=== PATIENT | male | born 1945 | race Caucasian/White ===

== ENCOUNTER → 2018-01-04 07:54 | Outpatient (CLI) | payer MEDICARE, BC, SELFPAY ==
[2018-01-04 10:19] LABS: Alanine Aminotransferase 38 IU/L (21-72); Albumin Globulin Ratio 1.7 (1.0-2.8); Alkaline Phosphatase 70 U/L (38-126); Aspartate Aminotransferase 30 IU/L (17-59); BUN Creatinine Ratio 23.8 (6-22); Bilirubin Total 0.8 mg/dL (0.2-1.3); Blood Urea Nitrogen 19 mg/dL (9-20); Calcium 9.6 mg/dL (8.4-10.2); Carbon Dioxide 32 mmol/L (22-32); Chloride 101 mmol/L (98-107); Cholesterol 156 mg/dL (140-199); Estimated Glomerular Filt Rate > 60.0 mL/min (>60); Globulin 2.3 g/dL (1.7-4.1); Glucose 92 mg/dL (80-110); HDL Cholesterol 69 mg/dL (40-60); HEMOLYSIS < 15 (0-50); LDL Cholesterol Calculated 73 mg/dL (<100); Potassium 4.3 mmol/L (3.4-5.1); Sodium 140 mmol/L (137-145); Total Protein 6.3 g/dL (6.3-8.2); Triglycerides 69 mg/dL (35-150)
[2018-01-04 10:40] LABS: Prostate Specific Antigen 0.095 ng/mL (0.10-4.00)
== END ==
PROVIDERS: PCP Internal Medicine; Visit Provider Internal Medicine
DX: Z12.5 Encounter for screening for malignant neoplasm of prostate (principal); E29.1 Testicular hypofunction; E78.2 Mixed hyperlipidemia
CPT/HCPCS: 36415; 80053; 80061; 84153

== ENCOUNTER → 2019-01-22 07:46 | Outpatient (CLI) | payer MEDICARE, BC, SELFPAY ==
[2019-01-22 09:24] LABS: Alanine Aminotransferase 32 IU/L (21-72); Albumin Globulin Ratio 1.6 (1.0-2.8); Alkaline Phosphatase 66 U/L (38-126); Aspartate Aminotransferase 33 IU/L (17-59); BUN Creatinine Ratio 27.1 (6-22); Blood Urea Nitrogen 19 mg/dL (9-20); Calcium 9.8 mg/dL (8.4-10.2); Carbon Dioxide 30 mmol/L (22-32); Chloride 102 mmol/L (98-107); Cholesterol 164 mg/dL (140-199); Estimated Glomerular Filt Rate > 60.0 mL/min (>60); Globulin 2.5 g/dL (1.7-4.1); Glucose 96 mg/dL (80-110); HDL Cholesterol 72 mg/dL (40-60); HEMOLYSIS < 15 (0-50); LDL Cholesterol Calculated 80 mg/dL (<100); Potassium 4.2 mmol/L (3.4-5.1); Sodium 139 mmol/L (137-145); Total Protein 6.5 g/dL (6.3-8.2); Triglycerides 59 mg/dL (35-150)
[2019-01-22 09:52] LABS: Prostate Specific Antigen 0.139 ng/mL (0.10-4.00)
== END ==
PROVIDERS: PCP Internal Medicine; Visit Provider Internal Medicine
DX: E29.1 Testicular hypofunction (principal)
CPT/HCPCS: 36415; 80053; 80061; 84153

== ENCOUNTER → 2019-05-04 13:34 | Outpatient (CLI) | payer MEDICARE, BC, SELFPAY ==
--- NOTE | 2019-05-04 | DI.MRI.S_ITS ---
PROCEDURE: MR KNEE LT WO CON INDICATIONS: Left knee pain TECHNIQUE: Noncontrast sagittal PD fast spin echo and T2 fast spin echo with fat saturation, sagittal 3-D FLASH with fat saturation; coronal T1 spin echo and PD fast spin echo with fat saturation, and axial PD fast spin echo with fat saturation through the knee. COMPARISON: [facility], MR, KNEE WITHOUT CONTRAST, 07/01/2016, 7:33. [facility] [place], CR, XR KNEE ARTHRITIC SERIES LT, 01/08/2019, 9:23. FINDINGS: Image quality: Excellent. Menisci: There is amorphous high signal intensity within the medial meniscal body, demonstrating superior articular surface extension. Previously seen tearing of the posterior horn medial meniscus is less apparent. There is degenerative fraying of the free edge of the posterior horn medial meniscus. Lateral meniscus demonstrates intrameniscal high signal intensity within the body, without articular surface extension, compatible with myxoid degeneration. Cruciate ligaments: The anterior and posterior cruciate ligaments appear intact. Medial structures: The medial collateral ligament appears intact. Visualized portions of the pes anserinus tendons appear normal. No abnormal bursal fluid. Lateral structures: The lateral collateral ligament, long and short heads of the biceps femoris tendon appear intact. The popliteus tendon appears normal. Iliotibial band appears normal. Anterior structures: The quadriceps and patellar tendons appear intact. Patellar alignment is normal. No femoral trochlear dysplasia or ventral trochlear prominence. No edema in the infrapatellar fat pad. Bones and cartilage: No bone marrow contusions or fractures. There is mild tricompartmental periarticular osteophyte formation. Severe articular cartilage loss overlies the weightbearing aspects of the medial femoral condyle and medial tibial plateau. Mild articular cartilage loss overlies the weightbearing aspects of the lateral femoral condyle and lateral tibial plateau. Joint space: There is a small knee joint effusion. Trace Barton's cyst. Normal appearing synovial plicae are incidentally noted. IMPRESSION: 1. Medial meniscal tearing. 2. Tricompartmental osteoarthritis with associated articular cartilage loss. 3. Knee joint effusion and trace Barton's cyst. Dictated by: Ritchie Stearns M.D. on 05/04/2019 at 14:48 Approved by: Ritchie Stearns M.D. on 05/04/2019 at 14:51
== END ==
PROVIDERS: PCP Internal Medicine; Visit Provider Orthopaedic Surgery
DX: S83.242A Other tear of medial meniscus, current injury, left knee, initial encounter (principal); M17.12 Unilateral primary osteoarthritis, left knee; M25.462 Effusion, left knee
CPT/HCPCS: 73721

== ENCOUNTER → 2020-04-07 07:44 | Outpatient (CLI) | payer MEDICARE, BC, SELFPAY ==
[2020-04-07 08:56] LABS: Alanine Aminotransferase 29 IU/L (<50); Albumin 3.9 g/dL (3.5-5.0); Albumin Globulin Ratio 1.6 (1.0-2.8); Alkaline Phosphatase 72 U/L (38-126); Aspartate Aminotransferase 31 IU/L (17-59); BUN Creatinine Ratio 26.3 (6-22); Bilirubin Total 0.7 mg/dL (0.2-1.3); Blood Urea Nitrogen 20 mg/dL (9-20); Calcium 9.5 mg/dL (8.4-10.2); Carbon Dioxide 31 mmol/L (22-32); Chloride 103 mmol/L (98-107); Cholesterol 157 mg/dL (140-199); Estimated Glomerular Filt Rate > 60.0 mL/min (>60); Globulin 2.4 g/dL (1.7-4.1); Glucose 97 mg/dL (80-110); HDL Cholesterol 66 mg/dL (40-60); HEMOLYSIS < 15 (0-50); LDL Cholesterol Calculated 74 mg/dL (<100); Potassium 4.2 mmol/L (3.4-5.1); Sodium 138 mmol/L (137-145); Total Protein 6.3 g/dL (6.3-8.2); Triglycerides 83 mg/dL (35-150)
[2020-04-07 09:27] LABS: Prostate Specific Antigen Scrn 0.099 ng/mL (0.1-4.0)
== END ==
PROVIDERS: PCP Internal Medicine; Referring Provider Internal Medicine; Visit Provider Internal Medicine
DX: E29.1 Testicular hypofunction (principal); E78.2 Mixed hyperlipidemia; J45.909 Unspecified asthma, uncomplicated; N13.8 Other obstructive and reflux uropathy; N40.1 Benign prostatic hyperplasia with lower urinary tract symptoms; Z12.5 Encounter for screening for malignant neoplasm of prostate
CPT/HCPCS: 36415; 80053; 80061; G0103

== ENCOUNTER 2021-03-19 10:30 | Outpatient (RCR) | payer MEDICARE, BC, SELFPAY ==
--- NOTE | 2020-11-12 17:23 | PT.OIE ---
Current Diagnoses Bilateral primary osteoarthritis of knee (11/12/20) Difficulty in walking, not elsewhere classified (11/12/20) Other abnormalities of gait and mobility (11/12/20) Weakness (11/12/20) Past Medical History (Last Updated 01/18/20 @ 16:42 by Juan Carlos Cesar MD) BPH w urinary obs/LUTS (~2018) Diverticulosis of large intestine (09/02/11) Gynecomastia, male Hayfever Hearing loss (09/02/11) History of adenomatous polyp of colon (10/2015) Hives Hypogonadism in male Mixed hyperlipidemia (10/21/15) Osteoporosis Past Surgical History (Last Updated 01/16/18 @ 15:35 by Vandana Rubio) History of colonoscopy with polypectomy (10/2015) History of reduction mammoplasty Visit Care Team Role Provider Type Juan Carlos Cesar MD Primary Care Provider Physician Specialty: Internal Medicine Address: [address] [place] [address], [address], [address] Email: [email or web address] Anderson MD Attending Provider Physician Referring Provider Specialty: Orthopedic Surgery Address: [address] [place] [address], [id number] Email: [email or web address] Physical Therapy Initial Evaluation PT-OP-A Visit Information Start: 11/11/20 18:05 Freq: Status: Active Protocol: Document 11/12/20 15:46 [facility] (Rec: 11/12/20 17:22 [facility] [id number]) Out-Patient Physical Therapy Visit Information Visit Information Visit Type Initial Evaluation Visit Note 06/08 Visit Start Time 16:00 Visit Stop Time 16:45 Total Visit Minutes 45 Visit Number 1 Number of DEMOLITION EXPERT Visits 0 PT-OP-B Current Condition Start: 11/11/20 18:05 Freq: Status: Active Protocol: Document 11/12/20 15:46 [facility] (Rec: 11/12/20 17:22 [facility] [id number]) Current Condition History of Current Condition Current Complaints B knee pain History of Current Condition Pt reprots the biggest challenge for him is getting up from the ground. He needs something to leverage himself up off the ground whcih elinates his ability to garden . He is wants to by able to fly fish but feels unstable and requries assist getting up in the boat. Last time he went was in 2019 d/t knees stopping him. He feels like his ROM isn't that bad. Pt reprots going up/down stairs can be difficult and on a bad day has to do step to up/down. Always uses rail. Took a long time after last meniscus surgery to be able to sleep. Pt reports his walking is limited to .5 mile with dog but mostly feels tired in legs /tired overall. Pt reports having R menisectomy in jun 2016 and having 5 sessions of PT after that surgery then 4 [place] [facility] [place] had to ask for PT after surgery. He has exercises from last bout that he still does 4-5x/week (APs, heel slides, resisted heel slides, sit<>stand, SAQ). He feels like they have helped quad strength but unsure if they have helped his knee. Prior Treatments and Tests 4-5 PT sessions after menisectomies each Treatment Goals Patient/Caregiver Goals back to fly fishing, be able to weed the garden meaning get up/down from ground, easier time w/stairs Personal Factors Other Personal Factors That May Effect osteopenia, B meniscectomy Therapy/Recovery 2016 & 2019 PT-OP-C Subjective Start: 11/11/20 18:05 Freq: Status: Active Protocol: Document 11/12/20 15:46 [facility] (Rec: 11/12/20 17:22 [facility] [id number]) Patient Questionnaires Lower Extremity Functional Scale LEFS Score 40/80 OP-PT Pain Assessment Location B knees Pain Location Details med/ant knees Scale Used worst 7/10 Description Sharp Frequency Intermittent Pain Duration 1 min-2 min Radiating Location denies Variations/Patterns sometimes painful on the lat aspect Pain Aggravating Factors Walking,Stair Climbing,Bending Other Pain Aggravating Factors getting up after rest, twerk it, up/down from ground Pain Alleviating Factors Cold Other Pain Alleviating Factors stop activity that hurt it PT-OP-D Balance Start: 11/11/20 18:05 Freq: Status: Active Protocol: Document 11/12/20 15:46 [facility] (Rec: 11/12/20 17:22 [facility] [id number]) Balance Tests Single Limb Standing Single Limb- Right 12 sec w/lat shear of hip & arm movement Single Limb- Left 11 sec w/lat shear of hip & arm movement PT-OP-F Manual Assessment Start: 11/11/20 18:05 Freq: Status: Active Protocol: Document 11/12/20 15:46 [facility] (Rec: 11/12/20 17:22 [facility] [id number]) Manual Assessments Soft Tissue Assessment Soft Tissue Mobility Assessment B:med joint Line, pes anscerine, HS, ITB, calf tenderness L: quads, adductors Joint Mobility Assessment Joint Mobility Assessment dec patellar mobility B PT-OP-G Mobility & Gait Start: 11/11/20 18:05 Freq: Status: Active Protocol: Document 11/12/20 15:46 [facility] (Rec: 11/12/20 17:22 [facility] [id number]) OP Gait Assessment Comments Gait Comments lat leaning R w/WB >L, dec push off PT-OP-J Posture/Palpation/Skin Start: 11/11/20 18:05 Freq: Status: Active Protocol: Document 11/12/20 15:46 [facility] (Rec: 11/12/20 17:22 [facility] [id number]) Posture Evaluation [facility] Postural Classification System Lumbar Protective Mechanism Left AP 2 Lumbar Protective Mechanism Right AP 0 Lumbar Protective Mechanism Left PA 2 Lumbar Protective Mechanism Right PA 2 PT-OP-K Range of Motion Start: 11/11/20 18:05 Freq: Status: Active Protocol: Document 11/12/20 15:46 [facility] (Rec: 11/12/20 17:22 [facility] [id number]) Knee Goniometric Range of Motion Knee Right Flexion Active (degrees) 110 Extension Active (degrees) 2 Comments feel it behind the knee w/ ext Left Flexion Active (degrees) 118 Extension Active (degrees) 2 Comments tight behind knee w/knee ext PT-OP-L Special Tests Start: 11/11/20 18:05 Freq: Status: Active Protocol: Document 11/12/20 15:46 [facility] (Rec: 11/12/20 17:22 [facility] [id number]) Special Tests Knee Special Tests Harshad Test Results mild tightness B Straight Leg Raise Test Results 63 L, 60 R PT-OP-M Strength Start: 11/11/20 18:05 Freq: Status: Active Protocol: Document 11/12/20 15:46 [facility] (Rec: 11/12/20 17:22 [facility] [id number]) Hip Strength Hip Manual Muscle Testing Right Flexion (L2) 4- Good- Extension (S1) 3 Fair Abduction 4- Good- Adduction 3 Fair External Rotation 4- Good- Internal Rotation 3+ Fair+ Left Flexion (L2) 3+ Fair+ Extension (S1) 3 Fair Abduction 3+ Fair+ Adduction 4- Good- External Rotation 4- Good- Internal Rotation 3+ Fair+ Comments pain w/rotations B Knee Strength Knee Manual Muscle Testing Right Flexion (S2) 4+ Good+ Extension (L3) 4- Good- Left Flexion (S2) 4+ Good+ Extension (L3) 4- Good- Ankle/Foot Strength Ankle and Foot Manual Muscle Testing Right Dorsiflexion (L4) 4 Good Plantarflexion (S1) 5 Normal Left Dorsiflexion (L4) 4 Good Plantarflexion (S1) 5 Normal Comments PF tested seated B PT-OP-Q Treatments Start: 11/11/20 18:05 Freq: Status: Active Protocol: Document 11/12/20 15:46 [facility] (Rec: 11/12/20 17:22 [facility] [id number]) Therapeutic Exercises Standing Exercises hip ext Side bilateral Equipment Used L1 Reps/Minutes 2x8 Self-Care/Home Management Treatment Education Patient Education Home Exercise Program Other Education discussed importance of glute and quad strength for pt's goals, edu re: doing Sit<> stand, SLS and hip ext resisted for HEP, PT-OP-T Assessment and Plan Start: 11/11/20 18:05 Freq: Status: Active Protocol: Document 11/12/20 15:46 [facility] (Rec: 11/12/20 17:22 [facility] [id number]) Physical Therapy Assessment Rehab Potential Rehabilitation Potential Good Impairments Impairments Activity Tolerance,Balance, Functional Activities, Functional Mobility,Gait,Pain, ROM,Soft Tissue Mobility, Strength,Transfers Goals balance Public Relations Intern Goal (LTG) Pt will be able to balance 10 sec SLS w/hands at sides and no lat shear of pelvis to show improved balance and stability and imrpoved wt acceptance for gait. LTG Duration 01/12/21 gait Short Term Goal (STG) Pt will be able to increase walking distance to 1 mile without inc pain more than 2/ 10. STG Duration 12/16/20 Public Relations Intern Goal (LTG) Pt will be able to amb without lat leaning. LTG Duration 01/12/21 stairs Short Term Goal (STG) Pt will be able to consistantly ascend stairs reciprocally without rail without inc pain. STG Duration 12/12/20 Fpc Goal (LTG) Pt will be able to consistantly descend stairs reciprocally w/o rail w/o inc pain. LTG Duration 01/12/21 activities Short Term Goal (STG) Pt will be able to get up/down from gorund w/o outside suport in order to assist w/ gardening at home. STG Duration 12/26/20 Fpc Goal (LTG) Pt will be able to go fly fishing w/o knee pain and w/o concerns re: instability LTG Duration 01/12/21 LEFS Impairment 40/80 Short Term Goal (STG) Pt will improve score to at least 50/80 to show improved funcitonal ability Fpc Goal (LTG) Pt will improve score to at least 65/80 to show improved funcitonal ability LTG Duration 01/12/21 Assessment Summary Assessment Pt presents w/B knee pain w/ history of menisectomy on each side at different points along w/imaging showing arthritis. His knees have been limiting him from activities he typically would do like gardening and fly fishing. He does have some LE edema B and was instructed to inform his primary of this. He has weakness of LE mm which likely affects his dec in ability to perform as he would like. He would benefit from skilled PT to work on these deficits to return him to his typical activities. Physical Therapy Plan Frequency and Duration Frequency of Treatment 2x/Week Duration of Treatment 2 months Plan of Care Start Date 11/12/20 Plan of Care End Date 01/12/21 Therapeutic Interventions Therapeutic Interventions Aquatic Therapy,Balance Training,Gait Training,Home Exercise Program,Joint Mobilizations,Manual Therapy, Neuromuscular Re-education, Patient/Caregiver Education, Self-Care/Home Management,Soft Tissue Mobilization,Taping, Therapeutic Activities, Therapeutic Exercises Modalities Cold Pack/Ice Massage,Electric Stimulation,Hot Packs, Infrared Therapy,Ultrasound Next Visit Focus/Plan Next Note Type Treatment Note Next Visit Plan review exercises, add further exercises (standing hip abd, supine bridge), balance board, STM to quads, teach rolling out w/rolling pin
--- NOTE | 2020-11-12 17:23 | PT.OPPOC ---
Physical, Occupational & Speech Therapy At [facility] Current Diagnoses Bilateral primary osteoarthritis of knee (11/12/20) Difficulty in walking, not elsewhere classified (11/12/20) Other abnormalities of gait and mobility (11/12/20) Weakness (11/12/20) Visit Care Team Role Provider Type Juan Carlos Cesar MD Primary Care Provider Physician Specialty: Internal Medicine Address: [address] [place] [address], [address], [place], [address] Email: [email or web address] Unruly Anderson MD Attending Provider Physician Referring Provider Specialty: Orthopedic Surgery Address: [address] [place] [address], [id number] Email: [email or web address] Plan Of Care PT-OP-T Assessment and Plan Start: 11/11/20 18:05 Freq: Status: Active Protocol: Document 11/12/20 15:46 [facility] (Rec: 11/12/20 17:22 [facility] [id number]) Physical Therapy Assessment Rehab Potential Rehabilitation Potential Good Impairments Impairments Activity Tolerance,Balance, Functional Activities, Functional Mobility,Gait,Pain, ROM,Soft Tissue Mobility, Strength,Transfers Goals balance Child Support Investigator Goal (LTG) Pt will be able to balance 10 sec SLS w/hands at sides and no lat shear of pelvis to show improved balance and stability and imrpoved wt acceptance for gait. LTG Duration 01/12/21 gait Short Term Goal (STG) Pt will be able to increase walking distance to 1 mile without inc pain more than 2/ 10. STG Duration 12/16/20 Penitentiary Goal (LTG) Pt will be able to amb without lat leaning. LTG Duration 01/12/21 stairs Short Term Goal (STG) Pt will be able to consistantly ascend stairs reciprocally without rail without inc pain. STG Duration 12/12/20 Child Support Investigator Goal (LTG) Pt will be able to consistantly descend stairs reciprocally w/o rail w/o inc pain. LTG Duration 01/12/21 activities Short Term Goal (STG) Pt will be able to get up/down from gorund w/o outside suport in order to assist w/ gardening at home. STG Duration 12/26/20 Penitentiary Goal (LTG) Pt will be able to go fly fishing w/o knee pain and w/o concerns re: instability LTG Duration 01/12/21 LEFS Impairment 40/80 Short Term Goal (STG) Pt will improve score to at least 50/80 to show improved funcitonal ability Penitentiary Goal (LTG) Pt will improve score to at least 65/80 to show improved funcitonal ability LTG Duration 01/12/21 Assessment Summary Assessment Pt presents w/B knee pain w/ history of menisectomy on each side at different points along w/imaging showing arthritis. His knees have been limiting him from activities he typically would do like gardening and fly fishing. He does have some LE edema B and was instructed to inform his primary of this. He has weakness of LE mm which likely affects his dec in ability to perform as he would like. He would benefit from skilled PT to work on these deficits to return him to his typical activities. Physical Therapy Plan Frequency and Duration Frequency of Treatment 2x/Week Duration of Treatment 2 months Plan of Care Start Date 11/12/20 Plan of Care End Date 01/12/21 Therapeutic Interventions Therapeutic Interventions Aquatic Therapy,Balance Training,Gait Training,Home Exercise Program,Joint Mobilizations,Manual Therapy, Neuromuscular Re-education, Patient/Caregiver Education, Self-Care/Home Management,Soft Tissue Mobilization,Taping, Therapeutic Activities, Therapeutic Exercises Modalities Cold Pack/Ice Massage,Electric Stimulation,Hot Packs, Infrared Therapy,Ultrasound Next Visit Focus/Plan Next Note Type Treatment Note Next Visit Plan review exercises, add further exercises (standing hip abd, supine bridge), balance board, STM to quads, teach rolling out w/rolling pin Plan of Care Dates Plan of Care Start Date 11/12/20 Plan of Care End Date 01/12/21 Electronically Signed by: Nory Noble, PT 11/12/20 [id number] Please Sign and Return: I have reviewed this Plan of Care and certify that the skilled therapy services above are required to meet the patient?s needs. Physician Signature Date Printed Name and Credentials Clinical Instructor Signature Printed Name and Credentials
--- NOTE | 2020-11-13 14:34 | PT.OTN ---
Current Diagnoses Bilateral primary osteoarthritis of knee (11/13/20) Difficulty in walking, not elsewhere classified (11/13/20) Other abnormalities of gait and mobility (11/13/20) Weakness (11/13/20) Physical Therapy Treatment Note PT-OP-A Visit Information Start: 11/11/20 18:05 Freq: Status: Active Protocol: Document 11/13/20 12:57 [facility] (Rec: 11/13/20 14:34 [facility] [id number]) Out-Patient Physical Therapy Visit Information Visit Information Visit Type Treatment Note Visit Note 07/09 Visit Start Time 13:00 Visit Stop Time 13:44 Total Visit Minutes 44 Visit Number 2 Number of INSIDE SALES ASSISTANT Visits 0 PT-OP-B Current Condition Start: 11/11/20 18:05 Freq: Status: Active Protocol: Document 11/12/20 15:46 [facility] (Rec: 11/12/20 17:22 [facility] [id number]) Current Condition History of Current Condition Current Complaints B knee pain History of Current Condition Pt reprots the biggest challenge for him is getting up from the ground. He needs something to leverage himself up off the ground whcih elinates his ability to garden . He is wants to by able to fly fish but feels unstable and requries assist getting up in the boat. Last time he went was in 2019 d/t knees stopping him. He feels like his ROM isn't that bad. Pt reprots going up/down stairs can be difficult and on a bad day has to do step to up/down. Always uses rail. Took a long time after last meniscus surgery to be able to sleep. Pt reports his walking is limited to .5 mile with dog but mostly feels tired in legs /tired overall. Pt reports having R menisectomy in jun 2016 and having 5 sessions of PT after that surgery then 4 [place] [facility] [place] ask for PT after surgery. He has exercises from last bout that he still does 4-5x/week (APs, heel slides, resisted heel slides, sit<>stand, SAQ). He feels like they have helped quad strength but unsure if they have helped his knee. Prior Treatments and Tests 4-5 PT sessions after menisectomies each Treatment Goals Patient/Caregiver Goals back to fly fishing, be able to weed the garden meaning get up/down from ground, easier time w/stairs Personal Factors Other Personal Factors That May Effect osteopenia, B meniscectomy Therapy/Recovery 2016 & 2019 PT-OP-C Subjective Start: 11/11/20 18:05 Freq: Status: Active Protocol: Document 11/13/20 12:57 [facility] (Rec: 11/13/20 14:34 [facility] [id number]) OP-PT Subjective Patient Comments Patient Comments Pt reports doing the exercises at home. the one leg balance is a challenge PT-OP-D Balance Start: 11/11/20 18:05 Freq: Status: Active Protocol: Document 11/12/20 15:46 [facility] (Rec: 11/12/20 17:22 [facility] [id number]) Balance Tests Single Limb Standing Single Limb- Right 12 sec w/lat shear of hip & arm movement Single Limb- Left 11 sec w/lat shear of hip & arm movement PT-OP-E Functional Tests Start: 11/12/20 17:24 Freq: Status: Active Protocol: Document 11/12/20 15:46 [facility] (Rec: 11/12/20 17:25 [facility] [id number]) Functional Tests 30 Second Sit to Stand Test Score 9 Five Times Sit to Stand Test Score 17sec PT-OP-F Manual Assessment Start: 11/11/20 18:05 Freq: Status: Active Protocol: Document 11/12/20 15:46 [facility] (Rec: 11/12/20 17:22 [facility] [id number]) Manual Assessments Soft Tissue Assessment Soft Tissue Mobility Assessment B:med joint Line, pes anscerine, HS, ITB, calf tenderness L: quads, adductors Joint Mobility Assessment Joint Mobility Assessment dec patellar mobility B PT-OP-G Mobility & Gait Start: 11/11/20 18:05 Freq: Status: Active Protocol: Document 11/12/20 15:46 [facility] (Rec: 11/12/20 17:22 [facility] [id number]) OP Gait Assessment Comments Gait Comments lat leaning R w/WB >L, dec push off PT-OP-J Posture/Palpation/Skin Start: 11/11/20 18:05 Freq: Status: Active Protocol: Document 11/12/20 15:46 [facility] (Rec: 11/12/20 17:22 [facility] [id number]) Posture Evaluation [facility] Postural Classification System Lumbar Protective Mechanism Left AP 2 Lumbar Protective Mechanism Right AP 0 Lumbar Protective Mechanism Left PA 2 Lumbar Protective Mechanism Right PA 2 PT-OP-K Range of Motion Start: 11/11/20 18:05 Freq: Status: Active Protocol: Document 11/12/20 15:46 [facility] (Rec: 11/12/20 17:22 [facility] [id number]) Knee Goniometric Range of Motion Knee Right Flexion Active (degrees) 110 Extension Active (degrees) 2 Comments feel it behind the knee w/ ext Left Flexion Active (degrees) 118 Extension Active (degrees) 2 Comments tight behind knee w/knee ext PT-OP-L Special Tests Start: 11/11/20 18:05 Freq: Status: Active Protocol: Document 11/12/20 15:46 [facility] (Rec: 11/12/20 17:22 [facility] [id number]) Special Tests Knee Special Tests Harshad Test Results mild tightness B Straight Leg Raise Test Results 63 L, 60 R PT-OP-M Strength Start: 11/11/20 18:05 Freq: Status: Active Protocol: Document 11/12/20 15:46 [facility] (Rec: 11/12/20 17:22 [facility] [id number]) Hip Strength Hip Manual Muscle Testing Right Flexion (L2) 4- Good- Extension (S1) 3 Fair Abduction 4- Good- Adduction 3 Fair External Rotation 4- Good- Internal Rotation 3+ Fair+ Left Flexion (L2) 3+ Fair+ Extension (S1) 3 Fair Abduction 3+ Fair+ Adduction 4- Good- External Rotation 4- Good- Internal Rotation 3+ Fair+ Comments pain w/rotations B Knee Strength Knee Manual Muscle Testing Right Flexion (S2) 4+ Good+ Extension (L3) 4- Good- Left Flexion (S2) 4+ Good+ Extension (L3) 4- Good- Ankle/Foot Strength Ankle and Foot Manual Muscle Testing Right Dorsiflexion (L4) 4 Good Plantarflexion (S1) 5 Normal Left Dorsiflexion (L4) 4 Good Plantarflexion (S1) 5 Normal Comments PF tested seated B PT-OP-Q Treatments Start: 11/11/20 18:05 Freq: Status: Active Protocol: Document 11/13/20 12:57 [facility] (Rec: 11/13/20 14:34 [facility] [id number]) Cardio Equipment Bicycle (Upright) Duration (Minutes) 5 Resistance 6 Seat Position 7 Gym Equipment Shuttle Balance blue clips Comments fwd & side: WBOS fwd: NBOS,staggered stance Therapeutic Exercises Supine Exercises bridge Side bilateral Reps/Minutes 5 sec x10 Standing Exercises side step Side bilateral Equipment Used L1 Reps/Minutes 2x20ft hip abd Side bilateral Equipment Used L1 Reps/Minutes 2x10 hip ext Side bilateral Equipment Used L1 Reps/Minutes 2x10 Manual Therapy Treatment Soft Tissue Mobilization HS Body Location R Mobilization Type Rolling,Strumming Intensity/Depth Moderate adductors Body Location L Mobilization Type Rolling Intensity/Depth Moderate Body Position Supine quad Body Location med VMO border L Mobilization Type Rolling,Strumming Intensity/Depth Moderate Body Position Supine Neuro Re-Education Treatment Balance Activities tandem stance Details trials B SLS Details in mirror working on no lean or lat shear of pelvis PT-OP-T Assessment and Plan Start: 11/11/20 18:05 Freq: Status: Active Protocol: Document 11/13/20 12:57 [facility] (Rec: 11/13/20 14:34 [facility] [id number]) Physical Therapy Assessment Goals balance Airport Screener Goal (LTG) Pt will be able to balance 10 sec SLS w/hands at sides and no lat shear of pelvis to show improved balance and stability and imrpoved wt acceptance for gait. LTG Duration 01/12/21 gait Short Term Goal (STG) Pt will be able to increase walking distance to 1 mile without inc pain more than 2/ 10. STG Duration 12/16/20 Airport Screener Goal (LTG) Pt will be able to amb without lat leaning. LTG Duration 01/12/21 stairs Short Term Goal (STG) Pt will be able to consistantly ascend stairs reciprocally without rail without inc pain. STG Duration 12/12/20 Airport Screener Goal (LTG) Pt will be able to consistantly descend stairs reciprocally w/o rail w/o inc pain. LTG Duration 01/12/21 activities Short Term Goal (STG) Pt will be able to get up/down from gorund w/o outside suport in order to assist w/ gardening at home. STG Duration 12/26/20 Airport Screener Goal (LTG) Pt will be able to go fly fishing w/o knee pain and w/o concerns re: instability LTG Duration 01/12/21 LEFS Impairment 40/80 Short Term Goal (STG) Pt will improve score to at least 50/80 to show improved funcitonal ability Airport Screener Goal (LTG) Pt will improve score to at least 65/80 to show improved funcitonal ability LTG Duration 01/12/21 Assessment Summary Assessment Pt did well with exercises with less cueing needed for hip ext exercises. He had no c /o pain with exercise but was signfiicantly challenged with balance activities. Physical Therapy Plan Frequency and Duration Frequency of Treatment 2x/Week Duration of Treatment 2 months Plan of Care Start Date 11/12/20 Plan of Care End Date 01/12/21 Next Visit Focus/Plan Next Note Type Treatment Note Next Visit Plan review exercises, balance board, teach rolling pin, STM to mm, balance exercises
--- NOTE | 2020-11-19 16:48 | PT.OTN ---
Current Diagnoses Bilateral primary osteoarthritis of knee (11/19/20) Difficulty in walking, not elsewhere classified (11/19/20) Other abnormalities of gait and mobility (11/19/20) Weakness (11/19/20) Physical Therapy Treatment Note PT-OP-A Visit Information Start: 11/11/20 18:05 Freq: Status: Active Protocol: Document 11/19/20 16:04 [facility] (Rec: 11/19/20 16:48 [facility] [id number]) Out-Patient Physical Therapy Visit Information Visit Information Visit Type Treatment Note Visit Note 08/06 Visit Start Time 16:05 Visit Stop Time 16:45 Total Visit Minutes 40 Visit Number 3 Number of MANAGER CLIENT SUPPORT Visits 0 PT-OP-B Current Condition Start: 11/11/20 18:05 Freq: Status: Active Protocol: Document 11/12/20 15:46 [facility] (Rec: 11/12/20 17:22 [facility] [id number]) Current Condition History of Current Condition Current Complaints B knee pain History of Current Condition Pt reprots the biggest challenge for him is getting up from the ground. He needs something to leverage himself up off the ground whcih elinates his ability to garden . He is wants to by able to fly fish but feels unstable and requries assist getting up in the boat. Last time he went was in 2019 d/t knees stopping him. He feels like his ROM isn't that bad. Pt reprots going up/down stairs can be difficult and on a bad day has to do step to up/down. Always uses rail. Took a long time after last meniscus surgery to be able to sleep. Pt reports his walking is limited to .5 mile with dog but mostly feels tired in legs /tired overall. Pt reports having R menisectomy in jun 2016 and having 5 sessions of PT after that surgery then [place] [facility] [place]. He has exercises from last bout that he still does 4-5x/week (APs, heel slides, resisted heel slides, sit<>stand, SAQ). He feels like they have helped quad strength but unsure if they have helped his knee. Prior Treatments and Tests 4-5 PT sessions after menisectomies each Treatment Goals Patient/Caregiver Goals back to fly fishing, be able to weed the garden meaning get up/down from ground, easier time w/stairs Personal Factors Other Personal Factors That May Effect osteopenia, B meniscectomy Therapy/Recovery 2016 & 2019 PT-OP-C Subjective Start: 11/11/20 18:05 Freq: Status: Active Protocol: Document 11/19/20 16:04 [facility] (Rec: 11/19/20 16:48 [facility] [id number]) OP-PT Subjective Patient Comments Patient Comments Pt reports exercises going okay. Pt reports he has a hard time w/band d/t it rolling up and it hurts. SLS still a challenge. Notes just mm soreness after last session. PT-OP-D Balance Start: 11/11/20 18:05 Freq: Status: Active Protocol: Document 11/12/20 15:46 [facility] (Rec: 11/12/20 17:22 [facility] [id number]) Balance Tests Single Limb Standing Single Limb- Right 12 sec w/lat shear of hip & arm movement Single Limb- Left 11 sec w/lat shear of hip & arm movement PT-OP-E Functional Tests Start: 11/12/20 17:24 Freq: Status: Active Protocol: Document 11/12/20 15:46 [facility] (Rec: 11/12/20 17:25 [facility] [id number]) Functional Tests 30 Second Sit to Stand Test Score 9 Five Times Sit to Stand Test Score 17sec PT-OP-F Manual Assessment Start: 11/11/20 18:05 Freq: Status: Active Protocol: Document 11/12/20 15:46 [facility] (Rec: 11/12/20 17:22 [facility] [id number]) Manual Assessments Soft Tissue Assessment Soft Tissue Mobility Assessment B:med joint Line, pes anscerine, HS, ITB, calf tenderness L: quads, adductors Joint Mobility Assessment Joint Mobility Assessment dec patellar mobility B PT-OP-G Mobility & Gait Start: 11/11/20 18:05 Freq: Status: Active Protocol: Document 11/12/20 15:46 [facility] (Rec: 11/12/20 17:22 [facility] [id number]) OP Gait Assessment Comments Gait Comments lat leaning R w/WB >L, dec push off PT-OP-J Posture/Palpation/Skin Start: 11/11/20 18:05 Freq: Status: Active Protocol: Document 11/12/20 15:46 [facility] (Rec: 11/12/20 17:22 [facility] [id number]) Posture Evaluation [facility] Postural Classification System Lumbar Protective Mechanism Left AP 2 Lumbar Protective Mechanism Right AP 0 Lumbar Protective Mechanism Left PA 2 Lumbar Protective Mechanism Right PA 2 PT-OP-K Range of Motion Start: 11/11/20 18:05 Freq: Status: Active Protocol: Document 11/12/20 15:46 [facility] (Rec: 11/12/20 17:22 [facility] [id number]) Knee Goniometric Range of Motion Knee Right Flexion Active (degrees) 110 Extension Active (degrees) 2 Comments feel it behind the knee w/ ext Left Flexion Active (degrees) 118 Extension Active (degrees) 2 Comments tight behind knee w/knee ext PT-OP-L Special Tests Start: 11/11/20 18:05 Freq: Status: Active Protocol: Document 11/12/20 15:46 [facility] (Rec: 11/12/20 17:22 [facility] [id number]) Special Tests Knee Special Tests Harshad Test Results mild tightness B Straight Leg Raise Test Results 63 L, 60 R PT-OP-M Strength Start: 11/11/20 18:05 Freq: Status: Active Protocol: Document 11/12/20 15:46 [facility] (Rec: 11/12/20 17:22 [facility] [id number]) Hip Strength Hip Manual Muscle Testing Right Flexion (L2) 4- Good- Extension (S1) 3 Fair Abduction 4- Good- Adduction 3 Fair External Rotation 4- Good- Internal Rotation 3+ Fair+ Left Flexion (L2) 3+ Fair+ Extension (S1) 3 Fair Abduction 3+ Fair+ Adduction 4- Good- External Rotation 4- Good- Internal Rotation 3+ Fair+ Comments pain w/rotations B Knee Strength Knee Manual Muscle Testing Right Flexion (S2) 4+ Good+ Extension (L3) 4- Good- Left Flexion (S2) 4+ Good+ Extension (L3) 4- Good- Ankle/Foot Strength Ankle and Foot Manual Muscle Testing Right Dorsiflexion (L4) 4 Good Plantarflexion (S1) 5 Normal Left Dorsiflexion (L4) 4 Good Plantarflexion (S1) 5 Normal Comments PF tested seated B PT-OP-Q Treatments Start: 11/11/20 18:05 Freq: Status: Active Protocol: Document 11/19/20 16:04 [facility] (Rec: 11/19/20 16:48 [facility] [id number]) Cardio Equipment Bicycle (Upright) Duration (Minutes) 5 Resistance 7 Seat Position 7 Gym Equipment Shuttle Recovery Bilateral Squats Resistance 75#, 100# Shuttle Recovery Platform Stable Reps/Time 2x15 Shuttle Balance blue clips Comments fwd & side: WBOS fwd: NBOS,staggered stance Therapeutic Exercises Supine Exercises bridge Supine Exercise Name arms in air Side bilateral Reps/Minutes 5 sec x10 Standing Exercises stretch Standing Exercise Name 1. calf on step 2. HS on step Side bilateral Reps/Minutes 30 sec ea heel raises Side bilateral Reps/Minutes 20 side step Side bilateral Equipment Used L3 Reps/Minutes 2x20ft hip abd Side bilateral Equipment Used L3 Reps/Minutes 10 hip ext Side bilateral Equipment Used L3 Reps/Minutes x10 Manual Therapy Treatment Soft Tissue Mobilization ITB Body Location L Mobilization Type Rolling Intensity/Depth Moderate HS Body Location R Mobilization Type Rolling,Strumming Intensity/Depth Moderate PT-OP-T Assessment and Plan Start: 11/11/20 18:05 Freq: Status: Active Protocol: Document 11/19/20 16:04 [facility] (Rec: 11/19/20 16:48 [facility] [id number]) Physical Therapy Assessment Goals balance Snf Goal (LTG) Pt will be able to balance 10 sec SLS w/hands at sides and no lat shear of pelvis to show improved balance and stability and imrpoved wt acceptance for gait. LTG Duration 01/12/21 gait Short Term Goal (STG) Pt will be able to increase walking distance to 1 mile without inc pain more than 2/ 10. STG Duration 12/16/20 Snf Goal (LTG) Pt will be able to amb without lat leaning. LTG Duration 01/12/21 stairs Short Term Goal (STG) Pt will be able to consistantly ascend stairs reciprocally without rail without inc pain. STG Duration 12/12/20 Health Care Specialist Goal (LTG) Pt will be able to consistantly descend stairs reciprocally w/o rail w/o inc pain. LTG Duration 01/12/21 activities Short Term Goal (STG) Pt will be able to get up/down from gorund w/o outside suport in order to assist w/ gardening at home. STG Duration 12/26/20 Health Care Specialist Goal (LTG) Pt will be able to go fly fishing w/o knee pain and w/o concerns re: instability LTG Duration 01/12/21 LEFS Impairment 40/80 Short Term Goal (STG) Pt will improve score to at least 50/80 to show improved funcitonal ability Snf Goal (LTG) Pt will improve score to at least 65/80 to show improved funcitonal ability LTG Duration 01/12/21 Assessment Summary Assessment Pt did better with balance board today but sitll had difficulty w/side facing position. Inc in resistance went well without inc pain and less irritation of band. Physical Therapy Plan Frequency and Duration Frequency of Treatment 2x/Week Duration of Treatment 2 months Plan of Care Start Date 11/12/20 Plan of Care End Date 01/12/21 Next Visit Focus/Plan Next Note Type Treatment Note Next Visit Plan progress exercises as tolerated, add head turns w/ balance board, teach rolling pin, STM to mm
--- NOTE | 2020-11-24 12:50 | PT.OTN ---
Current Diagnoses Bilateral primary osteoarthritis of knee (11/24/20) Difficulty in walking, not elsewhere classified (11/24/20) Other abnormalities of gait and mobility (11/24/20) Weakness (11/24/20) Physical Therapy Treatment Note PT-OP-A Visit Information Start: 11/11/20 18:05 Freq: Status: Active Protocol: Document 11/24/20 11:15 OF (Rec: 11/24/20 12:50 OF [email or web address]) Out-Patient Physical Therapy Visit Information Visit Information Visit Type Treatment Note Visit Note 09/06 Visit Start Time 10:30 Visit Stop Time 11:15 Total Visit Minutes 45 Visit Number 4 PT-OP-B Current Condition Start: 11/11/20 18:05 Freq: Status: Active Protocol: Document 11/12/20 15:46 [facility] (Rec: 11/12/20 17:22 [facility] [id number]) Current Condition History of Current Condition Current Complaints B knee pain History of Current Condition Pt reprots the biggest challenge for him is getting up from the ground. He needs something to leverage himself up off the ground whcih elinates his ability to garden . He is wants to by able to fly fish but feels unstable and requries assist getting up in the boat. Last time he went was in 2019 d/t knees stopping him. He feels like his ROM isn't that bad. Pt reprots going up/down stairs can be difficult and on a bad day has to do step to up/down. Always uses rail. Took a long time after last meniscus surgery to be able to sleep. Pt reports his walking is limited to .5 mile with dog but mostly feels tired in legs /tired overall. Pt reports having R menisectomy in jun 2016 and having 5 sessions of PT after that surgery then 4 sessions after L menisectomy in 2019 at [facility] but had to ask for PT after surgery. He has exercises from last bout that he still does 4-5x/week (APs, heel slides, resisted heel slides, sit<>stand, SAQ). He feels like they have helped quad strength but unsure if they have helped his knee. Prior Treatments and Tests 4-5 PT sessions after menisectomies each Treatment Goals Patient/Caregiver Goals back to fly fishing, be able to weed the garden meaning get up/down from ground, easier time w/stairs Personal Factors Other Personal Factors That May Effect osteopenia, B meniscectomy Therapy/Recovery 2016 & 2019 PT-OP-C Subjective Start: 11/11/20 18:05 Freq: Status: Active Protocol: Document 11/24/20 11:15 OF (Rec: 11/24/20 12:50 OF [email or web address]) OP-PT Subjective Patient Comments Patient Comments Pt reports exercises going okay. Pt reports he has a hard time w/band because it rolling up and it hurting ankles. Patient Reported Progress Improving OP-PT Pain Assessment Pain Assessment Grid Paper Pain Assessment Grid Completed No Location B knees Pain Location Details med/ant knees Intensity 2 Scale Used worst 7/10 Description Aching,Sharp Frequency Intermittent Pain Duration 1 min-2 min Radiating Location denies Variations/Patterns sometimes painful on the lat aspect Pain Aggravating Factors Walking,Stair Climbing,Bending Pain Alleviating Factors Cold Other Pain Alleviating Factors stop activity that hurt it PT-OP-D Balance Start: 11/11/20 18:05 Freq: Status: Active Protocol: Document 11/12/20 15:46 [facility] (Rec: 11/12/20 17:22 [facility] [id number]) Balance Tests Single Limb Standing Single Limb- Right 12 sec w/lat shear of hip & arm movement Single Limb- Left 11 sec w/lat shear of hip & arm movement PT-OP-E Functional Tests Start: 11/12/20 17:24 Freq: Status: Active Protocol: Document 11/12/20 15:46 [facility] (Rec: 11/12/20 17:25 [facility] [id number]) Functional Tests 30 Second Sit to Stand Test Score 9 Five Times Sit to Stand Test Score 17sec PT-OP-F Manual Assessment Start: 11/11/20 18:05 Freq: Status: Active Protocol: Document 11/12/20 15:46 [facility] (Rec: 11/12/20 17:22 [facility] [id number]) Manual Assessments Soft Tissue Assessment Soft Tissue Mobility Assessment B:med joint Line, pes anscerine, HS, ITB, calf tenderness L: quads, adductors Joint Mobility Assessment Joint Mobility Assessment dec patellar mobility B PT-OP-G Mobility & Gait Start: 11/11/20 18:05 Freq: Status: Active Protocol: Document 11/12/20 15:46 [facility] (Rec: 11/12/20 17:22 [facility] [id number]) OP Gait Assessment Comments Gait Comments lat leaning R w/WB >L, dec push off PT-OP-J Posture/Palpation/Skin Start: 11/11/20 18:05 Freq: Status: Active Protocol: Document 11/12/20 15:46 [facility] (Rec: 11/12/20 17:22 [facility] [id number]) Posture Evaluation [facility] Postural Classification System Lumbar Protective Mechanism Left AP 2 Lumbar Protective Mechanism Right AP 0 Lumbar Protective Mechanism Left PA 2 Lumbar Protective Mechanism Right PA 2 PT-OP-K Range of Motion Start: 11/11/20 18:05 Freq: Status: Active Protocol: Document 11/12/20 15:46 [facility] (Rec: 11/12/20 17:22 [facility] [id number]) Knee Goniometric Range of Motion Knee Right Flexion Active (degrees) 110 Extension Active (degrees) 2 Comments feel it behind the knee w/ ext Left Flexion Active (degrees) 118 Extension Active (degrees) 2 Comments tight behind knee w/knee ext PT-OP-L Special Tests Start: 11/11/20 18:05 Freq: Status: Active Protocol: Document 11/12/20 15:46 [facility] (Rec: 11/12/20 17:22 [facility] [id number]) Special Tests Knee Special Tests Harshad Test Results mild tightness B Straight Leg Raise Test Results 63 L, 60 R PT-OP-M Strength Start: 11/11/20 18:05 Freq: Status: Active Protocol: Document 11/12/20 15:46 [facility] (Rec: 11/12/20 17:22 [facility] [id number]) Hip Strength Hip Manual Muscle Testing Right Flexion (L2) 4- Good- Extension (S1) 3 Fair Abduction 4- Good- Adduction 3 Fair External Rotation 4- Good- Internal Rotation 3+ Fair+ Left Flexion (L2) 3+ Fair+ Extension (S1) 3 Fair Abduction 3+ Fair+ Adduction 4- Good- External Rotation 4- Good- Internal Rotation 3+ Fair+ Comments pain w/rotations B Knee Strength Knee Manual Muscle Testing Right Flexion (S2) 4+ Good+ Extension (L3) 4- Good- Left Flexion (S2) 4+ Good+ Extension (L3) 4- Good- Ankle/Foot Strength Ankle and Foot Manual Muscle Testing Right Dorsiflexion (L4) 4 Good Plantarflexion (S1) 5 Normal Left Dorsiflexion (L4) 4 Good Plantarflexion (S1) 5 Normal Comments PF tested seated B PT-OP-Q Treatments Start: 11/11/20 18:05 Freq: Status: Active Protocol: Document 11/24/20 11:15 OF (Rec: 11/24/20 12:50 OF [email or web address]) Cardio Equipment Bicycle (Upright) Duration (Minutes) 10 Resistance 8 Seat Position 7 Gym Equipment Shuttle Recovery Bilateral Squats Resistance 75# Shuttle Recovery Platform Stable Reps/Time 3x15 Shuttle Balance blue clips Reps/Duration 2x1min,2x1min Comments fwd & side: WBOS fwd: NBOS,staggered stance Therapeutic Exercises Sitting Exercises LAQ Side bilateral Resistance 5# Reps/Minutes 3x10 Comments eccentric focus Standing Exercises heel raises Side bilateral Reps/Minutes 20 hip abd Side bilateral Equipment Used L3 Reps/Minutes 10 hip ext Side bilateral Equipment Used L3 Reps/Minutes x10 Self-Care/Home Management Treatment Education Patient Education Home Exercise Program,Pain Management PT-OP-T Assessment and Plan Start: 11/11/20 18:05 Freq: Status: Active Protocol: Document 11/24/20 11:15 OF (Rec: 11/24/20 12:50 OF [email or web address]) Physical Therapy Assessment Rehab Potential Rehabilitation Potential Good Evaluation Complexity Number of Personal Factors/Comorbidities 1-2 Number of Body Systems Impaired 1-2 Impairments Impairments Activity Tolerance,Gait,ROM, Strength Goals balance Senior Technical Recruiter Goal (LTG) Pt will be able to balance 10 sec SLS w/hands at sides and no lat shear of pelvis to show improved balance and stability and imrpoved wt acceptance for gait. LTG Duration 01/12/21 gait Short Term Goal (STG) Pt will be able to increase walking distance to 1 mile without inc pain more than 2/ 10. STG Duration 12/16/20 Residential Goal (LTG) Pt will be able to amb without lat leaning. LTG Duration 01/12/21 stairs Short Term Goal (STG) Pt will be able to consistantly ascend stairs reciprocally without rail without inc pain. STG Duration 12/12/20 Senior Technical Recruiter Goal (LTG) Pt will be able to consistantly descend stairs reciprocally w/o rail w/o inc pain. LTG Duration 01/12/21 activities Short Term Goal (STG) Pt will be able to get up/down from gorund w/o outside suport in order to assist w/ gardening at home. STG Duration 12/26/20 Senior Technical Recruiter Goal (LTG) Pt will be able to go fly fishing w/o knee pain and w/o concerns re: instability LTG Duration 01/12/21 LEFS Impairment 40/80 Short Term Goal (STG) Pt will improve score to at least 50/80 to show improved funcitonal ability Senior Technical Recruiter Goal (LTG) Pt will improve score to at least 65/80 to show improved funcitonal ability LTG Duration 01/12/21 Progress Towards Goals Progress Towards Goals Progressing Toward Goals Assessment Summary Assessment Pt did better with balance board today but has difficulty with lateral weightshifting. He is agreeable to weighted LAQ for improved quad recruitment. He is progressing with activity tolerance Physical Therapy Plan Frequency and Duration Frequency of Treatment 2x/Week Plan of Care Start Date 11/12/20 Plan of Care End Date 01/12/21 Next Visit Focus/Plan Next Note Type Treatment Note Next Visit Plan progress exercises as tolerated, add head turns w/ balance board, teach rolling pin, advance quad strenghtening
--- NOTE | 2020-11-26 17:47 | PT.OTN ---
Current Diagnoses Bilateral primary osteoarthritis of knee (11/26/20) Difficulty in walking, not elsewhere classified (11/26/20) Other abnormalities of gait and mobility (11/26/20) Weakness (11/26/20) Physical Therapy Treatment Note PT-OP-A Visit Information Start: 11/11/20 18:05 Freq: Status: Active Protocol: Document 11/26/20 16:53 [facility] (Rec: 11/26/20 17:47 [facility] [id number]) Out-Patient Physical Therapy Visit Information Visit Information Visit Type Treatment Note Visit Note 10/06 Visit Start Time 16:51 Visit Stop Time 17:31 Total Visit Minutes 40 Visit Number 5 Number of ACCOUNT DEVELOPMENT EXECUTIVE Visits 0 PT-OP-B Current Condition Start: 11/11/20 18:05 Freq: Status: Active Protocol: Document 11/12/20 15:46 [facility] (Rec: 11/12/20 17:22 [facility] [id number]) Current Condition History of Current Condition Current Complaints B knee pain History of Current Condition Pt reprots the biggest challenge for him is getting up from the ground. He needs something to leverage himself up off the ground whcih elinates his ability to garden . He is wants to by able to fly fish but feels unstable and requries assist getting up in the boat. Last time he went was in 2019 d/t knees stopping him. He feels like his ROM isn't that bad. Pt reprots going up/down stairs can be difficult and on a bad day has to do step to up/down. Always uses rail. Took a long time after last meniscus surgery to be able to sleep. Pt reports his walking is limited to .5 mile with dog but mostly feels tired in legs /tired overall. Pt reports having R menisectomy in jun 2016 and having 5 sessions of PT after that surgery then 4 sessions after [place] 2019 [place] [facility] [place] had to ask for PT after surgery. He has exercises from last bout that he still does 4-5x/week (APs, heel slides, resisted heel slides, sit<>stand, SAQ). He feels like they have helped quad strength but unsure if they have helped his knee. Prior Treatments and Tests 4-5 PT sessions after menisectomies each Treatment Goals Patient/Caregiver Goals back to fly fishing, be able to weed the garden meaning get up/down from ground, easier time w/stairs Personal Factors Other Personal Factors That May Effect osteopenia, B meniscectomy Therapy/Recovery 2016 & 2019 PT-OP-C Subjective Start: 11/11/20 18:05 Freq: Status: Active Protocol: Document 11/26/20 16:53 [facility] (Rec: 11/26/20 17:47 [facility] [id number]) OP-PT Subjective Patient Comments Patient Comments Pt reports he has figured out the band better. Reports like he is more limber. Patient Reported Progress Improving PT-OP-D Balance Start: 11/11/20 18:05 Freq: Status: Active Protocol: Document 11/12/20 15:46 [facility] (Rec: 11/12/20 17:22 [facility] [id number]) Balance Tests Single Limb Standing Single Limb- Right 12 sec w/lat shear of hip & arm movement Single Limb- Left 11 sec w/lat shear of hip & arm movement PT-OP-E Functional Tests Start: 11/12/20 17:24 Freq: Status: Active Protocol: Document 11/12/20 15:46 [facility] (Rec: 11/12/20 17:25 [facility] [id number]) Functional Tests 30 Second Sit to Stand Test Score 9 Five Times Sit to Stand Test Score 17sec PT-OP-F Manual Assessment Start: 11/11/20 18:05 Freq: Status: Active Protocol: Document 11/12/20 15:46 [facility] (Rec: 11/12/20 17:22 [facility] [id number]) Manual Assessments Soft Tissue Assessment Soft Tissue Mobility Assessment B:med joint Line, pes anscerine, HS, ITB, calf tenderness L: quads, adductors Joint Mobility Assessment Joint Mobility Assessment dec patellar mobility B PT-OP-G Mobility & Gait Start: 11/11/20 18:05 Freq: Status: Active Protocol: Document 11/12/20 15:46 [facility] (Rec: 11/12/20 17:22 [facility] [id number]) OP Gait Assessment Comments Gait Comments lat leaning R w/WB >L, dec push off PT-OP-J Posture/Palpation/Skin Start: 11/11/20 18:05 Freq: Status: Active Protocol: Document 11/12/20 15:46 [facility] (Rec: 11/12/20 17:22 [facility] [id number]) Posture Evaluation [facility] Postural Classification System Lumbar Protective Mechanism Left AP 2 Lumbar Protective Mechanism Right AP 0 Lumbar Protective Mechanism Left PA 2 Lumbar Protective Mechanism Right PA 2 PT-OP-K Range of Motion Start: 11/11/20 18:05 Freq: Status: Active Protocol: Document 11/12/20 15:46 [facility] (Rec: 11/12/20 17:22 [facility] [id number]) Knee Goniometric Range of Motion Knee Right Flexion Active (degrees) 110 Extension Active (degrees) 2 Comments feel it behind the knee w/ ext Left Flexion Active (degrees) 118 Extension Active (degrees) 2 Comments tight behind knee w/knee ext PT-OP-L Special Tests Start: 11/11/20 18:05 Freq: Status: Active Protocol: Document 11/12/20 15:46 [facility] (Rec: 11/12/20 17:22 [facility] [id number]) Special Tests Knee Special Tests Harshad Test Results mild tightness B Straight Leg Raise Test Results 63 L, 60 R PT-OP-M Strength Start: 11/11/20 18:05 Freq: Status: Active Protocol: Document 11/12/20 15:46 [facility] (Rec: 11/12/20 17:22 [facility] [id number]) Hip Strength Hip Manual Muscle Testing Right Flexion (L2) 4- Good- Extension (S1) 3 Fair Abduction 4- Good- Adduction 3 Fair External Rotation 4- Good- Internal Rotation 3+ Fair+ Left Flexion (L2) 3+ Fair+ Extension (S1) 3 Fair Abduction 3+ Fair+ Adduction 4- Good- External Rotation 4- Good- Internal Rotation 3+ Fair+ Comments pain w/rotations B Knee Strength Knee Manual Muscle Testing Right Flexion (S2) 4+ Good+ Extension (L3) 4- Good- Left Flexion (S2) 4+ Good+ Extension (L3) 4- Good- Ankle/Foot Strength Ankle and Foot Manual Muscle Testing Right Dorsiflexion (L4) 4 Good Plantarflexion (S1) 5 Normal Left Dorsiflexion (L4) 4 Good Plantarflexion (S1) 5 Normal Comments PF tested seated B PT-OP-Q Treatments Start: 11/11/20 18:05 Freq: Status: Active Protocol: Document 11/26/20 16:53 [facility] (Rec: 11/26/20 17:47 [facility] [id number]) Cardio Equipment Bicycle (Upright) Duration (Minutes) 5 Resistance 10 Seat Position 7 Gym Equipment Shuttle Balance blue clips Details w/head turns except side NBOS Comments fwd & side: WBOS & NBOS fwd: staggered stance Therapeutic Exercises Sitting Exercises LAQ Side bilateral Resistance 5# Reps/Minutes 2x10 Comments eccentric focus Standing Exercises step up Side bilateral Reps/Minutes 15 Comments focus on knee position and no lat trunk lean squat Standing Exercise Name rail w/chair behind Side bilateral Reps/Minutes 15 Comments mini focus on knee position heel raises Standing Exercise Name on step Side bilateral Reps/Minutes 20 Manual Therapy Treatment Soft Tissue Mobilization ITB Body Location L Mobilization Type Rolling Intensity/Depth Moderate HS Body Location b Mobilization Type Rolling,Strumming Intensity/Depth Moderate PT-OP-T Assessment and Plan Start: 11/11/20 18:05 Freq: Status: Active Protocol: Document 11/26/20 16:53 [facility] (Rec: 11/26/20 17:47 [facility] [id number]) Physical Therapy Assessment Goals balance In Store Marketing Representative Goal (LTG) Pt will be able to balance 10 sec SLS w/hands at sides and no lat shear of pelvis to show improved balance and stability and imrpoved wt acceptance for gait. LTG Duration 01/12/21 gait Short Term Goal (STG) Pt will be able to increase walking distance to 1 mile without inc pain more than 2/ 10. STG Duration 12/16/20 In Store Marketing Representative Goal (LTG) Pt will be able to amb without lat leaning. LTG Duration 01/12/21 stairs Short Term Goal (STG) Pt will be able to consistantly ascend stairs reciprocally without rail without inc pain. STG Duration 12/12/20 In Store Marketing Representative Goal (LTG) Pt will be able to consistantly descend stairs reciprocally w/o rail w/o inc pain. LTG Duration 01/12/21 activities Short Term Goal (STG) Pt will be able to get up/down from gorund w/o outside suport in order to assist w/ gardening at home. STG Duration 12/26/20 In Store Marketing Representative Goal (LTG) Pt will be able to go fly fishing w/o knee pain and w/o concerns re: instability LTG Duration 01/12/21 LEFS Impairment 40/80 Short Term Goal (STG) Pt will improve score to at least 50/80 to show improved funcitonal ability In Store Marketing Representative Goal (LTG) Pt will improve score to at least 65/80 to show improved funcitonal ability LTG Duration 01/12/21 Assessment Summary Assessment Pt cont to improve w/balance board and was able to do well even w/head turns today on blue clips. Cueing needing with squats and step ups for form. Physical Therapy Plan Frequency and Duration Frequency of Treatment 2x/Week Duration of Treatment 2 months Plan of Care Start Date 11/12/20 Plan of Care End Date 01/12/21 Next Visit Focus/Plan Next Note Type Treatment Note Next Visit Plan Red clips, cont to work on quad and glute strength
--- NOTE | 2020-12-03 14:29 | PT.OTN ---
Current Diagnoses Bilateral primary osteoarthritis of knee (12/03/20) Difficulty in walking, not elsewhere classified (12/03/20) Other abnormalities of gait and mobility (12/03/20) Weakness (12/03/20) Physical Therapy Treatment Note PT-OP-A Visit Information Start: 11/11/20 18:05 Freq: Status: Active Protocol: Document 12/03/20 14:24 OF (Rec: 12/03/20 14:29 OF [id number]) Out-Patient Physical Therapy Visit Information Visit Information Visit Type Treatment Note Visit Note 11/06 Visit Start Time 13:46 Visit Stop Time 14:24 Total Visit Minutes 38 Visit Number 6 PT-OP-B Current Condition Start: 11/11/20 18:05 Freq: Status: Active Protocol: Document 11/12/20 15:46 [facility] (Rec: 11/12/20 17:22 [facility] [id number]) Current Condition History of Current Condition Current Complaints B knee pain History of Current Condition Pt reprots the biggest challenge for him is getting up from the ground. He needs something to leverage himself up off the ground whcih elinates his ability to garden . He is wants to by able to fly fish but feels unstable and requries assist getting up in the boat. Last time he went was in 2019 d/t knees stopping him. He feels like his ROM isn't that bad. Pt reprots going up/down stairs can be difficult and on a bad day has to do step to up/down. Always uses rail. Took a long time after last meniscus surgery to be able to sleep. Pt reports his walking is limited to .5 mile with dog but mostly feels tired in legs /tired overall. Pt reports having R menisectomy in jun 2016 and having 5 sessions of PT after that surgery then 4 [place] [facility] [place] ask for PT after surgery. He has exercises from last bout that he still does 4-5x/week (APs, heel slides, resisted heel slides, sit<>stand, SAQ). He feels like they have helped quad strength but unsure if they have helped his knee. Prior Treatments and Tests 4-5 PT sessions after menisectomies each Treatment Goals Patient/Caregiver Goals back to fly fishing, be able to weed the garden meaning get up/down from ground, easier time w/stairs Personal Factors Other Personal Factors That May Effect osteopenia, B meniscectomy Therapy/Recovery 2016 & 2019 PT-OP-C Subjective Start: 11/11/20 18:05 Freq: Status: Active Protocol: Document 12/03/20 14:24 OF (Rec: 12/03/20 14:29 OF [id number]) OP-PT Subjective Patient Comments Patient Comments pt states his knee has been feeling better, no pain post tx last week Patient Reported Progress Improving OP-PT Pain Assessment Pain Assessment Grid Paper Pain Assessment Grid Completed No: pt denies pain today PT-OP-D Balance Start: 11/11/20 18:05 Freq: Status: Active Protocol: Document 11/12/20 15:46 [facility] (Rec: 11/12/20 17:22 [facility] [id number]) Balance Tests Single Limb Standing Single Limb- Right 12 sec w/lat shear of hip & arm movement Single Limb- Left 11 sec w/lat shear of hip & arm movement PT-OP-E Functional Tests Start: 11/12/20 17:24 Freq: Status: Active Protocol: Document 11/12/20 15:46 [facility] (Rec: 11/12/20 17:25 [facility] [id number]) Functional Tests 30 Second Sit to Stand Test Score 9 Five Times Sit to Stand Test Score 17sec PT-OP-F Manual Assessment Start: 11/11/20 18:05 Freq: Status: Active Protocol: Document 11/12/20 15:46 [facility] (Rec: 11/12/20 17:22 [facility] [id number]) Manual Assessments Soft Tissue Assessment Soft Tissue Mobility Assessment B:med joint Line, pes anscerine, HS, ITB, calf tenderness L: quads, adductors Joint Mobility Assessment Joint Mobility Assessment dec patellar mobility B PT-OP-G Mobility & Gait Start: 11/11/20 18:05 Freq: Status: Active Protocol: Document 11/12/20 15:46 [facility] (Rec: 11/12/20 17:22 [facility] [id number]) OP Gait Assessment Comments Gait Comments lat leaning R w/WB >L, dec push off PT-OP-J Posture/Palpation/Skin Start: 11/11/20 18:05 Freq: Status: Active Protocol: Document 11/12/20 15:46 [facility] (Rec: 11/12/20 17:22 [facility] [id number]) Posture Evaluation [facility] Postural Classification System Lumbar Protective Mechanism Left AP 2 Lumbar Protective Mechanism Right AP 0 Lumbar Protective Mechanism Left PA 2 Lumbar Protective Mechanism Right PA 2 PT-OP-K Range of Motion Start: 11/11/20 18:05 Freq: Status: Active Protocol: Document 11/12/20 15:46 [facility] (Rec: 11/12/20 17:22 [facility] [id number]) Knee Goniometric Range of Motion Knee Right Flexion Active (degrees) 110 Extension Active (degrees) 2 Comments feel it behind the knee w/ ext Left Flexion Active (degrees) 118 Extension Active (degrees) 2 Comments tight behind knee w/knee ext PT-OP-L Special Tests Start: 11/11/20 18:05 Freq: Status: Active Protocol: Document 11/12/20 15:46 [facility] (Rec: 11/12/20 17:22 [facility] [id number]) Special Tests Knee Special Tests Harshad Test Results mild tightness B Straight Leg Raise Test Results 63 L, 60 R PT-OP-M Strength Start: 11/11/20 18:05 Freq: Status: Active Protocol: Document 11/12/20 15:46 [facility] (Rec: 11/12/20 17:22 [facility] [id number]) Hip Strength Hip Manual Muscle Testing Right Flexion (L2) 4- Good- Extension (S1) 3 Fair Abduction 4- Good- Adduction 3 Fair External Rotation 4- Good- Internal Rotation 3+ Fair+ Left Flexion (L2) 3+ Fair+ Extension (S1) 3 Fair Abduction 3+ Fair+ Adduction 4- Good- External Rotation 4- Good- Internal Rotation 3+ Fair+ Comments pain w/rotations B Knee Strength Knee Manual Muscle Testing Right Flexion (S2) 4+ Good+ Extension (L3) 4- Good- Left Flexion (S2) 4+ Good+ Extension (L3) 4- Good- Ankle/Foot Strength Ankle and Foot Manual Muscle Testing Right Dorsiflexion (L4) 4 Good Plantarflexion (S1) 5 Normal Left Dorsiflexion (L4) 4 Good Plantarflexion (S1) 5 Normal Comments PF tested seated B PT-OP-Q Treatments Start: 11/11/20 18:05 Freq: Status: Active Protocol: Document 12/03/20 14:24 OF (Rec: 12/03/20 14:29 OF [id number]) Cardio Equipment Bicycle (Upright) Duration (Minutes) 10 Resistance 10 Seat Position 7 Gym Equipment Shuttle Recovery Bilateral Squats Resistance 75# Shuttle Recovery Platform Stable Reps/Time 3x15 Shuttle Balance blue clips Details w/head turns except side NBOS Comments fwd & side: WBOS & NBOS fwd: staggered stance, unable to achieve tandem, 3x1min each direction Therapeutic Exercises Sitting Exercises LAQ Side bilateral Resistance 5# Reps/Minutes 3x10 Comments eccentric focus Standing Exercises step up Side bilateral Reps/Minutes 15 Comments focus on knee position and no lateral lean stretch Standing Exercise Name 1. calf on step 2. HS on step Side bilateral Reps/Minutes 3x30 sec ea heel raises Standing Exercise Name using 75# in shuttle Side bilateral Reps/Minutes 3x10 Self-Care/Home Management Treatment Education Patient Education Home Exercise Program PT-OP-T Assessment and Plan Start: 11/11/20 18:05 Freq: Status: Active Protocol: Document 12/03/20 14:24 OF (Rec: 12/03/20 14:29 OF [id number]) Physical Therapy Assessment Rehab Potential Rehabilitation Potential Good Evaluation Complexity Number of Personal Factors/Comorbidities 1-2 Number of Body Systems Impaired 1-2 Clinical Presentation at Evaluation Stable Impairments Impairments Activity Tolerance,Strength Goals balance [employer] Project Manager Goal (LTG) Pt will be able to balance 10 sec SLS w/hands at sides and no lat shear of pelvis to show improved balance and stability and imrpoved wt acceptance for gait. LTG Duration 01/12/21 gait Short Term Goal (STG) Pt will be able to increase walking distance to 1 mile without inc pain more than 2/ 10. STG Duration 12/16/20 Fdc Goal (LTG) Pt will be able to amb without lat leaning. LTG Duration 01/12/21 stairs Short Term Goal (STG) Pt will be able to consistantly ascend stairs reciprocally without rail without inc pain. STG Duration 12/12/20 Fdc Goal (LTG) Pt will be able to consistantly descend stairs reciprocally w/o rail w/o inc pain. LTG Duration 01/12/21 activities Short Term Goal (STG) Pt will be able to get up/down from gorund w/o outside suport in order to assist w/ gardening at home. STG Duration 12/26/20 Fdc Goal (LTG) Pt will be able to go fly fishing w/o knee pain and w/o concerns re: instability LTG Duration 01/12/21 LEFS Impairment 40/80 Short Term Goal (STG) Pt will improve score to at least 50/80 to show improved funcitonal ability [employer] Project [employer] Goal (LTG) Pt will improve score to at least 65/80 to show improved funcitonal ability LTG Duration 01/12/21 Progress Towards Goals Progress Towards Goals Progressing Toward Goals Assessment Summary Assessment Pt cont to require cues for proper eccentric control with strengthening exercises, difficulty with balance training on board, limited righting reactions Physical Therapy Plan Frequency and Duration Frequency of Treatment 2x/Week Duration of Treatment 2 months Plan of Care Start Date 11/12/20 Plan of Care End Date 01/12/21 Next Visit Focus/Plan Next Note Type Treatment Note Next Visit Plan Red clips, cont to work on quad and glute strength, increase resistance if pt tolerated this tx well
--- NOTE | 2020-12-05 12:38 | PT.OTN ---
Current Diagnoses Bilateral primary osteoarthritis of knee (12/05/20) Difficulty in walking, not elsewhere classified (12/05/20) Other abnormalities of gait and mobility (12/05/20) Weakness (12/05/20) Physical Therapy Treatment Note PT-OP-A Visit Information Start: 11/11/20 18:05 Freq: Status: Active Protocol: Document 12/05/20 10:31 OF (Rec: 12/05/20 12:38 OF [id number]) Out-Patient Physical Therapy Visit Information Visit Information Visit Type Treatment Note Visit Start Time 09:48 Visit Stop Time 10:31 Total Visit Minutes 43 Visit Number 7 PT-OP-B Current Condition Start: 11/11/20 18:05 Freq: Status: Active Protocol: Document 11/12/20 15:46 [facility] (Rec: 11/12/20 17:22 [facility] [id number]) Current Condition History of Current Condition Current Complaints B knee pain History of Current Condition Pt reprots the biggest challenge for him is getting up from the ground. He needs something to leverage himself up off the ground whcih elinates his ability to garden . He is wants to by able to fly fish but feels unstable and requries assist getting up in the boat. Last time he went was in 2019 d/t knees stopping him. He feels like his ROM isn't that bad. Pt reprots going up/down stairs can be difficult and on a bad day has to do step to up/down. Always uses rail. Took a long time after last meniscus surgery to be able to sleep. Pt reports his walking is limited to .5 mile with dog but mostly feels tired in legs /tired overall. Pt reports having R menisectomy in jun 2016 and having 5 sessions of PT after that surgery then 4 sessions after L menisectomy in 2019 at [facility] but had to ask for PT after surgery. He has exercises from last bout that he still does 4-5x/week (APs, heel slides, resisted heel slides, sit<>stand, SAQ). He feels like they have helped quad strength but unsure if they have helped his knee. Prior Treatments and Tests 4-5 PT sessions after menisectomies each Treatment Goals Patient/Caregiver Goals back to fly fishing, be able to weed the garden meaning get up/down from ground, easier time w/stairs Personal Factors Other Personal Factors That May Effect osteopenia, B meniscectomy Therapy/Recovery 2016 & 2019 PT-OP-C Subjective Start: 11/11/20 18:05 Freq: Status: Active Protocol: Document 12/05/20 10:31 OF (Rec: 12/05/20 12:38 OF [id number]) OP-PT Subjective Patient Comments Patient Comments calves are sore after stretching last time Patient Reported Progress Improving OP-PT Pain Assessment Pain Assessment Grid Paper Pain Assessment Grid Completed No: pt denies pain outside of calf soreness PT-OP-D Balance Start: 11/11/20 18:05 Freq: Status: Active Protocol: Document 11/12/20 15:46 [facility] (Rec: 11/12/20 17:22 [facility] [id number]) Balance Tests Single Limb Standing Single Limb- Right 12 sec w/lat shear of hip & arm movement Single Limb- Left 11 sec w/lat shear of hip & arm movement PT-OP-E Functional Tests Start: 11/12/20 17:24 Freq: Status: Active Protocol: Document 11/12/20 15:46 [facility] (Rec: 11/12/20 17:25 [facility] [id number]) Functional Tests 30 Second Sit to Stand Test Score 9 Five Times Sit to Stand Test Score 17sec PT-OP-F Manual Assessment Start: 11/11/20 18:05 Freq: Status: Active Protocol: Document 11/12/20 15:46 [facility] (Rec: 11/12/20 17:22 [facility] [id number]) Manual Assessments Soft Tissue Assessment Soft Tissue Mobility Assessment B:med joint Line, pes anscerine, HS, ITB, calf tenderness L: quads, adductors Joint Mobility Assessment Joint Mobility Assessment dec patellar mobility B PT-OP-G Mobility & Gait Start: 11/11/20 18:05 Freq: Status: Active Protocol: Document 11/12/20 15:46 [facility] (Rec: 11/12/20 17:22 [facility] [id number]) OP Gait Assessment Comments Gait Comments lat leaning R w/WB >L, dec push off PT-OP-J Posture/Palpation/Skin Start: 11/11/20 18:05 Freq: Status: Active Protocol: Document 11/12/20 15:46 [facility] (Rec: 11/12/20 17:22 [facility] [id number]) Posture Evaluation [facility] Postural Classification System Lumbar Protective Mechanism Left AP 2 Lumbar Protective Mechanism Right AP 0 Lumbar Protective Mechanism Left PA 2 Lumbar Protective Mechanism Right PA 2 PT-OP-K Range of Motion Start: 11/11/20 18:05 Freq: Status: Active Protocol: Document 11/12/20 15:46 [facility] (Rec: 11/12/20 17:22 [facility] [id number]) Knee Goniometric Range of Motion Knee Right Flexion Active (degrees) 110 Extension Active (degrees) 2 Comments feel it behind the knee w/ ext Left Flexion Active (degrees) 118 Extension Active (degrees) 2 Comments tight behind knee w/knee ext PT-OP-L Special Tests Start: 11/11/20 18:05 Freq: Status: Active Protocol: Document 11/12/20 15:46 [facility] (Rec: 11/12/20 17:22 [facility] [id number]) Special Tests Knee Special Tests Harshad Test Results mild tightness B Straight Leg Raise Test Results 63 L, 60 R PT-OP-M Strength Start: 11/11/20 18:05 Freq: Status: Active Protocol: Document 11/12/20 15:46 [facility] (Rec: 11/12/20 17:22 [facility] [id number]) Hip Strength Hip Manual Muscle Testing Right Flexion (L2) 4- Good- Extension (S1) 3 Fair Abduction 4- Good- Adduction 3 Fair External Rotation 4- Good- Internal Rotation 3+ Fair+ Left Flexion (L2) 3+ Fair+ Extension (S1) 3 Fair Abduction 3+ Fair+ Adduction 4- Good- External Rotation 4- Good- Internal Rotation 3+ Fair+ Comments pain w/rotations B Knee Strength Knee Manual Muscle Testing Right Flexion (S2) 4+ Good+ Extension (L3) 4- Good- Left Flexion (S2) 4+ Good+ Extension (L3) 4- Good- Ankle/Foot Strength Ankle and Foot Manual Muscle Testing Right Dorsiflexion (L4) 4 Good Plantarflexion (S1) 5 Normal Left Dorsiflexion (L4) 4 Good Plantarflexion (S1) 5 Normal Comments PF tested seated B PT-OP-Q Treatments Start: 11/11/20 18:05 Freq: Status: Active Protocol: Document 12/05/20 10:31 OF (Rec: 12/05/20 12:38 OF [id number]) Cardio Equipment Bicycle (Upright) Duration (Minutes) 10 Resistance 10 Seat Position 7 Gym Equipment Shuttle Balance blue clips Details w/head turns except side NBOS Comments fwd & side: WBOS & NBOS fwd: staggered stance, unable to achieve tandem, 2x1min each direction Therapeutic Exercises Sitting Exercises LAQ Side bilateral Resistance 5# Reps/Minutes 3x10 Comments eccentric focus Standing Exercises step up Side bilateral Reps/Minutes 15 Comments focus on knee position and no lateral lean squat Standing Exercise Name rail w/chair behind Side bilateral Reps/Minutes 15 Comments minisquat, focus on knee position stretch Standing Exercise Name 1. calf on step 2. HS on step Side bilateral Reps/Minutes 3x30 sec ea heel raises Standing Exercise Name using 75# in shuttle Side bilateral Reps/Minutes 3x10 hip abd Side bilateral Equipment Used L3 Reps/Minutes 2x10 hip ext Side bilateral Equipment Used L3 Reps/Minutes 2x10 Self-Care/Home Management Treatment Education Patient Education Home Exercise Program PT-OP-T Assessment and Plan Start: 11/11/20 18:05 Freq: Status: Active Protocol: Document 12/05/20 10:31 OF (Rec: 12/05/20 12:38 OF [id number]) Physical Therapy Assessment Rehab Potential Rehabilitation Potential Good Evaluation Complexity Number of Personal Factors/Comorbidities 1-2 Number of Body Systems Impaired 1-2 Clinical Presentation at Evaluation Stable Impairments Impairments Gait,Strength Goals balance [employer] Goal (LTG) Pt will be able to balance 10 sec SLS w/hands at sides and no lat shear of pelvis to show improved balance and stability and imrpoved wt acceptance for gait. LTG Duration 01/12/21 gait Short Term Goal (STG) Pt will be able to increase walking distance to 1 mile without inc pain more than 2/ 10. STG Duration 12/16/20 [employer] Goal (LTG) Pt will be able to amb without lat leaning. LTG Duration 01/12/21 stairs Short Term Goal (STG) Pt will be able to consistantly ascend stairs reciprocally without rail without inc pain. STG Duration 12/12/20 [employer] Developer Goal (LTG) Pt will be able to consistantly descend stairs reciprocally w/o rail w/o inc pain. LTG Duration 01/12/21 activities Short Term Goal (STG) Pt will be able to get up/down from gorund w/o outside suport in order to assist w/ gardening at home. STG Duration 12/26/20 [employer] Developer Goal (LTG) Pt will be able to go fly fishing w/o knee pain and w/o concerns re: instability LTG Duration 01/12/21 LEFS Impairment 40/80 Short Term Goal (STG) Pt will improve score to at least 50/80 to show improved funcitonal ability [employer] Developer Goal (LTG) Pt will improve score to at least 65/80 to show improved funcitonal ability LTG Duration 01/12/21 Progress Towards Goals Progress Towards Goals Progressing Toward Goals Assessment Summary Assessment pt has improved LE strength with hip abd/ext. He is agreeable to purchasing ankle weights for quad and hip strengthening, increasing volume to 15reps. Physical Therapy Plan Frequency and Duration Frequency of Treatment 2x/Week Duration of Treatment 2 months Plan of Care Start Date 11/12/20 Plan of Care End Date 01/12/21 Next Visit Focus/Plan Next Note Type Treatment Note Next Visit Plan Red clips, cont to work on quad and glute strength, assess increased volume and resistance for HEP
--- NOTE | 2020-12-22 17:56 | PT.OTN ---
Current Diagnoses Bilateral primary osteoarthritis of knee (12/22/20) Difficulty in walking, not elsewhere classified (12/22/20) Other abnormalities of gait and mobility (12/22/20) Weakness (12/22/20) Physical Therapy Treatment Note PT-OP-A Visit Information Start: 11/11/20 18:05 Freq: Status: Active Protocol: Document 12/22/20 15:21 MA (Rec: 12/22/20 16:00 MA [id number]) Out-Patient Physical Therapy Visit Information Visit Information Visit Type Treatment Note Visit Start Time 15:20 Visit Stop Time 16:00 Total Visit Minutes 40 Visit Number 8 Number of PENSION FUND MANAGER Visits 1 PT-OP-B Current Condition Start: 11/11/20 18:05 Freq: Status: Active Protocol: Document 11/12/20 15:46 [facility] (Rec: 11/12/20 17:22 [facility] [id number]) Current Condition History of Current Condition Current Complaints B knee pain History of Current Condition Pt reprots the biggest challenge for him is getting up from the ground. He needs something to leverage himself up off the ground whcih elinates his ability to garden . He is wants to by able to fly fish but feels unstable and requries assist getting up in the boat. Last time he went was in 2019 d/t knees stopping him. He feels like his ROM isn't that bad. Pt reprots going up/down stairs can be difficult and on a bad day has to do step to up/down. Always uses rail. Took a long time after last meniscus surgery to be able to sleep. Pt reports his walking is limited to .5 mile with dog but mostly feels tired in legs /tired overall. Pt reports having R menisectomy in jun 2016 and having 5 sessions of PT after that surgery then 4 sessions after L menisectomy in 2019 at [facility] [place] but had to ask for PT after surgery. He has exercises from last bout that he still does 4-5x/week (APs, heel slides, resisted heel slides, sit<>stand, SAQ). He feels like they have helped quad strength but unsure if they have helped his knee. Prior Treatments and Tests 4-5 PT sessions after menisectomies each Treatment Goals Patient/Caregiver Goals back to fly fishing, be able to weed the garden meaning get up/down from ground, easier time w/stairs Personal Factors Other Personal Factors That May Effect osteopenia, B meniscectomy Therapy/Recovery 2016 & 2019 PT-OP-C Subjective Start: 11/11/20 18:05 Freq: Status: Active Protocol: Document 12/22/20 15:21 MA (Rec: 12/22/20 16:00 MA [id number]) OP-PT Subjective Patient Comments Patient Comments Pt got 5# ankle weights to use at home and feels they are not too heavy but he could not do more than thaT PT-OP-D Balance Start: 11/11/20 18:05 Freq: Status: Active Protocol: Document 11/12/20 15:46 [facility] (Rec: 11/12/20 17:22 [facility] [id number]) Balance Tests Single Limb Standing Single Limb- Right 12 sec w/lat shear of hip & arm movement Single Limb- Left 11 sec w/lat shear of hip & arm movement PT-OP-E Functional Tests Start: 11/12/20 17:24 Freq: Status: Active Protocol: Document 11/12/20 15:46 [facility] (Rec: 11/12/20 17:25 [facility] [id number]) Functional Tests 30 Second Sit to Stand Test Score 9 Five Times Sit to Stand Test Score 17sec PT-OP-F Manual Assessment Start: 11/11/20 18:05 Freq: Status: Active Protocol: Document 11/12/20 15:46 [facility] (Rec: 11/12/20 17:22 [facility] [id number]) Manual Assessments Soft Tissue Assessment Soft Tissue Mobility Assessment B:med joint Line, pes anscerine, HS, ITB, calf tenderness L: quads, adductors Joint Mobility Assessment Joint Mobility Assessment dec patellar mobility B PT-OP-G Mobility & Gait Start: 11/11/20 18:05 Freq: Status: Active Protocol: Document 11/12/20 15:46 [facility] (Rec: 11/12/20 17:22 [facility] [id number]) OP Gait Assessment Comments Gait Comments lat leaning R w/WB >L, dec push off PT-OP-J Posture/Palpation/Skin Start: 11/11/20 18:05 Freq: Status: Active Protocol: Document 11/12/20 15:46 [facility] (Rec: 11/12/20 17:22 [facility] [id number]) Posture Evaluation [facility] Postural Classification System Lumbar Protective Mechanism Left AP 2 Lumbar Protective Mechanism Right AP 0 Lumbar Protective Mechanism Left PA 2 Lumbar Protective Mechanism Right PA 2 PT-OP-K Range of Motion Start: 11/11/20 18:05 Freq: Status: Active Protocol: Document 11/12/20 15:46 [facility] (Rec: 11/12/20 17:22 [facility] [id number]) Knee Goniometric Range of Motion Knee Right Flexion Active (degrees) 110 Extension Active (degrees) 2 Comments feel it behind the knee w/ ext Left Flexion Active (degrees) 118 Extension Active (degrees) 2 Comments tight behind knee w/knee ext PT-OP-L Special Tests Start: 11/11/20 18:05 Freq: Status: Active Protocol: Document 11/12/20 15:46 [facility] (Rec: 11/12/20 17:22 [facility] [id number]) Special Tests Knee Special Tests Harshad Test Results mild tightness B Straight Leg Raise Test Results 63 L, 60 R PT-OP-M Strength Start: 11/11/20 18:05 Freq: Status: Active Protocol: Document 11/12/20 15:46 [facility] (Rec: 11/12/20 17:22 [facility] [id number]) Hip Strength Hip Manual Muscle Testing Right Flexion (L2) 4- Good- Extension (S1) 3 Fair Abduction 4- Good- Adduction 3 Fair External Rotation 4- Good- Internal Rotation 3+ Fair+ Left Flexion (L2) 3+ Fair+ Extension (S1) 3 Fair Abduction 3+ Fair+ Adduction 4- Good- External Rotation 4- Good- Internal Rotation 3+ Fair+ Comments pain w/rotations B Knee Strength Knee Manual Muscle Testing Right Flexion (S2) 4+ Good+ Extension (L3) 4- Good- Left Flexion (S2) 4+ Good+ Extension (L3) 4- Good- Ankle/Foot Strength Ankle and Foot Manual Muscle Testing Right Dorsiflexion (L4) 4 Good Plantarflexion (S1) 5 Normal Left Dorsiflexion (L4) 4 Good Plantarflexion (S1) 5 Normal Comments PF tested seated B PT-OP-Q Treatments Start: 11/11/20 18:05 Freq: Status: Active Protocol: Document 12/22/20 15:21 MA (Rec: 12/22/20 16:00 MA [id number]) Cardio Equipment Bicycle (Upright) Duration (Minutes) 10 Resistance 10 Seat Position 7 Gym Equipment Shuttle Balance red clips Reps/Duration 5' Comments fwd: WBOS, NBOS with lateral head turns Lateral: WBOS, NBOS (unable to lift hands from rail) Therapeutic Exercises Sitting Exercises LAQ Side bilateral Resistance 5# Reps/Minutes 3x10 Comments eccentric focus Standing Exercises hip abd Side bilateral Equipment Used 5# ankle weight today Reps/Minutes 2x10 hip ext Side bilateral Equipment Used 5# ankle weight today Reps/Minutes 2x10 Gait Training Gait Activity Stairs Description therapy stairs 4 steps then 6 steps Level of Assistance Left rail ascending Treatment Focus Descending stairs Comments working on controlling descent stepping reciprocally with single rail Self-Care/Home Management Treatment Education Patient Education Home Exercise Program Other Education Encouraged pt to buy mm roller for home use on lavon LEs- quads, ITB, ADD, & HS PT-OP-T Assessment and Plan Start: 11/11/20 18:05 Freq: Status: Active Protocol: Document 12/22/20 15:21 MA (Rec: 12/22/20 16:00 MA [id number]) Physical Therapy Assessment Goals balance Wire Wheeler Goal (LTG) Pt will be able to balance 10 sec SLS w/hands at sides and no lat shear of pelvis to show improved balance and stability and imrpoved wt acceptance for gait. LTG Duration 01/12/21 gait Short Term Goal (STG) Pt will be able to increase walking distance to 1 mile without inc pain more than 2/ 10. STG Duration 12/16/20 Wire Wheeler Goal (LTG) Pt will be able to amb without lat leaning. LTG Duration 01/12/21 stairs Short Term Goal (STG) Pt will be able to consistantly ascend stairs reciprocally without rail without inc pain. STG Duration 12/12/20 Usp Goal (LTG) Pt will be able to consistantly descend stairs reciprocally w/o rail w/o inc pain. LTG Duration 01/12/21 activities Short Term Goal (STG) Pt will be able to get up/down from gorund w/o outside suport in order to assist w/ gardening at home. STG Duration 12/26/20 Wire Wheeler Goal (LTG) Pt will be able to go fly fishing w/o knee pain and w/o concerns re: instability LTG Duration 01/12/21 LEFS Impairment 40/80 Short Term Goal (STG) Pt will improve score to at least 50/80 to show improved funcitonal ability Wire Wheeler Goal (LTG) Pt will improve score to at least 65/80 to show improved funcitonal ability LTG Duration 01/12/21 Assessment Summary Assessment Lucian stated he has difficulty descending stairs most days. Worked on stair training cueing pt to control descent or he tends to stomp down on next stair showing poor quad control. Pt's LLE gave out during standing hip ext work today but he was able to catch himself on chair back before falling. Pt states his legs give out often especially when he is tired. Had pt practice self-STM with roller at end of session and encouraged pt to buy one for home use to roll quads, HS, ADD, ITB bilaterally. Physical Therapy Plan Frequency and Duration Frequency of Treatment 2x/Week Duration of Treatment 2 months Plan of Care Start Date 11/12/20 Plan of Care End Date 01/12/21 Therapeutic Interventions Therapeutic Interventions Aquatic Therapy,Balance Training,Gait Training,Home Exercise Program,Joint Mobilizations,Manual Therapy, Neuromuscular Re-education, Patient/Caregiver Education, Self-Care/Home Management,Soft Tissue Mobilization,Taping, Therapeutic Activities, Therapeutic Exercises Modalities Cold Pack/Ice Massage,Electric Stimulation,Hot Packs, Infrared Therapy,Ultrasound Next Visit Focus/Plan Next Note Type Treatment Note Next Visit Plan Return to blue clips, cont to work on quad and glute strength, STM to lavon LEs- see if pt was able to obtain mm roller for self-STM
--- NOTE | 2020-12-26 17:19 | PT.OTN ---
Current Diagnoses Bilateral primary osteoarthritis of knee (12/26/20) Difficulty in walking, not elsewhere classified (12/26/20) Other abnormalities of gait and mobility (12/26/20) Weakness (12/26/20) Physical Therapy Treatment Note PT-OP-A Visit Information Start: 11/11/20 18:05 Freq: Status: Active Protocol: Document 12/26/20 14:38 MA (Rec: 12/26/20 15:15 MA [id number]) Out-Patient Physical Therapy Visit Information Visit Information Visit Type Treatment Note Visit Start Time 14:35 Visit Stop Time 15:15 Total Visit Minutes 40 Visit Number 9 Number of DRY CELL AND BATTERY ASSEMBLER Visits 2 PT-OP-B Current Condition Start: 11/11/20 18:05 Freq: Status: Active Protocol: Document 11/12/20 15:46 [facility] (Rec: 11/12/20 17:22 [facility] [id number]) Current Condition History of Current Condition Current Complaints B knee pain History of Current Condition Pt reprots the biggest challenge for him is getting up from the ground. He needs something to leverage himself up off the ground whcih elinates his ability to garden . He is wants to by able to fly fish but feels unstable and requries assist getting up in the boat. Last time he went was in 2019 d/t knees stopping him. He feels like his ROM isn't that bad. Pt reprots going up/down stairs can be difficult and on a bad day has to do step to up/down. Always uses rail. Took a long time after last meniscus surgery to be able to sleep. Pt reports his walking is limited to .5 mile with dog but mostly feels tired in legs /tired overall. Pt reports having R menisectomy in jun 2016 and having 5 sessions of PT after that surgery then 4 sessions [place] [facility] [place] had to ask for PT after surgery. He has exercises from last bout that he still does 4-5x/week (APs, heel slides, resisted heel slides, sit<>stand, SAQ). He feels like they have helped quad strength but unsure if they have helped his knee. Prior Treatments and Tests 4-5 PT sessions after menisectomies each Treatment Goals Patient/Caregiver Goals back to fly fishing, be able to weed the garden meaning get up/down from ground, easier time w/stairs Personal Factors Other Personal Factors That May Effect osteopenia, B meniscectomy Therapy/Recovery 2016 & 2019 PT-OP-C Subjective Start: 11/11/20 18:05 Freq: Status: Active Protocol: Document 12/26/20 14:38 MA (Rec: 12/26/20 15:15 MA [id number]) OP-PT Subjective Patient Comments Patient Comments pt got mm roller for home use but wants to review how to roll his legs today. PT-OP-D Balance Start: 11/11/20 18:05 Freq: Status: Active Protocol: Document 11/12/20 15:46 [facility] (Rec: 11/12/20 17:22 [facility] [id number]) Balance Tests Single Limb Standing Single Limb- Right 12 sec w/lat shear of hip & arm movement Single Limb- Left 11 sec w/lat shear of hip & arm movement PT-OP-E Functional Tests Start: 11/12/20 17:24 Freq: Status: Active Protocol: Document 11/12/20 15:46 [facility] (Rec: 11/12/20 17:25 [facility] [id number]) Functional Tests 30 Second Sit to Stand Test Score 9 Five Times Sit to Stand Test Score 17sec PT-OP-F Manual Assessment Start: 11/11/20 18:05 Freq: Status: Active Protocol: Document 11/12/20 15:46 [facility] (Rec: 11/12/20 17:22 [facility] [id number]) Manual Assessments Soft Tissue Assessment Soft Tissue Mobility Assessment B:med joint Line, pes anscerine, HS, ITB, calf tenderness L: quads, adductors Joint Mobility Assessment Joint Mobility Assessment dec patellar mobility B PT-OP-G Mobility & Gait Start: 11/11/20 18:05 Freq: Status: Active Protocol: Document 11/12/20 15:46 [facility] (Rec: 11/12/20 17:22 [facility] [id number]) OP Gait Assessment Comments Gait Comments lat leaning R w/WB >L, dec push off PT-OP-J Posture/Palpation/Skin Start: 11/11/20 18:05 Freq: Status: Active Protocol: Document 11/12/20 15:46 [facility] (Rec: 11/12/20 17:22 [facility] [id number]) Posture Evaluation [facility] Postural Classification System Lumbar Protective Mechanism Left AP 2 Lumbar Protective Mechanism Right AP 0 Lumbar Protective Mechanism Left PA 2 Lumbar Protective Mechanism Right PA 2 PT-OP-K Range of Motion Start: 11/11/20 18:05 Freq: Status: Active Protocol: Document 11/12/20 15:46 [facility] (Rec: 11/12/20 17:22 [facility] [id number]) Knee Goniometric Range of Motion Knee Right Flexion Active (degrees) 110 Extension Active (degrees) 2 Comments feel it behind the knee w/ ext Left Flexion Active (degrees) 118 Extension Active (degrees) 2 Comments tight behind knee w/knee ext PT-OP-L Special Tests Start: 11/11/20 18:05 Freq: Status: Active Protocol: Document 11/12/20 15:46 [facility] (Rec: 11/12/20 17:22 [facility] [id number]) Special Tests Knee Special Tests Harshad Test Results mild tightness B Straight Leg Raise Test Results 63 L, 60 R PT-OP-M Strength Start: 11/11/20 18:05 Freq: Status: Active Protocol: Document 11/12/20 15:46 [facility] (Rec: 11/12/20 17:22 [facility] [id number]) Hip Strength Hip Manual Muscle Testing Right Flexion (L2) 4- Good- Extension (S1) 3 Fair Abduction 4- Good- Adduction 3 Fair External Rotation 4- Good- Internal Rotation 3+ Fair+ Left Flexion (L2) 3+ Fair+ Extension (S1) 3 Fair Abduction 3+ Fair+ Adduction 4- Good- External Rotation 4- Good- Internal Rotation 3+ Fair+ Comments pain w/rotations B Knee Strength Knee Manual Muscle Testing Right Flexion (S2) 4+ Good+ Extension (L3) 4- Good- Left Flexion (S2) 4+ Good+ Extension (L3) 4- Good- Ankle/Foot Strength Ankle and Foot Manual Muscle Testing Right Dorsiflexion (L4) 4 Good Plantarflexion (S1) 5 Normal Left Dorsiflexion (L4) 4 Good Plantarflexion (S1) 5 Normal Comments PF tested seated B PT-OP-Q Treatments Start: 11/11/20 18:05 Freq: Status: Active Protocol: Document 12/26/20 14:38 MA (Rec: 12/26/20 15:15 MA [id number]) Cardio Equipment Bicycle (Upright) Duration (Minutes) 10 Resistance 10 Seat Position 7 Therapeutic Exercises Sitting Exercises Arch Lifts Sitting Exercise Name Towel Scrunch seated, Arch lifts standing Side left Equipment Used towel Reps/Minutes 4' Standing Exercises hip abd Side bilateral Equipment Used L3 Reps/Minutes 2x10 hip ext Side bilateral Equipment Used L3 Reps/Minutes 2x10 Gait Training Gait Activity Stairs Description therapy stairs 6 steps Level of Assistance Left rail ascending Treatment Focus Descending stairs Comments working on controlling descent stepping reciprocally with single rail Self-Care/Home Management Treatment Education Patient Education Home Exercise Program Other Education Reviewed where to roll with mm roller- quads, ITB, Adductors , HS, Calves PT-OP-T Assessment and Plan Start: 11/11/20 18:05 Freq: Status: Active Protocol: Document 12/26/20 14:38 MA (Rec: 12/26/20 15:15 MA [id number]) Physical Therapy Assessment Goals balance Assisted Goal (LTG) Pt will be able to balance 10 sec SLS w/hands at sides and no lat shear of pelvis to show improved balance and stability and imrpoved wt acceptance for gait. LTG Duration 01/12/21 gait Short Term Goal (STG) Pt will be able to increase walking distance to 1 mile without inc pain more than 2/ 10. STG Duration 12/16/20 Assisted Goal (LTG) Pt will be able to amb without lat leaning. LTG Duration 01/12/21 stairs Short Term Goal (STG) Pt will be able to consistantly ascend stairs reciprocally without rail without inc pain. STG Duration 12/12/20 Medical Assisting Program Director Goal (LTG) Pt will be able to consistantly descend stairs reciprocally w/o rail w/o inc pain. LTG Duration 01/12/21 activities Short Term Goal (STG) Pt will be able to get up/down from gorund w/o outside suport in order to assist w/ gardening at home. STG Duration 12/26/20 Assisted Goal (LTG) Pt will be able to go fly fishing w/o knee pain and w/o concerns re: instability LTG Duration 01/12/21 LEFS Impairment 40/80 Short Term Goal (STG) Pt will improve score to at least 50/80 to show improved funcitonal ability Medical Assisting Program Director Goal (LTG) Pt will improve score to at least 65/80 to show improved funcitonal ability LTG Duration 01/12/21 Assessment Summary Assessment Lucian melendezamalia mm roller for home; reviewed rolling techniques with pt for HEP. Pt c/o L medial knee pain when standing SL during exercises and while descending stairs. When in SLS, pt everts LLE. Worked on arch lifts on L to improve alignment with pt having less knee pain during extension exercise when cued for lifting arch. Will continue to work on foot positioning to reduce L knee pain next session as well as begin floor transfers. Physical Therapy Plan Frequency and Duration Frequency of Treatment 2x/Week Duration of Treatment 2 months Plan of Care Start Date 11/12/20 Plan of Care End Date 01/12/21 Therapeutic Interventions Therapeutic Interventions Aquatic Therapy,Balance Training,Gait Training,Home Exercise Program,Joint Mobilizations,Manual Therapy, Neuromuscular Re-education, Patient/Caregiver Education, Self-Care/Home Management,Soft Tissue Mobilization,Taping, Therapeutic Activities, Therapeutic Exercises Modalities Cold Pack/Ice Massage,Electric Stimulation,Hot Packs, Infrared Therapy,Ultrasound Next Visit Focus/Plan Next Note Type Treatment Note Next Visit Plan Watch for L ankle eversion when pt in SLS. Continue working on arch lifts L and begin floor transfer training Return to edin rojas, cont to work on quad and glute strength, STM as needed for knee pain
--- NOTE | 2020-12-31 18:47 | PT.OTN ---
Current Diagnoses Bilateral primary osteoarthritis of knee (12/31/20) Difficulty in walking, not elsewhere classified (12/31/20) Other abnormalities of gait and mobility (12/31/20) Weakness (12/31/20) Physical Therapy Treatment Note PT-OP-A Visit Information Start: 11/11/20 18:05 Freq: Status: Active Protocol: Document 12/31/20 15:29 [facility] (Rec: 12/31/20 18:47 [facility] [id number]) Out-Patient Physical Therapy Visit Information Visit Information Visit Type Progress Note Visit Note 06/08 Visit Start Time 15:23 Visit Stop Time 16:03 Total Visit Minutes 40 Visit Number 10 Number of CLAIM ADMINISTRATOR Visits 0 PT-OP-B Current Condition Start: 11/11/20 18:05 Freq: Status: Active Protocol: Document 11/12/20 15:46 [facility] (Rec: 11/12/20 17:22 [facility] [id number]) Current Condition History of Current Condition Current Complaints B knee pain History of Current Condition Pt reprots the biggest challenge for him is getting up from the ground. He needs something to leverage himself up off the ground whcih elinates his ability to garden . He is wants to by able to fly fish but feels unstable and requries assist getting up in the boat. Last time he went was in 2019 d/t knees stopping him. He feels like his ROM isn't that bad. Pt reprots going up/down stairs can be difficult and on a bad day has to do step to up/down. Always uses rail. Took a long time after last meniscus surgery to be able to sleep. Pt reports his walking is limited to .5 mile with dog but mostly feels tired in legs /tired overall. Pt reports having R menisectomy in jun 2016 and having 5 sessions of PT after that surgery then 4 sessions after L menisectomy in 2019 at [facility] [place] but had to ask for PT after surgery. He has exercises from last bout that he still does 4-5x/week (APs, heel slides, resisted heel slides, sit<>stand, SAQ). He feels like they have helped quad strength but unsure if they have helped his knee. Prior Treatments and Tests 4-5 PT sessions after menisectomies each Treatment Goals Patient/Caregiver Goals back to fly fishing, be able to weed the garden meaning get up/down from ground, easier time w/stairs Personal Factors Other Personal Factors That May Effect osteopenia, B meniscectomy Therapy/Recovery 2016 & 2019 PT-OP-C Subjective Start: 11/11/20 18:05 Freq: Status: Active Protocol: Document 12/31/20 15:29 [facility] (Rec: 12/31/20 18:47 [facility] [id number]) OP-PT Subjective Patient Comments Patient Comments Pt reports he feels like he has made functional improvements w/PT but knee pain has not changed. Patient Questionnaires Lower Extremity Functional Scale LEFS Score 47/80 PT-OP-D Balance Start: 11/11/20 18:05 Freq: Status: Active Protocol: Document 12/31/20 15:29 [facility] (Rec: 12/31/20 18:47 [facility] [id number]) Balance Tests Single Limb Standing Single Limb- Right 10 sec w/lat shear of hip Single Limb- Left 25 sec w/lat shear of hip PT-OP-E Functional Tests Start: 11/12/20 17:24 Freq: Status: Active Protocol: Document 11/12/20 15:46 [facility] (Rec: 11/12/20 17:25 [facility] [id number]) Functional Tests 30 Second Sit to Stand Test Score 9 Five Times Sit to Stand Test Score 17sec PT-OP-F Manual Assessment Start: 11/11/20 18:05 Freq: Status: Active Protocol: Document 11/12/20 15:46 [facility] (Rec: 11/12/20 17:22 [facility] [id number]) Manual Assessments Soft Tissue Assessment Soft Tissue Mobility Assessment B:med joint Line, pes anscerine, HS, ITB, calf tenderness L: quads, adductors Joint Mobility Assessment Joint Mobility Assessment dec patellar mobility B PT-OP-G Mobility & Gait Start: 11/11/20 18:05 Freq: Status: Active Protocol: Document 11/12/20 15:46 [facility] (Rec: 11/12/20 17:22 [facility] [id number]) OP Gait Assessment Comments Gait Comments lat leaning R w/WB >L, dec push off PT-OP-J Posture/Palpation/Skin Start: 11/11/20 18:05 Freq: Status: Active Protocol: Document 11/12/20 15:46 [facility] (Rec: 11/12/20 17:22 [facility] [id number]) Posture Evaluation [facility] Postural Classification System Lumbar Protective Mechanism Left AP 2 Lumbar Protective Mechanism Right AP 0 Lumbar Protective Mechanism Left PA 2 Lumbar Protective Mechanism Right PA 2 PT-OP-K Range of Motion Start: 11/11/20 18:05 Freq: Status: Active Protocol: Document 11/12/20 15:46 [facility] (Rec: 11/12/20 17:22 [facility] [id number]) Knee Goniometric Range of Motion Knee Right Flexion Active (degrees) 110 Extension Active (degrees) 2 Comments feel it behind the knee w/ ext Left Flexion Active (degrees) 118 Extension Active (degrees) 2 Comments tight behind knee w/knee ext PT-OP-L Special Tests Start: 11/11/20 18:05 Freq: Status: Active Protocol: Document 11/12/20 15:46 [facility] (Rec: 11/12/20 17:22 [facility] [id number]) Special Tests Knee Special Tests Harshad Test Results mild tightness B Straight Leg Raise Test Results 63 L, 60 R PT-OP-M Strength Start: 11/11/20 18:05 Freq: Status: Active Protocol: Document 12/31/20 15:29 [facility] (Rec: 12/31/20 18:47 [facility] [id number]) Hip Strength Hip Manual Muscle Testing Right Flexion (L2) 5 Normal Extension (S1) 3+ Fair+ Abduction 4 Good Adduction 5 Normal External Rotation 4 Good Internal Rotation 5 Normal Left Flexion (L2) 4+ Good+ Extension (S1) 3+ Fair+ Abduction 4 Good Adduction 5 Normal External Rotation 4 Good Internal Rotation 4+ Good+ Knee Strength Knee Manual Muscle Testing Right Flexion (S2) 5 Normal Extension (L3) 4+ Good+ Left Flexion (S2) 5 Normal Extension (L3) 4+ Good+ Ankle/Foot Strength Ankle and Foot Manual Muscle Testing Right Dorsiflexion (L4) 5 Normal Plantarflexion (S1) 5 Normal Left Dorsiflexion (L4) 5 Normal Plantarflexion (S1) 5 Normal Comments PF tested seated B PT-OP-Q Treatments Start: 11/11/20 18:05 Freq: Status: Active Protocol: Document 12/31/20 15:29 [facility] (Rec: 12/31/20 18:47 [facility] [id number]) Cardio Equipment Bicycle (Upright) Duration (Minutes) 5 Resistance 10 Seat Position 7 Therapeutic Exercises Standing Exercises hip hike Standing Exercise Name 4 in step w/rail Side bilateral Reps/Minutes 10 Gait Training Gait Activity gait Description resisted gait w/dowel 25 ft x2 wt shifts Description in mirror Comments 1. fwd to front leg B x20 2. fwd w/step through x15 B Stairs Comments step ups in mirror focus on wt shift into LE x15 4 in step then x15 5 in step, up/down 13 steps reciprocally w/o rail ( 6in) PT-OP-T Assessment and Plan Start: 11/11/20 18:05 Freq: Status: Active Protocol: Document 12/31/20 15:29 [facility] (Rec: 12/31/20 18:47 [facility] [id number]) Physical Therapy Assessment Goals balance Cd Technician Goal (LTG) Pt will be able to balance 10 sec SLS w/hands at sides and no lat shear of pelvis to show improved balance and stability and imrpoved wt acceptance for gait. 12/31 -dec arm use but still lat shear LTG Duration 03/02/21 gait Short Term Goal (STG) Pt will be able to increase walking distance to 1 mile without inc pain more than 2/ 10. STG Duration achieved Assisted Goal (LTG) Pt will be able to amb without lat leaning. LTG Duration 03/02/21 stairs Short Term Goal (STG) Pt will be able to consistantly ascend stairs reciprocally without rail without inc pain. 12/31 can do but casues pain STG Duration 01/31/21 Cd Technician Goal (LTG) Pt will be able to consistantly descend stairs reciprocally w/o rail w/o inc pain. 12/31 can do but casues pain LTG Duration 03/02/21 activities Short Term Goal (STG) Pt will be able to get up/down from gorund w/o outside suport in order to assist w/ gardening at home. STG Duration achieved bbut pain noted Assisted Goal (LTG) Pt will be able to go fly fishing w/o knee pain and w/o concerns re: instability 12/31-has not tried LTG Duration 03/02/21 LEFS Impairment 40/80 Short Term Goal (STG) Pt will improve score to at least 50/80 to show improved funcitonal ability 12/31-47/80 improved STG Duration 01/31/21 Cd Technician Goal (LTG) Pt will improve score to at least 65/80 to show improved funcitonal ability LTG Duration 03/02/21 Assessment Summary Assessment Pt is making improvements in strength and functional ability w/therapy but does still demonstrate signifcant glute (abd & ext) weakness which likely affects his ability to do activities like stairs, up/down from ground, and gait w/o inc knee pain. He has dec glute activationa nd dec wt acceptance especially on RLE and would benefit from cont PT to work on these deficits to dec pain and cont to improve functional ability. Physical Therapy Plan Frequency and Duration Frequency of Treatment 1-2x/week Duration of Treatment 2 months Plan of Care Start Date 12/31/20 Plan of Care End Date 03/02/21 Therapeutic Interventions Therapeutic Interventions Aquatic Therapy,Balance Training,Gait Training,Home Exercise Program,Joint Mobilizations,Manual Therapy, Neuromuscular Re-education, Patient/Caregiver Education, Self-Care/Home Management,Soft Tissue Mobilization,Taping, Therapeutic Activities, Therapeutic Exercises Modalities Cold Pack/Ice Massage,Electric Stimulation,Hot Packs, Infrared Therapy,Ultrasound Next Visit Focus/Plan Next Note Type Treatment Note Next Visit Plan work on wt shift for gait, resisted gait w/dowel, resisted gait w/sport cord, work on wt shift into step, seated faciliation of glute for sit to stand w/PNF principles, post dep PNF
--- NOTE | 2020-12-31 18:48 | PT.OPPOC ---
Physical, Occupational & Speech Therapy At [facility] Current Diagnoses Bilateral primary osteoarthritis of knee (12/31/20) Difficulty in walking, not elsewhere classified (12/31/20) Other abnormalities of gait and mobility (12/31/20) Weakness (12/31/20) Visit Care Team Role Provider Type Juan Carlos Cesar MD Primary Care Provider Physician Specialty: Internal Medicine Address: [address] [place] [address], [address], [place], [address] Email: [email or web address] Unruly Anderson MD Attending Provider Physician Referring Provider Specialty: Orthopedic Surgery Address: [address] [place] [address], [place], [address] Email: [email or web address] Plan Of Care PT-OP-T Assessment and Plan Start: 11/11/20 18:05 Freq: Status: Active Protocol: Document 12/31/20 15:29 [facility] (Rec: 12/31/20 18:47 [facility] [id number]) Physical Therapy Assessment Goals balance [facility] Goal (LTG) Pt will be able to balance 10 sec SLS w/hands at sides and no lat shear of pelvis to show improved balance and stability and imrpoved wt acceptance for gait. 8 -apr arm use but still lat shear LTG Duration 03/02/21 gait Short Term Goal (STG) Pt will be able to increase walking distance to 1 mile without inc pain more than 2/ 10. STG Duration achieved [facility] Goal (LTG) Pt will be able to amb without lat leaning. LTG Duration 03/02/21 stairs Short Term Goal (STG) Pt will be able to consistantly ascend stairs reciprocally without rail without inc pain. 8/ can do but casues pain STG Duration 01/31/21 [facility] Goal (LTG) Pt will be able to consistantly descend stairs reciprocally w/o rail w/o inc pain. 8/4 can do but casues pain LTG Duration 03/02/21 activities Short Term Goal (STG) Pt will be able to get up/down from gorund w/o outside suport in order to assist w/ gardening at home. STG Duration achieved bbut pain noted [facility] Goal (LTG) Pt will be able to go fly fishing w/o knee pain and w/o concerns re: instability 12/31-has not tried LTG Duration 03/02/21 LEFS Impairment 40/80 Short Term Goal (STG) Pt will improve score to at least 50/80 to show improved funcitonal ability 12/31-47/80 improved STG Duration 01/31/21 [facility] Goal (LTG) Pt will improve score to at least 65/80 to show improved funcitonal ability LTG Duration 03/02/21 Assessment Summary Assessment Pt is making improvements in strength and functional ability w/therapy but does still demonstrate signifcant glute (abd & ext) weakness which likely affects his ability to do activities like stairs, up/down from ground, and gait w/o inc knee pain. He has dec glute activationa nd dec wt acceptance especially on RLE and would benefit from cont PT to work on these deficits to dec pain and cont to improve functional ability. Physical Therapy Plan Frequency and Duration Frequency of Treatment 1-2x/week Duration of Treatment 2 months Plan of Care Start Date 12/31/20 Plan of Care End Date 03/02/21 Therapeutic Interventions Therapeutic Interventions Aquatic Therapy,Balance Training,Gait Training,Home Exercise Program,Joint Mobilizations,Manual Therapy, Neuromuscular Re-education, Patient/Caregiver Education, Self-Care/Home Management,Soft Tissue Mobilization,Taping, Therapeutic Activities, Therapeutic Exercises Modalities Cold Pack/Ice Massage,Electric Stimulation,Hot Packs, Infrared Therapy,Ultrasound Next Visit Focus/Plan Next Note Type Treatment Note Next Visit Plan work on wt shift for gait, resisted gait w/dowel, resisted gait w/sport cord, work on wt shift into step, seated faciliation of glute for sit to stand w/PNF principles, post dep PNF Plan of Care Dates Plan of Care Start Date 12/31/20 Plan of Care End Date 03/02/21 Electronically Signed by: Nory Noble, PT 12/31/20 2732 Please Sign and Return: I have reviewed this Plan of Care and certify that the skilled therapy services above are required to meet the patient?s needs. Physician Signature Date Printed Name and Credentials Clinical Instructor Signature Printed Name and Credentials
--- NOTE | 2021-01-02 15:13 | PT.OTN ---
Current Diagnoses Bilateral primary osteoarthritis of knee (01/02/21) Difficulty in walking, not elsewhere classified (01/02/21) Other abnormalities of gait and mobility (01/02/21) Weakness (01/02/21) Physical Therapy Treatment Note PT-OP-A Visit Information Start: 11/11/20 18:05 Freq: Status: Active Protocol: Document 01/02/21 14:38 [facility] (Rec: 01/02/21 15:12 [facility] [id number]) Out-Patient Physical Therapy Visit Information Visit Information Visit Type Treatment Note Visit Note 07/09 Visit Start Time 14:30 Visit Stop Time 15:10 Total Visit Minutes 40 Visit Number 11 Number of ARMY RANGER Visits 1 PT-OP-B Current Condition Start: 11/11/20 18:05 Freq: Status: Active Protocol: Document 11/12/20 15:46 [facility] (Rec: 11/12/20 17:22 [facility] [id number]) Current Condition History of Current Condition Current Complaints B knee pain History of Current Condition Pt reprots the biggest challenge for him is getting up from the ground. He needs something to leverage himself up off the ground whcih elinates his ability to garden . He is wants to by able to fly fish but feels unstable and requries assist getting up in the boat. Last time he went was in 2019 d/t knees stopping him. He feels like his ROM isn't that bad. Pt reprots going up/down stairs can be difficult and on a bad day has to do step to up/down. Always uses rail. Took a long time after last meniscus surgery to be able to sleep. Pt reports his walking is limited to .5 mile with dog but mostly feels tired in legs /tired overall. Pt reports having R menisectomy in jun 2016 and having 5 sessions of PT after that surgery then 4 [place] [facility] [place] had to ask for PT after surgery. He has exercises from last bout that he still does 4-5x/week (APs, heel slides, resisted heel slides, sit<>stand, SAQ). He feels like they have helped quad strength but unsure if they have helped his knee. Prior Treatments and Tests 4-5 PT sessions after menisectomies each Treatment Goals Patient/Caregiver Goals back to fly fishing, be able to weed the garden meaning get up/down from ground, easier time w/stairs Personal Factors Other Personal Factors That May Effect osteopenia, B meniscectomy Therapy/Recovery 2016 & 2019 PT-OP-C Subjective Start: 11/11/20 18:05 Freq: Status: Active Protocol: Document 01/02/21 14:38 [facility] (Rec: 01/02/21 15:12 [facility] [id number]) OP-PT Subjective Patient Comments Patient Comments Pt feels about the same as usual with knee pain PT-OP-D Balance Start: 11/11/20 18:05 Freq: Status: Active Protocol: Document 12/31/20 15:29 [facility] (Rec: 12/31/20 18:47 [facility] [id number]) Balance Tests Single Limb Standing Single Limb- Right 10 sec w/lat shear of hip Single Limb- Left 25 sec w/lat shear of hip PT-OP-E Functional Tests Start: 11/12/20 17:24 Freq: Status: Active Protocol: Document 11/12/20 15:46 [facility] (Rec: 11/12/20 17:25 [facility] [id number]) Functional Tests 30 Second Sit to Stand Test Score 9 Five Times Sit to Stand Test Score 17sec PT-OP-F Manual Assessment Start: 11/11/20 18:05 Freq: Status: Active Protocol: Document 11/12/20 15:46 [facility] (Rec: 11/12/20 17:22 [facility] [id number]) Manual Assessments Soft Tissue Assessment Soft Tissue Mobility Assessment B:med joint Line, pes anscerine, HS, ITB, calf tenderness L: quads, adductors Joint Mobility Assessment Joint Mobility Assessment dec patellar mobility B PT-OP-G Mobility & Gait Start: 11/11/20 18:05 Freq: Status: Active Protocol: Document 11/12/20 15:46 [facility] (Rec: 11/12/20 17:22 [facility] [id number]) OP Gait Assessment Comments Gait Comments lat leaning R w/WB >L, dec push off PT-OP-J Posture/Palpation/Skin Start: 11/11/20 18:05 Freq: Status: Active Protocol: Document 11/12/20 15:46 [facility] (Rec: 11/12/20 17:22 [facility] [id number]) Posture Evaluation [facility] Postural Classification System Lumbar Protective Mechanism Left AP 2 Lumbar Protective Mechanism Right AP 0 Lumbar Protective Mechanism Left PA 2 Lumbar Protective Mechanism Right PA 2 PT-OP-K Range of Motion Start: 11/11/20 18:05 Freq: Status: Active Protocol: Document 11/12/20 15:46 [facility] (Rec: 11/12/20 17:22 [facility] [id number]) Knee Goniometric Range of Motion Knee Right Flexion Active (degrees) 110 Extension Active (degrees) 2 Comments feel it behind the knee w/ ext Left Flexion Active (degrees) 118 Extension Active (degrees) 2 Comments tight behind knee w/knee ext PT-OP-L Special Tests Start: 11/11/20 18:05 Freq: Status: Active Protocol: Document 11/12/20 15:46 [facility] (Rec: 11/12/20 17:22 [facility] [id number]) Special Tests Knee Special Tests Harshad Test Results mild tightness B Straight Leg Raise Test Results 63 L, 60 R PT-OP-M Strength Start: 11/11/20 18:05 Freq: Status: Active Protocol: Document 12/31/20 15:29 [facility] (Rec: 12/31/20 18:47 [facility] [id number]) Hip Strength Hip Manual Muscle Testing Right Flexion (L2) 5 Normal Extension (S1) 3+ Fair+ Abduction 4 Good Adduction 5 Normal External Rotation 4 Good Internal Rotation 5 Normal Left Flexion (L2) 4+ Good+ Extension (S1) 3+ Fair+ Abduction 4 Good Adduction 5 Normal External Rotation 4 Good Internal Rotation 4+ Good+ Knee Strength Knee Manual Muscle Testing Right Flexion (S2) 5 Normal Extension (L3) 4+ Good+ Left Flexion (S2) 5 Normal Extension (L3) 4+ Good+ Ankle/Foot Strength Ankle and Foot Manual Muscle Testing Right Dorsiflexion (L4) 5 Normal Plantarflexion (S1) 5 Normal Left Dorsiflexion (L4) 5 Normal Plantarflexion (S1) 5 Normal Comments PF tested seated B PT-OP-Q Treatments Start: 11/11/20 18:05 Freq: Status: Active Protocol: Document 01/02/21 14:38 [facility] (Rec: 01/02/21 15:12 [facility] [id number]) Cardio Equipment Bicycle (Upright) Duration (Minutes) 10 Resistance 10 Seat Position 7 Gym Equipment Sport Cord blue Cord/Resistance blue Reps/Duration 3x ea Comments 1. fwd stepping focusing on push off & weight 2. acceptance in mirror 2. lateral steps Therapeutic Exercises Sitting Exercises Glute squeezes Reps/Minutes 10x 5 SH Standing Exercises step up Standing Exercise Name reciprocal leg march Side bilateral Equipment Used 4 step Reps/Minutes 15 Comments focus on knee position and no lateral lean squat Standing Exercise Name sit<>stands std height chair Side bilateral Reps/Minutes 10x Comments focusing on glute activation when standing hip ext Standing Exercise Name pausing on the extension for better glute activation Side bilateral Equipment Used L1 Reps/Minutes 2x10 Gait Training Gait Activity wt shifts Description in mirror Comments 1. fwd to front leg B x20 2. fwd w/step through x15 B PT-OP-T Assessment and Plan Start: 11/11/20 18:05 Freq: Status: Active Protocol: Document 01/02/21 14:38 [facility] (Rec: 01/02/21 15:12 [facility] [id number]) Physical Therapy Assessment Goals balance Halfway Goal (LTG) Pt will be able to balance 10 sec SLS w/hands at sides and no lat shear of pelvis to show improved balance and stability and imrpoved wt acceptance for gait. 12/31 -dec arm use but still lat shear LTG Duration 03/02/21 gait Short Term Goal (STG) Pt will be able to increase walking distance to 1 mile without inc pain more than 2/ 10. STG Duration achieved Horse Rancher Goal (LTG) Pt will be able to amb without lat leaning. LTG Duration 03/02/21 stairs Short Term Goal (STG) Pt will be able to consistantly ascend stairs reciprocally without rail without inc pain. 12/31 can do but casues pain STG Duration 01/31/21 Horse Rancher Goal (LTG) Pt will be able to consistantly descend stairs reciprocally w/o rail w/o inc pain. 12/31 can do but casues pain LTG Duration 03/02/21 activities Short Term Goal (STG) Pt will be able to get up/down from gorund w/o outside suport in order to assist w/ gardening at home. STG Duration achieved bbut pain noted Halfway Goal (LTG) Pt will be able to go fly fishing w/o knee pain and w/o concerns re: instability 12/31-has not tried LTG Duration 03/02/21 LEFS Impairment 40/80 Short Term Goal (STG) Pt will improve score to at least 50/80 to show improved funcitonal ability 8-47/80 improved STG Duration 01/31/21 Halfway Goal (LTG) Pt will improve score to at least 65/80 to show improved funcitonal ability LTG Duration 03/02/21 Assessment Summary Assessment Pt has some difficulty balancing on RLE today during step ups. He tends to lean laterally to the R during gait exercises and needs moderate cues for glute activation throughout exercises. Physical Therapy Plan Frequency and Duration Frequency of Treatment 1-2x/week Duration of Treatment 2 months Plan of Care Start Date 12/31/20 Plan of Care End Date 03/02/21 Therapeutic Interventions Therapeutic Interventions Aquatic Therapy,Balance Training,Gait Training,Home Exercise Program,Joint Mobilizations,Manual Therapy, Neuromuscular Re-education, Patient/Caregiver Education, Self-Care/Home Management,Soft Tissue Mobilization,Taping, Therapeutic Activities, Therapeutic Exercises Modalities Cold Pack/Ice Massage,Electric Stimulation,Hot Packs, Infrared Therapy,Ultrasound Next Visit Focus/Plan Next Note Type Treatment Note Next Visit Plan work on wt shift for gait, resisted gait w/dowel, resisted gait w/sport cord, work on wt shift into step, seated faciliation of glute for sit to stand w/PNF principles, post dep PNF
--- NOTE | 2021-01-07 12:11 | PT.OTN ---
Current Diagnoses Bilateral primary osteoarthritis of knee (01/07/21) Difficulty in walking, not elsewhere classified (01/07/21) Other abnormalities of gait and mobility (01/07/21) Weakness (01/07/21) Physical Therapy Treatment Note PT-OP-A Visit Information Start: 11/11/20 18:05 Freq: Status: Active Protocol: Document 01/07/21 11:21 [facility] (Rec: 01/07/21 12:11 [facility] [id number]) Out-Patient Physical Therapy Visit Information Visit Information Visit Type Treatment Note Visit Note 08/06 Visit Start Time 11:18 Visit Stop Time 12:01 Total Visit Minutes 43 Visit Number 12 Number of BRICK CARRIER Visits 0 PT-OP-B Current Condition Start: 11/11/20 18:05 Freq: Status: Active Protocol: Document 11/12/20 15:46 [facility] (Rec: 11/12/20 17:22 [facility] [id number]) Current Condition History of Current Condition Current Complaints B knee pain History of Current Condition Pt reprots the biggest challenge for him is getting up from the ground. He needs something to leverage himself up off the ground whcih elinates his ability to garden . He is wants to by able to fly fish but feels unstable and requries assist getting up in the boat. Last time he went was in 2019 d/t knees stopping him. He feels like his ROM isn't that bad. Pt reprots going up/down stairs can be difficult and on a bad day has to do step to up/down. Always uses rail. Took a long time after last meniscus surgery to be able to sleep. Pt reports his walking is limited to .5 mile with dog but mostly feels tired in legs /tired overall. Pt reports having R menisectomy in jun 2016 and having 5 sessions of PT after that surgery then 4 sessions after L menisectomy in 2019 at [facility] [place] but had to ask for PT after surgery. He has exercises from last bout that he still does 4-5x/week (APs, heel slides, resisted heel slides, sit<>stand, SAQ). He feels like they have helped quad strength but unsure if they have helped his knee. Prior Treatments and Tests 4-5 PT sessions after menisectomies each Treatment Goals Patient/Caregiver Goals back to fly fishing, be able to weed the garden meaning get up/down from ground, easier time w/stairs Personal Factors Other Personal Factors That May Effect osteopenia, B meniscectomy Therapy/Recovery 2016 & 2019 PT-OP-C Subjective Start: 11/11/20 18:05 Freq: Status: Active Protocol: Document 01/07/21 11:21 [facility] (Rec: 01/07/21 12:11 [facility] [id number]) OP-PT Subjective Patient Comments Patient Comments Pt reprots he feels like he is doing a little better w/ stairs Patient Reported Progress Same PT-OP-D Balance Start: 11/11/20 18:05 Freq: Status: Active Protocol: Document 12/31/20 15:29 [facility] (Rec: 12/31/20 18:47 [facility] [id number]) Balance Tests Single Limb Standing Single Limb- Right 10 sec w/lat shear of hip Single Limb- Left 25 sec w/lat shear of hip PT-OP-E Functional Tests Start: 11/12/20 17:24 Freq: Status: Active Protocol: Document 11/12/20 15:46 [facility] (Rec: 11/12/20 17:25 [facility] [id number]) Functional Tests 30 Second Sit to Stand Test Score 9 Five Times Sit to Stand Test Score 17sec PT-OP-F Manual Assessment Start: 11/11/20 18:05 Freq: Status: Active Protocol: Document 11/12/20 15:46 [facility] (Rec: 11/12/20 17:22 [facility] [id number]) Manual Assessments Soft Tissue Assessment Soft Tissue Mobility Assessment B:med joint Line, pes anscerine, HS, ITB, calf tenderness L: quads, adductors Joint Mobility Assessment Joint Mobility Assessment dec patellar mobility B PT-OP-G Mobility & Gait Start: 11/11/20 18:05 Freq: Status: Active Protocol: Document 11/12/20 15:46 [facility] (Rec: 11/12/20 17:22 [facility] [id number]) OP Gait Assessment Comments Gait Comments lat leaning R w/WB >L, dec push off PT-OP-J Posture/Palpation/Skin Start: 11/11/20 18:05 Freq: Status: Active Protocol: Document 11/12/20 15:46 [facility] (Rec: 11/12/20 17:22 [facility] [id number]) Posture Evaluation [facility] Postural Classification System Lumbar Protective Mechanism Left AP 2 Lumbar Protective Mechanism Right AP 0 Lumbar Protective Mechanism Left PA 2 Lumbar Protective Mechanism Right PA 2 PT-OP-K Range of Motion Start: 11/11/20 18:05 Freq: Status: Active Protocol: Document 11/12/20 15:46 [facility] (Rec: 11/12/20 17:22 [facility] [id number]) Knee Goniometric Range of Motion Knee Right Flexion Active (degrees) 110 Extension Active (degrees) 2 Comments feel it behind the knee w/ ext Left Flexion Active (degrees) 118 Extension Active (degrees) 2 Comments tight behind knee w/knee ext PT-OP-L Special Tests Start: 11/11/20 18:05 Freq: Status: Active Protocol: Document 11/12/20 15:46 [facility] (Rec: 11/12/20 17:22 [facility] [id number]) Special Tests Knee Special Tests Harshad Test Results mild tightness B Straight Leg Raise Test Results 63 L, 60 R PT-OP-M Strength Start: 11/11/20 18:05 Freq: Status: Active Protocol: Document 12/31/20 15:29 [facility] (Rec: 12/31/20 18:47 [facility] [id number]) Hip Strength Hip Manual Muscle Testing Right Flexion (L2) 5 Normal Extension (S1) 3+ Fair+ Abduction 4 Good Adduction 5 Normal External Rotation 4 Good Internal Rotation 5 Normal Left Flexion (L2) 4+ Good+ Extension (S1) 3+ Fair+ Abduction 4 Good Adduction 5 Normal External Rotation 4 Good Internal Rotation 4+ Good+ Knee Strength Knee Manual Muscle Testing Right Flexion (S2) 5 Normal Extension (L3) 4+ Good+ Left Flexion (S2) 5 Normal Extension (L3) 4+ Good+ Ankle/Foot Strength Ankle and Foot Manual Muscle Testing Right Dorsiflexion (L4) 5 Normal Plantarflexion (S1) 5 Normal Left Dorsiflexion (L4) 5 Normal Plantarflexion (S1) 5 Normal Comments PF tested seated B PT-OP-Q Treatments Start: 11/11/20 18:05 Freq: Status: Active Protocol: Document 01/07/21 11:21 [facility] (Rec: 01/07/21 12:11 [facility] [id number]) Cardio Equipment Bicycle (Upright) Duration (Minutes) 6 Resistance 10 Seat Position 7 Gym Equipment Sport Cord green Exercise Details fwd walk Reps/Duration 12 Comments focus on push off Therapeutic Exercises Standing Exercises gait at wall Side bilateral Reps/Minutes 10 sec x5 SLS Standing Exercise Name cone taps Side bilateral Comments 3 in front of him Gait Training Gait Activity gait Description resisted gait w/dowel 50ftx2 wt shifts Description in mirror Comments 1. fwd to front leg B x15 2. fwd w/step through x15 B Manual Therapy Treatment Joint Mobilizations tibfem Joint R Direction PA on tibia patellofemoral Joint R Direction sup, med, inf PT-OP-T Assessment and Plan Start: 11/11/20 18:05 Freq: Status: Active Protocol: Document 01/07/21 11:21 [facility] (Rec: 01/07/21 12:11 [facility] [id number]) Physical Therapy Assessment Goals balance Electric Shovel Operator Goal (LTG) Pt will be able to balance 10 sec SLS w/hands at sides and no lat shear of pelvis to show improved balance and stability and imrpoved wt acceptance for gait. 12/31 -dec arm use but still lat shear LTG Duration 03/02/21 gait Short Term Goal (STG) Pt will be able to increase walking distance to 1 mile without inc pain more than 2/ 10. STG Duration achieved Electric Shovel Operator Goal (LTG) Pt will be able to amb without lat leaning. LTG Duration 03/02/21 stairs Short Term Goal (STG) Pt will be able to consistantly ascend stairs reciprocally without rail without inc pain. 12/31 can do but casues pain STG Duration 01/31/21 Electric Shovel Operator Goal (LTG) Pt will be able to consistantly descend stairs reciprocally w/o rail w/o inc pain. 12/31 can do but casues pain LTG Duration 03/02/21 activities Short Term Goal (STG) Pt will be able to get up/down from gorund w/o outside suport in order to assist w/ gardening at home. STG Duration achieved bbut pain noted Electric Shovel Operator Goal (LTG) Pt will be able to go fly fishing w/o knee pain and w/o concerns re: instability 12/31-has not tried LTG Duration 03/02/21 LEFS Impairment 40/80 Short Term Goal (STG) Pt will improve score to at least 50/80 to show improved funcitonal ability 12/31-47/80 improved STG Duration 01/31/21 Group Home Goal (LTG) Pt will improve score to at least 65/80 to show improved funcitonal ability LTG Duration 03/02/21 Assessment Summary Assessment Pt did well with gait today w/ imrpoved wt shift and wt acceptance. He did better with push off when cued but still does R lat lean in R WB when amb w/o thinking. Improved knee ext after manual treatment of R knee. Physical Therapy Plan Frequency and Duration Frequency of Treatment 1-2x/week Duration of Treatment 2 months Plan of Care Start Date 12/31/20 Plan of Care End Date 03/02/21 Next Visit Focus/Plan Next Note Type Treatment Note Next Visit Plan work on wt shift for gait, resisted gait w/dowel, resisted gait w/sport cord, work on wt shift into step, seated faciliation of glute for sit to stand w/PNF principles, post dep PNF
--- NOTE | 2021-01-09 14:30 | PT.OTN ---
Current Diagnoses Bilateral primary osteoarthritis of knee (01/09/21) Difficulty in walking, not elsewhere classified (01/09/21) Other abnormalities of gait and mobility (01/09/21) Weakness (01/09/21) Physical Therapy Treatment Note PT-OP-A Visit Information Start: 11/11/20 18:05 Freq: Status: Active Protocol: Document 01/09/21 13:49 [facility] (Rec: 01/09/21 14:30 [facility] [id number]) Out-Patient Physical Therapy Visit Information Visit Information Visit Type Treatment Note Visit Note 09/06 Visit Start Time 13:45 Visit Stop Time 14:25 Total Visit Minutes 40 Visit Number 13 Number of INSPECTOR ELEVATORS Visits 1 PT-OP-B Current Condition Start: 11/11/20 18:05 Freq: Status: Active Protocol: Document 11/12/20 15:46 [facility] (Rec: 11/12/20 17:22 [facility] [id number]) Current Condition History of Current Condition Current Complaints B knee pain History of Current Condition Pt reprots the biggest challenge for him is getting up from the ground. He needs something to leverage himself up off the ground whcih elinates his ability to garden . He is wants to by able to fly fish but feels unstable and requries assist getting up in the boat. Last time he went was in 2019 d/t knees stopping him. He feels like his ROM isn't that bad. Pt reprots going up/down stairs can be difficult and on a bad day has to do step to up/down. Always uses rail. Took a long time after last meniscus surgery to be able to sleep. Pt reports his walking is limited to .5 mile with dog but mostly feels tired in legs /tired overall. Pt reports having R menisectomy in jun 2016 and having 5 sessions of PT after that surgery then 4 sessions after L menisectomy in 2019 at [facility] [place] but had to ask for PT after surgery. He has exercises from last bout that he still does 4-5x/week (APs, heel slides, resisted heel slides, sit<>stand, SAQ). He feels like they have helped quad strength but unsure if they have helped his knee. Prior Treatments and Tests 4-5 PT sessions after menisectomies each Treatment Goals Patient/Caregiver Goals back to fly fishing, be able to weed the garden meaning get up/down from ground, easier time w/stairs Personal Factors Other Personal Factors That May Effect osteopenia, B meniscectomy Therapy/Recovery 2016 & 2019 PT-OP-C Subjective Start: 11/11/20 18:05 Freq: Status: Active Protocol: Document 01/09/21 13:49 [facility] (Rec: 01/09/21 14:30 [facility] [id number]) OP-PT Subjective Patient Comments Patient Comments Pt reports his knees are doing a little better but his new exercise with his hands against the wall is hurting his R knee. PT-OP-D Balance Start: 11/11/20 18:05 Freq: Status: Active Protocol: Document 12/31/20 15:29 [facility] (Rec: 12/31/20 18:47 [facility] [id number]) Balance Tests Single Limb Standing Single Limb- Right 10 sec w/lat shear of hip Single Limb- Left 25 sec w/lat shear of hip PT-OP-E Functional Tests Start: 11/12/20 17:24 Freq: Status: Active Protocol: Document 11/12/20 15:46 [facility] (Rec: 11/12/20 17:25 [facility] [id number]) Functional Tests 30 Second Sit to Stand Test Score 9 Five Times Sit to Stand Test Score 17sec PT-OP-F Manual Assessment Start: 11/11/20 18:05 Freq: Status: Active Protocol: Document 11/12/20 15:46 [facility] (Rec: 11/12/20 17:22 [facility] [id number]) Manual Assessments Soft Tissue Assessment Soft Tissue Mobility Assessment B:med joint Line, pes anscerine, HS, ITB, calf tenderness L: quads, adductors Joint Mobility Assessment Joint Mobility Assessment dec patellar mobility B PT-OP-G Mobility & Gait Start: 11/11/20 18:05 Freq: Status: Active Protocol: Document 11/12/20 15:46 [facility] (Rec: 11/12/20 17:22 [facility] [id number]) OP Gait Assessment Comments Gait Comments lat leaning R w/WB >L, dec push off PT-OP-J Posture/Palpation/Skin Start: 11/11/20 18:05 Freq: Status: Active Protocol: Document 11/12/20 15:46 [facility] (Rec: 11/12/20 17:22 [facility] [id number]) Posture Evaluation [facility] Postural Classification System Lumbar Protective Mechanism Left AP 2 Lumbar Protective Mechanism Right AP 0 Lumbar Protective Mechanism Left PA 2 Lumbar Protective Mechanism Right PA 2 PT-OP-K Range of Motion Start: 11/11/20 18:05 Freq: Status: Active Protocol: Document 11/12/20 15:46 [facility] (Rec: 11/12/20 17:22 [facility] [id number]) Knee Goniometric Range of Motion Knee Right Flexion Active (degrees) 110 Extension Active (degrees) 2 Comments feel it behind the knee w/ ext Left Flexion Active (degrees) 118 Extension Active (degrees) 2 Comments tight behind knee w/knee ext PT-OP-L Special Tests Start: 11/11/20 18:05 Freq: Status: Active Protocol: Document 11/12/20 15:46 [facility] (Rec: 11/12/20 17:22 [facility] [id number]) Special Tests Knee Special Tests Harshad Test Results mild tightness B Straight Leg Raise Test Results 63 L, 60 R PT-OP-M Strength Start: 11/11/20 18:05 Freq: Status: Active Protocol: Document 12/31/20 15:29 [facility] (Rec: 12/31/20 18:47 [facility] [id number]) Hip Strength Hip Manual Muscle Testing Right Flexion (L2) 5 Normal Extension (S1) 3+ Fair+ Abduction 4 Good Adduction 5 Normal External Rotation 4 Good Internal Rotation 5 Normal Left Flexion (L2) 4+ Good+ Extension (S1) 3+ Fair+ Abduction 4 Good Adduction 5 Normal External Rotation 4 Good Internal Rotation 4+ Good+ Knee Strength Knee Manual Muscle Testing Right Flexion (S2) 5 Normal Extension (L3) 4+ Good+ Left Flexion (S2) 5 Normal Extension (L3) 4+ Good+ Ankle/Foot Strength Ankle and Foot Manual Muscle Testing Right Dorsiflexion (L4) 5 Normal Plantarflexion (S1) 5 Normal Left Dorsiflexion (L4) 5 Normal Plantarflexion (S1) 5 Normal Comments PF tested seated B PT-OP-Q Treatments Start: 11/11/20 18:05 Freq: Status: Active Protocol: Document 01/09/21 13:49 [facility] (Rec: 01/09/21 14:30 [facility] [id number]) Cardio Equipment Bicycle (Upright) Duration (Minutes) 8 Resistance 10 Seat Position 7 Gym Equipment Sport Cord green Exercise Details fwd walk Reps/Duration 12 Comments focus on push off Therapeutic Exercises Standing Exercises gait at wall Side bilateral Reps/Minutes 10 sec x5 step up Standing Exercise Name reciprocal leg march Side bilateral Equipment Used 4 step & 6 steps Reps/Minutes 10x ea Comments focus on knee position and no lateral lean, controlling descent Gait Training Gait Activity wt shifts Description in mirror Comments 1. fwd to front leg B x15 2. fwd w/step through x15 B Neuro Re-Education Treatment Balance Activities tandem stance Comments working on balance- pt unable to do SLS on R due to pain worked on tandem instead focusing on not leaning R PT-OP-T Assessment and Plan Start: 11/11/20 18:05 Freq: Status: Active Protocol: Document 01/09/21 13:49 [facility] (Rec: 01/09/21 14:30 [facility] [id number]) Physical Therapy Assessment Goals balance Residential Goal (LTG) Pt will be able to balance 10 sec SLS w/hands at sides and no lat shear of pelvis to show improved balance and stability and imrpoved wt acceptance for gait. 12/31 -dec arm use but still lat shear LTG Duration 03/02/21 gait Short Term Goal (STG) Pt will be able to increase walking distance to 1 mile without inc pain more than 2/ 10. STG Duration achieved Spa Director/Finance Goal (LTG) Pt will be able to amb without lat leaning. LTG Duration 03/02/21 stairs Short Term Goal (STG) Pt will be able to consistantly ascend stairs reciprocally without rail without inc pain. 8 can do but casues pain STG Duration 01/31/21 Residential Goal (LTG) Pt will be able to consistantly descend stairs reciprocally w/o rail w/o inc pain. 8 can do but casues pain LTG Duration 03/02/21 activities Short Term Goal (STG) Pt will be able to get up/down from gorund w/o outside suport in order to assist w/ gardening at home. STG Duration achieved bbut pain noted Residential Goal (LTG) Pt will be able to go fly fishing w/o knee pain and w/o concerns re: instability 12/31-has not tried LTG Duration 03/02/21 LEFS Impairment 40/80 Short Term Goal (STG) Pt will improve score to at least 50/80 to show improved funcitonal ability 12/31-47/80 improved STG Duration 01/31/21 Spa Director/Finance Goal (LTG) Pt will improve score to at least 65/80 to show improved funcitonal ability LTG Duration 03/02/21 Assessment Summary Assessment Pt had R knee pain at home with gait exercise when hands are on wall. Adjusted distance from wall with pt having decreased pain. Pt was also IR LLE when flexing hip/knee adding to pt's R knee pain. Pt has almost no pain when he corrects IR and increases distance from wall. Lucian is doing well self-correcting R lateral lean when watching form in mirror but ocassionally goes back to old habbits when not positioned in front of mirror. Encouraged pt to try icing as needed for pain at home. Physical Therapy Plan Frequency and Duration Frequency of Treatment 1-2x/week Duration of Treatment 2 months Plan of Care Start Date 12/31/20 Plan of Care End Date 03/02/21 Therapeutic Interventions Therapeutic Interventions Aquatic Therapy,Balance Training,Gait Training,Home Exercise Program,Joint Mobilizations,Manual Therapy, Neuromuscular Re-education, Patient/Caregiver Education, Self-Care/Home Management,Soft Tissue Mobilization,Taping, Therapeutic Activities, Therapeutic Exercises Modalities Cold Pack/Ice Massage,Electric Stimulation,Hot Packs, Infrared Therapy,Ultrasound Next Visit Focus/Plan Next Note Type Treatment Note Next Visit Plan work on wt shift for gait, resisted gait w/dowel, resisted gait w/sport cord, work on wt shift into step, seated faciliation of glute for sit to stand w/PNF principles, post dep PNF
--- NOTE | 2021-01-12 11:22 | PT.OTN ---
Current Diagnoses Bilateral primary osteoarthritis of knee (01/12/21) Difficulty in walking, not elsewhere classified (01/12/21) Other abnormalities of gait and mobility (01/12/21) Weakness (01/12/21) Physical Therapy Treatment Note PT-OP-A Visit Information Start: 11/11/20 18:05 Freq: Status: Active Protocol: Document 01/12/21 10:40 [facility] (Rec: 01/12/21 11:22 [facility] [id number]) Out-Patient Physical Therapy Visit Information Visit Information Visit Type Treatment Note Visit Note 10/06 Visit Start Time 10:35 Visit Stop Time 11:15 Total Visit Minutes 40 Visit Number 14 Number of SERVICES ACCOUNT MANAGER Visits 0 PT-OP-B Current Condition Start: 11/11/20 18:05 Freq: Status: Active Protocol: Document 11/12/20 15:46 [facility] (Rec: 11/12/20 17:22 [facility] [id number]) Current Condition History of Current Condition Current Complaints B knee pain History of Current Condition Pt reprots the biggest challenge for him is getting up from the ground. He needs something to leverage himself up off the ground whcih elinates his ability to garden . He is wants to by able to fly fish but feels unstable and requries assist getting up in the boat. Last time he went was in 2019 d/t knees stopping him. He feels like his ROM isn't that bad. Pt reprots going up/down stairs can be difficult and on a bad day has to do step to up/down. Always uses rail. Took a long time after last meniscus surgery to be able to sleep. Pt reports his walking is limited to .5 mile with dog but mostly feels tired in legs /tired overall. Pt reports having R menisectomy in jun 2016 and having 5 sessions of PT after that surgery then 4 sessions after L menisectomy in 2019 at [facility] but had to ask for PT after surgery. He has exercises from last bout that he still does 4-5x/week (APs, heel slides, resisted heel slides, sit<>stand, SAQ). He feels like they have helped quad strength but unsure if they have helped his knee. Prior Treatments and Tests 4-5 PT sessions after menisectomies each Treatment Goals Patient/Caregiver Goals back to fly fishing, be able to weed the garden meaning get up/down from ground, easier time w/stairs Personal Factors Other Personal Factors That May Effect osteopenia, B meniscectomy Therapy/Recovery 2016 & 2019 PT-OP-C Subjective Start: 11/11/20 18:05 Freq: Status: Active Protocol: Document 01/12/21 10:40 [facility] (Rec: 01/12/21 11:22 [facility] [id number]) OP-PT Subjective Patient Comments Patient Comments wants to wokr on balance and up/down from ground ground PT-OP-D Balance Start: 11/11/20 18:05 Freq: Status: Active Protocol: Document 12/31/20 15:29 [facility] (Rec: 12/31/20 18:47 [facility] [id number]) Balance Tests Single Limb Standing Single Limb- Right 10 sec w/lat shear of hip Single Limb- Left 25 sec w/lat shear of hip PT-OP-E Functional Tests Start: 11/12/20 17:24 Freq: Status: Active Protocol: Document 11/12/20 15:46 [facility] (Rec: 11/12/20 17:25 [facility] [id number]) Functional Tests 30 Second Sit to Stand Test Score 9 Five Times Sit to Stand Test Score 17sec PT-OP-F Manual Assessment Start: 11/11/20 18:05 Freq: Status: Active Protocol: Document 11/12/20 15:46 [facility] (Rec: 11/12/20 17:22 [facility] [id number]) Manual Assessments Soft Tissue Assessment Soft Tissue Mobility Assessment B:med joint Line, pes anscerine, HS, ITB, calf tenderness L: quads, adductors Joint Mobility Assessment Joint Mobility Assessment dec patellar mobility B PT-OP-G Mobility & Gait Start: 11/11/20 18:05 Freq: Status: Active Protocol: Document 11/12/20 15:46 [facility] (Rec: 11/12/20 17:22 [facility] [id number]) OP Gait Assessment Comments Gait Comments lat leaning R w/WB >L, dec push off PT-OP-J Posture/Palpation/Skin Start: 11/11/20 18:05 Freq: Status: Active Protocol: Document 11/12/20 15:46 [facility] (Rec: 11/12/20 17:22 [facility] [id number]) Posture Evaluation [facility] Postural Classification System Lumbar Protective Mechanism Left AP 2 Lumbar Protective Mechanism Right AP 0 Lumbar Protective Mechanism Left PA 2 Lumbar Protective Mechanism Right PA 2 PT-OP-K Range of Motion Start: 11/11/20 18:05 Freq: Status: Active Protocol: Document 11/12/20 15:46 [facility] (Rec: 11/12/20 17:22 [facility] [id number]) Knee Goniometric Range of Motion Knee Right Flexion Active (degrees) 110 Extension Active (degrees) 2 Comments feel it behind the knee w/ ext Left Flexion Active (degrees) 118 Extension Active (degrees) 2 Comments tight behind knee w/knee ext PT-OP-L Special Tests Start: 11/11/20 18:05 Freq: Status: Active Protocol: Document 11/12/20 15:46 [facility] (Rec: 11/12/20 17:22 [facility] [id number]) Special Tests Knee Special Tests Harshad Test Results mild tightness B Straight Leg Raise Test Results 63 L, 60 R PT-OP-M Strength Start: 11/11/20 18:05 Freq: Status: Active Protocol: Document 12/31/20 15:29 [facility] (Rec: 12/31/20 18:47 [facility] [id number]) Hip Strength Hip Manual Muscle Testing Right Flexion (L2) 5 Normal Extension (S1) 3+ Fair+ Abduction 4 Good Adduction 5 Normal External Rotation 4 Good Internal Rotation 5 Normal Left Flexion (L2) 4+ Good+ Extension (S1) 3+ Fair+ Abduction 4 Good Adduction 5 Normal External Rotation 4 Good Internal Rotation 4+ Good+ Knee Strength Knee Manual Muscle Testing Right Flexion (S2) 5 Normal Extension (L3) 4+ Good+ Left Flexion (S2) 5 Normal Extension (L3) 4+ Good+ Ankle/Foot Strength Ankle and Foot Manual Muscle Testing Right Dorsiflexion (L4) 5 Normal Plantarflexion (S1) 5 Normal Left Dorsiflexion (L4) 5 Normal Plantarflexion (S1) 5 Normal Comments PF tested seated B PT-OP-Q Treatments Start: 11/11/20 18:05 Freq: Status: Active Protocol: Document 01/12/21 10:40 [facility] (Rec: 01/12/21 11:22 [facility] [id number]) Cardio Equipment Bicycle (Upright) Duration (Minutes) 6 Resistance 10 Seat Position 7 Gym Equipment Shuttle Balance red clips Comments fwd: WBOS, NBOS , staggered stance Lateral: WBOS Therapeutic Exercises Standing Exercises gait at wall Side bilateral Reps/Minutes 10 sec x3 squat Standing Exercise Name over chair Side bilateral Reps/Minutes 15x Comments focusing on glute activation when standing & knee position side step Standing Exercise Name in mini squat w/rail Side bilateral Equipment Used L2 around knees Reps/Minutes 20ft Manual Therapy Treatment Soft Tissue Mobilization adductors Body Location R Mobilization Type Rolling Intensity/Depth Moderate Body Position Supine Joint Mobilizations patellofemoral Joint R Direction sup, med, inf Taping KT Body Location joint space correction R Type of Tape Kinesio Tape Comments I strip Neuro Re-Education Treatment Balance Activities bosu Comments 1. step up x10 B 2. lunge onto bosu mini x10 PT-OP-T Assessment and Plan Start: 11/11/20 18:05 Freq: Status: Active Protocol: Document 01/12/21 10:40 [facility] (Rec: 01/12/21 11:22 [facility] [id number]) Physical Therapy Assessment Goals balance Long-Term Goal (LTG) Pt will be able to balance 10 sec SLS w/hands at sides and no lat shear of pelvis to show improved balance and stability and imrpoved wt acceptance for gait. 8 -dec arm use but still lat shear LTG Duration 03/02/21 gait Short Term Goal (STG) Pt will be able to increase walking distance to 1 mile without inc pain more than 2/ 10. STG Duration achieved Long-Term Goal (LTG) Pt will be able to amb without lat leaning. LTG Duration 03/02/21 stairs Short Term Goal (STG) Pt will be able to consistantly ascend stairs reciprocally without rail without inc pain. 12/31 can do but casues pain STG Duration 01/31/21 Long-Term Goal (LTG) Pt will be able to consistantly descend stairs reciprocally w/o rail w/o inc pain. 8 can do but casues pain LTG Duration 03/02/21 activities Short Term Goal (STG) Pt will be able to get up/down from gorund w/o outside suport in order to assist w/ gardening at home. STG Duration achieved bbut pain noted Long-Term Goal (LTG) Pt will be able to go fly fishing w/o knee pain and w/o concerns re: instability 12/31-has not tried LTG Duration 03/02/21 LEFS Impairment 40/80 Short Term Goal (STG) Pt will improve score to at least 50/80 to show improved funcitonal ability 12/31-47/80 improved STG Duration 01/31/21 Greeting Card Editor Goal (LTG) Pt will improve score to at least 65/80 to show improved funcitonal ability LTG Duration 03/02/21 Assessment Summary Assessment Pt required ceus for knee position during squatting and side step squat. Good performance w/gait at wall. Pt was challenged by all balance tasks today. he definitelys hows instability over uneven surfaces. Physical Therapy Plan Frequency and Duration Frequency of Treatment 1-2x/week Duration of Treatment 2 months Plan of Care Start Date 12/31/20 Plan of Care End Date 03/02/21 Next Visit Focus/Plan Next Note Type Treatment Note Next Visit Plan work on balance and inc ease for up/down from ground & push off for gait.
--- NOTE | 2021-01-15 11:16 | PT.OTN ---
Current Diagnoses Bilateral primary osteoarthritis of knee (01/15/21) Difficulty in walking, not elsewhere classified (01/15/21) Other abnormalities of gait and mobility (01/15/21) Weakness (01/15/21) Physical Therapy Treatment Note PT-OP-A Visit Information Start: 11/11/20 18:05 Freq: Status: Active Protocol: Document 01/15/21 10:31 [facility] (Rec: 01/15/21 11:16 [facility] [id number]) Out-Patient Physical Therapy Visit Information Visit Information Visit Type Treatment Note Visit Note 11/06 Visit Start Time 10:30 Visit Stop Time 11:11 Total Visit Minutes 41 Visit Number 15 Number of NEUROLOGY EPILEPSY PHYSICIAN Visits 0 PT-OP-B Current Condition Start: 11/11/20 18:05 Freq: Status: Active Protocol: Document 11/12/20 15:46 [facility] (Rec: 11/12/20 17:22 [facility] [id number]) Current Condition History of Current Condition Current Complaints B knee pain History of Current Condition Pt reprots the biggest challenge for him is getting up from the ground. He needs something to leverage himself up off the ground whcih elinates his ability to garden . He is wants to by able to fly fish but feels unstable and requries assist getting up in the boat. Last time he went was in 2019 d/t knees stopping him. He feels like his ROM isn't that bad. Pt reprots going up/down stairs can be difficult and on a bad day has to do step to up/down. Always uses rail. Took a long time after last meniscus surgery to be able to sleep. Pt reports his walking is limited to .5 mile with dog but mostly feels tired in legs /tired overall. Pt reports having R menisectomy in jun 2016 and having 5 sessions of PT after that surgery then 4 sessions after L menisectomy in 2019 at [facility] but had to ask for PT after surgery. He has exercises from last bout that he still does 4-5x/week (APs, heel slides, resisted heel slides, sit<>stand, SAQ). He feels like they have helped quad strength but unsure if they have helped his knee. Prior Treatments and Tests 4-5 PT sessions after menisectomies each Treatment Goals Patient/Caregiver Goals back to fly fishing, be able to weed the garden meaning get up/down from ground, easier time w/stairs Personal Factors Other Personal Factors That May Effect osteopenia, B meniscectomy Therapy/Recovery 2016 & 2019 PT-OP-C Subjective Start: 11/11/20 18:05 Freq: Status: Active Protocol: Document 01/15/21 10:31 [facility] (Rec: 01/15/21 11:16 [facility] [id number]) OP-PT Subjective Patient Comments Patient Comments Pt reports knees feeling okay after all balance tasks last session. Pt reports having some good days w/taping, unsure if its due to the tape or not PT-OP-D Balance Start: 11/11/20 18:05 Freq: Status: Active Protocol: Document 12/31/20 15:29 [facility] (Rec: 12/31/20 18:47 [facility] [id number]) Balance Tests Single Limb Standing Single Limb- Right 10 sec w/lat shear of hip Single Limb- Left 25 sec w/lat shear of hip PT-OP-E Functional Tests Start: 11/12/20 17:24 Freq: Status: Active Protocol: Document 11/12/20 15:46 [facility] (Rec: 11/12/20 17:25 [facility] [id number]) Functional Tests 30 Second Sit to Stand Test Score 9 Five Times Sit to Stand Test Score 17sec PT-OP-F Manual Assessment Start: 11/11/20 18:05 Freq: Status: Active Protocol: Document 11/12/20 15:46 [facility] (Rec: 11/12/20 17:22 [facility] [id number]) Manual Assessments Soft Tissue Assessment Soft Tissue Mobility Assessment B:med joint Line, pes anscerine, HS, ITB, calf tenderness L: quads, adductors Joint Mobility Assessment Joint Mobility Assessment dec patellar mobility B PT-OP-G Mobility & Gait Start: 11/11/20 18:05 Freq: Status: Active Protocol: Document 11/12/20 15:46 [facility] (Rec: 11/12/20 17:22 [facility] [id number]) OP Gait Assessment Comments Gait Comments lat leaning R w/WB >L, dec push off PT-OP-J Posture/Palpation/Skin Start: 11/11/20 18:05 Freq: Status: Active Protocol: Document 11/12/20 15:46 [facility] (Rec: 11/12/20 17:22 [facility] [id number]) Posture Evaluation [facility] Postural Classification System Lumbar Protective Mechanism Left AP 2 Lumbar Protective Mechanism Right AP 0 Lumbar Protective Mechanism Left PA 2 Lumbar Protective Mechanism Right PA 2 PT-OP-K Range of Motion Start: 11/11/20 18:05 Freq: Status: Active Protocol: Document 11/12/20 15:46 [facility] (Rec: 11/12/20 17:22 [facility] [id number]) Knee Goniometric Range of Motion Knee Right Flexion Active (degrees) 110 Extension Active (degrees) 2 Comments feel it behind the knee w/ ext Left Flexion Active (degrees) 118 Extension Active (degrees) 2 Comments tight behind knee w/knee ext PT-OP-L Special Tests Start: 11/11/20 18:05 Freq: Status: Active Protocol: Document 11/12/20 15:46 [facility] (Rec: 11/12/20 17:22 [facility] [id number]) Special Tests Knee Special Tests Harshad Test Results mild tightness B Straight Leg Raise Test Results 63 L, 60 R PT-OP-M Strength Start: 11/11/20 18:05 Freq: Status: Active Protocol: Document 12/31/20 15:29 [facility] (Rec: 12/31/20 18:47 [facility] [id number]) Hip Strength Hip Manual Muscle Testing Right Flexion (L2) 5 Normal Extension (S1) 3+ Fair+ Abduction 4 Good Adduction 5 Normal External Rotation 4 Good Internal Rotation 5 Normal Left Flexion (L2) 4+ Good+ Extension (S1) 3+ Fair+ Abduction 4 Good Adduction 5 Normal External Rotation 4 Good Internal Rotation 4+ Good+ Knee Strength Knee Manual Muscle Testing Right Flexion (S2) 5 Normal Extension (L3) 4+ Good+ Left Flexion (S2) 5 Normal Extension (L3) 4+ Good+ Ankle/Foot Strength Ankle and Foot Manual Muscle Testing Right Dorsiflexion (L4) 5 Normal Plantarflexion (S1) 5 Normal Left Dorsiflexion (L4) 5 Normal Plantarflexion (S1) 5 Normal Comments PF tested seated B PT-OP-Q Treatments Start: 11/11/20 18:05 Freq: Status: Active Protocol: Document 01/15/21 10:31 [facility] (Rec: 01/15/21 11:16 [facility] [id number]) Cardio Equipment Bicycle (Upright) Duration (Minutes) 6 Resistance 10 Seat Position 7 Gym Equipment Shuttle Balance red clips Comments fwd: WBOS, NBOS , staggered stance Lateral: WBOS, NBOS Therapeutic Exercises Standing Exercises lunge Standing Exercise Name mini at rail Side bilateral Reps/Minutes 10 squat Standing Exercise Name over chair Side bilateral Reps/Minutes 15x Comments focusing on glute activation when standing & knee position Manual Therapy Treatment Soft Tissue Mobilization adductors Body Location R Mobilization Type Rolling Intensity/Depth Moderate Body Position Supine Joint Mobilizations tibfem Joint R Direction PA on tibia patellofemoral Joint R Direction sup, med, inf Neuro Re-Education Treatment Balance Activities hurdles Details 6 hurdles fwd Reps/Duration 8x bosu Comments 1. step up x10 B 2. mini squat on blue side rails prn x10 PT-OP-T Assessment and Plan Start: 11/11/20 18:05 Freq: Status: Active Protocol: Document 01/15/21 10:31 [facility] (Rec: 01/15/21 11:16 [facility] [id number]) Physical Therapy Assessment Goals balance Retirement Goal (LTG) Pt will be able to balance 10 sec SLS w/hands at sides and no lat shear of pelvis to show improved balance and stability and imrpoved wt acceptance for gait. 8 -dec arm use but still lat shear LTG Duration 03/02/21 gait Short Term Goal (STG) Pt will be able to increase walking distance to 1 mile without inc pain more than 2/ 10. STG Duration achieved Retirement Goal (LTG) Pt will be able to amb without lat leaning. LTG Duration 03/02/21 stairs Short Term Goal (STG) Pt will be able to consistantly ascend stairs reciprocally without rail without inc pain. 8/4 can do but casues pain STG Duration 01/31/21 Retirement Goal (LTG) Pt will be able to consistantly descend stairs reciprocally w/o rail w/o inc pain. 8/4 can do but casues pain LTG Duration 03/02/21 activities Short Term Goal (STG) Pt will be able to get up/down from gorund w/o outside suport in order to assist w/ gardening at home. STG Duration achieved bbut pain noted Retirement Goal (LTG) Pt will be able to go fly fishing w/o knee pain and w/o concerns re: instability 12/31-has not tried LTG Duration 03/02/21 LEFS Impairment 40/80 Short Term Goal (STG) Pt will improve score to at least 50/80 to show improved funcitonal ability 12/31-47/80 improved STG Duration 01/31/21 Retirement Goal (LTG) Pt will improve score to at least 65/80 to show improved funcitonal ability LTG Duration 03/02/21 Assessment Summary Assessment Pt did better w/balance board today. noted some knee pain w/ jannette squats on bosu so stopped after 10. He was challenged by appropriate stepping positiong w/hurdles. Physical Therapy Plan Frequency and Duration Frequency of Treatment 1-2x/week Duration of Treatment 2 months Plan of Care Start Date 12/31/20 Plan of Care End Date 03/02/21 Next Visit Focus/Plan Next Note Type Treatment Note Next Visit Plan work on balance and inc ease for up/down from ground & push off for gait.
--- NOTE | 2021-01-19 11:17 | PT.OTN ---
Current Diagnoses Bilateral primary osteoarthritis of knee (01/19/21) Difficulty in walking, not elsewhere classified (01/19/21) Other abnormalities of gait and mobility (01/19/21) Weakness (01/19/21) Physical Therapy Treatment Note PT-OP-A Visit Information Start: 11/11/20 18:05 Freq: Status: Active Protocol: Document 01/19/21 10:41 [facility] (Rec: 01/19/21 11:17 [facility] [id number]) Out-Patient Physical Therapy Visit Information Visit Information Visit Type Treatment Note Visit Note 12/06 Visit Start Time 10:36 Visit Stop Time 11:15 Total Visit Minutes 39 Visit Number 16 Number of BOWL TOPPER Visits 0 PT-OP-B Current Condition Start: 11/11/20 18:05 Freq: Status: Active Protocol: Document 11/12/20 15:46 [facility] (Rec: 11/12/20 17:22 [facility] [id number]) Current Condition History of Current Condition Current Complaints B knee pain History of Current Condition Pt reprots the biggest challenge for him is getting up from the ground. He needs something to leverage himself up off the ground whcih elinates his ability to garden . He is wants to by able to fly fish but feels unstable and requries assist getting up in the boat. Last time he went was in 2019 d/t knees stopping him. He feels like his ROM isn't that bad. Pt reprots going up/down stairs can be difficult and on a bad day has to do step to up/down. Always uses rail. Took a long time after last meniscus surgery to be able to sleep. Pt reports his walking is limited to .5 mile with dog but mostly feels tired in legs /tired overall. Pt reports having R menisectomy in jun 2016 and having 5 sessions of PT after that surgery then 4 sessions after L menisectomy in 2019 at [facility] but had to ask for PT after surgery. He has exercises from last bout that he still does 4-5x/week (APs, heel slides, resisted heel slides, sit<>stand, SAQ). He feels like they have helped quad strength but unsure if they have helped his knee. Prior Treatments and Tests 4-5 PT sessions after menisectomies each Treatment Goals Patient/Caregiver Goals back to fly fishing, be able to weed the garden meaning get up/down from ground, easier time w/stairs Personal Factors Other Personal Factors That May Effect osteopenia, B meniscectomy Therapy/Recovery 2016 & 2019 PT-OP-C Subjective Start: 11/11/20 18:05 Freq: Status: Active Protocol: Document 01/19/21 10:41 [facility] (Rec: 01/19/21 11:17 [facility] [id number]) OP-PT Subjective Patient Comments Patient Comments Pt reports he is starting to feel more positive. Notes the last few days have been good days. Thinks the tape may help PT-OP-D Balance Start: 11/11/20 18:05 Freq: Status: Active Protocol: Document 12/31/20 15:29 [facility] (Rec: 12/31/20 18:47 [facility] [id number]) Balance Tests Single Limb Standing Single Limb- Right 10 sec w/lat shear of hip Single Limb- Left 25 sec w/lat shear of hip PT-OP-E Functional Tests Start: 11/12/20 17:24 Freq: Status: Active Protocol: Document 11/12/20 15:46 [facility] (Rec: 11/12/20 17:25 [facility] [id number]) Functional Tests 30 Second Sit to Stand Test Score 9 Five Times Sit to Stand Test Score 17sec PT-OP-F Manual Assessment Start: 11/11/20 18:05 Freq: Status: Active Protocol: Document 11/12/20 15:46 [facility] (Rec: 11/12/20 17:22 [facility] [id number]) Manual Assessments Soft Tissue Assessment Soft Tissue Mobility Assessment B:med joint Line, pes anscerine, HS, ITB, calf tenderness L: quads, adductors Joint Mobility Assessment Joint Mobility Assessment dec patellar mobility B PT-OP-G Mobility & Gait Start: 11/11/20 18:05 Freq: Status: Active Protocol: Document 11/12/20 15:46 [facility] (Rec: 11/12/20 17:22 [facility] [id number]) OP Gait Assessment Comments Gait Comments lat leaning R w/WB >L, dec push off PT-OP-J Posture/Palpation/Skin Start: 11/11/20 18:05 Freq: Status: Active Protocol: Document 11/12/20 15:46 [facility] (Rec: 11/12/20 17:22 [facility] [id number]) Posture Evaluation [facility] Postural Classification System Lumbar Protective Mechanism Left AP 2 Lumbar Protective Mechanism Right AP 0 Lumbar Protective Mechanism Left PA 2 Lumbar Protective Mechanism Right PA 2 PT-OP-K Range of Motion Start: 11/11/20 18:05 Freq: Status: Active Protocol: Document 11/12/20 15:46 [facility] (Rec: 11/12/20 17:22 [facility] [id number]) Knee Goniometric Range of Motion Knee Right Flexion Active (degrees) 110 Extension Active (degrees) 2 Comments feel it behind the knee w/ ext Left Flexion Active (degrees) 118 Extension Active (degrees) 2 Comments tight behind knee w/knee ext PT-OP-L Special Tests Start: 11/11/20 18:05 Freq: Status: Active Protocol: Document 11/12/20 15:46 [facility] (Rec: 11/12/20 17:22 [facility] [id number]) Special Tests Knee Special Tests Harshad Test Results mild tightness B Straight Leg Raise Test Results 63 L, 60 R PT-OP-M Strength Start: 11/11/20 18:05 Freq: Status: Active Protocol: Document 12/31/20 15:29 [facility] (Rec: 12/31/20 18:47 [facility] [id number]) Hip Strength Hip Manual Muscle Testing Right Flexion (L2) 5 Normal Extension (S1) 3+ Fair+ Abduction 4 Good Adduction 5 Normal External Rotation 4 Good Internal Rotation 5 Normal Left Flexion (L2) 4+ Good+ Extension (S1) 3+ Fair+ Abduction 4 Good Adduction 5 Normal External Rotation 4 Good Internal Rotation 4+ Good+ Knee Strength Knee Manual Muscle Testing Right Flexion (S2) 5 Normal Extension (L3) 4+ Good+ Left Flexion (S2) 5 Normal Extension (L3) 4+ Good+ Ankle/Foot Strength Ankle and Foot Manual Muscle Testing Right Dorsiflexion (L4) 5 Normal Plantarflexion (S1) 5 Normal Left Dorsiflexion (L4) 5 Normal Plantarflexion (S1) 5 Normal Comments PF tested seated B PT-OP-Q Treatments Start: 11/11/20 18:05 Freq: Status: Active Protocol: Document 01/19/21 10:41 [facility] (Rec: 01/19/21 11:17 [facility] [id number]) Cardio Equipment Bicycle (Upright) Duration (Minutes) 6 Resistance 10 Seat Position 7 Gym Equipment Shuttle Balance red clips Comments fwd: WBOS, NBOS , staggered stance Lateral: WBOS, NBOS Therapeutic Exercises Standing Exercises stretch Standing Exercise Name clay calf stretch Side bilateral Reps/Minutes 1 min x2 Neuro Re-Education Treatment Balance Activities hurdles Details 6 hurdles fwd Reps/Duration 6x bosu Comments 1. step up x10 B 2. mini squat on blue side rails prn x12 3. mini lunge onto bosus x10 B SLS Details alt july on blue foam PT-OP-T Assessment and Plan Start: 11/11/20 18:05 Freq: Status: Active Protocol: Document 01/19/21 10:41 [facility] (Rec: 01/19/21 11:17 [facility] [id number]) Physical Therapy Assessment Goals balance Tip Mender Goal (LTG) Pt will be able to balance 10 sec SLS w/hands at sides and no lat shear of pelvis to show improved balance and stability and imrpoved wt acceptance for gait. 12/31 -dec arm use but still lat shear LTG Duration 03/02/21 gait Short Term Goal (STG) Pt will be able to increase walking distance to 1 mile without inc pain more than 2/ 10. STG Duration achieved Detention Goal (LTG) Pt will be able to amb without lat leaning. LTG Duration 03/02/21 stairs Short Term Goal (STG) Pt will be able to consistantly ascend stairs reciprocally without rail without inc pain. 12/31 can do but casues pain STG Duration 01/31/21 Detention Goal (LTG) Pt will be able to consistantly descend stairs reciprocally w/o rail w/o inc pain. 12/31 can do but casues pain LTG Duration 03/02/21 activities Short Term Goal (STG) Pt will be able to get up/down from gorund w/o outside suport in order to assist w/ gardening at home. STG Duration achieved bbut pain noted Detention Goal (LTG) Pt will be able to go fly fishing w/o knee pain and w/o concerns re: instability 12/31-has not tried LTG Duration 03/02/21 LEFS Impairment 40/80 Short Term Goal (STG) Pt will improve score to at least 50/80 to show improved funcitonal ability 12/31-47/80 improved STG Duration 01/31/21 Detention Goal (LTG) Pt will improve score to at least 65/80 to show improved funcitonal ability LTG Duration 03/02/21 Assessment Summary Assessment Pt did well with balance exercises toeday with improved overall performance but still challenged by these activities. Physical Therapy Plan Frequency and Duration Frequency of Treatment 1-2x/week Duration of Treatment 2 months Plan of Care Start Date 12/31/20 Plan of Care End Date 03/02/21 Next Visit Focus/Plan Next Note Type Treatment Note Next Visit Plan work on balance and inc ease for up/down from ground & push off for gait.
--- NOTE | 2021-01-22 11:16 | PT.OTN ---
Current Diagnoses Bilateral primary osteoarthritis of knee (01/22/21) Difficulty in walking, not elsewhere classified (01/22/21) Other abnormalities of gait and mobility (01/22/21) Weakness (01/22/21) Physical Therapy Treatment Note PT-OP-A Visit Information Start: 11/11/20 18:05 Freq: Status: Active Protocol: Document 01/22/21 10:35 [facility] (Rec: 01/22/21 11:16 [facility] [id number]) Out-Patient Physical Therapy Visit Information Visit Information Visit Type Progress Note Visit Note 06/08 Visit Start Time 10:33 Visit Stop Time 11:13 Total Visit Minutes 40 Visit Number 17 Number of PAPERBOARD MACHINE OPERATOR Visits 0 PT-OP-B Current Condition Start: 11/11/20 18:05 Freq: Status: Active Protocol: Document 11/12/20 15:46 [facility] (Rec: 11/12/20 17:22 [facility] [id number]) Current Condition History of Current Condition Current Complaints B knee pain History of Current Condition Pt reprots the biggest challenge for him is getting up from the ground. He needs something to leverage himself up off the ground whcih elinates his ability to garden . He is wants to by able to fly fish but feels unstable and requries assist getting up in the boat. Last time he went was in 2019 d/t knees stopping him. He feels like his ROM isn't that bad. Pt reprots going up/down stairs can be difficult and on a bad day has to do step to up/down. Always uses rail. Took a long time after last meniscus surgery to be able to sleep. Pt reports his walking is limited to .5 mile with dog but mostly feels tired in legs /tired overall. Pt reports having R menisectomy in jun 2016 and having 5 sessions of PT after that surgery then 4 sessions after L menisectomy in 2019 at [facility] but had to ask for PT after surgery. He has exercises from last bout that he still does 4-5x/week (APs, heel slides, resisted heel slides, sit<>stand, SAQ). He feels like they have helped quad strength but unsure if they have helped his knee. Prior Treatments and Tests 4-5 PT sessions after menisectomies each Treatment Goals Patient/Caregiver Goals back to fly fishing, be able to weed the garden meaning get up/down from ground, easier time w/stairs Personal Factors Other Personal Factors That May Effect osteopenia, B meniscectomy Therapy/Recovery 2016 & 2019 PT-OP-C Subjective Start: 11/11/20 18:05 Freq: Status: Active Protocol: Document 01/22/21 10:35 [facility] (Rec: 01/22/21 11:16 [facility] [id number]) OP-PT Subjective Patient Comments Patient Comments Pt reports a couple days ago, he was taking the recyle out and missed the first step and stumbled but caught himself on fence PT-OP-D Balance Start: 11/11/20 18:05 Freq: Status: Active Protocol: Document 12/31/20 15:29 [facility] (Rec: 12/31/20 18:47 [facility] [id number]) Balance Tests Single Limb Standing Single Limb- Right 10 sec w/lat shear of hip Single Limb- Left 25 sec w/lat shear of hip PT-OP-E Functional Tests Start: 11/12/20 17:24 Freq: Status: Active Protocol: Document 11/12/20 15:46 [facility] (Rec: 11/12/20 17:25 [facility] [id number]) Functional Tests 30 Second Sit to Stand Test Score 9 Five Times Sit to Stand Test Score 17sec PT-OP-F Manual Assessment Start: 11/11/20 18:05 Freq: Status: Active Protocol: Document 11/12/20 15:46 [facility] (Rec: 11/12/20 17:22 [facility] [id number]) Manual Assessments Soft Tissue Assessment Soft Tissue Mobility Assessment B:med joint Line, pes anscerine, HS, ITB, calf tenderness L: quads, adductors Joint Mobility Assessment Joint Mobility Assessment dec patellar mobility B PT-OP-G Mobility & Gait Start: 11/11/20 18:05 Freq: Status: Active Protocol: Document 11/12/20 15:46 [facility] (Rec: 11/12/20 17:22 [facility] [id number]) OP Gait Assessment Comments Gait Comments lat leaning R w/WB >L, dec push off PT-OP-J Posture/Palpation/Skin Start: 11/11/20 18:05 Freq: Status: Active Protocol: Document 11/12/20 15:46 [facility] (Rec: 11/12/20 17:22 [facility] [id number]) Posture Evaluation [facility] Postural Classification System Lumbar Protective Mechanism Left AP 2 Lumbar Protective Mechanism Right AP 0 Lumbar Protective Mechanism Left PA 2 Lumbar Protective Mechanism Right PA 2 PT-OP-K Range of Motion Start: 11/11/20 18:05 Freq: Status: Active Protocol: Document 11/12/20 15:46 [facility] (Rec: 11/12/20 17:22 [facility] [id number]) Knee Goniometric Range of Motion Knee Right Flexion Active (degrees) 110 Extension Active (degrees) 2 Comments feel it behind the knee w/ ext Left Flexion Active (degrees) 118 Extension Active (degrees) 2 Comments tight behind knee w/knee ext PT-OP-L Special Tests Start: 11/11/20 18:05 Freq: Status: Active Protocol: Document 11/12/20 15:46 [facility] (Rec: 11/12/20 17:22 [facility] [id number]) Special Tests Knee Special Tests Harshad Test Results mild tightness B Straight Leg Raise Test Results 63 L, 60 R PT-OP-M Strength Start: 11/11/20 18:05 Freq: Status: Active Protocol: Document 12/31/20 15:29 [facility] (Rec: 12/31/20 18:47 [facility] [id number]) Hip Strength Hip Manual Muscle Testing Right Flexion (L2) 5 Normal Extension (S1) 3+ Fair+ Abduction 4 Good Adduction 5 Normal External Rotation 4 Good Internal Rotation 5 Normal Left Flexion (L2) 4+ Good+ Extension (S1) 3+ Fair+ Abduction 4 Good Adduction 5 Normal External Rotation 4 Good Internal Rotation 4+ Good+ Knee Strength Knee Manual Muscle Testing Right Flexion (S2) 5 Normal Extension (L3) 4+ Good+ Left Flexion (S2) 5 Normal Extension (L3) 4+ Good+ Ankle/Foot Strength Ankle and Foot Manual Muscle Testing Right Dorsiflexion (L4) 5 Normal Plantarflexion (S1) 5 Normal Left Dorsiflexion (L4) 5 Normal Plantarflexion (S1) 5 Normal Comments PF tested seated B PT-OP-Q Treatments Start: 11/11/20 18:05 Freq: Status: Active Protocol: Document 01/22/21 10:35 [facility] (Rec: 01/22/21 11:16 [facility] [id number]) Cardio Equipment Bicycle (Upright) Duration (Minutes) 6 Resistance 10 Seat Position 7 Therapeutic Exercises Standing Exercises lunge Standing Exercise Name mini at rail Side bilateral Reps/Minutes 10 gait at wall Side bilateral Reps/Minutes 10 sec x2 Manual Therapy Treatment Soft Tissue Mobilization calf' Body Location R Mobilization Type Rolling Intensity/Depth Moderate Joint Mobilizations patellofemoral Joint R Direction sup, med, inf Taping KT Body Location joint space correction R Type of Tape Kinesio Tape Comments I strip Neuro Re-Education Treatment Balance Activities bosu Comments 1. step up x10 B 2. mini squat on blue side rails prn x12 3. mini lunge onto bosus x10 B 4. DL balance 5. july B x10 PT-OP-T Assessment and Plan Start: 11/11/20 18:05 Freq: Status: Active Protocol: Document 01/22/21 10:35 [facility] (Rec: 01/22/21 11:16 [facility] [id number]) Physical Therapy Assessment Goals balance Frame Operator Goal (LTG) Pt will be able to balance 10 sec SLS w/hands at sides and no lat shear of pelvis to show improved balance and stability and imrpoved wt acceptance for gait. 12/31 -dec arm use but still lat shear LTG Duration 03/02/21 gait Short Term Goal (STG) Pt will be able to increase walking distance to 1 mile without inc pain more than 2/ 10. STG Duration achieved Frame Operator Goal (LTG) Pt will be able to amb without lat leaning. 01/22-able to when focusing LTG Duration 03/02/21 stairs Short Term Goal (STG) Pt will be able to consistantly ascend stairs reciprocally without rail without inc pain. 12/31 can do but casues pain STG Duration achieved Snf Goal (LTG) Pt will be able to consistantly descend stairs reciprocally w/o rail w/o inc pain. 12/31 can do but casues pain 01/22/21-can do but slower LTG Duration 03/02/21 activities Short Term Goal (STG) Pt will be able to get up/down from gorund w/o outside suport in order to assist w/ gardening at home. STG Duration achieved bbut pain noted Frame Operator Goal (LTG) Pt will be able to go fly fishing w/o knee pain and w/o concerns re: instability 12/31-has not tried LTG Duration 03/02/21 LEFS Impairment 40/80 Short Term Goal (STG) Pt will improve score to at least 50/80 to show improved funcitonal ability 12/31-47/80 improved STG Duration 01/31/21 Snf Goal (LTG) Pt will improve score to at least 65/80 to show improved funcitonal ability LTG Duration 03/02/21 Assessment Summary Assessment Pt is doing better with stairs w/less reported issues. He still has some dec balance and discomfort w/daily life, but is improving functionally. He cont to improve w/balance activities. Physical Therapy Plan Frequency and Duration Frequency of Treatment 1-2x/week Duration of Treatment 2 months Plan of Care Start Date 12/31/20 Plan of Care End Date 03/02/21 Therapeutic Interventions Therapeutic Interventions Aquatic Therapy,Balance Training,Gait Training,Home Exercise Program,Joint Mobilizations,Manual Therapy, Neuromuscular Re-education, Patient/Caregiver Education, Self-Care/Home Management,Soft Tissue Mobilization,Taping, Therapeutic Activities, Therapeutic Exercises Modalities Cold Pack/Ice Massage,Electric Stimulation,Hot Packs, Infrared Therapy,Ultrasound Next Visit Focus/Plan Next Note Type Treatment Note Next Visit Plan work on balance and inc ease for up/down from ground & push off for gait.
--- NOTE | 2021-01-29 11:15 | PT.OTN ---
Current Diagnoses Bilateral primary osteoarthritis of knee (01/29/21) Difficulty in walking, not elsewhere classified (01/29/21) Other abnormalities of gait and mobility (01/29/21) Weakness (01/29/21) Physical Therapy Treatment Note PT-OP-A Visit Information Start: 11/11/20 18:05 Freq: Status: Active Protocol: Document 01/29/21 11:08 OF (Rec: 01/29/21 11:15 OF [email or web address]) Out-Patient Physical Therapy Visit Information Visit Information Visit Type Treatment Note Visit Start Time 10:30 Visit Stop Time 11:08 Total Visit Minutes 38 Visit Number 18 PT-OP-B Current Condition Start: 11/11/20 18:05 Freq: Status: Active Protocol: Document 11/12/20 15:46 [facility] (Rec: 11/12/20 17:22 [facility] [id number]) Current Condition History of Current Condition Current Complaints B knee pain History of Current Condition Pt reprots the biggest challenge for him is getting up from the ground. He needs something to leverage himself up off the ground whcih elinates his ability to garden . He is wants to by able to fly fish but feels unstable and requries assist getting up in the boat. Last time he went was in 2019 d/t knees stopping him. He feels like his ROM isn't that bad. Pt reprots going up/down stairs can be difficult and on a bad day has to do step to up/down. Always uses rail. Took a long time after last meniscus surgery to be able to sleep. Pt reports his walking is limited to .5 mile with dog but mostly feels tired in legs /tired overall. Pt reports having R menisectomy in jun 2016 and having 5 sessions of PT after that surgery then 4 sessions after L menisectomy in 2019 at [facility] but had to ask for PT after surgery. He has exercises from last bout that he still does 4-5x/week (APs, heel slides, resisted heel slides, sit<>stand, SAQ). He feels like they have helped quad strength but unsure if they have helped his knee. Prior Treatments and Tests 4-5 PT sessions after menisectomies each Treatment Goals Patient/Caregiver Goals back to fly fishing, be able to weed the garden meaning get up/down from ground, easier time w/stairs Personal Factors Other Personal Factors That May Effect osteopenia, B meniscectomy Therapy/Recovery 2016 & 2019 PT-OP-C Subjective Start: 11/11/20 18:05 Freq: Status: Active Protocol: Document 01/29/21 11:08 OF (Rec: 01/29/21 11:15 OF [email or web address]) OP-PT Subjective Patient Comments Patient Comments pt reports HEP as instructed, continued difficulty with floor transfers Patient Reported Progress Improving OP-PT Pain Assessment Location B knees Pain Location Details Medial R Intensity 2 Scale Used Numeric (0 - 10) Description Aching,Sharp Frequency Intermittent Pain Duration 1 min-2 min Radiating Location denies Variations/Patterns sometimes painful on the lat aspect Pain Aggravating Factors Walking,Stair Climbing,Bending Pain Alleviating Factors Cold Other Pain Alleviating Factors rest PT-OP-D Balance Start: 11/11/20 18:05 Freq: Status: Active Protocol: Document 12/31/20 15:29 [facility] (Rec: 12/31/20 18:47 [facility] [id number]) Balance Tests Single Limb Standing Single Limb- Right 10 sec w/lat shear of hip Single Limb- Left 25 sec w/lat shear of hip PT-OP-E Functional Tests Start: 11/12/20 17:24 Freq: Status: Active Protocol: Document 11/12/20 15:46 [facility] (Rec: 11/12/20 17:25 [facility] [id number]) Functional Tests 30 Second Sit to Stand Test Score 9 Five Times Sit to Stand Test Score 17sec PT-OP-F Manual Assessment Start: 11/11/20 18:05 Freq: Status: Active Protocol: Document 11/12/20 15:46 [facility] (Rec: 11/12/20 17:22 [facility] [id number]) Manual Assessments Soft Tissue Assessment Soft Tissue Mobility Assessment B:med joint Line, pes anscerine, HS, ITB, calf tenderness L: quads, adductors Joint Mobility Assessment Joint Mobility Assessment dec patellar mobility B PT-OP-G Mobility & Gait Start: 11/11/20 18:05 Freq: Status: Active Protocol: Document 11/12/20 15:46 [facility] (Rec: 11/12/20 17:22 [facility] [id number]) OP Gait Assessment Comments Gait Comments lat leaning R w/WB >L, dec push off PT-OP-J Posture/Palpation/Skin Start: 11/11/20 18:05 Freq: Status: Active Protocol: Document 11/12/20 15:46 [facility] (Rec: 11/12/20 17:22 [facility] [id number]) Posture Evaluation [facility] Postural Classification System Lumbar Protective Mechanism Left AP 2 Lumbar Protective Mechanism Right AP 0 Lumbar Protective Mechanism Left PA 2 Lumbar Protective Mechanism Right PA 2 PT-OP-K Range of Motion Start: 11/11/20 18:05 Freq: Status: Active Protocol: Document 11/12/20 15:46 [facility] (Rec: 11/12/20 17:22 [facility] [id number]) Knee Goniometric Range of Motion Knee Right Flexion Active (degrees) 110 Extension Active (degrees) 2 Comments feel it behind the knee w/ ext Left Flexion Active (degrees) 118 Extension Active (degrees) 2 Comments tight behind knee w/knee ext PT-OP-L Special Tests Start: 11/11/20 18:05 Freq: Status: Active Protocol: Document 11/12/20 15:46 [facility] (Rec: 11/12/20 17:22 [facility] [id number]) Special Tests Knee Special Tests Harshad Test Results mild tightness B Straight Leg Raise Test Results 63 L, 60 R PT-OP-M Strength Start: 11/11/20 18:05 Freq: Status: Active Protocol: Document 12/31/20 15:29 [facility] (Rec: 12/31/20 18:47 [facility] [id number]) Hip Strength Hip Manual Muscle Testing Right Flexion (L2) 5 Normal Extension (S1) 3+ Fair+ Abduction 4 Good Adduction 5 Normal External Rotation 4 Good Internal Rotation 5 Normal Left Flexion (L2) 4+ Good+ Extension (S1) 3+ Fair+ Abduction 4 Good Adduction 5 Normal External Rotation 4 Good Internal Rotation 4+ Good+ Knee Strength Knee Manual Muscle Testing Right Flexion (S2) 5 Normal Extension (L3) 4+ Good+ Left Flexion (S2) 5 Normal Extension (L3) 4+ Good+ Ankle/Foot Strength Ankle and Foot Manual Muscle Testing Right Dorsiflexion (L4) 5 Normal Plantarflexion (S1) 5 Normal Left Dorsiflexion (L4) 5 Normal Plantarflexion (S1) 5 Normal Comments PF tested seated B PT-OP-Q Treatments Start: 11/11/20 18:05 Freq: Status: Active Protocol: Document 01/29/21 11:08 OF (Rec: 01/29/21 11:15 OF [email or web address]) Cardio Equipment Recumbent Bicycle Duration (Minutes) 10 Resistance 8 Gym Equipment Shuttle Balance red clips Comments fwd: WBOS, NBOS , staggered stance Lateral: WBOS, NBOS, difficulty with smooth pursuit R/L Therapeutic Exercises Standing Exercises lunge Standing Exercise Name mini at rail onto bosu ball Side bilateral Reps/Minutes 2x10 step up Standing Exercise Name reciprocal leg march Side bilateral Equipment Used 4 step & 6 steps Reps/Minutes 10x ea Comments focus on knee position and no lateral lean, eccentric lowering squat Standing Exercise Name over chair Side bilateral Reps/Minutes 2x10 Comments focusing on glute activation when standing hip extension heel raises Standing Exercise Name level surface, 3 sec eccentric Side bilateral Reps/Minutes 3x10 hip abd Side bilateral Equipment Used L3 Reps/Minutes 2x10 Therapeutic Activity Therapeutic Activity floor transfers Reps/Minutes 10x Comments demo for using mat for LE position, without UE assist requires increased TOMER demo for positioning LE. Pt improves performance with proper weightshift and TOMER width Neuro Re-Education Treatment Balance Activities tandem stance Comments working on balance using bosu for single foot stepping strategies Self-Care/Home Management Treatment Education Patient Education Home Exercise Program PT-OP-T Assessment and Plan Start: 11/11/20 18:05 Freq: Status: Active Protocol: Document 01/29/21 11:08 OF (Rec: 01/29/21 11:15 OF [email or web address]) Physical Therapy Assessment Goals balance Mcfp Goal (LTG) Pt will be able to balance 10 sec SLS w/hands at sides and no lat shear of pelvis to show improved balance and stability and imrpoved wt acceptance for gait. 12/31 -dec arm use but still lat shear LTG Duration 03/02/21 gait Short Term Goal (STG) Pt will be able to increase walking distance to 1 mile without inc pain more than 2/ 10. STG Duration achieved Gas Regulator Repairer Helper Goal (LTG) Pt will be able to amb without lat leaning. 01/22-able to when focusing LTG Duration 03/02/21 stairs Short Term Goal (STG) Pt will be able to consistantly ascend stairs reciprocally without rail without inc pain. 12/31 can do but casues pain STG Duration achieved Mcfp Goal (LTG) Pt will be able to consistantly descend stairs reciprocally w/o rail w/o inc pain. 12/31 can do but casues pain 01/22/21-can do but slower LTG Duration 03/02/21 activities Short Term Goal (STG) Pt will be able to get up/down from gorund w/o outside suport in order to assist w/ gardening at home. STG Duration achieved bbut pain noted Mcfp Goal (LTG) Pt will be able to go fly fishing w/o knee pain and w/o concerns re: instability 12/31-has not tried LTG Duration 03/02/21 LEFS Impairment 40/80 Short Term Goal (STG) Pt will improve score to at least 50/80 to show improved funcitonal ability 12/31-47/80 improved STG Duration 01/31/21 Gas Regulator Repairer Helper Goal (LTG) Pt will improve score to at least 65/80 to show improved funcitonal ability LTG Duration 03/02/21 Progress Towards Goals Progress Towards Goals Progressing Toward Goals Assessment Summary Assessment Lucian is progressing well with quad strengthening, limited by dynamic balance, knee pain. He has good HEP awareness and improved I with floor transfers, which he performs while doing yard work Physical Therapy Plan Frequency and Duration Frequency of Treatment 1-2x/week Duration of Treatment 2 months Plan of Care Start Date 12/31/20 Plan of Care End Date 03/02/21 Next Visit Focus/Plan Next Note Type Treatment Note Next Visit Plan re assess floor transfers, progress plantarflexor, quad, glute strengthening
--- NOTE | 2021-02-05 11:14 | PT.OTN ---
Current Diagnoses Bilateral primary osteoarthritis of knee (02/05/21) Difficulty in walking, not elsewhere classified (02/05/21) Other abnormalities of gait and mobility (02/05/21) Weakness (02/05/21) Physical Therapy Treatment Note PT-OP-A Visit Information Start: 11/11/20 18:05 Freq: Status: Active Protocol: Document 02/05/21 11:09 OF (Rec: 02/05/21 11:14 OF [id number]) Out-Patient Physical Therapy Visit Information Visit Information Visit Type Treatment Note Visit Start Time 10:30 Visit Stop Time 11:10 Total Visit Minutes 40 Visit Number 19 PT-OP-B Current Condition Start: 11/11/20 18:05 Freq: Status: Active Protocol: Document 11/12/20 15:46 [facility] (Rec: 11/12/20 17:22 [facility] [id number]) Current Condition History of Current Condition Current Complaints B knee pain History of Current Condition Pt reprots the biggest challenge for him is getting up from the ground. He needs something to leverage himself up off the ground whcih elinates his ability to garden . He is wants to by able to fly fish but feels unstable and requries assist getting up in the boat. Last time he went was in 2019 d/t knees stopping him. He feels like his ROM isn't that bad. Pt reprots going up/down stairs can be difficult and on a bad day has to do step to up/down. Always uses rail. Took a long time after last meniscus surgery to be able to sleep. Pt reports his walking is limited to .5 mile with dog but mostly feels tired in legs /tired overall. Pt reports having R menisectomy in jun 2016 and having 5 sessions of PT after that surgery then 4 sessions after L menisectomy in 2019 at [facility] but had to ask for PT after surgery. He has exercises from last bout that he still does 4-5x/week (APs, heel slides, resisted heel slides, sit<>stand, SAQ). He feels like they have helped quad strength but unsure if they have helped his knee. Prior Treatments and Tests 4-5 PT sessions after menisectomies each Treatment Goals Patient/Caregiver Goals back to fly fishing, be able to weed the garden meaning get up/down from ground, easier time w/stairs Personal Factors Other Personal Factors That May Effect osteopenia, B meniscectomy Therapy/Recovery 2016 & 2019 PT-OP-C Subjective Start: 11/11/20 18:05 Freq: Status: Active Protocol: Document 02/05/21 11:09 OF (Rec: 02/05/21 11:14 OF [id number]) OP-PT Subjective Patient Comments Patient Comments pt reports calf tightness post tx alst week Patient Reported Progress Improving OP-PT Pain Assessment Pain Assessment Grid Paper Pain Assessment Grid Completed No: pt denies knee or calf pain today Home Pain Medication Use Pain Medications Used No PT-OP-D Balance Start: 11/11/20 18:05 Freq: Status: Active Protocol: Document 12/31/20 15:29 [facility] (Rec: 12/31/20 18:47 [facility] [id number]) Balance Tests Single Limb Standing Single Limb- Right 10 sec w/lat shear of hip Single Limb- Left 25 sec w/lat shear of hip PT-OP-E Functional Tests Start: 11/12/20 17:24 Freq: Status: Active Protocol: Document 11/12/20 15:46 [facility] (Rec: 11/12/20 17:25 [facility] [id number]) Functional Tests 30 Second Sit to Stand Test Score 9 Five Times Sit to Stand Test Score 17sec PT-OP-F Manual Assessment Start: 11/11/20 18:05 Freq: Status: Active Protocol: Document 11/12/20 15:46 [facility] (Rec: 11/12/20 17:22 [facility] [id number]) Manual Assessments Soft Tissue Assessment Soft Tissue Mobility Assessment B:med joint Line, pes anscerine, HS, ITB, calf tenderness L: quads, adductors Joint Mobility Assessment Joint Mobility Assessment dec patellar mobility B PT-OP-G Mobility & Gait Start: 11/11/20 18:05 Freq: Status: Active Protocol: Document 11/12/20 15:46 [facility] (Rec: 11/12/20 17:22 [facility] [id number]) OP Gait Assessment Comments Gait Comments lat leaning R w/WB >L, dec push off PT-OP-J Posture/Palpation/Skin Start: 11/11/20 18:05 Freq: Status: Active Protocol: Document 11/12/20 15:46 [facility] (Rec: 11/12/20 17:22 [facility] [id number]) Posture Evaluation [facility] Postural Classification System Lumbar Protective Mechanism Left AP 2 Lumbar Protective Mechanism Right AP 0 Lumbar Protective Mechanism Left PA 2 Lumbar Protective Mechanism Right PA 2 PT-OP-K Range of Motion Start: 11/11/20 18:05 Freq: Status: Active Protocol: Document 11/12/20 15:46 [facility] (Rec: 11/12/20 17:22 [facility] [id number]) Knee Goniometric Range of Motion Knee Right Flexion Active (degrees) 110 Extension Active (degrees) 2 Comments feel it behind the knee w/ ext Left Flexion Active (degrees) 118 Extension Active (degrees) 2 Comments tight behind knee w/knee ext PT-OP-L Special Tests Start: 11/11/20 18:05 Freq: Status: Active Protocol: Document 11/12/20 15:46 [facility] (Rec: 11/12/20 17:22 [facility] [id number]) Special Tests Knee Special Tests Harshad Test Results mild tightness B Straight Leg Raise Test Results 63 L, 60 R PT-OP-M Strength Start: 11/11/20 18:05 Freq: Status: Active Protocol: Document 12/31/20 15:29 [facility] (Rec: 12/31/20 18:47 [facility] [id number]) Hip Strength Hip Manual Muscle Testing Right Flexion (L2) 5 Normal Extension (S1) 3+ Fair+ Abduction 4 Good Adduction 5 Normal External Rotation 4 Good Internal Rotation 5 Normal Left Flexion (L2) 4+ Good+ Extension (S1) 3+ Fair+ Abduction 4 Good Adduction 5 Normal External Rotation 4 Good Internal Rotation 4+ Good+ Knee Strength Knee Manual Muscle Testing Right Flexion (S2) 5 Normal Extension (L3) 4+ Good+ Left Flexion (S2) 5 Normal Extension (L3) 4+ Good+ Ankle/Foot Strength Ankle and Foot Manual Muscle Testing Right Dorsiflexion (L4) 5 Normal Plantarflexion (S1) 5 Normal Left Dorsiflexion (L4) 5 Normal Plantarflexion (S1) 5 Normal Comments PF tested seated B PT-OP-Q Treatments Start: 11/11/20 18:05 Freq: Status: Active Protocol: Document 02/05/21 11:09 OF (Rec: 02/05/21 11:14 OF [id number]) Cardio Equipment Recumbent Bicycle Duration (Minutes) 10 Resistance 8 Gym Equipment Shuttle Recovery Bilateral Squats Resistance 100# Shuttle Recovery Platform Stable Reps/Time 3x10 Therapeutic Exercises Standing Exercises lunge Standing Exercise Name mini at rail onto bosu ball Side bilateral Reps/Minutes 2x10 bilat gait at wall Side bilateral Reps/Minutes 10 sec x2 SLS Standing Exercise Name cone taps Side bilateral Comments stationary, 10sec holds x5 hip hike Standing Exercise Name 4 in step w/rail Side bilateral Reps/Minutes 10 step up Standing Exercise Name onto bosu ball Side bilateral Equipment Used 4 step & 6 steps Reps/Minutes 10x ea Comments focus on knee position and no lateral lean, eccentric lowering squat Standing Exercise Name over chair Side bilateral Reps/Minutes 2x10 Comments focusing on glute activation when standing hip extension heel raises Standing Exercise Name level surface, 3 sec eccentric Side bilateral Reps/Minutes 3x10 hip abd Side bilateral Equipment Used L3 Reps/Minutes 2x10 Therapeutic Activity Therapeutic Activity floor transfers Reps/Minutes 5x Comments demo for using mat for LE position, Improved hip clearance with proper UE position. Pt improves performance with proper weightshift and TOMER width Self-Care/Home Management Treatment Education Patient Education Home Exercise Program PT-OP-T Assessment and Plan Start: 11/11/20 18:05 Freq: Status: Active Protocol: Document 02/05/21 11:09 OF (Rec: 02/05/21 11:14 OF [id number]) Physical Therapy Assessment Rehab Potential Rehabilitation Potential Good Evaluation Complexity Number of Personal Factors/Comorbidities 1-2 Number of Body Systems Impaired 1-2 Clinical Presentation at Evaluation Stable Impairments Impairments Gait,Strength Goals balance Route Rider Supervisor Goal (LTG) Pt will be able to balance 10 sec SLS w/hands at sides and no lat shear of pelvis to show improved balance and stability and imrpoved wt acceptance for gait. 12/31 -dec arm use but still lat shear LTG Duration 03/02/21 gait Short Term Goal (STG) Pt will be able to increase walking distance to 1 mile without inc pain more than 2/ 10. STG Duration achieved Custodial Goal (LTG) Pt will be able to amb without lat leaning. 01/22-able to when focusing LTG Duration 03/02/21 stairs Short Term Goal (STG) Pt will be able to consistantly ascend stairs reciprocally without rail without inc pain. 12/31 can do but casues pain STG Duration achieved Route Rider Supervisor Goal (LTG) Pt will be able to consistantly descend stairs reciprocally w/o rail w/o inc pain. 12/31 can do but casues pain 01/22/21-can do but slower LTG Duration 03/02/21 activities Short Term Goal (STG) Pt will be able to get up/down from gorund w/o outside suport in order to assist w/ gardening at home. STG Duration achieved bbut pain noted Route Rider Supervisor Goal (LTG) Pt will be able to go fly fishing w/o knee pain and w/o concerns re: instability 12/31-has not tried LTG Duration 03/02/21 LEFS Impairment 40/80 Short Term Goal (STG) Pt will improve score to at least 50/80 to show improved funcitonal ability 12/31-47/80 improved STG Duration 01/31/21 Route Rider Supervisor Goal (LTG) Pt will improve score to at least 65/80 to show improved funcitonal ability LTG Duration 03/02/21 Progress Towards Goals Progress Towards Goals Progressing Toward Goals Assessment Summary Assessment Lucian is improving his balance, quad control and glute strength. He appreciates attempting floor transfers with guidance Physical Therapy Plan Frequency and Duration Frequency of Treatment 1-2x/week Duration of Treatment 2 months Plan of Care Start Date 12/31/20 Plan of Care End Date 03/02/21 Therapeutic Interventions Therapeutic Interventions Aquatic Therapy,Balance Training,Gait Training,Home Exercise Program,Joint Mobilizations,Manual Therapy, Neuromuscular Re-education, Patient/Caregiver Education, Self-Care/Home Management,Soft Tissue Mobilization,Taping, Therapeutic Activities, Therapeutic Exercises Modalities Cold Pack/Ice Massage,Electric Stimulation,Hot Packs, Infrared Therapy,Ultrasound Next Visit Focus/Plan Next Note Type Treatment Note Next Visit Plan re attempt floor transfers, progress plantarflexor, quad, glute strengthening
--- NOTE | 2021-02-11 10:59 | PT.OTN ---
Current Diagnoses Bilateral primary osteoarthritis of knee (02/11/21) Difficulty in walking, not elsewhere classified (02/11/21) Other abnormalities of gait and mobility (02/11/21) Weakness (02/11/21) Physical Therapy Treatment Note PT-OP-A Visit Information Start: 11/11/20 18:05 Freq: Status: Active Protocol: Document 02/11/21 10:21 MA (Rec: 02/11/21 10:59 MA [id number]) Out-Patient Physical Therapy Visit Information Visit Information Visit Type Treatment Note Visit Start Time 10:15 Visit Stop Time 10:55 Total Visit Minutes 40 Visit Number 20 Number of EXPLOSIVE ORDNANCE HANDLER Visits 1 PT-OP-B Current Condition Start: 11/11/20 18:05 Freq: Status: Active Protocol: Document 11/12/20 15:46 LR (Rec: 11/12/20 17:22 [facility] [id number]) Current Condition History of Current Condition Current Complaints B knee pain History of Current Condition Pt reprots the biggest challenge for him is getting up from the ground. He needs something to leverage himself up off the ground whcih elinates his ability to garden . He is wants to by able to fly fish but feels unstable and requries assist getting up in the boat. Last time he went was in 2019 d/t knees stopping him. He feels like his ROM isn't that bad. Pt reprots going up/down stairs can be difficult and on a bad day has to do step to up/down. Always uses rail. Took a long time after last meniscus surgery to be able to sleep. Pt reports his walking is limited to .5 mile with dog but mostly feels tired in legs /tired overall. Pt reports having R menisectomy in jun 2016 and having 5 sessions of PT after that surgery then 4 sessions after L menisectomy in [address] [facility] but had to ask for PT after surgery. He has exercises from last bout that he still does 4-5x/week (APs, heel slides, resisted heel slides, sit<>stand, SAQ). He feels like they have helped quad strength but unsure if they have helped his knee. Prior Treatments and Tests 4-5 PT sessions after menisectomies each Treatment Goals Patient/Caregiver Goals back to fly fishing, be able to weed the garden meaning get up/down from ground, easier time w/stairs Personal Factors Other Personal Factors That May Effect osteopenia, B meniscectomy Therapy/Recovery 2016 & 2019 PT-OP-C Subjective Start: 11/11/20 18:05 Freq: Status: Active Protocol: Document 02/11/21 10:21 MA (Rec: 02/11/21 10:59 MA [id number]) OP-PT Subjective Patient Comments Patient Comments Pt reports pain still persists ocassionally in the R knee more than L. PT-OP-D Balance Start: 11/11/20 18:05 Freq: Status: Active Protocol: Document 12/31/20 15:29 LR (Rec: 12/31/20 18:47 [facility] [id number]) Balance Tests Single Limb Standing Single Limb- Right 10 sec w/lat shear of hip Single Limb- Left 25 sec w/lat shear of hip PT-OP-E Functional Tests Start: 11/12/20 17:24 Freq: Status: Active Protocol: Document 11/12/20 15:46 [facility] (Rec: 11/12/20 17:25 [facility] [id number]) Functional Tests 30 Second Sit to Stand Test Score 9 Five Times Sit to Stand Test Score 17sec PT-OP-F Manual Assessment Start: 11/11/20 18:05 Freq: Status: Active Protocol: Document 11/12/20 15:46 [facility] (Rec: 11/12/20 17:22 [facility] [id number]) Manual Assessments Soft Tissue Assessment Soft Tissue Mobility Assessment B:med joint Line, pes anscerine, HS, ITB, calf tenderness L: quads, adductors Joint Mobility Assessment Joint Mobility Assessment dec patellar mobility B PT-OP-G Mobility & Gait Start: 11/11/20 18:05 Freq: Status: Active Protocol: Document 11/12/20 15:46 LR (Rec: 11/12/20 17:22 [facility] [id number]) OP Gait Assessment Comments Gait Comments lat leaning R w/WB >L, dec push off PT-OP-J Posture/Palpation/Skin Start: 11/11/20 18:05 Freq: Status: Active Protocol: Document 11/12/20 15:46 LR (Rec: 11/12/20 17:22 [facility] [id number]) Posture Evaluation [facility] Postural Classification System Lumbar Protective Mechanism Left AP 2 Lumbar Protective Mechanism Right AP 0 Lumbar Protective Mechanism Left PA 2 Lumbar Protective Mechanism Right PA 2 PT-OP-K Range of Motion Start: 11/11/20 18:05 Freq: Status: Active Protocol: Document 11/12/20 15:46 [facility] (Rec: 11/12/20 17:22 [facility] [id number]) Knee Goniometric Range of Motion Knee Right Flexion Active (degrees) 110 Extension Active (degrees) 2 Comments feel it behind the knee w/ ext Left Flexion Active (degrees) 118 Extension Active (degrees) 2 Comments tight behind knee w/knee ext PT-OP-L Special Tests Start: 11/11/20 18:05 Freq: Status: Active Protocol: Document 11/12/20 15:46 [facility] (Rec: 11/12/20 17:22 [facility] [id number]) Special Tests Knee Special Tests Harshad Test Results mild tightness B Straight Leg Raise Test Results 63 L, 60 R PT-OP-M Strength Start: 11/11/20 18:05 Freq: Status: Active Protocol: Document 12/31/20 15:29 [facility] (Rec: 12/31/20 18:47 [facility] [id number]) Hip Strength Hip Manual Muscle Testing Right Flexion (L2) 5 Normal Extension (S1) 3+ Fair+ Abduction 4 Good Adduction 5 Normal External Rotation 4 Good Internal Rotation 5 Normal Left Flexion (L2) 4+ Good+ Extension (S1) 3+ Fair+ Abduction 4 Good Adduction 5 Normal External Rotation 4 Good Internal Rotation 4+ Good+ Knee Strength Knee Manual Muscle Testing Right Flexion (S2) 5 Normal Extension (L3) 4+ Good+ Left Flexion (S2) 5 Normal Extension (L3) 4+ Good+ Ankle/Foot Strength Ankle and Foot Manual Muscle Testing Right Dorsiflexion (L4) 5 Normal Plantarflexion (S1) 5 Normal Left Dorsiflexion (L4) 5 Normal Plantarflexion (S1) 5 Normal Comments PF tested seated B PT-OP-Q Treatments Start: 11/11/20 18:05 Freq: Status: Active Protocol: Document 02/11/21 10:21 MA (Rec: 02/11/21 10:59 MA [id number]) Cardio Equipment Bicycle (Upright) Duration (Minutes) 8 Resistance 10 Seat Position 7 Therapeutic Exercises Standing Exercises lunge Standing Exercise Name mini at rail onto bosu ball Side bilateral Reps/Minutes 2x10 bilat gait at wall Side bilateral Reps/Minutes 10 sec x2 SLS Standing Exercise Name cone taps- star pattern Side bilateral Comments stationary, 10sec holds x5 step up Standing Exercise Name onto bosu ball Side bilateral Reps/Minutes 10x ea Comments focus on knee position and no lateral lean, eccentric lowering stretch Standing Exercise Name calf stretch on stairs Side bilateral Reps/Minutes 1 min x2 Therapeutic Activity Therapeutic Activity floor transfers Reps/Minutes 5x Comments demo for using mat for LE position, Improved hip clearance with proper UE position. Pt improves performance with proper weightshift and TOMER width Gait Training Gait Activity Stairs Device Used 4 & 6 therapy stairs Distance/Duration 3x ea Neuro Re-Education Treatment Balance Activities SLS Comments 1. while tossing balloon PT-OP-T Assessment and Plan Start: 11/11/20 18:05 Freq: Status: Active Protocol: Document 02/11/21 10:21 MA (Rec: 02/11/21 10:59 MA [id number]) Physical Therapy Assessment Goals balance Assisted Goal (LTG) Pt will be able to balance 10 sec SLS w/hands at sides and no lat shear of pelvis to show improved balance and stability and imrpoved wt acceptance for gait. 12/31 -dec arm use but still lat shear LTG Duration 03/02/21 gait Short Term Goal (STG) Pt will be able to increase walking distance to 1 mile without inc pain more than 2/ 10. STG Duration achieved Assisted Goal (LTG) Pt will be able to amb without lat leaning. 01/22-able to when focusing LTG Duration 03/02/21 stairs Short Term Goal (STG) Pt will be able to consistantly ascend stairs reciprocally without rail without inc pain. 12/31 can do but casues pain STG Duration achieved Assisted Goal (LTG) Pt will be able to consistantly descend stairs reciprocally w/o rail w/o inc pain. 12/31 can do but casues pain 01/22/21-can do but slower LTG Duration 03/02/21 activities Short Term Goal (STG) Pt will be able to get up/down from gorund w/o outside suport in order to assist w/ gardening at home. STG Duration achieved bbut pain noted Assisted Goal (LTG) Pt will be able to go fly fishing w/o knee pain and w/o concerns re: instability 12/31-has not tried LTG Duration 03/02/21 LEFS Impairment 40/80 Short Term Goal (STG) Pt will improve score to at least 50/80 to show improved funcitonal ability 12/31-47/80 improved STG Duration 01/31/21 Developer Relations Manager Goal (LTG) Pt will improve score to at least 65/80 to show improved funcitonal ability LTG Duration 03/02/21 Assessment Summary Assessment Lucian is doing well with floor transfers but has more difficulty when using his RLE to step fwd and stand vs his left. This is consistent throughtout all exercises as demonstrated by pt having increased difficulty with SLS on R and losing balance latearlly multiple times during R step ups onto bosu. Pt is able to perform exercises safely on LLE and balances for up to 10 seconds on LLE vs 3 seconds on RLE today while throwing ball with PT. Physical Therapy Plan Frequency and Duration Frequency of Treatment 1-2x/week Duration of Treatment 2 months Plan of Care Start Date 12/31/20 Plan of Care End Date 03/02/21 Therapeutic Interventions Therapeutic Interventions Aquatic Therapy,Balance Training,Gait Training,Home Exercise Program,Joint Mobilizations,Manual Therapy, Neuromuscular Re-education, Patient/Caregiver Education, Self-Care/Home Management,Soft Tissue Mobilization,Taping, Therapeutic Activities, Therapeutic Exercises Modalities Cold Pack/Ice Massage,Electric Stimulation,Hot Packs, Infrared Therapy,Ultrasound Next Visit Focus/Plan Next Note Type Treatment Note Next Visit Plan re attempt floor transfers, progress plantarflexor, quad, glute strengthening, balance R >L
--- NOTE | 2021-02-19 12:05 | PT.OTN ---
Current Diagnoses Bilateral primary osteoarthritis of knee (02/19/21) Difficulty in walking, not elsewhere classified (02/19/21) Other abnormalities of gait and mobility (02/19/21) Weakness (02/19/21) Physical Therapy Treatment Note PT-OP-A Visit Information Start: 11/11/20 18:05 Freq: Status: Active Protocol: Document 02/19/21 11:22 [facility] (Rec: 02/19/21 12:04 [facility] [id number]) Out-Patient Physical Therapy Visit Information Visit Information Visit Type Progress Note Visit Note 06/08 Visit Start Time 11:18 Visit Stop Time 11:57 Total Visit Minutes 39 Visit Number 21 Number of PATIENT CARE TECHNICIAN INSTRUCTOR Visits 0 PT-OP-B Current Condition Start: 11/11/20 18:05 Freq: Status: Active Protocol: Document 11/12/20 15:46 [facility] (Rec: 11/12/20 17:22 [facility] [id number]) Current Condition History of Current Condition Current Complaints B knee pain History of Current Condition Pt reprots the biggest challenge for him is getting up from the ground. He needs something to leverage himself up off the ground whcih elinates his ability to garden . He is wants to by able to fly fish but feels unstable and requries assist getting up in the boat. Last time he went was in 2019 d/t knees stopping him. He feels like his ROM isn't that bad. Pt reprots going up/down stairs can be difficult and on a bad day has to do step to up/down. Always uses rail. Took a long time after last meniscus surgery to be able to sleep. Pt reports his walking is limited to .5 mile with dog but mostly feels tired in legs /tired overall. Pt reports having R menisectomy in jun 2016 and having 5 sessions of PT after that surgery then 4 [place] [facility] [place] had to ask for PT after surgery. He has exercises from last bout that he still does 4-5x/week (APs, heel slides, resisted heel slides, sit<>stand, SAQ). He feels like they have helped quad strength but unsure if they have helped his knee. Prior Treatments and Tests 4-5 PT sessions after menisectomies each Treatment Goals Patient/Caregiver Goals back to fly fishing, be able to weed the garden meaning get up/down from ground, easier time w/stairs Personal Factors Other Personal Factors That May Effect osteopenia, B meniscectomy Therapy/Recovery 2016 & 2019 PT-OP-C Subjective Start: 11/11/20 18:05 Freq: Status: Active Protocol: Document 02/19/21 11:22 [facility] (Rec: 02/19/21 12:04 [facility] [id number]) OP-PT Subjective Patient Comments Patient Comments balance is progressing but still has knee pain. Pt reports his ablity to work around knee pain is better. Pt reports worst pain is when he gets up in the middle of the night Patient Reported Progress Improving PT-OP-D Balance Start: 11/11/20 18:05 Freq: Status: Active Protocol: Document 02/19/21 11:22 [facility] (Rec: 02/19/21 12:04 [facility] [id number]) Balance Tests Single Limb Standing Single Limb- Right 10 sec w/lat shear of hip after 2 sec Single Limb- Left >30 sec w/lat shear of hip after 4 sec PT-OP-E Functional Tests Start: 11/12/20 17:24 Freq: Status: Active Protocol: Document 11/12/20 15:46 [facility] (Rec: 11/12/20 17:25 [facility] [id number]) Functional Tests 30 Second Sit to Stand Test Score 9 Five Times Sit to Stand Test Score 17sec PT-OP-F Manual Assessment Start: 11/11/20 18:05 Freq: Status: Active Protocol: Document 11/12/20 15:46 [facility] (Rec: 11/12/20 17:22 [facility] [id number]) Manual Assessments Soft Tissue Assessment Soft Tissue Mobility Assessment B:med joint Line, pes anscerine, HS, ITB, calf tenderness L: quads, adductors Joint Mobility Assessment Joint Mobility Assessment dec patellar mobility B PT-OP-G Mobility & Gait Start: 11/11/20 18:05 Freq: Status: Active Protocol: Document 11/12/20 15:46 [facility] (Rec: 11/12/20 17:22 [facility] [id number]) OP Gait Assessment Comments Gait Comments lat leaning R w/WB >L, dec push off PT-OP-J Posture/Palpation/Skin Start: 11/11/20 18:05 Freq: Status: Active Protocol: Document 11/12/20 15:46 [facility] (Rec: 11/12/20 17:22 [facility] [id number]) Posture Evaluation [facility] Postural Classification System Lumbar Protective Mechanism Left AP 2 Lumbar Protective Mechanism Right AP 0 Lumbar Protective Mechanism Left PA 2 Lumbar Protective Mechanism Right PA 2 PT-OP-K Range of Motion Start: 11/11/20 18:05 Freq: Status: Active Protocol: Document 11/12/20 15:46 [facility] (Rec: 11/12/20 17:22 [facility] [id number]) Knee Goniometric Range of Motion Knee Right Flexion Active (degrees) 110 Extension Active (degrees) 2 Comments feel it behind the knee w/ ext Left Flexion Active (degrees) 118 Extension Active (degrees) 2 Comments tight behind knee w/knee ext PT-OP-L Special Tests Start: 11/11/20 18:05 Freq: Status: Active Protocol: Document 11/12/20 15:46 [facility] (Rec: 11/12/20 17:22 [facility] [id number]) Special Tests Knee Special Tests Harshad Test Results mild tightness B Straight Leg Raise Test Results 63 L, 60 R PT-OP-M Strength Start: 11/11/20 18:05 Freq: Status: Active Protocol: Document 02/19/21 11:22 [facility] (Rec: 02/19/21 12:04 [facility] [id number]) Hip Strength Hip Manual Muscle Testing Right Flexion (L2) 5 Normal Extension (S1) 4- Good- Abduction 4 Good Adduction 5 Normal External Rotation 4+ Good+ Internal Rotation 5 Normal Left Flexion (L2) 5 Normal Extension (S1) 4- Good- Abduction 4+ Good+ Adduction 5 Normal External Rotation 4+ Good+ Internal Rotation 5 Normal Knee Strength Knee Manual Muscle Testing Right Flexion (S2) 4+ Good+ Extension (L3) 5 Normal Left Flexion (S2) 5 Normal Extension (L3) 5 Normal Ankle/Foot Strength Ankle and Foot Manual Muscle Testing Right Dorsiflexion (L4) 5 Normal Plantarflexion (S1) 5 Normal Left Dorsiflexion (L4) 5 Normal Plantarflexion (S1) 5 Normal Comments 20 heel raises B PT-OP-Q Treatments Start: 11/11/20 18:05 Freq: Status: Active Protocol: Document 02/19/21 11:22 [facility] (Rec: 02/19/21 12:04 [facility] [id number]) Cardio Equipment Bicycle (Upright) Duration (Minutes) 6 Resistance 10 Seat Position 7 Gym Equipment Shuttle Balance red clips Comments fwd: WBOS, NBOS w/head turns then staggered stance Lateral: WBOS, NBOS, Therapeutic Exercises Prone Exercises hip ext Side bilateral Reps/Minutes 2x3 Standing Exercises squat Standing Exercise Name 1. sit to stand slow x5 2. squat over chair 10x stretch Standing Exercise Name 1.calf/hip flexor 2. HS Side bilateral Reps/Minutes 30 sec ea hip abd Standing Exercise Name cues for no lat lean Side bilateral Equipment Used L3 Reps/Minutes 2x10 hip ext Standing Exercise Name cues to slow down Side bilateral Equipment Used L3 Reps/Minutes 2x10 Neuro Re-Education Treatment Balance Activities SLS Details trials B PT-OP-T Assessment and Plan Start: 11/11/20 18:05 Freq: Status: Active Protocol: Document 02/19/21 11:22 [facility] (Rec: 02/19/21 12:04 [facility] [id number]) Physical Therapy Assessment Goals balance Kiln Drawer Goal (LTG) Pt will be able to balance 10 sec SLS w/hands at sides and no lat shear of pelvis to show improved balance and stability and imrpoved wt acceptance for gait. 12/31 -dec arm use but still lat shear 02/19-improved no arm use needed LTG Duration 03/21 gait Short Term Goal (STG) Pt will be able to increase walking distance to 1 mile without inc pain more than 2/ 10. STG Duration achieved Mcfp Goal (LTG) Pt will be able to amb without lat leaning. 01/22-able to when focusing 02/19 no change LTG Duration 03/21 stairs Short Term Goal (STG) Pt will be able to consistantly ascend stairs reciprocally without rail without inc pain. 8 can do but casues pain STG Duration achieved Mcfp Goal (LTG) Pt will be able to consistantly descend stairs reciprocally w/o rail w/o inc pain. 12/31 can do but casues pain 01/22/21-can do but slower 02/19-slight pain LTG Duration 03/21 activities Short Term Goal (STG) Pt will be able to get up/down from gorund w/o outside suport in order to assist w/ gardening at home. STG Duration achieved bbut pain noted Mcfp Goal (LTG) Pt will be able to go fly fishing w/o knee pain and w/o concerns re: instability 12/31-has not tried 02/19-feels like he can try fly fishing but too early yet for fishing LTG Duration 03/21 LEFS Impairment 40/80 Short Term Goal (STG) Pt will improve score to at least 50/80 to show improved funcitonal ability 12/31-47/80 improved 02/19-n/t STG Duration 03/02 Mcfp Goal (LTG) Pt will improve score to at least 65/80 to show improved funcitonal ability LTG Duration 03/21 Assessment Summary Assessment Pt cont to imrpove with mobility. He feels greater ease with activity at this time and shows improved strength w/R hip abd and ext B strength being biggest deficits. This shows with his gait still and he was very challenged by prone hip ext. Pt will be on vacation until 03/10 and will plan to follow up when pt returns for check w /HEP and progress as needed then DC Physical Therapy Plan Frequency and Duration Frequency of Treatment 1-2x/week Duration of Treatment 1 month Plan of Care Start Date 02/19/21 Plan of Care End Date 03/21/21 Therapeutic Interventions Therapeutic Interventions Aquatic Therapy,Balance Training,Gait Training,Home Exercise Program,Joint Mobilizations,Manual Therapy, Neuromuscular Re-education, Patient/Caregiver Education, Self-Care/Home Management,Soft Tissue Mobilization,Taping, Therapeutic Activities, Therapeutic Exercises Modalities Cold Pack/Ice Massage,Electric Stimulation,Hot Packs, Infrared Therapy,Ultrasound Next Visit Focus/Plan Next Note Type Treatment Note Next Visit Plan cont to work on focused glute strength & balance
--- NOTE | 2021-02-19 12:05 | PT.OPPOC ---
Physical, Occupational & Speech Therapy At [facility] Current Diagnoses Bilateral primary osteoarthritis of knee (02/19/21) Difficulty in walking, not elsewhere classified (02/19/21) Other abnormalities of gait and mobility (02/19/21) Weakness (02/19/21) Visit Care Team Role Provider Type Juan Carlos Cesar MD Primary Care Provider Physician Specialty: Internal Medicine Address: [address] [place] [address], [address], [address] Email: [email or web address] Unruly Anderson MD Attending Provider Physician Referring Provider Specialty: Orthopedic Surgery Address: [address] [place] [address], [place], [address] Email: [email or web address] Plan Of Care PT-OP-T Assessment and Plan Start: 11/11/20 18:05 Freq: Status: Active Protocol: Document 02/19/21 11:22 [facility] (Rec: 02/19/21 12:04 [facility] [id number]) Physical Therapy Assessment Goals balance Retirement Goal (LTG) Pt will be able to balance 10 sec SLS w/hands at sides and no lat shear of pelvis to show improved balance and stability and imrpoved wt acceptance for gait. 12/31 -dec arm use but still lat shear 02/19-improved no arm use needed LTG Duration 03/21 gait Short Term Goal (STG) Pt will be able to increase walking distance to 1 mile without inc pain more than 2/ 10. STG Duration achieved Dish Room Worker Goal (LTG) Pt will be able to amb without lat leaning. 01/22-able to when focusing 02/19 no change LTG Duration 03/21 stairs Short Term Goal (STG) Pt will be able to consistantly ascend stairs reciprocally without rail without inc pain. 8 can do but casues pain STG Duration achieved Dish Room Worker Goal (LTG) Pt will be able to consistantly descend stairs reciprocally w/o rail w/o inc pain. 12/31 can do but casues pain 01/22/21-can do but slower 02/19-slight pain LTG Duration 03/21 activities Short Term Goal (STG) Pt will be able to get up/down from gorund w/o outside suport in order to assist w/ gardening at home. STG Duration achieved bbut pain noted Retirement Goal (LTG) Pt will be able to go fly fishing w/o knee pain and w/o concerns re: instability 12/31-has not tried 02/19-feels like he can try fly fishing but too early yet for fishing LTG Duration 03/21 LEFS Impairment 40/80 Short Term Goal (STG) Pt will improve score to at least 50/80 to show improved funcitonal ability 12/31-47/80 improved 02/19-n/t STG Duration 03/02 Retirement Goal (LTG) Pt will improve score to at least 65/80 to show improved funcitonal ability LTG Duration 03/21 Assessment Summary Assessment Pt cont to imrpove with mobility. He feels greater ease with activity at this time and shows improved strength w/R hip abd and ext B strength being biggest deficits. This shows with his gait still and he was very challenged by prone hip ext. Pt will be on vacation until 03/10 and will plan to follow up when pt returns for check w /HEP and progress as needed then DC Physical Therapy Plan Frequency and Duration Frequency of Treatment 1-2x/week Duration of Treatment 1 month Plan of Care Start Date 02/19/21 Plan of Care End Date 03/21/21 Therapeutic Interventions Therapeutic Interventions Aquatic Therapy,Balance Training,Gait Training,Home Exercise Program,Joint Mobilizations,Manual Therapy, Neuromuscular Re-education, Patient/Caregiver Education, Self-Care/Home Management,Soft Tissue Mobilization,Taping, Therapeutic Activities, Therapeutic Exercises Modalities Cold Pack/Ice Massage,Electric Stimulation,Hot Packs, Infrared Therapy,Ultrasound Next Visit Focus/Plan Next Note Type Treatment Note Next Visit Plan cont to work on focused glute strength & balance Plan of Care Dates Plan of Care Start Date 02/19/21 Plan of Care End Date 03/21/21 Electronically Signed by: Nory Noble, PT 02/19/21 [id number] Please Sign and Return: I have reviewed this Plan of Care and certify that the skilled therapy services above are required to meet the patient?s needs. Physician Signature Date Printed Name and Credentials Clinical Instructor Signature Printed Name and Credentials
--- NOTE | 2021-03-12 11:18 | PT.OTN ---
Current Diagnoses Bilateral primary osteoarthritis of knee (03/12/21) Difficulty in walking, not elsewhere classified (03/12/21) Other abnormalities of gait and mobility (03/12/21) Weakness (03/12/21) Physical Therapy Treatment Note PT-OP-A Visit Information Start: 11/11/20 18:05 Freq: Status: Active Protocol: Document 03/12/21 10:38 [facility] (Rec: 03/12/21 11:18 [facility] [id number]) Out-Patient Physical Therapy Visit Information Visit Information Visit Type Treatment Note Visit Note 07/09 Visit Start Time 10:34 Visit Stop Time 11:14 Total Visit Minutes 40 Visit Number 22 Number of PUBLIC MESSAGE SERVICE SUPERVISOR Visits 0 PT-OP-B Current Condition Start: 11/11/20 18:05 Freq: Status: Active Protocol: Document 11/12/20 15:46 [facility] (Rec: 11/12/20 17:22 [facility] [id number]) Current Condition History of Current Condition Current Complaints B knee pain History of Current Condition Pt reprots the biggest challenge for him is getting up from the ground. He needs something to leverage himself up off the ground whcih elinates his ability to garden . He is wants to by able to fly fish but feels unstable and requries assist getting up in the boat. Last time he went was in 2019 d/t knees stopping him. He feels like his ROM isn't that bad. Pt reprots going up/down stairs can be difficult and on a bad day has to do step to up/down. Always uses rail. Took a long time after last meniscus surgery to be able to sleep. Pt reports his walking is limited to .5 mile with dog but mostly feels tired in legs /tired overall. Pt reports having R menisectomy in jun 2016 and having 5 sessions of PT after that surgery then 4 sessions after L menisectomy in 2019 at [facility] but had to ask for PT after surgery. He has exercises from last bout that he still does 4-5x/week (APs, heel slides, resisted heel slides, sit<>stand, SAQ). He feels like they have helped quad strength but unsure if they have helped his knee. Prior Treatments and Tests 4-5 PT sessions after menisectomies each Treatment Goals Patient/Caregiver Goals back to fly fishing, be able to weed the garden meaning get up/down from ground, easier time w/stairs Personal Factors Other Personal Factors That May Effect osteopenia, B meniscectomy Therapy/Recovery 2016 & 2019 PT-OP-C Subjective Start: 11/11/20 18:05 Freq: Status: Active Protocol: Document 03/12/21 10:38 [facility] (Rec: 03/12/21 11:18 [facility] [id number]) OP-PT Subjective Patient Comments Patient Comments Pt reports he did a lot of walking on his trip (3-4 miles a day) and up/down hills. His knees were sore after. PT-OP-D Balance Start: 11/11/20 18:05 Freq: Status: Active Protocol: Document 02/19/21 11:22 [facility] (Rec: 02/19/21 12:04 [facility] [id number]) Balance Tests Single Limb Standing Single Limb- Right 10 sec w/lat shear of hip after 2 sec Single Limb- Left >30 sec w/lat shear of hip after 4 sec PT-OP-E Functional Tests Start: 11/12/20 17:24 Freq: Status: Active Protocol: Document 11/12/20 15:46 [facility] (Rec: 11/12/20 17:25 [facility] [id number]) Functional Tests 30 Second Sit to Stand Test Score 9 Five Times Sit to Stand Test Score 17sec PT-OP-F Manual Assessment Start: 11/11/20 18:05 Freq: Status: Active Protocol: Document 11/12/20 15:46 [facility] (Rec: 11/12/20 17:22 [facility] [id number]) Manual Assessments Soft Tissue Assessment Soft Tissue Mobility Assessment B:med joint Line, pes anscerine, HS, ITB, calf tenderness L: quads, adductors Joint Mobility Assessment Joint Mobility Assessment dec patellar mobility B PT-OP-G Mobility & Gait Start: 11/11/20 18:05 Freq: Status: Active Protocol: Document 11/12/20 15:46 [facility] (Rec: 11/12/20 17:22 [facility] [id number]) OP Gait Assessment Comments Gait Comments lat leaning R w/WB >L, dec push off PT-OP-J Posture/Palpation/Skin Start: 11/11/20 18:05 Freq: Status: Active Protocol: Document 11/12/20 15:46 [facility] (Rec: 11/12/20 17:22 [facility] [id number]) Posture Evaluation [facility] Postural Classification System Lumbar Protective Mechanism Left AP 2 Lumbar Protective Mechanism Right AP 0 Lumbar Protective Mechanism Left PA 2 Lumbar Protective Mechanism Right PA 2 PT-OP-K Range of Motion Start: 11/11/20 18:05 Freq: Status: Active Protocol: Document 11/12/20 15:46 [facility] (Rec: 11/12/20 17:22 [facility] [id number]) Knee Goniometric Range of Motion Knee Right Flexion Active (degrees) 110 Extension Active (degrees) 2 Comments feel it behind the knee w/ ext Left Flexion Active (degrees) 118 Extension Active (degrees) 2 Comments tight behind knee w/knee ext PT-OP-L Special Tests Start: 11/11/20 18:05 Freq: Status: Active Protocol: Document 11/12/20 15:46 [facility] (Rec: 11/12/20 17:22 [facility] [id number]) Special Tests Knee Special Tests Harshad Test Results mild tightness B Straight Leg Raise Test Results 63 L, 60 R PT-OP-M Strength Start: 11/11/20 18:05 Freq: Status: Active Protocol: Document 02/19/21 11:22 [facility] (Rec: 02/19/21 12:04 [facility] [id number]) Hip Strength Hip Manual Muscle Testing Right Flexion (L2) 5 Normal Extension (S1) 4- Good- Abduction 4 Good Adduction 5 Normal External Rotation 4+ Good+ Internal Rotation 5 Normal Left Flexion (L2) 5 Normal Extension (S1) 4- Good- Abduction 4+ Good+ Adduction 5 Normal External Rotation 4+ Good+ Internal Rotation 5 Normal Knee Strength Knee Manual Muscle Testing Right Flexion (S2) 4+ Good+ Extension (L3) 5 Normal Left Flexion (S2) 5 Normal Extension (L3) 5 Normal Ankle/Foot Strength Ankle and Foot Manual Muscle Testing Right Dorsiflexion (L4) 5 Normal Plantarflexion (S1) 5 Normal Left Dorsiflexion (L4) 5 Normal Plantarflexion (S1) 5 Normal Comments 20 heel raises B PT-OP-Q Treatments Start: 11/11/20 18:05 Freq: Status: Active Protocol: Document 03/12/21 10:38 [facility] (Rec: 03/12/21 11:18 [facility] [id number]) Cardio Equipment Bicycle (Upright) Duration (Minutes) 6 Resistance 10 Seat Position 7 Therapeutic Exercises Standing Exercises lunge Standing Exercise Name mini at rail Side bilateral Reps/Minutes 2x10 bilat squat Standing Exercise Name over chair w/tap Side bilateral Reps/Minutes 2x10 stretch Standing Exercise Name 1.calf/hip flexor 2. HS Side bilateral Reps/Minutes 30 sec ea x2 side step Standing Exercise Name focus on toe point fwd Side bilateral Equipment Used L3 Reps/Minutes 15ft x2 Neuro Re-Education Treatment Balance Activities tandem stance Comments B trials SLS Details trials B Comments use of mirror Self-Care/Home Management Treatment Education Patient Education Home Exercise Program PT-OP-T Assessment and Plan Start: 11/11/20 18:05 Freq: Status: Active Protocol: Document 03/12/21 10:38 [facility] (Rec: 03/12/21 11:18 [facility] [id number]) Physical Therapy Assessment Goals balance Cardiopulmonary Technologist Goal (LTG) Pt will be able to balance 10 sec SLS w/hands at sides and no lat shear of pelvis to show improved balance and stability and imrpoved wt acceptance for gait. 12/31 -dec arm use but still lat shear 02/19-improved no arm use needed LTG Duration 03/21 gait Short Term Goal (STG) Pt will be able to increase walking distance to 1 mile without inc pain more than 2/ 10. STG Duration achieved Group Home Goal (LTG) Pt will be able to amb without lat leaning. 01/22-able to when focusing 02/19 no change LTG Duration 03/21 stairs Short Term Goal (STG) Pt will be able to consistantly ascend stairs reciprocally without rail without inc pain. 12/31 can do but casues pain STG Duration achieved Cardiopulmonary Technologist Goal (LTG) Pt will be able to consistantly descend stairs reciprocally w/o rail w/o inc pain. 12/31 can do but casues pain 01/22/21-can do but slower 02/19-slight pain LTG Duration 03/21 activities Short Term Goal (STG) Pt will be able to get up/down from gorund w/o outside suport in order to assist w/ gardening at home. STG Duration achieved bbut pain noted Group Home Goal (LTG) Pt will be able to go fly fishing w/o knee pain and w/o concerns re: instability 12/31-has not tried 02/19-feels like he can try fly fishing but too early yet for fishing LTG Duration 03/21 LEFS Impairment 40/80 Short Term Goal (STG) Pt will improve score to at least 50/80 to show improved funcitonal ability 12/31-47/80 improved 02/19-n/t STG Duration 03/02 Group Home Goal (LTG) Pt will improve score to at least 65/80 to show improved funcitonal ability LTG Duration 03/21 Assessment Summary Assessment Pt did require some cueing w/ exercises for form and for managing body position throughout. He did much better w/SLS balance activites and w /tandem today Physical Therapy Plan Frequency and Duration Frequency of Treatment 1-2x/week Duration of Treatment 1 month Plan of Care Start Date 02/19/21 Plan of Care End Date 03/21/21 Next Visit Focus/Plan Next Note Type Discharge Summary Next Visit Plan review exercises to prep pt for DC
--- NOTE | 2021-03-19 12:45 | PT.OTN ---
Current Diagnoses Bilateral primary osteoarthritis of knee (03/19/21) Difficulty in walking, not elsewhere classified (03/19/21) Other abnormalities of gait and mobility (03/19/21) Weakness (03/19/21) Physical Therapy Treatment Note PT-OP-A Visit Information Start: 11/11/20 18:05 Freq: Status: Active Protocol: Document 03/19/21 10:38 [facility] (Rec: 03/19/21 11:20 [facility] [id number]) Out-Patient Physical Therapy Visit Information Visit Information Visit Type Discharge Summary Visit Start Time 10:35 Visit Stop Time 11:15 Total Visit Minutes 40 Visit Number 23 Number of LEAD ELECTRICIAN Visits 0 PT-OP-B Current Condition Start: 11/11/20 18:05 Freq: Status: Active Protocol: Document 11/12/20 15:46 [facility] (Rec: 11/12/20 17:22 [facility] [id number]) Current Condition History of Current Condition Current Complaints B knee pain History of Current Condition Pt reprots the biggest challenge for him is getting up from the ground. He needs something to leverage himself up off the ground whcih elinates his ability to garden . He is wants to by able to fly fish but feels unstable and requries assist getting up in the boat. Last time he went was in 2019 d/t knees stopping him. He feels like his ROM isn't that bad. Pt reprots going up/down stairs can be difficult and on a bad day has to do step to up/down. Always uses rail. Took a long time after last meniscus surgery to be able to sleep. Pt reports his walking is limited to .5 mile with dog but mostly feels tired in legs /tired overall. Pt reports having R menisectomy in jun 2016 and having 5 sessions of PT after that surgery then 4 sessions after L menisectomy in 2019 at [facility] but had to ask for PT after surgery. He has exercises from last bout that he still does 4-5x/week (APs, heel slides, resisted heel slides, sit<>stand, SAQ). He feels like they have helped quad strength but unsure if they have helped his knee. Prior Treatments and Tests 4-5 PT sessions after menisectomies each Treatment Goals Patient/Caregiver Goals back to fly fishing, be able to weed the garden meaning get up/down from ground, easier time w/stairs Personal Factors Other Personal Factors That May Effect osteopenia, B meniscectomy Therapy/Recovery 2016 & 2019 PT-OP-C Subjective Start: 11/11/20 18:05 Freq: Status: Active Protocol: Document 03/12/21 10:38 [facility] (Rec: 03/12/21 11:18 [facility] [id number]) OP-PT Subjective Patient Comments Patient Comments Pt reports he did a lot of walking on his trip (3-4 miles a day) and up/down hills. His knees were sore after. PT-OP-D Balance Start: 11/11/20 18:05 Freq: Status: Active Protocol: Document 02/19/21 11:22 [facility] (Rec: 02/19/21 12:04 [facility] [id number]) Balance Tests Single Limb Standing Single Limb- Right 10 sec w/lat shear of hip after 2 sec Single Limb- Left >30 sec w/lat shear of hip after 4 sec PT-OP-E Functional Tests Start: 11/12/20 17:24 Freq: Status: Active Protocol: Document 11/12/20 15:46 [facility] (Rec: 11/12/20 17:25 [facility] [id number]) Functional Tests 30 Second Sit to Stand Test Score 9 Five Times Sit to Stand Test Score 17sec PT-OP-F Manual Assessment Start: 11/11/20 18:05 Freq: Status: Active Protocol: Document 11/12/20 15:46 [facility] (Rec: 11/12/20 17:22 [facility] [id number]) Manual Assessments Soft Tissue Assessment Soft Tissue Mobility Assessment B:med joint Line, pes anscerine, HS, ITB, calf tenderness L: quads, adductors Joint Mobility Assessment Joint Mobility Assessment dec patellar mobility B PT-OP-G Mobility & Gait Start: 11/11/20 18:05 Freq: Status: Active Protocol: Document 11/12/20 15:46 [facility] (Rec: 11/12/20 17:22 [facility] [id number]) OP Gait Assessment Comments Gait Comments lat leaning R w/WB >L, dec push off PT-OP-J Posture/Palpation/Skin Start: 11/11/20 18:05 Freq: Status: Active Protocol: Document 11/12/20 15:46 [facility] (Rec: 11/12/20 17:22 [facility] [id number]) Posture Evaluation [facility] Postural Classification System Lumbar Protective Mechanism Left AP 2 Lumbar Protective Mechanism Right AP 0 Lumbar Protective Mechanism Left PA 2 Lumbar Protective Mechanism Right PA 2 PT-OP-K Range of Motion Start: 11/11/20 18:05 Freq: Status: Active Protocol: Document 11/12/20 15:46 [facility] (Rec: 11/12/20 17:22 [facility] [id number]) Knee Goniometric Range of Motion Knee Right Flexion Active (degrees) 110 Extension Active (degrees) 2 Comments feel it behind the knee w/ ext Left Flexion Active (degrees) 118 Extension Active (degrees) 2 Comments tight behind knee w/knee ext PT-OP-L Special Tests Start: 11/11/20 18:05 Freq: Status: Active Protocol: Document 11/12/20 15:46 [facility] (Rec: 11/12/20 17:22 [facility] [id number]) Special Tests Knee Special Tests Harshad Test Results mild tightness B Straight Leg Raise Test Results 63 L, 60 R PT-OP-M Strength Start: 11/11/20 18:05 Freq: Status: Active Protocol: Document 03/19/21 10:38 [facility] (Rec: 03/19/21 11:20 [facility] [id number]) Hip Strength Hip Manual Muscle Testing Right Flexion (L2) 5 Normal Extension (S1) 4+ Good+ Abduction 4+ Good+ Adduction 5 Normal External Rotation 5 Normal Internal Rotation 5 Normal Left Flexion (L2) 5 Normal Extension (S1) 4+ Good+ Abduction 4+ Good+ Adduction 5 Normal External Rotation 5 Normal Internal Rotation 5 Normal PT-OP-Q Treatments Start: 11/11/20 18:05 Freq: Status: Active Protocol: Document 03/19/21 10:38 [facility] (Rec: 03/19/21 11:20 [facility] [id number]) Therapeutic Exercises Prone Exercises hip ext Side bilateral Reps/Minutes 10 Standing Exercises lunge Standing Exercise Name mini at rail Side bilateral Reps/Minutes 10 bilat squat Standing Exercise Name over chair w/tap Side bilateral Reps/Minutes 15 stretch Standing Exercise Name 1.calf/hip flexor 2. HS 3. quad w/chair Side bilateral Reps/Minutes 30 sec ea side step Standing Exercise Name focus on toe point fwd Side bilateral Equipment Used L3 Reps/Minutes 20ft x2 Manual Therapy Treatment Soft Tissue Mobilization quad Body Location lat border along ITB L Mobilization Type Rolling,Strumming Intensity/Depth Moderate Neuro Re-Education Treatment Balance Activities tandem stance Comments B trials SLS Details trials B Comments use of mirror PT-OP-T Assessment and Plan Start: 11/11/20 18:05 Freq: Status: Active Protocol: Document 03/19/21 10:38 [facility] (Rec: 03/19/21 11:20 [facility] [id number]) Physical Therapy Assessment Goals balance Glove Factory Sewer Goal (LTG) Pt will be able to balance 10 sec SLS w/hands at sides and no lat shear of pelvis to show improved balance and stability and imrpoved wt acceptance for gait. 12/31 -dec arm use but still lat shear 02/19-improved no arm use needed LTG Duration acheived L, can do about 6 sec before lean but can do 15 sec R gait Short Term Goal (STG) Pt will be able to increase walking distance to 1 mile without inc pain more than 2/ 10. STG Duration achieved Group Home Goal (LTG) Pt will be able to amb without lat leaning. 01/22-able to when focusing 02/19 no change LTG Duration can do when focus on gait stairs Short Term Goal (STG) Pt will be able to consistantly ascend stairs reciprocally without rail without inc pain. 12/31 can do but casues pain STG Duration achieved Glove Factory Sewer Goal (LTG) Pt will be able to consistantly descend stairs reciprocally w/o rail w/o inc pain. 12/31 can do but casues pain 01/22/21-can do but slower 02/19-slight pain LTG Duration achieved activities Short Term Goal (STG) Pt will be able to get up/down from gorund w/o outside suport in order to assist w/ gardening at home. STG Duration achieved bbut pain noted Glove Factory Sewer Goal (LTG) Pt will be able to go fly fishing w/o knee pain and w/o concerns re: instability 12/31-has not tried 02/19-feels like he can try fly fishing but too early yet for fishing LTG Duration feels like he could but has not tried d/t seaon LEFS Impairment 40/80 Short Term Goal (STG) Pt will improve score to at least 50/80 to show improved funcitonal ability 12/31-47/80 improved 02/19-n/t STG Duration 03/02 Glove Factory Sewer Goal (LTG) Pt will improve score to at least 65/80 to show improved funcitonal ability LTG Duration 59/ Assessment Summary Assessment Pt has made excellent progrss w/his strength and balance with improvement in functional ability. At this time DC pt to home program d/t goals met and elaine. Physical Therapy Plan Discharge Physical Therapy Discharge Reasons Goals Met
== END 2021-04-09 14:22 ==
LOC: PHYS 10:30
PROVIDERS: PCP Internal Medicine; Referring Provider Orthopaedic Surgery Adult Reconstructive Orthopaedic Surgery; Visit Provider Orthopaedic Surgery Adult Reconstructive Orthopaedic Surgery
DX: M17.0 Bilateral primary osteoarthritis of knee (principal); R53.1 Weakness; R26.89 Other abnormalities of gait and mobility; R26.2 Difficulty in walking, not elsewhere classified
CPT/HCPCS: 97110; 97112; 97116; 97140; 97161; 97530; 97535

== ENCOUNTER → 2021-03-27 09:20 | Outpatient (CLI) | payer MEDICARE, BC, SELFPAY ==
[2021-03-27 11:15] LABS: COVID19 -Nasal RAPID Negative (Negative)
== END ==
PROVIDERS: PCP Internal Medicine; Visit Provider Surgery
DX: Z01.812 Encounter for preprocedural laboratory examination (principal); Z20.822 Contact with and (suspected) exposure to COVID-19
CPT/HCPCS: 87635; C9803

== ENCOUNTER 2021-03-30 08:10 | Day surgery (SDC) | payer MEDICARE, BC, SELFPAY ==
[2021-03-30 08:28] VITALS: BP 141/84; PULSE 70; RESP 16; TEMP 36.4; O2SAT 97; BMI 31.6
[2021-03-30] MEDS: LACTATED RINGERS 1,000 ML 200 ML IV (08:40)
--- NOTE | 2021-03-30 09:16 | PM.HP.1 ---
History of Present Illness History of Present Illness Date Patient Seen: 03/30/21 Time Patient Seen: 09:16 Chief complaint: DX COLONOSCOPY Narrative: The patient presents for colorectal sreening. Most recent colonoscopy 2015 demonstrated benign polyps. No personal or family history of colon cancer. On further history denies any recent gastrointestinal symptoms. No nausea, vomiting, abdominal pain, loss of appetite, unexplained weight loss, change in bowel habits, diarrhea, constipation, melena, hematochezia, or bright red blood per rectum. Patient History Medical History BPH w urinary obs/LUTS (~2018) Diverticulosis of large intestine (09/02/11) Gynecomastia, male Hayfever Hearing loss (09/02/11) History of adenomatous polyp of colon (10/2015) Hives Hypogonadism in male Mixed hyperlipidemia (10/21/15) Osteoporosis Surgical History H/O lateral meniscus repair of left knee History of colonoscopy with polypectomy (10/2015) History of lateral meniscus repair of right knee History of reduction mammoplasty Family & Social History Family History Father Family history of suicide Mother Family hx of lung cancer Social History: household members spouse lives independently Yes caregiver/support person No Tobacco & Substance use: Smoking Status Never smoker alcohol intake current alcohol intake frequency holiday/special occasion Substance Use Type does not use Meds Home Medications and Allergies Home Medications Medication Instructions Recorded Confirmed Type [ALLERCLEAR] 10 mg PO PRN #0 09/29/11 03/30/21 History triamcinolone acetonide 0.1 % 1 applictn TOP TID #80 gram 01/26/19 03/30/21 Rx topical cream CHOLECALCIFEROL (VITAMIN D3) 5,000 unit PO QDAY #0 04/17/20 03/30/21 History (Vitamin D3) Calcium (#Bravo CALCIUM 600) 600 mg PO DAILY #0 04/17/20 03/30/21 History atorvastatin 20 mg tablet 20 mg PO DAILY #90 tab 04/17/20 03/12/21 Rx multivitamin 1 tab PO DAILY 04/17/20 03/30/21 History tamsulosin 0.4 mg capsule 0.4 mg PO DAILY #90 cap 04/17/20 03/30/21 Rx Allergies Allergy/AdvReac Type Severity Reaction Status Date / Time No Known Drug Allergies Allergy Verified 03/30/21 08:28 Exam Vital Signs (past 8 hours): - 03/30/21 08:28 Temperature 97.5 F L Pulse Rate 70 Respiratory Rate 16 Blood Pressure 141/84 H Pulse Oximetry 97 Oxygen Delivery Method Room Air Narrative Exam Narrative: Constitutional-he is oriented to person, place and time. No apparent distress Cardiovascular- regular rate, no peripheral edema Pulmonary-unlabored respiratory effort, no audible wheezing Abdominal-soft, non-tender, non-distended Musculoskeletal-no cyanosis or clubbing Neurological-nonfocal, normal strength throughout Skin-warm and dry Assessment & Plan Assessment and plan (1) History of adenomatous polyp of colon: Problem details: Adenoma 10/2015 Status: Resolved Assessment & Plan narrative: The patient requires colorectal screening and colonoscopy is recommended. Technical details were discussed. Risks, benefits, alternatives explained. Risks including but not limited to myocardial infarction, aspiration, bleeding, pain, missed lesion, incomplete examination, need for further radiographic studies, colonic perforation, and need for major abdominal surgery were discussed. All questions were answered to their satisfaction, and they are in agreement with this plan. Time Spent With Patient Critical Care time: I spent a total of [] minutes of critical care time on this patient's care today; this time is exclusive of procedural time.
[2021-03-30] MEDS: fentaNYL 250 MCG/5 ML INJ IV (09:27)
[2021-03-30] MEDS: MIDAZOLAM 5 MG/5 ML VIAL IV (09:29)
--- NOTE | 2021-03-30 09:43 | P.OP.COLON_ITS ---
Operative Date/Time/Diagnoses Date of procedure: 03/30/21 Time of procedure: 09:43 Pre-op diagnosis: Personal history of colonic polyps Post-op diagnosis: same Procedure & Clinicians Study performed: Colonoscopy Same procedure as scheduled: Yes Indications: Personal history of polyps Surgeon: Héctor Adair Procedure Notes Procedure in detail: Medications: Conscious sedation using 5mg IV midazolam and 150 mcg IV of fentanyl The history and physical was performed/updated and the patient is ASA class is 2. The procedure was discussed in detail with the patient. Potential risks complications including infection, bleeding, missed diagnosis, perforation, need for surgery, and were explained. Their questions were answered and informed consent was obtained. Patient was brought to the procedure room and placed standard monitoring e quipment. The patient's vital signs were monitored continuously throughout the entire procedure. Prior to starting time-out was performed. The patient was placed in the left lateral recumbent position. Procedural sedation was administered. Examination began with a thorough inspection of the perianal area there was no evidence of fissures, fistulae, external hemorrhoids or cutaneous malignancy. The colonoscopy scope was then placed into the anal canal and was advanced to the cecum, which was identified by the ileocecal valve, the appendiceal orifice and the confluence of the taenia. The scope was then slowly withdrawn examining colon thoroughly in all directions, irrigating it of any residual stool. FINDINGS 1. Extensive verdin diverticulosis 2. No masses or polyps The patient tolerated the procedure well. They will be discharged once criteria are met. The prep was o fair quality. The withdrawl time was 7 minutes. The sedation time was 20 minutes. Specimen(s): none sent Complications: none Impression: Diverticulosis Post-procedure Recommendations: Colonoscopy in 10 years Disposition: same day surgery
[2021-03-30 09:45] VITALS: BP 120/73; PULSE 65; RESP 12; TEMP 36.1; O2SAT 96
[2021-03-30 09:50] VITALS: BP 136/83; PULSE 68; RESP 12; O2SAT 97
[2021-03-30 09:55] VITALS: BP 138/87; PULSE 65; RESP 12; O2SAT 98
[2021-03-30 09:56] VITALS: BP 129/84; PULSE 60; RESP 12; TEMP 36.1; O2SAT 97
== END 2021-03-30 10:14 | disposition home or self-care (01) ==
PROVIDERS: PCP Internal Medicine; Referring Provider Surgery; Visit Provider Surgery
PROC: 0DJD8ZZ Inspection of Lower Intestinal Tract, Via Natural or Artificial Opening Endoscopic (ICD-10-PCS; CPT 45378; principal; 2021-03-30 09:15)
DX: Z12.11 Encounter for screening for malignant neoplasm of colon (principal); Z86.010 Personal history of colon polyps; N40.1 Benign prostatic hyperplasia with lower urinary tract symptoms; N13.8 Other obstructive and reflux uropathy; K57.30 Diverticulosis of large intestine without perforation or abscess without bleeding
CPT/HCPCS: G0105; 99152; J2250; J3010

== ENCOUNTER → 2021-04-08 07:33 | Outpatient (CLI) | payer MEDICARE, BC, SELFPAY ==
[2021-04-08 08:25] LABS: Alanine Aminotransferase 24 IU/L (<50); Albumin 4.2 g/dL (3.5-5.0); Alkaline Phosphatase 70 U/L (38-126); Aspartate Aminotransferase 29 IU/L (17-59); BUN Creatinine Ratio 23.8 (6-22); Bilirubin Total 0.8 mg/dL (0.2-1.3); Blood Urea Nitrogen 19 mg/dL (9-20); Calcium 9.8 mg/dL (8.4-10.2); Carbon Dioxide 31 mmol/L (22-32); Chloride 102 mmol/L (98-107); Cholesterol 156 mg/dL (140-199); Estimated Glomerular Filt Rate > 60.0 mL/min (>60); Globulin 2.1 g/dL (1.7-4.1); Glucose 99 mg/dL (80-110); HDL Cholesterol 65 mg/dL (40-60); HEMOLYSIS < 15 (0-50); LDL Cholesterol Calculated 72 mg/dL (<100); Potassium 4.3 mmol/L (3.4-5.1); Sodium 138 mmol/L (137-145); Total Protein 6.3 g/dL (6.3-8.2); Triglycerides 94 mg/dL (35-150)
[2021-04-08 08:58] LABS: Prostate Specific Antigen Scrn 0.162 ng/mL (0.1-4.0)
== END ==
PROVIDERS: PCP Internal Medicine; Referring Provider Internal Medicine; Visit Provider Internal Medicine
DX: E29.1 Testicular hypofunction (principal); E78.2 Mixed hyperlipidemia; Z12.5 Encounter for screening for malignant neoplasm of prostate
CPT/HCPCS: 36415; 80053; 80061; G0103

== ENCOUNTER → 2022-07-15 07:52 | Outpatient (CLI) | payer MEDICARE, BC, SELFPAY ==
[2022-07-15 09:19] LABS: Add Manual Diff / Slide Review NO; Basophils Absolute Auto 0 /uL (0-100); Basophils Percent Auto 0.8 % (0-2); Eosinophils Absolute Auto 100 /uL (0-450); Eosinophils Percent Auto 2.1 % (2-4); Hematocrit 38.8 % (41-53); Hemoglobin 12.8 g/dL (13.5-17.5); Lymphocytes Absolute Auto 1000 /uL (1100-4500); Lymphocytes Percent Auto 24.1 % (25-40); Mean Corpuscular HGB Conc 32.9 % (30-36); Mean Corpuscular Hemoglobin 28.4 PG (26-34); Mean Corpuscular Volume 86.4 fL (80-100); Monocytes Absolute Auto 700 /uL (0-900); Monocytes Percent Auto 15.9 % (3-14); Neutrophils Absolute Auto 2400 /uL (1500-7000); Neutrophils Percent Auto 57.1 % (50-75); Platelet Count 163 X10^3/uL (150-400); Red Blood Cell Count 4.49 X10^6/uL (4.5-5.9); Red Cell Distribution Width 17.3 % (11.6-14.8); White Blood Cell Count 4.1 X10^3/uL (4.5-11.0)
[2022-07-15 09:30] LABS: Hemoglobin A1C% w Est Avg Glu 5.8 % (4.0-6.0)
[2022-07-15 09:49] LABS: Blood Urea Nitrogen 17 mg/dL (9-20); Calcium 9.1 mg/dL (8.4-10.2); Carbon Dioxide 30 mmol/L (22-32); Chloride 100 mmol/L (98-107); Estimated Glomerular Filt Rate > 60 mL/min (>60); Glucose 84 mg/dL (80-110); HEMOLYSIS < 15 (0-50); Potassium 4.1 mmol/L (3.4-5.1); Sodium 137 mmol/L (137-145)
== END ==
PROVIDERS: Family Provider Internal Medicine; PCP Internal Medicine; Referring Provider Orthopaedic Surgery Foot and Ankle Surgery; Visit Provider Orthopaedic Surgery Foot and Ankle Surgery
DX: Z01.818 Encounter for other preprocedural examination (principal); R73.9 Hyperglycemia, unspecified; Z01.812 Encounter for preprocedural laboratory examination
CPT/HCPCS: 36415; 80048; 83036; 85025; 93005; 93010

== ENCOUNTER 2022-07-30 06:26 | Day surgery (SDC) | payer MEDICARE, BC, SELFPAY ==
[2022-07-19 08:05] VITALS: BMI 30.7
[2022-07-30] VITALS (11 sets, daily range): BP systolic 116–164; BP diastolic 67–96; PULSE 78–95; RESP 12–28; TEMP 35.9–36.7; O2SAT 94–98; BMI 30.5
--- NOTE | 2022-07-30 06:00 | DI.RAD.S_ITS ---
PROCEDURE: XR KNEE RT 1TO2V INDICATIONS: TA TECHNIQUE: 2 view(s) of the knee acquired. COMPARISON: [facility], , KNEE 3V RIGHT, 02/09/2016, 11:54. FINDINGS: Bones: Patient is status post knee joint arthroplasty. Hardware components are in expected positions. Visualized bony structures are intact. Soft tissues: Overlying postoperative changes are noted. IMPRESSION: Expected appearance of knee arthroplasty. Dictated by: Ritchie Stearns M.D. on 07/30/2022 at 13:35 Transcribed by: KIRSTY on 07/30/2022 at 13:35 Approved by: Ritchie Stearns M.D. on 07/30/2022 at 16:29
[2022-07-30] MEDS: ACETAMINOPHEN 325 MG TABLET 975 MG PO (07:00)
[2022-07-30] MEDS: CELECOXIB 200 MG CAPSULE PO (07:00)
[2022-07-30] MEDS: LACTATED RINGERS 1,000 ML 42 ML IV ×2 (07:04→11:01)
[2022-07-30 07:14] LABS: COVID19 -Nasal RAPID Negative (Negative)
--- NOTE | 2022-07-30 07:45 | PM.PREOP ---
Pre-operative Note Interval Note History & Physical reviewed/Exam performed by Physician: Yes Changes to H&P: No
[2022-07-30] MEDS: CEFAZOLIN 2 GM/100 ML PREMIX 100 ML IV (07:55)
[2022-07-30] MEDS: TRANEXAMIC ACID 1,000 MG VIAL 2000 MG INJ ×2 (08:20→10:40)
--- NOTE | 2022-07-30 08:33 | SUR.OPER ---
Supine on padded OR bed, head on pillow, arms secured on padded arm boards at <90 degrees abduction, legs uncrossed, safety belt at thigh, tape over blanket over lower left leg. Demayo positioner used to secure operative right leg, padded with foam and secured with coban. lateral leg positioner used on right side.
[2022-07-30] MEDS: BUPIVACAINE LIPOSOME 266 MG/20 ML VIAL INJ (08:50)
[2022-07-30] MEDS: BUPIVACAINE 0.25% (PF) VIAL 60 ML INJ (09:00)
[2022-07-30] MEDS: BUPIVACAINE 0.25% (PF) 60 ML, EPINEPHrine 0.3 MG INJ (09:00)
--- NOTE | 2022-07-30 12:03 | PM.OP.1 ---
Operative Date/Time/Diagnoses Date of procedure: 07/30/22 Time of procedure: 08:30 Pre-op diagnosis: Knee arthritis, right M17.11 Post-op diagnosis: same Procedure & Clinicians Procedure: Total knee arthroplasty right [id number] Same procedure as scheduled: Yes Indications: Patient is a 76-year-old male with end-stage, [id number] knee arthritis he is failed conservative treatments with braces anti-inflammatories injections physical therapy. He is failed anti-inflammatories. He is indicated for right knee replacement surgery. The risks and benefits of the procedure have been discussed with the patient and given the opportunity to ask questions. The risks of surgery include but are not limited to infection, malunion, nonunion, persistence of pain, damage to nerves and blood vessels, posttraumatic arthritis, DVT, PE, cardiopulmonary complications and . The patient expressed a thorough understanding of the risks and benefits of surgery and has elected to proceed. Consent was signed in the office. During the operation, the services of a physician surgical services manager were medically indicated and necessary to provide the exposure of the operative site for the surgical procedure and to maintain the limb in a proper position to carry out the operation safely and efficiently. Without a qualified refinery operator assistant being present this would extended the operative procedure and made the procedure technically more difficult to perform. Surgeon: Cielo Meadows Window Shade Cloth Sewer: Sapna Johnson Anesthesia Type: General, Spinal and Local Operative Notes Findings: Full-thickness cartilage loss medial and lateral tibiofemoral compartments and patellofemoral compartment. Large osteophytes. Closure Type: primary Specimen(s): none sent Prosthetic devices, grafts, tissues, transplants, or devices: Michelle and nephew [id number] Femur cobalt chromium size 6 right Tibia size 6 right Poly 10 mm Patella 32mm oval Estimated Blood Loss (mL): 50 Blood products transfused: none Tourniquet time (min): 125 Procedure in detail: Patient was seen in the preoperative area where the patient and site of surgery were identified in the operative knee was marked informed consent confirmed. This was the right knee. Patient received the appropriate preoperative antibiotics this was 2 g of Ancef. And other preoperative medications and was taken to the operating room placed on operating table in the supine position. Spinal anesthetic were administered. The operative extremity was then prepped and draped in the standard sterile fashion with a nonsterile tourniquet high on the thigh. Patient was placed on the green foam bolsters. A lateral post was placed at the level of the proximal thigh /trochanter area as a lateral post. Formal time-out procedure was performed confirming the patient's side and site of surgery and administration of appropriate preoperative antibiotics and implants were in the room accounted for. All were in agreement. Patient received a preoperative dose of tranexamic acid and then a 2nd dose at tourniquet release Patient was prepped and draped in the standard sterile fashion and the foot was placed into the [facility] leg babb. This was taken into high flexion and the incision was marked out over the anterior knee to the level of the medial tubercle tubercle. The Esmarch was then used for exsanguination and the tourniquet was inflated to 250 mmHg. Was made through the skin and subcutaneous tissue in high flexion this was then brought down into 30? of flexion for the medial parapatellar arthrotomy. A marker pen was used to sarah the arthrotomy site for later repair. Joint fluid was evacuated. The anterior osteophytes and soft tissues were removed. Routine medial release was initially made along the medial proximal tibia with Bovie. The patella was on quite a bit of tension on attempted eversion so the quad incision was lengthened to relax it and then the patella was 1st cut using the saw sized and prepped and then subluxed throughout the case and protected. The leg was then taken into extension and the patella was everted and the patella was cut to accommodate the patellar button. This was sized to a 32 mm button for a 9 mm thickness to recreate the original dimensions of the patella. Poly was removed and the protector replaced and the patella was subluxed and the knee was taken back up into flexion and attention was returned to the femur. Then the rotational landmarks of Whitesides line and the trans epicondylar axis were marked on the femur with electrocautery. Then the intramedullary guide for the femur was created. The distal femoral cut was made in 6? of valgus using the intramedullary guide with the cut setting on 0+ as the patient did not have a preoperative flexion contracture. The ACL and PCL released. The proximal tibia was then cut using the intramedullary guide, taking 9 mm off the less involved side this was the lateral plateau. The José Miguel wing was used to check the slope through the guide. Second pass was made through the tibial cut guide with the saw after the cut tibia was removed plane down about 1 more mm and further smooth then the resection surface. In extension remainders of the medial and lateral menisci were removed. The extension flexion gaps were then checked using both the flexion extension blocks. And was selected for a 10mm poly femur was then sized and the rotation set using the posterior condyle referencing 3? of external rotation. This measured a size 6. Cut block was then placed and the anterior, posterior and chamfer cuts were then made. The posterior osteophytes and soft tissues were then removed. Then in extension the posterior capsule was injected with a mixture of 40 mL of 0.25% Marcaine and 20 mL of Exparel care to avoid excessive injection posterior laterally. The remainder of this was saved for the capsule and subcutaneous tissue and placed during cement curing. Attention was then returned to the tibia and this was prepared with the rotation set by the extramedullary guide. Lined up with the tibial crest and the 2nd toe. The tibial trial was sized to a size 6. This Was then pinned in place and the trial femoral components were placed. Then the intercondylar notch was cut through the femoral trial to create the box this was done with the distal than the proximal drill and then the box cut distally and then proximally. Next the insert was placed and the trial poly placed. This was stable in flexion and extension and there was a 0-135 degree range of motion. The tibia was then finished with the drill and flange cuts and then this was removed. All trials were removed. The wound and bone was irrigated with pulsatile lavage. This was then dried with a sponge. The components were verified and opened and the cement was mixed. Cement was applied to the components and then to the bone then the tibia was cemented in place 1st followed by the femur then the patella. Excess cement was removed. With care looking around the back of the knee. Remainder of the injection was injected around the capsule. trial poly was placed back in the leg was placed into extension for the patellar cementing. After this was cured approximately 15 minutes later and the dilute Betadine solution was placed for at least 3 minutes in the wound this was then irrigated out and the final poly was placed. This was a 10 mm poly. The tourniquet was released hemostasis was achieved. Final 1g of tranexamic acid was given IV at the time of tourniquet release. The capsule was closed with 1. Ethibond suture. Subcutaneous layer was closed with 3-0 Vicryl suture. Skin was closed with a running V lock suture Stratafix Monocryl type suture and Dermabond. An elizabeth dressing was placed given this patient's thin soft tissues. An Gregorio wrap was applied. Anesthetic was terminated the patient was woken from anesthesia and taken to recovery room in good condition. There no immediate complications from this procedure. The patient will be maintained on a standard total knee replacement protocol with weight-bearing as tolerated. Complications: none Post-operative Condition: stable Disposition: PACU Plan for aftercare: Weightbear as tolerated. Begin immediate knee range of motion. We will work with outpatient physical therapy once released. As prescription medications for oxycodone, Zofran and Colace for stool softener. He was prescribed a 5 day course of ketorolac. He will take aspirin 81 mg b.i.d. as a venous thromboembolism prevention measure
[2022-07-30] MEDS: OXYCODONE/ACETAMINOPHEN 5/325 TABLET 1 TAB PO ×2 (12:27→16:49)
--- NOTE | 2022-07-30 12:44 | SUR.PHASEII ---
pt transfered to phase II. SBAR report to Fidel Godinez RN
--- NOTE | 2022-07-30 14:41 | SUR.PHASEII ---
Patient up to bathroom with walker, minimal assist. He stated he voided a few drops. Bladder scan showed 713mls. Dr. Maedows notified. VTO to give 0.4mg po Flomax and straight cath. Patient was catheterized with a sterile catheter. Regular straight cath was met with resistance and was unable to be passed to the bladder. The catheter was changed to a coude and was passed into the bladder with minimal resistance. A small amount of blood was noted on the end of the catheter. Patient denied pain and tolerated the procedure very well.
[2022-07-30] MEDS: TAMSULOSIN 0.4 MG CAPSULE PO (15:12)
--- NOTE | 2022-07-30 16:54 | SUR.PHASEII ---
Patient up to the bathroom and voided less than 10mls of yellow urine. Bladder scan showed 247mls. Dr. Meadows notified and spoke to patient. Per MD patient may discharge, needs to take regular dose of pedro-max and return to ER if unable to void in 8 hours. Patient and spouse agreed.
== END 2022-07-30 17:10 | disposition home or self-care (01) ==
LOC: OR 06:28 → AC 06:29
PROVIDERS: Family Provider Internal Medicine; PCP Internal Medicine; Referring Provider Orthopaedic Surgery Foot and Ankle Surgery; Visit Provider Orthopaedic Surgery Foot and Ankle Surgery
PROC: 0SRC0JZ Replacement of Right Knee Joint with Synthetic Substitute, Open Approach (ICD-10-PCS; CPT 27447; principal; 2022-07-30 07:45)
DX: M17.11 Unilateral primary osteoarthritis, right knee (principal); Z20.822 Contact with and (suspected) exposure to COVID-19; R39.198 Other difficulties with micturition
CPT/HCPCS: 27447; 73560; 87635; C1776; C9803; C9290; J0171; J0690; J1100; J1885; J2250; J2405; J2704; J3010; J3490

== ENCOUNTER 2022-10-21 12:00 | Outpatient (RCR) | payer MEDICARE, BC, SELFPAY ==
--- NOTE | 2022-07-28 17:08 | PT.OIE ---
Current Diagnoses Unilateral primary osteoarthritis, unspecified knee (07/28/22) Past Medical History (Last Updated 07/19/22 @ 09:15 by Celeste Payton, RN) BPH w urinary obs/LUTS (~2018) Diverticulosis of large intestine (09/02/11) CRANE (dyspnea on exertion) Gynecomastia, male Hayfever Hearing loss (09/02/11) History of adenomatous polyp of colon (10/2015) Hives HLD (hyperlipidemia) Hypogonadism in male Mixed hyperlipidemia (10/21/15) Osteopenia Osteoporosis Past Surgical History (Last Updated 07/19/22 @ 09:13 by Celeste Payton RN) H/O lateral meniscus repair of left knee History of colonoscopy with polypectomy (10/2015) History of lateral meniscus repair of right knee History of reduction mammoplasty History of stapedectomy Hx of bilateral cataract extraction Hx of colonoscopy Hx of tonsillectomy Visit Care Team Role Provider Type Juan Carlos Cesar MD Family Provider Physician Primary Care Provider Specialty: Internal Medicine Address: [address] [place] [address], [address], [address] Email: [email or web address] Cielo Meadows MD Attending Provider Physician Referring Provider Specialty: Orthopedics Orthopedic Surgery Address: [address] [place] [address], [id number] Email: [email or web address] Physical Therapy Initial Evaluation PT-OP-A Visit Information Start: 07/27/22 14:40 Freq: Status: Active Protocol: Document 07/28/22 08:06 [facility] (Rec: 07/28/22 09:01 [facility] [id number]) Out-Patient Physical Therapy Visit Information Visit Information Visit Type Initial Evaluation Visit Start Time 08:15 Visit Stop Time 08:44 Total Visit Minutes 40 Visit Number 1 Evaluation Information Evaluation Date 07/28/22 PT-OP-B Current Condition Start: 07/27/22 14:40 Freq: Status: Active Protocol: Document 07/28/22 08:06 [facility] (Rec: 07/28/22 09:01 [facility] [id number]) Current Condition History of Current Condition Onset Date 10+ years Current Complaints right knee pain, scheduled for right TKA 07/30/22 History of Current Condition Chronic worsening bilateral knee pain right greater than left. Has had PT; has been doing ankle pumps, clamshells, LAQ, heelslide. Previously did PT with Nory Noble DPT. C/o unable to do walk without pain, fly fishing, gardening. Has grab bar in shower, none by toilet but has counter to help. Brings FWW and SPC to PT today. Preference is to be discharged home after his surgery Scheduled to start OP PT . Surgery with Dr. Ramos. No stairs outside, 9 and 16 stairs at home; doesn' t have to go upstairs, bedroom on main floor. Prior Treatments and Tests Anticipates left TKA as well after recovery from right. Treatment Goals Patient/Caregiver Goals Improve right knee function to allow him to return to prior activities such as gardening and fly fishing. Prior Functional Status Baseline Function- ADL's Modified Independent Baseline Function- Mobility Modified Independent Baseline Function- Gait independent, no device Baseline Function- Work/School retired Baseline Function- Recreation/Hobbies gardening, fly-fishing Current Functional Impairments (Reported) Functional Limitations- ADL's painful Functional Limitations- Mobility/Gait painful, short distance Functional Limitations- Work/School retired Functional Limitations- Recreation/ unable to take walks, garden, Hobbies fly fish PT-OP-C Subjective Start: 07/27/22 14:40 Freq: Status: Active Protocol: Document 07/28/22 08:06 [facility] (Rec: 07/28/22 09:01 [facility] [id number]) Patient Questionnaires Lower Extremity Functional Scale LEFS Score 51 PT-OP-D Balance Start: 07/27/22 14:40 Freq: Status: Active Protocol: Document 07/28/22 08:06 [facility] (Rec: 07/28/22 09:01 [facility] [id number]) OP-PT Balance Assessment Sitting Balance Static Sitting Balance Ability Normal Dynamic Sitting Balance Ability Normal Standing Balance Static Standing Balance Ability Good Dynamic Standing Balance Ability Fair Justice Fall Scale Copyright Permission PT-OP-G Mobility & Gait Start: 07/27/22 14:40 Freq: Status: Active Protocol: Document 07/28/22 08:06 [facility] (Rec: 07/28/22 09:01 [facility] [id number]) OP Mobility Evaluation Bed Mobility Supine to and from Sit indep Transfers Sit to Stand indep OP Gait Assessment Gait Gait Assistance Required: Independent Distance (Feet) 75 Assistive Devices Assistive Device None Orthotic/Prosthetic Devices or Brace: No Gait Deviations General Gait Pattern Antalgic,Decreased Stride Length,Decreased Feet Clearance Stair Climbing Evaluation Evaluation Level of Assist On Stairs Standby Assistance Devices Stair Climbing Assistive Devices Straight Cane,Four Wheel Walker Technique/Endurance Stair Climbing Direction Ascend and Descend Stair Climbing Technique Step to Step Number of Steps Climbed 4 Comments Stair Climbing Comments cues for sequencingusing cane PT-OP-H Neuro Start: 07/27/22 14:40 Freq: Status: Active Protocol: Document 07/28/22 08:06 [facility] (Rec: 07/28/22 09:01 [facility] [id number]) Sensation Evaluation Gross Sensation Gross Sensation WNL PT-OP-K Range of Motion Start: 07/27/22 14:40 Freq: Status: Active Protocol: Document 07/28/22 08:06 [facility] (Rec: 07/28/22 09:01 [facility] [id number]) Knee Goniometric Range of Motion Knee Right Flexion Active (degrees) 100 Flexion Passive (degrees) 110 Extension Active (degrees) 0 Left Flexion Active (degrees) 112 Flexion Passive (degrees) 115 Extension Active (degrees) 0 Knee ROM Limitations Knee ROM Limitations Bony Restriction,Pain Ankle and Foot Goniometric Range of Motion Ankle and Foot lavon Ankle/Foot ROM WFL Yes PT-OP-M Strength Start: 07/27/22 14:40 Freq: Status: Active Protocol: Document 07/28/22 08:06 [facility] (Rec: 07/28/22 09:01 [facility] [id number]) Knee Strength Knee Manual Muscle Testing Right Flexion (S2) 4 Good Extension (L3) 4 Good Left Flexion (S2) 5 Normal Extension (L3) 5 Normal PT-OP-Q Treatments Start: 07/27/22 14:40 Freq: Status: Active Protocol: Document 07/28/22 08:06 [facility] (Rec: 07/29/22 17:07 [facility] [id number]) Self-Care/Home Management Treatment Education Patient Education Home Exercise Program Other Education TKA; issued handout gait training with FWW, cane for post-surgical use. Instruction in stair ambulation. FWW too short so instructed in correct fit and to get new one. post-op importance of HEP, icing, staying on top of pain, consider thigh-high compression stockings PT-OP-T Assessment and Plan Start: 07/27/22 14:40 Freq: Status: Active Protocol: Document 07/28/22 08:06 [facility] (Rec: 07/29/22 17:07 [facility] [id number]) Physical Therapy Assessment Rehab Potential Rehabilitation Potential Good Evaluation Complexity Number of Personal Factors/Comorbidities 1-2 Number of Body Systems Impaired 3 Clinical Presentation at Evaluation Evolving Goals Four Impairment activity intolerance Nursing Home Goal (LTG) Patient will improve right knee function sufficient to return to his usual hobbies and recreational activities LTG Duration 10/28/22 Three Impairment lack of knowledge of post-op rehab Short Term Goal (STG) Patient to complete pre-op appointment for training in HEP, use of assistive devices, education regarding post-op rehab including icing, elevating, compression stocking use STG Duration goal met today Biblical Languages Professor Goal (LTG) Patient to be independent and compliant with HEP and all aspects of self-care for continued knee strengthening in the home and/or community fitness program LTG Duration 10/28/22 Two Impairment gait dysfunction Biblical Languages Professor Goal (LTG) Patient will be able to ambulate on level surfaces without assitive device with no limp, and ascend/descend flight of standard height stairs with alternating step pattern LTG Duration 10/28/22 One Impairment ROM and strength impairment right knee Nursing Home Goal (LTG) Improve right knee ROM to 0- 120 and strength to at least 4 +/5 LTG Duration 10/28/22 Assessment Summary Assessment Patient presents to PT for pre -op appointment, scheduled for R TKA 07/30/22. His attends the appointment with him. Knee ROM and strength were tested, patient was instructed in HEP he will be performing post-op and issued written handout. He was instructed in correct fit and safe use of FWW and SPC for gait. He was instructed in importance of icing, elevation , and to consider use of thigh -high compression stockings after surgery for edema management. Patient and his demonstrated good understanding of all. He is scheduled to start post-op rehab 08/02/22. Physical Therapy Plan Frequency and Duration Frequency of Treatment 2x/Week Duration of treatment (weeks) 12 Plan of Care Start Date 07/28/22 Plan of Care End Date 10/28/22 Therapeutic Interventions Therapeutic Interventions Gait Training,Home Exercise Program,Joint Mobilizations, Manual Therapy,Neuromuscular Re-education,Patient/Caregiver Education,Self-Care/Home Management,Soft Tissue Mobilization,Taping, Therapeutic Activities, Therapeutic Exercises Modalities Cold Pack/Ice Massage,Electric Stimulation Next Visit Focus/Plan Next Note Type Re-Evaluation Next Visit Plan post-op re-evaluation, initiate TKA rehab.
--- NOTE | 2022-07-28 17:08 | PT.OPPOC ---
Physical, Occupational & Speech Therapy At [facility] Current Diagnoses Unilateral primary osteoarthritis, unspecified knee (07/28/22) Visit Care Team Role Provider Type Juan Carlos Cesar MD Family Provider Physician Primary Care Provider Specialty: Internal Medicine Address: [address] [place] [address], [facility] [address], [place], [address] Email: [email or web address] Cielo Meadows MD Attending Provider Physician Referring Provider Specialty: Orthopedics Orthopedic Surgery Address: [address] [place] [address], [address] Email: [email or web address] Plan Of Care PT-OP-T Assessment and Plan Start: 07/27/22 14:40 Freq: Status: Active Protocol: Document 07/28/22 08:06 [facility] (Rec: 07/29/22 17:07 [facility] [id number]) Physical Therapy Assessment Rehab Potential Rehabilitation Potential Good Evaluation Complexity Number of Personal Factors/Comorbidities 1-2 Number of Body Systems Impaired 3 Clinical Presentation at Evaluation Evolving Goals Four Impairment activity intolerance Senior Living Goal (LTG) Patient will improve right knee function sufficient to return to his usual hobbies and recreational activities LTG Duration 10/28/22 Three Impairment lack of knowledge of post-op rehab Short Term Goal (STG) Patient to complete pre-op appointment for training in HEP, use of assistive devices, education regarding post-op rehab including icing, elevating, compression stocking use STG Duration goal met today Senior Living Goal (LTG) Patient to be independent and compliant with HEP and all aspects of self-care for continued knee strengthening in the home and/or community fitness program LTG Duration 10/28/22 Two Impairment gait dysfunction Manager Development Goal (LTG) Patient will be able to ambulate on level surfaces without assitive device with no limp, and ascend/descend flight of standard height stairs with alternating step pattern LTG Duration 10/28/22 One Impairment ROM and strength impairment right knee Manager Development Goal (LTG) Improve right knee ROM to 0- 120 and strength to at least 4 +/5 LTG Duration 10/28/22 Assessment Summary Assessment Patient presents to PT for pre -op appointment, scheduled for R TKA 07/30/22. His attends the appointment with him. Knee ROM and strength were tested, patient was instructed in HEP he will be performing post-op and issued written handout. He was instructed in correct fit and safe use of FWW and SPC for gait. He was instructed in importance of icing, elevation , and to consider use of thigh -high compression stockings after surgery for edema management. Patient and his demonstrated good understanding of all. He is scheduled to start post-op rehab 08/02/22. Physical Therapy Plan Frequency and Duration Frequency of Treatment 2x/Week Duration of treatment (weeks) 12 Plan of Care Start Date 07/28/22 Plan of Care End Date 10/28/22 Therapeutic Interventions Therapeutic Interventions Gait Training,Home Exercise Program,Joint Mobilizations, Manual Therapy,Neuromuscular Re-education,Patient/Caregiver Education,Self-Care/Home Management,Soft Tissue Mobilization,Taping, Therapeutic Activities, Therapeutic Exercises Modalities Cold Pack/Ice Massage,Electric Stimulation Next Visit Focus/Plan Next Note Type Re-Evaluation Next Visit Plan post-op re-evaluation, initiate TKA rehab. Plan of Care Dates Plan of Care Start Date 07/28/22 Plan of Care End Date 10/28/22 Electronically Signed by: Miranda Draper, PT 07/29/22 4315 If you are in agreement with this Plan of Care, please return a signed and dated copy. I have reviewed this Plan of Care and certify that the skilled therapy services above are required to meet the patient?s needs. Physician Signature Date Printed Name and Credentials Clinical Instructor Signature Printed Name and Credentials
--- NOTE | 2022-08-02 16:02 | PT.OTRE ---
Current Diagnoses Unilateral primary osteoarthritis, unspecified knee (08/02/22) Past Medical History (Last Updated 07/19/22 @ 09:15 by Celeste Payton, RN) BPH w urinary obs/LUTS (~2018) Diverticulosis of large intestine (09/02/11) CRANE (dyspnea on exertion) Gynecomastia, male Hayfever Hearing loss (09/02/11) History of adenomatous polyp of colon (10/2015) Hives HLD (hyperlipidemia) Hypogonadism in male Mixed hyperlipidemia (10/21/15) Osteopenia Osteoporosis Surgical History (Last Updated 07/19/22 @ 09:13 by Celeste Payton RN) H/O lateral meniscus repair of left knee History of colonoscopy with polypectomy (10/2015) History of lateral meniscus repair of right knee History of reduction mammoplasty History of stapedectomy Hx of bilateral cataract extraction Hx of colonoscopy Hx of tonsillectomy Visit Care Team Role Provider Type Juan Carlos Cesar MD Family Provider Physician Primary Care Provider Specialty: Internal Medicine Address: [address] [place] [address], [address], [address] Email: [email or web address] Cielo Meadows MD Attending Provider Physician Referring Provider Specialty: Orthopedics Orthopedic Surgery Address: [address] [place] [address], [id number] Email: [email or web address] Physical Therapy Re-Evaluation PT-OP-A Visit Information Start: 07/27/22 14:40 Freq: Status: Active Protocol: Document 08/02/22 15:19 DCW (Rec: 08/02/22 16:01 [facility] [id number]) Out-Patient Physical Therapy Visit Information Visit Information Visit Type Re-Evaluation Visit Start Time 15:19 Visit Stop Time 16:00 Total Visit Minutes 41 Visit Number 2 Number of OFFICE DIRECTOR Visits 0 Evaluation Information Evaluation Date 07/28/22 PT-OP-B Current Condition Start: 07/27/22 14:40 Freq: Status: Active Protocol: Document 08/02/22 15:19 DCW (Rec: 08/02/22 16:01 DC [id number]) Current Condition History of Current Condition Onset Date 10+ years Current Complaints right TKA 07/30/22 History of Current Condition Pt underwent R TKA on 07/30/22, returns today following pre-op PT appointment. Pt reports pain and walking have both been improving, has been trying to do his HEP, unable to perform SLR or SAQ, unable to lift leg against gravity yet. Prior Treatments and Tests Anticipates left TKA as well after recovery from right. Treatment Goals Patient/Caregiver Goals Improve right knee function to allow him to return to prior activities such as gardening and fly fishing. PT-OP-C Subjective Start: 07/27/22 14:40 Freq: Status: Active Protocol: Document 08/02/22 15:19 DCW (Rec: 08/02/22 16:01 DCW [id number]) OP-PT Subjective Patient Comments Patient Comments Pt reports he is not able to lift his leg independently yet . PT-OP-D Balance Start: 07/27/22 14:40 Freq: Status: Active Protocol: Document 07/28/22 08:06 SAK (Rec: 07/28/22 09:01 SAK [id number]) OP-PT Balance Assessment Sitting Balance Static Sitting Balance Ability Normal Dynamic Sitting Balance Ability Normal Standing Balance Static Standing Balance Ability Good Dynamic Standing Balance Ability Fair Justice Fall Scale Copyright Permission Reshma GARVEY, Reshma RM, Corey SJ. Development of a scale to identify the fall- prone patient. Can J Aging 1989;8;366-7. Castro Justice (2009). Preventing patient falls. (2nd ed). [place]: Paul. PT-OP-E Functional Tests Start: 07/27/22 14:40 Freq: Status: Active Protocol: Document 08/02/22 15:19 DCW (Rec: 08/02/22 16:01 DCW [id number]) Functional Tests 2 Minute Walk Test Distance 179' Device Used FWW Comments 1.49 ft/sec Timed Up and Go (TUG) Score 27.49 Comments /c FWW TUG Impairment Rating 100% Impaired (Score 20) PT-OP-G Mobility & Gait Start: 07/27/22 14:40 Freq: Status: Active Protocol: Document 08/02/22 15:19 DCW (Rec: 08/02/22 16:01 DCW [id number]) OP Gait Assessment Gait Gait Assistance Required: Standby Assistance Assistive Devices Assistive Device Front Wheeled Walker Gait Deviations General Gait Pattern Antalgic,Decreased Stride Length,Decreased Feet Clearance,Wide Based Gait PT-OP-H Neuro Start: 07/27/22 14:40 Freq: Status: Active Protocol: Document 07/28/22 08:06 SAK (Rec: 07/28/22 09:01 SAK [id number]) Sensation Evaluation Gross Sensation Gross Sensation WNL PT-OP-K Range of Motion Start: 07/27/22 14:40 Freq: Status: Active Protocol: Document 08/02/22 15:19 DCW (Rec: 08/02/22 16:01 DCW [id number]) Knee Goniometric Range of Motion Knee Measured in Degrees Right Flexion Active (degrees) 84 Flexion Passive (degrees) 78 Extension Active (degrees) 27 Extension Passive (degrees) 4 Knee ROM Limitations Knee ROM Limitations Soft Tissue Tightness,Muscle Weakness,Muscle Tone,Pain, Swelling PT-OP-M Strength Start: 07/27/22 14:40 Freq: Status: Active Protocol: Document 08/02/22 15:19 DCW (Rec: 08/02/22 16:01 DCW [id number]) Knee Strength Knee Manual Muscle Testing Right Flexion (S2) 2- Poor- Extension (L3) 2- Poor- Left Flexion (S2) 5 Normal Extension (L3) 5 Normal PT-OP-Q Treatments Start: 07/27/22 14:40 Freq: Status: Active Protocol: Document 08/02/22 15:19 DCW (Rec: 08/02/22 16:01 DCW [id number]) Cardio Equipment Recumbent Bicycle Duration (Minutes) 5 Resistance 0 Other no full rotations PT-OP-T Assessment and Plan Start: 07/27/22 14:40 Freq: Status: Active Protocol: Document 08/02/22 15:19 DCW (Rec: 08/02/22 16:01 DCW [id number]) Physical Therapy Assessment Rehab Potential Rehabilitation Potential Good Impairments Impairments Activity Tolerance,Balance, Functional Activities, Functional Mobility,Gait,Pain, ROM,Strength,Tone Goals Four Impairment activity intolerance Jail Goal (LTG) Patient will improve right knee function sufficient to return to his usual hobbies and recreational activities LTG Duration 10/28/22 Three Impairment lack of knowledge of post-op rehab Short Term Goal (STG) Patient to complete pre-op appointment for training in HEP, use of assistive devices, education regarding post-op rehab including icing, elevating, compression stocking use STG Duration goal met today Electric Blanket Packer Goal (LTG) Patient to be independent and compliant with HEP and all aspects of self-care for continued knee strengthening in the home and/or community fitness program LTG Duration 10/28/22 Two Impairment gait dysfunction Jail Goal (LTG) Patient will be able to ambulate on level surfaces without assitive device with no limp, and ascend/descend flight of standard height stairs with alternating step pattern LTG Duration 10/28/22 One Impairment ROM and strength impairment right knee Electric Blanket Packer Goal (LTG) Improve right knee ROM to 0- 120 and strength to at least 4 +/5 LTG Duration 10/28/22 Assessment Summary Assessment Patient returns to skilled therapy POD #3 following R TKA . Pt showing good mobility already, doing very well ambulating with his FWW, good sabra and step-length with a step-through gait pattern. ROM also doing well, PROM knee extension already to lacking 4 degrees from neutral, although significant extension lag, indicating significant quad weakness. Pt should benefit from skilled therapeutic intervention involving LE strengthening, ROM/flexibility, joint mobs, gait and balance training, and transfers. Physical Therapy Plan Frequency and Duration Frequency of Treatment 2x/Week Duration of treatment (weeks) 12 Plan of Care Start Date 08/02/22 Plan of Care End Date 10/25/22 Therapeutic Interventions Therapeutic Interventions Balance Training,Gait Training ,Home Exercise Program,Joint Mobilizations,Manual Therapy, Neuromuscular Re-education, Patient/Caregiver Education, Self-Care/Home Management,Soft Tissue Mobilization,Taping, Therapeutic Activities, Therapeutic Exercises Modalities Cold Pack/Ice Massage,Electric Stimulation Next Visit Focus/Plan Next Note Type Treatment Note Next Visit Plan ROM/Strengthening
--- NOTE | 2022-08-02 16:02 | PT.OPPOC ---
Physical, Occupational & Speech Therapy At [facility] Current Diagnoses Unilateral primary osteoarthritis, unspecified knee (08/02/22) Visit Care Team Role Provider Type Juan Carlos Cesar MD Family Provider Physician Primary Care Provider Specialty: Internal Medicine Address: [address] [place] [address], [facility] [address], [place], [address] Email: [email or web address] Cielo Meadows MD Attending Provider Physician Referring Provider Specialty: Orthopedics Orthopedic Surgery Address: [address] [place] [address], [address] Email: [email or web address] Plan Of Care PT-OP-T Assessment and Plan Start: 07/27/22 14:40 Freq: Status: Active Protocol: Document 08/02/22 15:19 DCW (Rec: 08/02/22 16:01 DCW [id number]) Physical Therapy Assessment Rehab Potential Rehabilitation Potential Good Impairments Impairments Activity Tolerance,Balance, Functional Activities, Functional Mobility,Gait,Pain, ROM,Strength,Tone Goals Four Impairment activity intolerance Shelter Goal (LTG) Patient will improve right knee function sufficient to return to his usual hobbies and recreational activities LTG Duration 10/28/22 Three Impairment lack of knowledge of post-op rehab Short Term Goal (STG) Patient to complete pre-op appointment for training in HEP, use of assistive devices, education regarding post-op rehab including icing, elevating, compression stocking use STG Duration goal met today Shelter Goal (LTG) Patient to be independent and compliant with HEP and all aspects of self-care for continued knee strengthening in the home and/or community fitness program LTG Duration 10/28/22 Two Impairment gait dysfunction Shelter Goal (LTG) Patient will be able to ambulate on level surfaces without assitive device with no limp, and ascend/descend flight of standard height stairs with alternating step pattern LTG Duration 10/28/22 One Impairment ROM and strength impairment right knee [employer] Shothole Driller Goal (LTG) Improve right knee ROM to 0- 120 and strength to at least 4 +/5 LTG Duration 10/28/22 Assessment Summary Assessment Patient returns to skilled therapy POD #3 following R TKA . Pt showing good mobility already, doing very well ambulating with his FWW, good sabra and step-length with a step-through gait pattern. ROM also doing well, PROM knee extension already to lacking 4 degrees from neutral, although significant extension lag, indicating significant quad weakness. Pt should benefit from skilled therapeutic intervention involving LE strengthening, ROM/flexibility, joint mobs, gait and balance training, and transfers. Physical Therapy Plan Frequency and Duration Frequency of Treatment 2x/Week Duration of treatment (weeks) 12 Plan of Care Start Date 08/02/22 Plan of Care End Date 10/25/22 Therapeutic Interventions Therapeutic Interventions Balance Training,Gait Training ,Home Exercise Program,Joint Mobilizations,Manual Therapy, Neuromuscular Re-education, Patient/Caregiver Education, Self-Care/Home Management,Soft Tissue Mobilization,Taping, Therapeutic Activities, Therapeutic Exercises Modalities Cold Pack/Ice Massage,Electric Stimulation Next Visit Focus/Plan Next Note Type Treatment Note Next Visit Plan ROM/Strengthening Plan of Care Dates Plan of Care Start Date 08/02/22 Plan of Care End Date 10/25/22 Electronically Signed by: Vince Carter, PT 08/02/22 5510 If you are in agreement with this Plan of Care, please return a signed and dated copy. I have reviewed this Plan of Care and certify that the skilled therapy services above are required to meet the patient?s needs. Physician Signature Date Printed Name and Credentials Clinical Instructor Signature Printed Name and Credentials
--- NOTE | 2022-08-04 10:30 | PT.OTN ---
Current Diagnoses Unilateral primary osteoarthritis, unspecified knee (08/04/22) Physical Therapy Treatment Note PT-OP-A Visit Information Start: 07/27/22 14:40 Freq: Status: Active Protocol: Document 08/04/22 09:45 DCW (Rec: 08/04/22 10:30 DCW [id number]) Out-Patient Physical Therapy Visit Information Visit Information Visit Type Treatment Note Visit Start Time 09:45 Visit Stop Time 10:35 Total Visit Minutes 50 Visit Number 3 Number of ESL INSTRUCTOR Visits 0 Evaluation Information Evaluation Date 07/28/22 PT-OP-B Current Condition Start: 07/27/22 14:40 Freq: Status: Active Protocol: Document 08/02/22 15:19 DCW (Rec: 08/02/22 16:01 DCW [id number]) Current Condition History of Current Condition Onset Date 10+ years Current Complaints right TKA 07/30/22 History of Current Condition Pt underwent R TKA on 07/30/22, returns today following pre-op PT appointment. Pt reports pain and walking have both been improving, has been trying to do his HEP, unable to perform SLR or SAQ, unable to lift leg against gravity yet. Prior Treatments and Tests Anticipates left TKA as well after recovery from right. Treatment Goals Patient/Caregiver Goals Improve right knee function to allow him to return to prior activities such as gardening and fly fishing. PT-OP-C Subjective Start: 07/27/22 14:40 Freq: Status: Active Protocol: Document 08/04/22 09:45 DCW (Rec: 08/04/22 10:30 DCW [id number]) OP-PT Subjective Patient Comments Patient Comments Pt reports her has stopped all his perscription pain meds, currently just using OTC. PT-OP-D Balance Start: 07/27/22 14:40 Freq: Status: Active Protocol: Document 07/28/22 08:06 SAK (Rec: 07/28/22 09:01 SAK [id number]) OP-PT Balance Assessment Sitting Balance Static Sitting Balance Ability Normal Dynamic Sitting Balance Ability Normal Standing Balance Static Standing Balance Ability Good Dynamic Standing Balance Ability Fair Justice Fall Scale Copyright Permission PT-OP-E Functional Tests Start: 07/27/22 14:40 Freq: Status: Active Protocol: Document 08/02/22 15:19 DCW (Rec: 08/02/22 16:01 DCW [id number]) Functional Tests 2 Minute Walk Test Distance 179' Device Used FWW Comments 1.49 ft/sec Timed Up and Go (TUG) Score 27.49 Comments /c FWW TUG Impairment Rating 100% Impaired (Score 20) PT-OP-G Mobility & Gait Start: 07/27/22 14:40 Freq: Status: Active Protocol: Document 08/02/22 15:19 DCW (Rec: 08/02/22 16:01 DCW [id number]) OP Gait Assessment Gait Gait Assistance Required: Standby Assistance Assistive Devices Assistive Device Front Wheeled Walker Gait Deviations General Gait Pattern Antalgic,Decreased Stride Length,Decreased Feet Clearance,Wide Based Gait PT-OP-H Neuro Start: 07/27/22 14:40 Freq: Status: Active Protocol: Document 07/28/22 08:06 SAK (Rec: 07/28/22 09:01 SAK [id number]) Sensation Evaluation Gross Sensation Gross Sensation WNL PT-OP-K Range of Motion Start: 07/27/22 14:40 Freq: Status: Active Protocol: Document 08/02/22 15:19 DCW (Rec: 08/02/22 16:01 DCW [id number]) Knee Goniometric Range of Motion Knee Right Flexion Active (degrees) 84 Flexion Passive (degrees) 78 Extension Active (degrees) 27 Extension Passive (degrees) 4 Knee ROM Limitations Knee ROM Limitations Soft Tissue Tightness,Muscle Weakness,Muscle Tone,Pain, Swelling PT-OP-M Strength Start: 07/27/22 14:40 Freq: Status: Active Protocol: Document 08/02/22 15:19 DCW (Rec: 08/02/22 16:01 DCW [id number]) Knee Strength Knee Manual Muscle Testing Right Flexion (S2) 2- Poor- Extension (L3) 2- Poor- Left Flexion (S2) 5 Normal Extension (L3) 5 Normal PT-OP-Q Treatments Start: 07/27/22 14:40 Freq: Status: Active Protocol: Document 08/04/22 09:45 DCW (Rec: 08/04/22 10:30 DCW [id number]) Cardio Equipment Recumbent Bicycle Duration (Minutes) 6 Resistance 0 Seat Position 5 Other no full rotations Therapeutic Exercises Supine Exercises SAQ Supine Exercise Name SAQ Side right Reps/Minutes X8 SLR Supine Exercise Name SLR Side right Reps/Minutes x5 Standing Exercises Abduction Standing Exercise Name Hip Abduction Side bilateral Resistance Yellow Extension Standing Exercise Name Hip Extension Side bilateral Resistance Lv 2 TKE Standing Exercise Name TKE Side right Resistance Lv 2 Step-ups Standing Exercise Name Step-ups Side right Equipment Used 4 step Flexion stretch Standing Exercise Name Step flexion stretch Side right Equipment Used second 6 step Manual Therapy Treatment Joint Mobilizations Knee Joint R knee Direction P->A Grade II Body Position Hooklying PT-OP-R Modalities Start: 07/27/22 14:40 Freq: Status: Active Protocol: Document 08/04/22 09:45 DCW (Rec: 08/04/22 10:30 DCW [id number]) Hot Pack/Cold Pack Treatment Cold Pack Location R Knee Patient Position Hooklying Treatment Duration (minutes) 10 PT-OP-T Assessment and Plan Start: 07/27/22 14:40 Freq: Status: Active Protocol: Document 08/04/22 09:45 DCW (Rec: 08/04/22 10:30 DCW [id number]) Physical Therapy Assessment Impairments Impairments Activity Tolerance,Balance, Functional Activities, Functional Mobility,Gait,Pain, ROM,Strength,Tone Goals Four Impairment activity intolerance Engineer Automated Equipment Goal (LTG) Patient will improve right knee function sufficient to return to his usual hobbies and recreational activities LTG Duration 10/28/22 Three Impairment lack of knowledge of post-op rehab Short Term Goal (STG) Patient to complete pre-op appointment for training in HEP, use of assistive devices, education regarding post-op rehab including icing, elevating, compression stocking use STG Duration goal met today [facility] Goal (LTG) Patient to be independent and compliant with HEP and all aspects of self-care for continued knee strengthening in the home and/or community fitness program LTG Duration 10/28/22 Two Impairment gait dysfunction Engineer Automated Equipment Goal (LTG) Patient will be able to ambulate on level surfaces without assitive device with no limp, and ascend/descend flight of standard height stairs with alternating step pattern LTG Duration 10/28/22 One Impairment ROM and strength impairment right knee [facility] Goal (LTG) Improve right knee ROM to 0- 120 and strength to at least 4 +/5 LTG Duration 10/28/22 Assessment Summary Assessment Pt tolerated treatment well today, not yet able to perform full rotation on recumbent bicycle, however showing fairly good extension, currently passively lacking 4? from full extension. Pt noted some difficulty with standing exercises, especially when performing hip extension and abduction with left leg, requiring him to support and stabilize on right leg. Physical Therapy Plan Frequency and Duration Frequency of Treatment 2x/Week Duration of treatment (weeks) 12 Plan of Care Start Date 08/02/22 Plan of Care End Date 10/25/22 Therapeutic Interventions Therapeutic Interventions Balance Training,Gait Training ,Home Exercise Program,Joint Mobilizations,Manual Therapy, Neuromuscular Re-education, Patient/Caregiver Education, Self-Care/Home Management,Soft Tissue Mobilization,Taping, Therapeutic Activities, Therapeutic Exercises Modalities Cold Pack/Ice Massage,Electric Stimulation Next Visit Focus/Plan Next Note Type Treatment Note Next Visit Plan ROM/Strengthening
--- NOTE | 2022-08-10 11:27 | PT.OTN ---
Current Diagnoses Unilateral primary osteoarthritis, unspecified knee (08/10/22) Physical Therapy Treatment Note PT-OP-A Visit Information Start: 07/27/22 14:40 Freq: Status: Active Protocol: Document 08/10/22 10:36 SP (Rec: 08/10/22 12:05 SP [id number]) Out-Patient Physical Therapy Visit Information Visit Information Visit Type Treatment Note Visit Start Time 10:36 Visit Stop Time 11:27 Total Visit Minutes 51 Visit Number 4 Number of MANUFACTURING PLANT TECHNICIAN Visits 1 Evaluation Information Evaluation Date 07/28/22 PT-OP-B Current Condition Start: 07/27/22 14:40 Freq: Status: Active Protocol: Document 08/02/22 15:19 DCW (Rec: 08/02/22 16:01 DCW [id number]) Current Condition History of Current Condition Onset Date 10+ years Current Complaints right TKA 07/30/22 History of Current Condition Pt underwent R TKA on 07/30/22, returns today following pre-op PT appointment. Pt reports pain and walking have both been improving, has been trying to do his HEP, unable to perform SLR or SAQ, unable to lift leg against gravity yet. Prior Treatments and Tests Anticipates left TKA as well after recovery from right. Treatment Goals Patient/Caregiver Goals Improve right knee function to allow him to return to prior activities such as gardening and fly fishing. PT-OP-C Subjective Start: 07/27/22 14:40 Freq: Status: Active Protocol: Document 08/10/22 10:36 SP (Rec: 08/10/22 12:05 SP [id number]) OP-PT Subjective Patient Comments Patient Comments Pt reports SAQ and SLR hard and still see R knee bend. Pt has follow up appt with ortho tomorrow, expecting to get waterproof bandaging off. Pt stated that a challenging/ effort getting off toilet, heavy BUE support. PT-OP-D Balance Start: 07/27/22 14:40 Freq: Status: Active Protocol: Document 07/28/22 08:06 SAK (Rec: 07/28/22 09:01 SAK [id number]) OP-PT Balance Assessment Sitting Balance Static Sitting Balance Ability Normal Dynamic Sitting Balance Ability Normal Standing Balance Static Standing Balance Ability Good Dynamic Standing Balance Ability Fair Justice Fall Scale Copyright Permission PT-OP-E Functional Tests Start: 07/27/22 14:40 Freq: Status: Active Protocol: Document 08/02/22 15:19 DCW (Rec: 08/02/22 16:01 DCW [id number]) Functional Tests 2 Minute Walk Test Distance 179' Device Used FWW Comments 1.49 ft/sec Timed Up and Go (TUG) Score 27.49 Comments /c FWW TUG Impairment Rating 100% Impaired (Score 20) PT-OP-G Mobility & Gait Start: 07/27/22 14:40 Freq: Status: Active Protocol: Document 08/02/22 15:19 DCW (Rec: 08/02/22 16:01 DCW [id number]) OP Gait Assessment Gait Gait Assistance Required: Standby Assistance Assistive Devices Assistive Device Front Wheeled Walker Gait Deviations General Gait Pattern Antalgic,Decreased Stride Length,Decreased Feet Clearance,Wide Based Gait PT-OP-H Neuro Start: 07/27/22 14:40 Freq: Status: Active Protocol: Document 07/28/22 08:06 SAK (Rec: 07/28/22 09:01 SAK [id number]) Sensation Evaluation Gross Sensation Gross Sensation WNL PT-OP-K Range of Motion Start: 07/27/22 14:40 Freq: Status: Active Protocol: Document 08/10/22 10:36 SP (Rec: 08/10/22 12:05 SP [id number]) Knee Goniometric Range of Motion Knee Right Knee ROM WFL No Patient Position Supine Flexion Active (degrees) 87 Flexion Passive (degrees) 92 Extension Active (degrees) 5 Extension Passive (degrees) 3 Comments 08/10/22 R knee: flexion AAROM (w/strap): gained 3 deg (87deg) Flexion PROM: gained 14 deg ( 92) Extension (AROM): gained 22 deg (5 deg)/gained 27 deg (3 deg), post manual (HS, calf, quad) and ed/performance quick quad contractions superior patellar glide able to inhibit HS/calf and good quality quad set and full ext (0 deg). PT-OP-M Strength Start: 07/27/22 14:40 Freq: Status: Active Protocol: Document 08/02/22 15:19 DCW (Rec: 08/02/22 16:01 DCW [id number]) Knee Strength Knee Manual Muscle Testing Right Flexion (S2) 2- Poor- Extension (L3) 2- Poor- Left Flexion (S2) 5 Normal Extension (L3) 5 Normal PT-OP-Q Treatments Start: 07/27/22 14:40 Freq: Status: Active Protocol: Document 08/10/22 10:36 SP (Rec: 08/10/22 12:05 SP [id number]) Therapeutic Exercises Supine Exercises quad set Supine Exercise Name 1. quick contraction 2. quad set hold Reps/Minutes 5 reps quick, 10SH x10 Comments improved inhibit HS/calf recruitment heel slide w/ strap Supine Exercise Name HEP review Side right Equipment Used strap on foot over 55cm tball, table Reps/Minutes 2x5 reps Comments improver ROM 87-90 deg tolerated SAQ Supine Exercise Name SAQ Side right Equipment Used foam roll under thigh Reps/Minutes X8 Comments cued thigh stay on roller, only lift lower leg can good quality SLR Supine Exercise Name SLR Side right Reps/Minutes x1 reps Comments approx 10 deg +lag- instructed hold for now until quad stronger Gait Training Gait Activity SPC Description patterning w/RLE Device Used SPC LUE Level of Assistance CG- Min A Distance/Duration 20 ft x3 laps Treatment Focus patterning w/ RLE, R knee flexion, foot clearance, stability Comments Cued posturing, patterning SPC w/RLE, R knee flexion swing through, heel toe, no lateral SB- note retro lean into heel, demonstrated HT and LLE accidently kicked SPC in LUE LOB MIn A. Education not ready for SPC at this time in agreement. Manual Therapy Treatment Soft Tissue Mobilization retrograde Body Location R knee/calf Mobilization Type Manual Lymphatic Drainage, Other Intensity/Depth Superficial Body Position Supine Comments manual and ed to assist thigh then lateral knee, calf then calf to knee. Joint Mobilizations patella mob Joint R Direction med/lat/ sup/inferior Grade II Body Position Supine Reps/Duration 2 min Comments manual and ed assist, pt gave good feedback- gentle pressure. Knee Joint R knee Direction P->A Grade II Body Position Hooklying PT-OP-R Modalities Start: 07/27/22 14:40 Freq: Status: Active Protocol: Document 08/10/22 10:36 SP (Rec: 08/10/22 12:05 SP [id number]) Hot Pack/Cold Pack Treatment Cold Pack Location R Knee Patient Position Hooklying Treatment Duration (minutes) 10 Comments anterior/posterior R knee, calf PT-OP-T Assessment and Plan Start: 07/27/22 14:40 Freq: Status: Active Protocol: Document 08/10/22 10:36 SP (Rec: 08/10/22 12:05 SP [id number]) Physical Therapy Assessment Goals Four Impairment activity intolerance Professor Of Forest Planning Goal (LTG) Patient will improve right knee function sufficient to return to his usual hobbies and recreational activities LTG Duration 10/28/22 Three Impairment lack of knowledge of post-op rehab Short Term Goal (STG) Patient to complete pre-op appointment for training in HEP, use of assistive devices, education regarding post-op rehab including icing, elevating, compression stocking use STG Duration goal met today Retirement Goal (LTG) Patient to be independent and compliant with HEP and all aspects of self-care for continued knee strengthening in the home and/or community fitness program LTG Duration 10/28/22 Two Impairment gait dysfunction Retirement Goal (LTG) Patient will be able to ambulate on level surfaces without assitive device with no limp, and ascend/descend flight of standard height stairs with alternating step pattern LTG Duration 10/28/22 One Impairment ROM and strength impairment right knee Retirement Goal (LTG) Improve right knee ROM to 0- 120 and strength to at least 4 +/5 08/10/22: progressing: AROM 5-8 , post manual and quad fac/ superior patellar glides 0 ( active)- 92 AAROM R knee flexion. LTG Duration 10/28/22 progressing 08/10/22 Progress Towards Goals Progress Comments 08/10/22 R knee: flexion AAROM (w/strap): gained 3 deg (87deg) Flexion PROM: gained 14 deg ( 92) Extension (AROM): gained 22 deg (5 deg)/gained 27 deg (3 deg), post manual (HS, calf, quad) and ed/performance quick quad contractions superior patellar glide able to inhibit HS/calf and good quality quad set and full ext (0 deg). Assessment Summary Assessment Pt made great gains in R knee AROM/ PROM. CUed quality quad quick quad superior patellar glide demonstrated inhibition of HS/calf and good form quad set to 0 deg extension. lag SLR so instructed to hold for now. Cue no lift thigh off roller during SAQ, improved quad fac. Able to get approx 90 deg seated AROM R knee flexion. Initiated gait w/ SPC this tx. Noted retro into heels, improved cuing use full foot wt shift into advance LE , R knee flexion during swing through, no SB and proper patterning SPC with RLE. Pt turned head to look at little kid in clinic and accidently kicked SPC with LLE. Instructed not ready for use of SPC due to unsteadiness pt in agreement, will revisit next tx. Physical Therapy Plan Frequency and Duration Frequency of Treatment 2x/Week Duration of treatment (weeks) 12 Plan of Care Start Date 08/02/22 Plan of Care End Date 10/25/22 Therapeutic Interventions Therapeutic Interventions Balance Training,Gait Training ,Home Exercise Program,Joint Mobilizations,Manual Therapy, Neuromuscular Re-education, Patient/Caregiver Education, Self-Care/Home Management,Soft Tissue Mobilization,Taping, Therapeutic Activities, Therapeutic Exercises Modalities Cold Pack/Ice Massage,Electric Stimulation Next Visit Focus/Plan Next Note Type Treatment Note Next Visit Plan Check post op HEP: use strap, QS, gait w/ SPC, check ROM POC: ROM/Strengthening
--- NOTE | 2022-08-12 10:41 | PT.OTN ---
Current Diagnoses Unilateral primary osteoarthritis, unspecified knee (08/12/22) Physical Therapy Treatment Note PT-OP-A Visit Information Start: 07/27/22 14:40 Freq: Status: Active Protocol: Document 08/12/22 09:51 SP (Rec: 08/12/22 10:35 SP [id number]) Out-Patient Physical Therapy Visit Information Visit Information Visit Type Treatment Note Visit Start Time 09:51 Visit Stop Time 10:41 Total Visit Minutes 50 Visit Number 5 Number of LIFE EDUCATOR Visits 2 Evaluation Information Evaluation Date 07/28/22 PT-OP-B Current Condition Start: 07/27/22 14:40 Freq: Status: Active Protocol: Document 08/02/22 15:19 DCW (Rec: 08/02/22 16:01 DCW [id number]) Current Condition History of Current Condition Onset Date 10+ years Current Complaints right TKA 07/30/22 History of Current Condition Pt underwent R TKA on 07/30/22, returns today following pre-op PT appointment. Pt reports pain and walking have both been improving, has been trying to do his HEP, unable to perform SLR or SAQ, unable to lift leg against gravity yet. Prior Treatments and Tests Anticipates left TKA as well after recovery from right. Treatment Goals Patient/Caregiver Goals Improve right knee function to allow him to return to prior activities such as gardening and fly fishing. PT-OP-C Subjective Start: 07/27/22 14:40 Freq: Status: Active Protocol: Document 08/12/22 09:51 SP (Rec: 08/12/22 10:35 SP [id number]) OP-PT Subjective Patient Comments Patient Comments Pt reports saw ortho and pleased with ROM, scar healing , removed bandaging but open spot top scar and noted little oozing clear liquid. PT-OP-D Balance Start: 07/27/22 14:40 Freq: Status: Active Protocol: Document 07/28/22 08:06 SAK (Rec: 07/28/22 09:01 SAK [id number]) OP-PT Balance Assessment Sitting Balance Static Sitting Balance Ability Normal Dynamic Sitting Balance Ability Normal Standing Balance Static Standing Balance Ability Good Dynamic Standing Balance Ability Fair Justice Fall Scale Copyright Permission PT-OP-E Functional Tests Start: 07/27/22 14:40 Freq: Status: Active Protocol: Document 08/02/22 15:19 DCW (Rec: 08/02/22 16:01 DCW [id number]) Functional Tests 2 Minute Walk Test Distance 179' Device Used FWW Comments 1.49 ft/sec Timed Up and Go (TUG) Score 27.49 Comments /c FWW TUG Impairment Rating 100% Impaired (Score 20) PT-OP-G Mobility & Gait Start: 07/27/22 14:40 Freq: Status: Active Protocol: Document 08/02/22 15:19 DCW (Rec: 08/02/22 16:01 DCW [id number]) OP Gait Assessment Gait Gait Assistance Required: Standby Assistance Assistive Devices Assistive Device Front Wheeled Walker Gait Deviations General Gait Pattern Antalgic,Decreased Stride Length,Decreased Feet Clearance,Wide Based Gait PT-OP-H Neuro Start: 07/27/22 14:40 Freq: Status: Active Protocol: Document 07/28/22 08:06 SAK (Rec: 07/28/22 09:01 SAK [id number]) Sensation Evaluation Gross Sensation Gross Sensation WNL PT-OP-K Range of Motion Start: 07/27/22 14:40 Freq: Status: Active Protocol: Document 08/12/22 09:51 SP (Rec: 08/12/22 10:35 SP [id number]) Knee Goniometric Range of Motion Knee Right Knee ROM WFL No Patient Position Supine Flexion Active (degrees) 82 Flexion Passive (degrees) 92 Extension Active (degrees) 3 Extension Passive (degrees) 1 Comments 08/12/22 R knee: flexion AROM 82 deg; AAROM (w/ strap): 87deg Flexion PROM: same (92deg) Extension (AROM): gained 2 deg (1 deg) post suspended quad sets. PT-OP-M Strength Start: 07/27/22 14:40 Freq: Status: Active Protocol: Document 08/02/22 15:19 DCW (Rec: 08/02/22 16:01 DCW [id number]) Knee Strength Knee Manual Muscle Testing Right Flexion (S2) 2- Poor- Extension (L3) 2- Poor- Left Flexion (S2) 5 Normal Extension (L3) 5 Normal PT-OP-Q Treatments Start: 07/27/22 14:40 Freq: Status: Active Protocol: Document 08/12/22 09:51 SP (Rec: 08/12/22 10:35 SP [id number]) Therapeutic Exercises Supine Exercises quad set Supine Exercise Name 1. quick contraction 2. quad set hold Reps/Minutes 10SH x10 Comments improved inhibit HS/calf recruitment 0-1 deg ext heel slide w/ strap Supine Exercise Name HEP review Side right Equipment Used strap on foot over 45cm tball, table Reps/Minutes x10 reps Comments improver ROM 87-90 deg tolerated SAQ Supine Exercise Name SAQ Side right Resistance AAROM today Equipment Used foam roll under thigh Reps/Minutes x10 Comments cued thigh stay on roller, only lift lower leg can good quality Sitting Exercises STS Equipment Used 21 table Reps/Minutes x6 reps Comments BUE support Gait Training Gait Activity stairs Description step to LLE asc/ RLE desc- safety assess functional patterning 08/12/22 Device Used BHR> L HR Level of Assistance SBA Distance/Duration 4 stairs x4 laps Treatment Focus step to patterning Comments decreased strength RLE asc/LLE descend without heavy BUE WB on B HR and painful on RLE during trial 1 step. * Able ascend/desend step to LHR, step to leading LLE up/ RLE down, stable SPC Description patterning w/RLE Device Used SPC LUE Level of Assistance CGA Distance/Duration 20 ft x4 laps Treatment Focus patterning w/ RLE, R knee flexion, foot clearance, stability Comments Cued posturing, good patterning SPC w/RLE, R knee/ hip flexion swing through, heel toe, decreased lateral SB , slows pacing little trunk sway but no LOB during HTs safety assessment ready use SPC. Discussed continue use of FWW. Manual Therapy Treatment Soft Tissue Mobilization scar Body Location R Comments med/lat, gentle ed for self application retrograde Body Location R knee/calf Mobilization Type Manual Lymphatic Drainage, Other Intensity/Depth Superficial Body Position Supine Comments manual and ed to assist thigh then lateral knee, calf then calf to knee. PT-OP-R Modalities Start: 07/27/22 14:40 Freq: Status: Active Protocol: Document 08/12/22 09:51 SP (Rec: 08/12/22 10:35 SP [id number]) Hot Pack/Cold Pack Treatment Cold Pack Location R Knee Patient Position Hooklying Treatment Duration (minutes) 10 Patient Tolerance Good Comments anterior/posterior R knee, calf PT-OP-T Assessment and Plan Start: 07/27/22 14:40 Freq: Status: Active Protocol: Document 08/12/22 09:51 SP (Rec: 08/12/22 10:35 SP [id number]) Physical Therapy Assessment Goals Four Impairment activity intolerance Senior Care Goal (LTG) Patient will improve right knee function sufficient to return to his usual hobbies and recreational activities LTG Duration 10/28/22 Three Impairment lack of knowledge of post-op rehab Short Term Goal (STG) Patient to complete pre-op appointment for training in HEP, use of assistive devices, education regarding post-op rehab including icing, elevating, compression stocking use STG Duration goal met today Senior Care Goal (LTG) Patient to be independent and compliant with HEP and all aspects of self-care for continued knee strengthening in the home and/or community fitness program LTG Duration 10/28/22 Two Impairment gait dysfunction Tanker Driver Goal (LTG) Patient will be able to ambulate on level surfaces without assitive device with no limp, and ascend/descend flight of standard height stairs with alternating step pattern LTG Duration 10/28/22 One Impairment ROM and strength impairment right knee Tanker Driver Goal (LTG) Improve right knee ROM to 0- 120 and strength to at least 4 +/5 08/10/22: progressing: AROM 5-8 , post manual and quad fac/ superior patellar glides 0 ( active)- 92 AAROM R knee flexion. 08/12/22: LTG Duration 10/28/22 progressing 08/12/22 Assessment Summary Assessment Pt making small gains in ROM. Quad weakness during SAQ today requiring support to complete range but better quad sets patellar superior glide. Less lateral R knee shift instability during midstance but still demonstrates little trunk sways especially initial steps post coming to standing with SPC gait. Suggested continue use FWW at this time, will work on Physical Therapy Plan Frequency and Duration Frequency of Treatment 2x/Week Duration of treatment (weeks) 12 Plan of Care Start Date 08/02/22 Plan of Care End Date 10/25/22 Therapeutic Interventions Therapeutic Interventions Balance Training,Gait Training ,Home Exercise Program,Joint Mobilizations,Manual Therapy, Neuromuscular Re-education, Patient/Caregiver Education, Self-Care/Home Management,Soft Tissue Mobilization,Taping, Therapeutic Activities, Therapeutic Exercises Modalities Cold Pack/Ice Massage,Electric Stimulation Next Visit Focus/Plan Next Note Type Treatment Note Next Visit Plan Assess QS, SAQ strength, NMES quad, Check AROM, progress HEP , gait w/ SPC. Add biodex, shuttle recovery. POC: ROM/Strengthening
--- NOTE | 2022-08-17 13:12 | PT.OTN ---
Current Diagnoses Unilateral primary osteoarthritis, unspecified knee (08/17/22) Physical Therapy Treatment Note PT-OP-A Visit Information Start: 07/27/22 14:40 Freq: Status: Active Protocol: Document 08/17/22 12:19 SP (Rec: 08/17/22 13:08 SP [id number]) Out-Patient Physical Therapy Visit Information Visit Information Visit Type Treatment Note Visit Start Time 12:19 Visit Stop Time 13:12 Total Visit Minutes 53 Visit Number 6 Number of JOURNEYMAN WIREMAN Visits 3 Evaluation Information Evaluation Date 07/28/22 PT-OP-B Current Condition Start: 07/27/22 14:40 Freq: Status: Active Protocol: Document 08/02/22 15:19 DCW (Rec: 08/02/22 16:01 DCW [id number]) Current Condition History of Current Condition Onset Date 10+ years Current Complaints right TKA 07/30/22 History of Current Condition Pt underwent R TKA on 07/30/22, returns today following pre-op PT appointment. Pt reports pain and walking have both been improving, has been trying to do his HEP, unable to perform SLR or SAQ, unable to lift leg against gravity yet. Prior Treatments and Tests Anticipates left TKA as well after recovery from right. Treatment Goals Patient/Caregiver Goals Improve right knee function to allow him to return to prior activities such as gardening and fly fishing. PT-OP-C Subjective Start: 07/27/22 14:40 Freq: Status: Active Protocol: Document 08/17/22 12:19 SP (Rec: 08/17/22 13:08 SP [id number]) OP-PT Subjective Patient Comments Patient Comments Pt reports walking more around house. FOllows back up with ortho in approx 3 weeks. PT-OP-D Balance Start: 07/27/22 14:40 Freq: Status: Active Protocol: Document 07/28/22 08:06 SAK (Rec: 07/28/22 09:01 SAK [id number]) OP-PT Balance Assessment Sitting Balance Static Sitting Balance Ability Normal Dynamic Sitting Balance Ability Normal Standing Balance Static Standing Balance Ability Good Dynamic Standing Balance Ability Fair Justice Fall Scale Copyright Permission PT-OP-E Functional Tests Start: 07/27/22 14:40 Freq: Status: Active Protocol: Document 08/02/22 15:19 DCW (Rec: 08/02/22 16:01 DCW [id number]) Functional Tests 2 Minute Walk Test Distance 179' Device Used FWW Comments 1.49 ft/sec Timed Up and Go (TUG) Score 27.49 Comments /c FWW TUG Impairment Rating 100% Impaired (Score 20) PT-OP-G Mobility & Gait Start: 07/27/22 14:40 Freq: Status: Active Protocol: Document 08/02/22 15:19 DCW (Rec: 08/02/22 16:01 DCW [id number]) OP Gait Assessment Gait Gait Assistance Required: Standby Assistance Assistive Devices Assistive Device Front Wheeled Walker Gait Deviations General Gait Pattern Antalgic,Decreased Stride Length,Decreased Feet Clearance,Wide Based Gait PT-OP-H Neuro Start: 07/27/22 14:40 Freq: Status: Active Protocol: Document 07/28/22 08:06 SAK (Rec: 07/28/22 09:01 SAK [id number]) Sensation Evaluation Gross Sensation Gross Sensation WNL PT-OP-K Range of Motion Start: 07/27/22 14:40 Freq: Status: Active Protocol: Document 08/12/22 09:51 SP (Rec: 08/12/22 10:35 SP [id number]) Knee Goniometric Range of Motion Knee Right Knee ROM WFL No Patient Position Supine Flexion Active (degrees) 82 Flexion Passive (degrees) 92 Extension Active (degrees) 3 Extension Passive (degrees) 1 Comments 08/12/22 R knee: flexion AROM 82 deg; AAROM (w/ strap): 87deg Flexion PROM: same (92deg) Extension (AROM): gained 2 deg (1 deg) post suspended quad sets. PT-OP-M Strength Start: 07/27/22 14:40 Freq: Status: Active Protocol: Document 08/02/22 15:19 DCW (Rec: 08/02/22 16:01 DCW [id number]) Knee Strength Knee Manual Muscle Testing Right Flexion (S2) 2- Poor- Extension (L3) 2- Poor- Left Flexion (S2) 5 Normal Extension (L3) 5 Normal PT-OP-Q Treatments Start: 07/27/22 14:40 Freq: Status: Active Protocol: Document 08/17/22 12:19 SP (Rec: 08/17/22 13:08 SP [id number]) Cardio Equipment Recumbent Elliptical (Calsys) Duration (Minutes) 6 Resistance 0 Seat Position 11 Other UEs/LEs Gym Equipment Shuttle Recovery Bilateral Squats Details cued knee alignment- 101 deg R knee flexion Resistance 50# Shuttle Recovery Platform Stable Reps/Time x12 Therapeutic Exercises Sitting Exercises R knee flexion Sitting Exercise Name 95deg (scooting forward) Side right Equipment Used 19.5 black table height Reps/Minutes 5 reps Comments cued keep foot still scoot forward HS curl Sitting Exercise Name added to HEP Side right Resistance TB #2 Equipment Used white chair 17> black table 19.5 Reps/Minutes 2x10 Comments good Standing Exercises TKE Standing Exercise Name TKE Side right Resistance Lv 2 Gait Training Gait Activity SPC Description patterning w/RLE Device Used SPC LUE Level of Assistance CGA Distance/Duration 20 ft x4 laps Treatment Focus patterning w/ RLE, R knee flexion, foot clearance, stability Comments Cued posturing, good patterning SPC w/RLE, R knee/ hip flexion swing through, heel toe, decreased lateral SB , slows pacing little trunk sway but no LOB during HTs safety assessment ready use SPC. Discussed continue use of FWW. Neuro Re-Education Treatment Balance Activities hurdles Details next PT-OP-R Modalities Start: 07/27/22 14:40 Freq: Status: Active Protocol: Document 08/17/22 12:19 SP (Rec: 08/17/22 13:08 SP [id number]) Electric Stimulation Electric Stimulation R quad Body Location R quad Duration (Minutes) 6 Intensity 33 Patient Position Supine Comments kuwaiti stim AAROM 1010 during SAQ- next time 510 on/off Hot Pack/Cold Pack Treatment Cold Pack Location R Knee Patient Position Hooklying Treatment Duration (minutes) 10 Patient Tolerance Good Comments anterior/posterior R knee, calf PT-OP-T Assessment and Plan Start: 07/27/22 14:40 Freq: Status: Active Protocol: Document 08/17/22 12:19 SP (Rec: 08/17/22 13:08 SP [id number]) Physical Therapy Assessment Goals Four Impairment activity intolerance Intermediate Goal (LTG) Patient will improve right knee function sufficient to return to his usual hobbies and recreational activities LTG Duration 10/28/22 Three Impairment lack of knowledge of post-op rehab Short Term Goal (STG) Patient to complete pre-op appointment for training in HEP, use of assistive devices, education regarding post-op rehab including icing, elevating, compression stocking use STG Duration goal met today Brake Engineer Goal (LTG) Patient to be independent and compliant with HEP and all aspects of self-care for continued knee strengthening in the home and/or community fitness program LTG Duration 10/28/22 Two Impairment gait dysfunction Brake Engineer Goal (LTG) Patient will be able to ambulate on level surfaces without assitive device with no limp, and ascend/descend flight of standard height stairs with alternating step pattern LTG Duration 10/28/22 One Impairment ROM and strength impairment right knee Brake Engineer Goal (LTG) Improve right knee ROM to 0- 120 and strength to at least 4 +/5 08/10/22: progressing: AROM 5-8 , post manual and quad fac/ superior patellar glides 0 ( active)- 92 AAROM R knee flexion. 08/12/22: LTG Duration 10/28/22 progressing 08/12/22 Assessment Summary Assessment Tx focused on funcitonal mobility ther ex, initiated Mexican stim quad facilitated support with manual assist to complete full range during SAQ today. Pt improved quad stability during gait use SPC today. REcommended continue use FWW longer distances. Next tx spend more time on gait w/ SPC. Physical Therapy Plan Frequency and Duration Frequency of Treatment 2x/Week Duration of treatment (weeks) 12 Plan of Care Start Date 08/02/22 Plan of Care End Date 10/25/22 Therapeutic Interventions Therapeutic Interventions Balance Training,Gait Training ,Home Exercise Program,Joint Mobilizations,Manual Therapy, Neuromuscular Re-education, Patient/Caregiver Education, Self-Care/Home Management,Soft Tissue Mobilization,Taping, Therapeutic Activities, Therapeutic Exercises Modalities Cold Pack/Ice Massage,Electric Stimulation Next Visit Focus/Plan Next Note Type Treatment Note Next Visit Plan NMES SAQ (therapist assist needed?), Check AROM, progress HEP, gait w/ SPC further distance. Add biodex vs recumbent bike, assess response to shuttle recovery. POC: ROM/Strengthening
--- NOTE | 2022-08-19 16:20 | PT.OTN ---
Current Diagnoses Unilateral primary osteoarthritis, unspecified knee (08/19/22) Physical Therapy Treatment Note PT-OP-A Visit Information Start: 07/27/22 14:40 Freq: Status: Active Protocol: Document 08/19/22 12:58 SAK (Rec: 08/19/22 13:50 [email or web address] [id number]) Out-Patient Physical Therapy Visit Information Visit Information Visit Type Treatment Note Visit Start Time 13:00 Visit Stop Time 13:55 Total Visit Minutes 55 Visit Number 7 Number of BUSINESS ASSISTANT Visits 0 Evaluation Information Evaluation Date 07/28/22 PT-OP-B Current Condition Start: 07/27/22 14:40 Freq: Status: Active Protocol: Document 08/02/22 15:19 DCW (Rec: 08/02/22 16:01 DCW [id number]) Current Condition History of Current Condition Onset Date 10+ years Current Complaints right TKA 07/30/22 History of Current Condition Pt underwent R TKA on 07/30/22, returns today following pre-op PT appointment. Pt reports pain and walking have both been improving, has been trying to do his HEP, unable to perform SLR or SAQ, unable to lift leg against gravity yet. Prior Treatments and Tests Anticipates left TKA as well after recovery from right. Treatment Goals Patient/Caregiver Goals Improve right knee function to allow him to return to prior activities such as gardening and fly fishing. PT-OP-C Subjective Start: 07/27/22 14:40 Freq: Status: Active Protocol: Document 08/19/22 12:58 SAK (Rec: 08/19/22 13:50 [email or web address] [id number]) OP-PT Subjective Patient Comments Patient Comments 3 weeks post-op right TKA. Rehab difficulty. Liked the kinesiotape. Doing HEP though not SAQ or SLR PT-OP-D Balance Start: 07/27/22 14:40 Freq: Status: Active Protocol: Document 07/28/22 08:06 SAK (Rec: 07/28/22 09:01 SAK [id number]) OP-PT Balance Assessment Sitting Balance Static Sitting Balance Ability Normal Dynamic Sitting Balance Ability Normal Standing Balance Static Standing Balance Ability Good Dynamic Standing Balance Ability Fair Justice Fall Scale Copyright Permission PT-OP-E Functional Tests Start: 07/27/22 14:40 Freq: Status: Active Protocol: Document 08/02/22 15:19 DCW (Rec: 08/02/22 16:01 DCW [id number]) Functional Tests 2 Minute Walk Test Distance 179' Device Used FWW Comments 1.49 ft/sec Timed Up and Go (TUG) Score 27.49 Comments /c FWW TUG Impairment Rating 100% Impaired (Score 20) PT-OP-G Mobility & Gait Start: 07/27/22 14:40 Freq: Status: Active Protocol: Document 08/02/22 15:19 DCW (Rec: 08/02/22 16:01 DCW [id number]) OP Gait Assessment Gait Gait Assistance Required: Standby Assistance Assistive Devices Assistive Device Front Wheeled Walker Gait Deviations General Gait Pattern Antalgic,Decreased Stride Length,Decreased Feet Clearance,Wide Based Gait PT-OP-H Neuro Start: 07/27/22 14:40 Freq: Status: Active Protocol: Document 07/28/22 08:06 SAK (Rec: 07/28/22 09:01 SAK [id number]) Sensation Evaluation Gross Sensation Gross Sensation WNL PT-OP-K Range of Motion Start: 07/27/22 14:40 Freq: Status: Active Protocol: Document 08/12/22 09:51 SP (Rec: 08/12/22 10:35 SP [id number]) Knee Goniometric Range of Motion Knee Right Knee ROM WFL No Patient Position Supine Flexion Active (degrees) 82 Flexion Passive (degrees) 92 Extension Active (degrees) 3 Extension Passive (degrees) 1 Comments 08/12/22 R knee: flexion AROM 82 deg; AAROM (w/ strap): 87deg Flexion PROM: same (92deg) Extension (AROM): gained 2 deg (1 deg) post suspended quad sets. PT-OP-M Strength Start: 07/27/22 14:40 Freq: Status: Active Protocol: Document 08/02/22 15:19 DCW (Rec: 08/02/22 16:01 DCW [id number]) Knee Strength Knee Manual Muscle Testing Right Flexion (S2) 2- Poor- Extension (L3) 2- Poor- Left Flexion (S2) 5 Normal Extension (L3) 5 Normal PT-OP-Q Treatments Start: 07/27/22 14:40 Freq: Status: Active Protocol: Document 08/19/22 12:58 SAK (Rec: 08/19/22 13:50 SAK [id number]) Cardio Equipment Recumbent Elliptical (Biodex) Duration (Minutes) 8 Resistance 1 Seat Position 9 Other UEs/LEs Gym Equipment Shuttle Recovery Unilateral Squats Resistance 25 Shuttle Recovery Platform Stable Reps/Time 10X2 Bilateral Squats Details cued knee alignment- 101 deg R knee flexion Resistance 50# Shuttle Recovery Platform Stable Reps/Time 10X2 Therapeutic Exercises Supine Exercises gravity assisted knee flexion Reps/Minutes 3x 10 Comments with slider sheet on shuttle leg press quad set Supine Exercise Name prior to SLR SAQ Supine Exercise Name SAQ Side right Resistance AAROM today Equipment Used foam roll under thigh Reps/Minutes x10 Comments PT assist for full ROM SLR Supine Exercise Name SLR Side right Reps/Minutes 10x Comments min PT assist, instructed to assist at home Sitting Exercises LAQ Reps/Minutes 10x Comments PT assist for end-range, cues for slow, eccentric lowering HS curl Side right Resistance TB #2 Equipment Used black table Reps/Minutes 2x10 Comments good Standing Exercises Flexion stretch Standing Exercise Name Step flexion stretch Side right Equipment Used second 6 step Gait Training Gait Activity SPC Description patterning w/RLE Device Used SPC LUE Level of Assistance CGA Surface firm, parallel bars Distance/Duration 10ft x 8 Treatment Focus patterning w/ RLE, R knee flexion, foot clearance, stability Comments parallel bars lavon UE support, cane left, walker; mirror for visual feedback. Manual Therapy Treatment Taping right knee Treatment Focus edema reduction Type of Tape kinesiotape Skin Inspection intact Comments 2 fan strips PT-OP-R Modalities Start: 07/27/22 14:40 Freq: Status: Active Protocol: Document 08/17/22 12:19 SP (Rec: 08/17/22 13:08 SP [id number]) Electric Stimulation Electric Stimulation R quad Body Location R quad Duration (Minutes) 6 Intensity 33 Patient Position Supine Comments uruguayan stim AAROM 10/10 during SAQ- next time 5/10 on/off Hot Pack/Cold Pack Treatment Cold Pack Location R Knee Patient Position Hooklying Treatment Duration (minutes) 10 Patient Tolerance Good Comments anterior/posterior R knee, calf PT-OP-T Assessment and Plan Start: 07/27/22 14:40 Freq: Status: Active Protocol: Document 08/19/22 12:58 SAK (Rec: 08/19/22 13:50 SAK [id number]) Physical Therapy Assessment Goals Four Impairment activity intolerance Insurance Agency Sales Manager Goal (LTG) Patient will improve right knee function sufficient to return to his usual hobbies and recreational activities LTG Duration 10/28/22 Three Impairment lack of knowledge of post-op rehab Short Term Goal (STG) Patient to complete pre-op appointment for training in HEP, use of assistive devices, education regarding post-op rehab including icing, elevating, compression stocking use STG Duration goal met today Insurance Agency Sales Manager Goal (LTG) Patient to be independent and compliant with HEP and all aspects of self-care for continued knee strengthening in the home and/or community fitness program LTG Duration 10/28/22 Two Impairment gait dysfunction Insurance Agency Sales Manager Goal (LTG) Patient will be able to ambulate on level surfaces without assitive device with no limp, and ascend/descend flight of standard height stairs with alternating step pattern LTG Duration 10/28/22 One Impairment ROM and strength impairment right knee Insurance Agency Sales Manager Goal (LTG) Improve right knee ROM to 0- 120 and strength to at least 4 +/5 08/10/22: progressing: AROM 5-8 , post manual and quad fac/ superior patellar glides 0 ( active)- 92 AAROM R knee flexion. 08/12/22: LTG Duration 10/28/22 progressing 08/12/22 Assessment Summary Assessment Improved quad activation today . instructed in assistiing pt with SAQ and SLR as needed. Continue HEP with addition of stair lunge to HEP . GAit with SPC in parallel bars with use of mirror for visual feedback improved gait. Max knee flex to 110 today. Physical Therapy Plan Frequency and Duration Frequency of Treatment 2x/Week Duration of treatment (weeks) 12 Plan of Care Start Date 08/02/22 Plan of Care End Date 10/25/22 Therapeutic Interventions Therapeutic Interventions Balance Training,Gait Training ,Home Exercise Program,Joint Mobilizations,Manual Therapy, Neuromuscular Re-education, Patient/Caregiver Education, Self-Care/Home Management,Soft Tissue Mobilization,Taping, Therapeutic Activities, Therapeutic Exercises Modalities Cold Pack/Ice Massage,Electric Stimulation Next Visit Focus/Plan Next Note Type Treatment Note Next Visit Plan Continue TKA rehab with NMES SAQ as indicated, continue progression of ROM and strengthening, gait training.
--- NOTE | 2022-08-23 10:40 | PT.OTN ---
Current Diagnoses Unilateral primary osteoarthritis, unspecified knee (08/23/22) Physical Therapy Treatment Note PT-OP-A Visit Information Start: 07/27/22 14:40 Freq: Status: Active Protocol: Document 08/23/22 09:53 SP (Rec: 08/23/22 10:38 SP [id number]) Out-Patient Physical Therapy Visit Information Visit Information Visit Type Treatment Note Visit Start Time 09:50 Visit Stop Time 10:40 Total Visit Minutes 50 Visit Number 8 Number of SOCIAL SERVICE LIAISON Visits 1 Evaluation Information Evaluation Date 07/28/22 PT-OP-B Current Condition Start: 07/27/22 14:40 Freq: Status: Active Protocol: Document 08/02/22 15:19 DCW (Rec: 08/02/22 16:01 DCW [id number]) Current Condition History of Current Condition Onset Date 10+ years Current Complaints right TKA 07/30/22 History of Current Condition Pt underwent R TKA on 07/30/22, returns today following pre-op PT appointment. Pt reports pain and walking have both been improving, has been trying to do his HEP, unable to perform SLR or SAQ, unable to lift leg against gravity yet. Prior Treatments and Tests Anticipates left TKA as well after recovery from right. Treatment Goals Patient/Caregiver Goals Improve right knee function to allow him to return to prior activities such as gardening and fly fishing. PT-OP-C Subjective Start: 07/27/22 14:40 Freq: Status: Active Protocol: Document 08/23/22 09:53 SP (Rec: 08/23/22 10:38 SP [id number]) OP-PT Subjective Patient Comments Patient Comments 3.5 weeks s/p post-op right TKA. Pt states has continues to have lateral R knee pain and if wasn't for that would be good. Concerned quad is still so weak. Has ortho follow up soon. PT-OP-D Balance Start: 07/27/22 14:40 Freq: Status: Active Protocol: Document 07/28/22 08:06 SAK (Rec: 07/28/22 09:01 SAK [id number]) OP-PT Balance Assessment Sitting Balance Static Sitting Balance Ability Normal Dynamic Sitting Balance Ability Normal Standing Balance Static Standing Balance Ability Good Dynamic Standing Balance Ability Fair [place] Fall Scale Copyright Permission PT-OP-E Functional Tests Start: 07/27/22 14:40 Freq: Status: Active Protocol: Document 08/02/22 15:19 DCW (Rec: 08/02/22 16:01 DCW [id number]) Functional Tests 2 Minute Walk Test Distance 179' Device Used FWW Comments 1.49 ft/sec Timed Up and Go (TUG) Score 27.49 Comments /c FWW TUG Impairment Rating 100% Impaired (Score 20) PT-OP-G Mobility & Gait Start: 07/27/22 14:40 Freq: Status: Active Protocol: Document 08/02/22 15:19 DCW (Rec: 08/02/22 16:01 DCW [id number]) OP Gait Assessment Gait Gait Assistance Required: Standby Assistance Assistive Devices Assistive Device Front Wheeled Walker Gait Deviations General Gait Pattern Antalgic,Decreased Stride Length,Decreased Feet Clearance,Wide Based Gait PT-OP-H Neuro Start: 07/27/22 14:40 Freq: Status: Active Protocol: Document 07/28/22 08:06 SAK (Rec: 07/28/22 09:01 SAK [id number]) Sensation Evaluation Gross Sensation Gross Sensation WNL PT-OP-K Range of Motion Start: 07/27/22 14:40 Freq: Status: Active Protocol: Document 08/12/22 09:51 SP (Rec: 08/12/22 10:35 SP [id number]) Knee Goniometric Range of Motion Knee Right Knee ROM WFL No Patient Position Supine Flexion Active (degrees) 82 Flexion Passive (degrees) 92 Extension Active (degrees) 3 Extension Passive (degrees) 1 Comments 08/12/22 R knee: flexion AROM 82 deg; AAROM (w/ strap): 87deg Flexion PROM: same (92deg) Extension (AROM): gained 2 deg (1 deg) post suspended quad sets. PT-OP-M Strength Start: 07/27/22 14:40 Freq: Status: Active Protocol: Document 08/02/22 15:19 DCW (Rec: 08/02/22 16:01 DCW [id number]) Knee Strength Knee Manual Muscle Testing Right Flexion (S2) 2- Poor- Extension (L3) 2- Poor- Left Flexion (S2) 5 Normal Extension (L3) 5 Normal PT-OP-Q Treatments Start: 07/27/22 14:40 Freq: Status: Active Protocol: Document 08/23/22 09:53 SP (Rec: 08/23/22 10:38 SP [id number]) Cardio Equipment Recumbent Elliptical (Biodex) Duration (Minutes) 7 Resistance 1 Seat Position 11>10>9 Other UEs/LEs, reports R lateral knee pain Gym Equipment Shuttle Recovery Unilateral Squats Details verbal/tactile cue for knee alignment B (102 deg flexion R ) Resistance 25 L, 37 R Shuttle Recovery Platform Stable Reps/Time 10X2 Bilateral Squats Details cued knee alignment- 101 deg R knee flexion Resistance 50# (YTB around thighs w/ B washcloth) Shuttle Recovery Platform Stable Reps/Time 10X2 Therapeutic Exercises Supine Exercises quad set Supine Exercise Name w/ CP and NMES Georgian stim Side right Reps/Minutes 8 min Comments reported quad was pretty tired . Sitting Exercises LAQ Equipment Used seated on shuttle recovery Reps/Minutes 10x Comments PT assist for end-range, cues for slow, eccentric lowering Standing Exercises iglesia stepping Standing Exercise Name single over back x3 reps then step to patterning Equipment Used R HR and SPC in LUE> just SPC, 4 (low then upright) hurdles Reps/Minutes 10 ft x2 laps Comments improved RLE knee flexion, slight circumduction calf raises Standing Exercise Name a Gait Training Gait Activity SPC Description patterning w/RLE Device Used SPC LUE Level of Assistance CGA Surface firm Distance/Duration 80 ft, 20 ft, 20 ft , 30 ft Treatment Focus R knee flexion, R foot clearance, R knee stability Comments use mirror w/ Cues taller posturing wt shift into RLE with quad and glut facilitation Manual Therapy Treatment Soft Tissue Mobilization R leg Body Location calf, popliteus Mobilization Type Myofascial Release,Strumming Joint Mobilizations patella mob Joint R Direction med/lat/ sup/inferior Grade II Body Position Supine Reps/Duration 2 min Comments manual pt gave good feedback- gentle pressure. Knee Joint R knee Direction femur P->A Grade II Body Position Sitting Reps/Duration 1 Comments on biodex R lower legs supported on therapist, gentle PA- painfree PT-OP-R Modalities Start: 07/27/22 14:40 Freq: Status: Active Protocol: Document 08/23/22 09:53 SP (Rec: 08/23/22 10:38 SP [id number]) Electric Stimulation Electric Stimulation R quad Body Location R quad Duration (Minutes) 8 Intensity 37 High/Low High Patient Position Supine Combined With Heat/Cold Cold Pack Comments japanese stim AAROM 10/10 during QS, no towel under R knee. PT-OP-T Assessment and Plan Start: 07/27/22 14:40 Freq: Status: Active Protocol: Document 08/23/22 09:53 SP (Rec: 08/23/22 10:38 SP [id number]) Physical Therapy Assessment Goals Four Impairment activity intolerance [place] Machine Operator Goal (LTG) Patient will improve right knee function sufficient to return to his usual hobbies and recreational activities LTG Duration 10/28/22 Three Impairment lack of knowledge of post-op rehab Short Term Goal (STG) Patient to complete pre-op appointment for training in HEP, use of assistive devices, education regarding post-op rehab including icing, elevating, compression stocking use STG Duration goal met today [place] Machine Operator Goal (LTG) Patient to be independent and compliant with HEP and all aspects of self-care for continued knee strengthening in the home and/or community fitness program LTG Duration 10/28/22 Two Impairment gait dysfunction Nursing Home Goal (LTG) Patient will be able to ambulate on level surfaces without assitive device with no limp, and ascend/descend flight of standard height stairs with alternating step pattern LTG Duration 10/28/22 One Impairment ROM and strength impairment right knee [place] Machine Operator Goal (LTG) Improve right knee ROM to 0- 120 and strength to at least 4 +/5 08/10/22: progressing: AROM 5-8 , post manual and quad fac/ superior patellar glides 0 ( active)- 92 AAROM R knee flexion. 08/12/22: LTG Duration 10/28/22 progressing 08/12/22 Assessment Summary Assessment Pt improved self corrections HS inhibition with quick quad set then able to complete QS hold in supine and long sitting ([employer]), less discomfort post manual. Improved scar mobility and decreased swelling today. Pt still demonstrates weakness in R knee midstance during gait with SPC and requiring support through range LAQ. Physical Therapy Plan Frequency and Duration Frequency of Treatment 2x/Week Duration of treatment (weeks) 12 Plan of Care Start Date 08/02/22 Plan of Care End Date 10/25/22 Therapeutic Interventions Therapeutic Interventions Balance Training,Gait Training ,Home Exercise Program,Joint Mobilizations,Manual Therapy, Neuromuscular Re-education, Patient/Caregiver Education, Self-Care/Home Management,Soft Tissue Mobilization,Taping, Therapeutic Activities, Therapeutic Exercises Modalities Cold Pack/Ice Massage,Electric Stimulation Next Visit Focus/Plan Next Note Type Treatment Note Next Visit Plan Continue TKA rehab with NMES SAQ as indicated, continue progression of ROM and strengthening, gait training.
--- NOTE | 2022-08-26 14:12 | PT.OTN ---
Current Diagnoses Unilateral primary osteoarthritis, unspecified knee (08/26/22) Physical Therapy Treatment Note PT-OP-A Visit Information Start: 07/27/22 14:40 Freq: Status: Active Protocol: Document 08/26/22 13:02 [facility] (Rec: 08/26/22 13:48 [facility] [id number]) Out-Patient Physical Therapy Visit Information Visit Information Visit Type Treatment Note Visit Start Time 13:02 Visit Stop Time 14:57 Total Visit Minutes 55 Visit Number 9 Number of FINISHING PAN OPERATOR Visits 0 PT-OP-B Current Condition Start: 07/27/22 14:40 Freq: Status: Active Protocol: Document 08/02/22 15:19 DCW (Rec: 08/02/22 16:01 DCW [id number]) Current Condition History of Current Condition Onset Date 10+ years Current Complaints right TKA 07/30/22 History of Current Condition Pt underwent R TKA on 07/30/22, returns today following pre-op PT appointment. Pt reports pain and walking have both been improving, has been trying to do his HEP, unable to perform SLR or SAQ, unable to lift leg against gravity yet. Prior Treatments and Tests Anticipates left TKA as well after recovery from right. Treatment Goals Patient/Caregiver Goals Improve right knee function to allow him to return to prior activities such as gardening and fly fishing. PT-OP-C Subjective Start: 07/27/22 14:40 Freq: Status: Active Protocol: Document 08/26/22 13:02 [facility] (Rec: 08/26/22 13:48 [facility] [id number]) OP-PT Subjective Patient Comments Patient Comments 4 weeks post-op tomorrow. Trying to do exercises 2-3x/ day. Sees surgeon 09/08/22. States feels he is getting better. PT-OP-D Balance Start: 07/27/22 14:40 Freq: Status: Active Protocol: Document 07/28/22 08:06 SAK (Rec: 07/28/22 09:01 [facility] [id number]) OP-PT Balance Assessment Sitting Balance Static Sitting Balance Ability Normal Dynamic Sitting Balance Ability Normal Standing Balance Static Standing Balance Ability Good Dynamic Standing Balance Ability [place] Fall Scale Copyright Permission PT-OP-E Functional Tests Start: 07/27/22 14:40 Freq: Status: Active Protocol: Document 08/02/22 15:19 DCW (Rec: 08/02/22 16:01 DCW [id number]) Functional Tests 2 Minute Walk Test Distance 179' Device Used FWW Comments 1.49 ft/sec Timed Up and Go (TUG) Score 27.49 Comments /c FWW TUG Impairment Rating 100% Impaired (Score 20) PT-OP-G Mobility & Gait Start: 07/27/22 14:40 Freq: Status: Active Protocol: Document 08/02/22 15:19 DCW (Rec: 08/02/22 16:01 DCW [id number]) OP Gait Assessment Gait Gait Assistance Required: Standby Assistance Assistive Devices Assistive Device Front Wheeled Walker Gait Deviations General Gait Pattern Antalgic,Decreased Stride Length,Decreased Feet Clearance,Wide Based Gait PT-OP-H Neuro Start: 07/27/22 14:40 Freq: Status: Active Protocol: Document 07/28/22 08:06 SAK (Rec: 07/28/22 09:01 SAK [id number]) Sensation Evaluation Gross Sensation Gross Sensation WNL PT-OP-K Range of Motion Start: 07/27/22 14:40 Freq: Status: Active Protocol: Document 08/12/22 09:51 SP (Rec: 08/12/22 10:35 SP [id number]) Knee Goniometric Range of Motion Knee Right Knee ROM WFL No Patient Position Supine Flexion Active (degrees) 82 Flexion Passive (degrees) 92 Extension Active (degrees) 3 Extension Passive (degrees) 1 Comments 08/12/22 R knee: flexion AROM 82 deg; AAROM (w/ strap): 87deg Flexion PROM: same (92deg) Extension (AROM): gained 2 deg (1 deg) post suspended quad sets. PT-OP-M Strength Start: 07/27/22 14:40 Freq: Status: Active Protocol: Document 08/02/22 15:19 DCW (Rec: 08/02/22 16:01 DCW [id number]) Knee Strength Knee Manual Muscle Testing Right Flexion (S2) 2- Poor- Extension (L3) 2- Poor- Left Flexion (S2) 5 Normal Extension (L3) 5 Normal PT-OP-Q Treatments Start: 07/27/22 14:40 Freq: Status: Active Protocol: Document 08/26/22 13:02 SAK (Rec: 08/26/22 13:48 SAK [id number]) Cardio Equipment Recumbent Elliptical (Biodex) Duration (Minutes) 8 Resistance 1 Seat Position 10 Other UEs/LEs, reports R lateral knee pain Gym Equipment Shuttle Recovery Unilateral Squats Details verbal/tactile cue for knee alignment B (102 deg flexion R ) Resistance 25 L, 37 R Shuttle Recovery Platform Stable Reps/Time 10X2 Bilateral Squats Details cued knee alignment Resistance 50# Shuttle Recovery Platform Stable Reps/Time 10X2 Therapeutic Exercises Supine Exercises gravity assisted knee flexion Reps/Minutes 3x 10 Comments with slider sheet on shuttle leg press quad set Supine Exercise Name w/ CP and NMES [place] stim Side right Reps/Minutes 10 min Comments reported quad was pretty tired . Gait Training Gait Activity stairs Device Used lavon HR Level of Assistance SBA Distance/Duration 4 stairs x4 laps Treatment Focus alternating step pattern SPC Description patterning w/RLE Device Used SPC LUE Level of Assistance CGA Surface firm Distance/Duration 60 ft Treatment Focus R knee flexion, R foot clearance, R knee stability Comments use mirror w/ Cues taller posturing wt shift into RLE with quad and glut facilitation Manual Therapy Treatment Soft Tissue Mobilization R leg Body Location calf, popliteus Mobilization Type Myofascial Release,Strumming Joint Mobilizations patella mob Joint R Direction med/lat/ sup/inferior Grade II Body Position Supine Reps/Duration 2 min Comments manual pt gave good feedback- gentle pressure. PT-OP-R Modalities Start: 07/27/22 14:40 Freq: Status: Active Protocol: Document 08/26/22 13:02 [facility] (Rec: 08/26/22 13:49 [facility] [id number]) Electric Stimulation Electric Stimulation R quad Body Location R quad Duration (Minutes) 10 Intensity 35 High/Low High Patient Position Supine Combined With Heat/Cold Cold Pack Comments burmese stim AAROM 10/10 during QS, no towel under R knee. PT-OP-T Assessment and Plan Start: 07/27/22 14:40 Freq: Status: Active Protocol: Document 08/26/22 13:02 [facility] (Rec: 08/26/22 13:48 [facility] [id number]) Physical Therapy Assessment Goals Four Impairment activity intolerance [place] Goal (LTG) Patient will improve right knee function sufficient to return to his usual hobbies and recreational activities LTG Duration 10/28/22 Three Impairment lack of knowledge of post-op rehab Short Term Goal (STG) Patient to complete pre-op appointment for training in HEP, use of assistive devices, education regarding post-op rehab including icing, elevating, compression stocking use STG Duration goal met today Gum Remover Goal (LTG) Patient to be independent and compliant with HEP and all aspects of self-care for continued knee strengthening in the home and/or community fitness program LTG Duration 10/28/22 Two Impairment gait dysfunction [place] Goal (LTG) Patient will be able to ambulate on level surfaces without assitive device with no limp, and ascend/descend flight of standard height stairs with alternating step pattern LTG Duration 10/28/22 One Impairment ROM and strength impairment right knee Gum Remover Goal (LTG) Improve right knee ROM to 0- 120 and strength to at least 4 +/5 08/10/22: progressing: AROM 5-8 , post manual and quad fac/ superior patellar glides 0 ( active)- 92 AAROM R knee flexion. 08/12/22: LTG Duration 10/28/22 progressing 08/12/22 Assessment Summary Assessment Patient improving quad activation. PROM 110 degrees with gravity assisted on shuttle leg press with encouragement for increased stretch. Physical Therapy Plan Frequency and Duration Frequency of Treatment 2x/Week Duration of treatment (weeks) 12 Plan of Care Start Date 08/02/22 Plan of Care End Date 10/25/22 Therapeutic Interventions Therapeutic Interventions Balance Training,Gait Training ,Home Exercise Program,Joint Mobilizations,Manual Therapy, Neuromuscular Re-education, Patient/Caregiver Education, Self-Care/Home Management,Soft Tissue Mobilization,Taping, Therapeutic Activities, Therapeutic Exercises Modalities Cold Pack/Ice Massage,Electric Stimulation Next Visit Focus/Plan Next Note Type Treatment Note Next Visit Plan Continue TKA rehab with NMES SAQ, quad set as indicated, continue progression of ROM and strengthening, gait training.
--- NOTE | 2022-08-30 12:06 | PT.OTN ---
Current Diagnoses Unilateral primary osteoarthritis, unspecified knee (08/30/22) Physical Therapy Treatment Note PT-OP-A Visit Information Start: 07/27/22 14:40 Freq: Status: Active Protocol: Document 08/30/22 09:47 NBM (Rec: 08/30/22 10:36 NBM [id number]) Out-Patient Physical Therapy Visit Information Visit Information Visit Type Treatment Note Visit Start Time 09:48 Visit Stop Time 10:34 Total Visit Minutes 56 Visit Number 10 Number of PRODUCE WEIGHER Visits 1 PT-OP-B Current Condition Start: 07/27/22 14:40 Freq: Status: Active Protocol: Document 08/02/22 15:19 DCW (Rec: 08/02/22 16:01 DCW [id number]) Current Condition History of Current Condition Onset Date 10+ years Current Complaints right TKA 07/30/22 History of Current Condition Pt underwent R TKA on 07/30/22, returns today following pre-op PT appointment. Pt reports pain and walking have both been improving, has been trying to do his HEP, unable to perform SLR or SAQ, unable to lift leg against gravity yet. Prior Treatments and Tests Anticipates left TKA as well after recovery from right. Treatment Goals Patient/Caregiver Goals Improve right knee function to allow him to return to prior activities such as gardening and fly fishing. PT-OP-C Subjective Start: 07/27/22 14:40 Freq: Status: Active Protocol: Document 08/30/22 09:47 NBM (Rec: 08/30/22 10:36 NBM [id number]) OP-PT Subjective Patient Comments Patient Comments Pt states he is doing okay. He still has pain and stiffness on the outside of his knee. I 'm feeling impatient. Pt was able to walk up and down 7 stairs yesterday. It was not the most fun I've had. Pt is icing ~ 4 times a day and taking tylenol and ibuprofen. It hurts to put full weight on that knee. Uses the walker for two things: bathroom at night and to get into shower. PT-OP-D Balance Start: 07/27/22 14:40 Freq: Status: Active Protocol: Document 07/28/22 08:06 SAK (Rec: 07/28/22 09:01 SAK [id number]) OP-PT Balance Assessment Sitting Balance Static Sitting Balance Ability Normal Dynamic Sitting Balance Ability Normal Standing Balance Static Standing Balance Ability Good Dynamic Standing Balance Ability Fair Justice Fall Scale Copyright Permission PT-OP-E Functional Tests Start: 07/27/22 14:40 Freq: Status: Active Protocol: Document 08/02/22 15:19 DCW (Rec: 08/02/22 16:01 DCW [id number]) Functional Tests 2 Minute Walk Test Distance 179' Device Used FWW Comments 1.49 ft/sec Timed Up and Go (TUG) Score 27.49 Comments /c FWW TUG Impairment Rating 100% Impaired (Score 20) PT-OP-G Mobility & Gait Start: 07/27/22 14:40 Freq: Status: Active Protocol: Document 08/02/22 15:19 DCW (Rec: 08/02/22 16:01 DCW [id number]) OP Gait Assessment Gait Gait Assistance Required: Standby Assistance Assistive Devices Assistive Device Front Wheeled Walker Gait Deviations General Gait Pattern Antalgic,Decreased Stride Length,Decreased Feet Clearance,Wide Based Gait PT-OP-H Neuro Start: 07/27/22 14:40 Freq: Status: Active Protocol: Document 07/28/22 08:06 SAK (Rec: 07/28/22 09:01 SAK [id number]) Sensation Evaluation Gross Sensation Gross Sensation WNL PT-OP-K Range of Motion Start: 07/27/22 14:40 Freq: Status: Active Protocol: Document 08/12/22 09:51 SP (Rec: 08/12/22 10:35 SP [id number]) Knee Goniometric Range of Motion Knee Right Knee ROM WFL No Patient Position Supine Flexion Active (degrees) 82 Flexion Passive (degrees) 92 Extension Active (degrees) 3 Extension Passive (degrees) 1 Comments 08/12/22 R knee: flexion AROM 82 deg; AAROM (w/ strap): 87deg Flexion PROM: same (92deg) Extension (AROM): gained 2 deg (1 deg) post suspended quad sets. PT-OP-M Strength Start: 07/27/22 14:40 Freq: Status: Active Protocol: Document 08/02/22 15:19 DCW (Rec: 08/02/22 16:01 DCW [id number]) Knee Strength Knee Manual Muscle Testing Right Flexion (S2) 2- Poor- Extension (L3) 2- Poor- Left Flexion (S2) 5 Normal Extension (L3) 5 Normal PT-OP-Q Treatments Start: 07/27/22 14:40 Freq: Status: Active Protocol: Document 08/30/22 09:47 NBM (Rec: 08/30/22 10:36 [facility] [id number]) Cardio Equipment Bicycle (Upright) Duration (Minutes) 6 Resistance 1 Seat Position 8 Other full revolutions fwd/bwd Gym Equipment Shuttle Recovery Unilateral Squats Details verbal/tactile cue for knee alignment B (102 deg flexion R ) Resistance 25 R, 37 L Shuttle Recovery Platform Stable Reps/Time 10X2 Bilateral Squats Details cued knee alignment Resistance 50# Shuttle Recovery Platform Stable Reps/Time 10X2 Gait Training Gait Activity stairs Device Used lavon HR Level of Assistance SBA Distance/Duration 4 6 stairs x4 laps Treatment Focus alternating step pattern and step to w/ SPC SPC Description patterning w/RLE Device Used SPC LUE Level of Assistance CGA Surface firm Distance/Duration 40 ft Treatment Focus R knee flexion, R foot clearance, R knee stability, weightshifting over RLE Comments use mirror w/ Cues taller posturing wt shift into RLE with quad and glut facilitation Manual Therapy Treatment Soft Tissue Mobilization R leg Body Location calf, popliteus Mobilization Type Myofascial Release,Strumming scar Body Location R Comments med/lat, gentle ed to pt and spouse for self- scar tissue massage - HO given . Joint Mobilizations patella mob Joint R Direction med/lat/ sup/inferior Grade II Body Position Supine Reps/Duration 2 min Comments gentle pressure. Self-Care/Home Management Treatment Education Patient Education Home Exercise Program Other Education -educated pt to use AD at home to reduce compensation patterns with gait. -educated pt and caregiver on scar tissue massage - HO given . PT-OP-R Modalities Start: 07/27/22 14:40 Freq: Status: Active Protocol: Document 08/30/22 09:47 NBM (Rec: 08/30/22 10:36 [facility] [id number]) Electric Stimulation Electric Stimulation R quad Body Location R quad Duration (Minutes) 10 Intensity 35 High/Low High Patient Position Supine Combined With Heat/Cold Cold Pack Comments monegasque stim AAROM 10/10 during QS, no towel under R knee. PT-OP-T Assessment and Plan Start: 07/27/22 14:40 Freq: Status: Active Protocol: Document 08/30/22 09:47 [facility] (Rec: 08/30/22 10:36 [facility] [id number]) Physical Therapy Assessment Impairments Impairments Activity Tolerance,Balance, Functional Activities, Functional Mobility,Gait,Pain, ROM,Strength,Tone Goals Four Impairment activity intolerance Drywall Stripper Goal (LTG) Patient will improve right knee function sufficient to return to his usual hobbies and recreational activities LTG Duration 10/28/22 Three Impairment lack of knowledge of post-op rehab Short Term Goal (STG) Patient to complete pre-op appointment for training in HEP, use of assistive devices, education regarding post-op rehab including icing, elevating, compression stocking use STG Duration goal met today Drywall Stripper Goal (LTG) Patient to be independent and compliant with HEP and all aspects of self-care for continued knee strengthening in the home and/or community fitness program LTG Duration 10/28/22 Two Impairment gait dysfunction Drywall Stripper Goal (LTG) Patient will be able to ambulate on level surfaces without assitive device with no limp, and ascend/descend flight of standard height stairs with alternating step pattern LTG Duration 10/28/22 One Impairment ROM and strength impairment right knee Drywall Stripper Goal (LTG) Improve right knee ROM to 0- 120 and strength to at least 4 +/5 08/10/22: progressing: AROM 5-8 , post manual and quad fac/ superior patellar glides 0 ( active)- 92 AAROM R knee flexion. 08/12/22: LTG Duration 10/28/22 progressing 08/12/22 Assessment Summary Assessment Lucian tolerates introduction of upright bicycle well with full revolutions forward and backward immediately, with report of R knee discomfort at apex forward. Pt requires cues for weightshifting over RLE w/ gait and SPC and is educated to use AD at home to reduce compensation patterns with gait. Pt demonstrates improved safety with sequencing with SPC descending stairs. Educated pt and caregiver on scar tissue massage - HO given. Physical Therapy Plan Frequency and Duration Frequency of Treatment 2x/Week Duration of treatment (weeks) 12 Plan of Care Start Date 08/02/22 Plan of Care End Date 10/25/22 Therapeutic Interventions Therapeutic Interventions Balance Training,Gait Training ,Home Exercise Program,Joint Mobilizations,Manual Therapy, Neuromuscular Re-education, Patient/Caregiver Education, Self-Care/Home Management,Soft Tissue Mobilization,Taping, Therapeutic Activities, Therapeutic Exercises Modalities Cold Pack/Ice Massage,Electric Stimulation Next Visit Focus/Plan Next Note Type Progress Note Next Visit Plan Continue TKA rehab with NMES SAQ, quad set as indicated, continue progression of ROM and strengthening, gait training.
--- NOTE | 2022-09-02 11:15 | PT.OTN ---
Current Diagnoses Unilateral primary osteoarthritis, unspecified knee (09/02/22) Physical Therapy Treatment Note PT-OP-A Visit Information Start: 07/27/22 14:40 Freq: Status: Active Protocol: Document 09/02/22 10:30 DCW (Rec: 09/02/22 11:15 DCW [id number]) Out-Patient Physical Therapy Visit Information Visit Information Visit Type Progress Note Visit Note 10 visit Visit Start Time 10:30 Visit Stop Time 11:15 Total Visit Minutes 45 Visit Number 11 Number of PROSTHODONTIST Visits 0 PT-OP-B Current Condition Start: 07/27/22 14:40 Freq: Status: Active Protocol: Document 08/02/22 15:19 DCW (Rec: 08/02/22 16:01 DCW [id number]) Current Condition History of Current Condition Onset Date 10+ years Current Complaints right TKA 07/30/22 History of Current Condition Pt underwent R TKA on 07/30/22, returns today following pre-op PT appointment. Pt reports pain and walking have both been improving, has been trying to do his HEP, unable to perform SLR or SAQ, unable to lift leg against gravity yet. Prior Treatments and Tests Anticipates left TKA as well after recovery from right. Treatment Goals Patient/Caregiver Goals Improve right knee function to allow him to return to prior activities such as gardening and fly fishing. PT-OP-C Subjective Start: 07/27/22 14:40 Freq: Status: Active Protocol: Document 09/02/22 10:30 DCW (Rec: 09/02/22 11:15 DCW [id number]) OP-PT Subjective Patient Comments Patient Comments I can still tell I had surgery. PT-OP-D Balance Start: 07/27/22 14:40 Freq: Status: Active Protocol: Document 07/28/22 08:06 SAK (Rec: 07/28/22 09:01 SAK [id number]) OP-PT Balance Assessment Sitting Balance Static Sitting Balance Ability Normal Dynamic Sitting Balance Ability Normal Standing Balance Static Standing Balance Ability Good Dynamic Standing Balance Ability Fair Justice Fall Scale Copyright Permission PT-OP-E Functional Tests Start: 07/27/22 14:40 Freq: Status: Active Protocol: Document 09/02/22 10:30 DCW (Rec: 09/02/22 10:58 DCW [id number]) Functional Tests 6 Minute Walk Test Distance 873' Device Used SPC Comments 2.42 Timed Up and Go (TUG) Score 11.53 /c SPC Comments Three-trial average (12.92, 11 .45, 10.23) TUG Impairment Rating 100% Impaired (Score 20) PT-OP-G Mobility & Gait Start: 07/27/22 14:40 Freq: Status: Active Protocol: Document 09/02/22 10:30 DCW (Rec: 09/02/22 10:58 DCW [id number]) OP Gait Assessment Gait Gait Assistance Required: Standby Assistance Distance (Feet) 873 Assistive Devices Assistive Device Straight Cane Gait Deviations General Gait Pattern Antalgic,Decreased Stride Length,Decreased Feet Clearance,Wide Based Gait PT-OP-H Neuro Start: 07/27/22 14:40 Freq: Status: Active Protocol: Document 07/28/22 08:06 SAK (Rec: 07/28/22 09:01 SAK [id number]) Sensation Evaluation Gross Sensation Gross Sensation WNL PT-OP-K Range of Motion Start: 07/27/22 14:40 Freq: Status: Active Protocol: Document 09/02/22 10:30 DCW (Rec: 09/02/22 10:58 DCW [id number]) Knee Goniometric Range of Motion Knee Right Knee ROM WFL No Patient Position Supine Flexion Active (degrees) 102 Flexion Passive (degrees) 108 Extension Active (degrees) 2 Extension Passive (degrees) 0 PT-OP-M Strength Start: 07/27/22 14:40 Freq: Status: Active Protocol: Document 09/02/22 10:30 DCW (Rec: 09/02/22 10:58 DCW [id number]) Knee Strength Knee Manual Muscle Testing Right Flexion (S2) 4+ Good+ Extension (L3) 4- Good- Left Flexion (S2) 5 Normal Extension (L3) 5 Normal PT-OP-Q Treatments Start: 07/27/22 14:40 Freq: Status: Active Protocol: Document 09/02/22 10:30 DCW (Rec: 09/02/22 11:15 DCW [id number]) Cardio Equipment Bicycle (Upright) Duration (Minutes) 8 Resistance 3 Seat Position 6 Other full revolutions fwd/bwd PT-OP-R Modalities Start: 07/27/22 14:40 Freq: Status: Active Protocol: Document 08/30/22 09:47 NBM (Rec: 08/30/22 10:36 NBM [id number]) Electric Stimulation Electric Stimulation R quad Body Location R quad Duration (Minutes) 10 Intensity 35 High/Low High Patient Position Supine Combined With Heat/Cold Cold Pack Comments mauritian stim AAROM 03/08 during QS, no towel under R knee. PT-OP-T Assessment and Plan Start: 07/27/22 14:40 Freq: Status: Active Protocol: Document 09/02/22 10:30 DCW (Rec: 09/02/22 11:15 DCW [id number]) Physical Therapy Assessment Impairments Impairments Activity Tolerance,Balance, Functional Activities, Functional Mobility,Gait,Pain, ROM,Strength,Tone Goals Four Impairment activity intolerance Skilled Nursing Goal (LTG) Patient will improve right knee function sufficient to return to his usual hobbies and recreational activities LTG Duration 10/28/22 - improving Three Impairment lack of knowledge of post-op rehab Short Term Goal (STG) Patient to complete pre-op appointment for training in HEP, use of assistive devices, education regarding post-op rehab including icing, elevating, compression stocking use STG Duration goal met Medical Services Assistant Goal (LTG) Patient to be independent and compliant with HEP and all aspects of self-care for continued knee strengthening in the home and/or community fitness program LTG Duration 10/28/22 Two Impairment gait dysfunction Medical Services Assistant Goal (LTG) Patient will be able to ambulate on level surfaces without assitive device with no limp, and ascend/descend flight of standard height stairs with alternating step pattern LTG Duration 10/28/22 - improving One Impairment ROM and strength impairment right knee Medical Services Assistant Goal (LTG) Improve right knee ROM to 0- 120 and strength to at least 4 +/5 09/02/22: 2?-102? AROM LTG Duration 10/28/22 progressing Assessment Summary Assessment 10th visit progress showing improvement in all areas, ROM has been steadily improving, still a little limited with flexion, extension looking good. Gait speed and activity tolerance both significantly improved, however pt still requiring SPC due to antalgic gait. Continue with planned POC to improve ROM, gait, and strength. Physical Therapy Plan Frequency and Duration Frequency of Treatment 2x/Week Duration of treatment (weeks) 12 Plan of Care Start Date 08/02/22 Plan of Care End Date 05/29/23 Therapeutic Interventions Therapeutic Interventions Balance Training,Gait Training ,Home Exercise Program,Joint Mobilizations,Manual Therapy, Neuromuscular Re-education, Patient/Caregiver Education, Self-Care/Home Management,Soft Tissue Mobilization,Taping, Therapeutic Activities, Therapeutic Exercises Modalities Cold Pack/Ice Massage,Electric Stimulation Next Visit Focus/Plan Next Note Type Treatment Note Next Visit Plan Continue TKA rehab with NMES SAQ, quad set as indicated, continue progression of ROM and strengthening, gait training.
--- NOTE | 2022-09-06 10:40 | PT.OTN ---
Current Diagnoses Unilateral primary osteoarthritis, unspecified knee (09/06/22) Physical Therapy Treatment Note PT-OP-A Visit Information Start: 07/27/22 14:40 Freq: Status: Active Protocol: Document 09/06/22 09:52 SP (Rec: 09/06/22 10:38 SP [id number]) Out-Patient Physical Therapy Visit Information Visit Information Visit Type Treatment Note Visit Note 06/08 since PN SANDHYA Monteiro observed and provided occasional feedback to pt while under direct supervision and instruct supervision of NICOLAS Fernandez. Visit Start Time 09:52 Visit Stop Time 10:40 Total Visit Minutes 48 Visit Number 12 Number of REHAB RN Visits 1 Evaluation Information Evaluation Date 07/28/22 PT-OP-B Current Condition Start: 07/27/22 14:40 Freq: Status: Active Protocol: Document 08/02/22 15:19 DCW (Rec: 08/02/22 16:01 DCW [id number]) Current Condition History of Current Condition Onset Date 10+ years Current Complaints right TKA 07/30/22 History of Current Condition Pt underwent R TKA on 07/30/22, returns today following pre-op PT appointment. Pt reports pain and walking have both been improving, has been trying to do his HEP, unable to perform SLR or SAQ, unable to lift leg against gravity yet. Prior Treatments and Tests Anticipates left TKA as well after recovery from right. Treatment Goals Patient/Caregiver Goals Improve right knee function to allow him to return to prior activities such as gardening and fly fishing. PT-OP-C Subjective Start: 07/27/22 14:40 Freq: Status: Active Protocol: Document 09/06/22 09:52 SP (Rec: 09/06/22 10:38 SP [id number]) OP-PT Subjective Patient Comments Patient Comments Pt reports doing HEP, feeling more confident with use of SPC and will be returning FWW to [facility]. He has ortho follow up on Tue. PT-OP-D Balance Start: 07/27/22 14:40 Freq: Status: Active Protocol: Document 07/28/22 08:06 SAK (Rec: 07/28/22 09:01 SAK [id number]) OP-PT Balance Assessment Sitting Balance Static Sitting Balance Ability Normal Dynamic Sitting Balance Ability Normal Standing Balance Static Standing Balance Ability Good Dynamic Standing Balance Ability Fair Justice Fall Scale Copyright Permission PT-OP-E Functional Tests Start: 07/27/22 14:40 Freq: Status: Active Protocol: Document 09/02/22 10:30 DCW (Rec: 09/02/22 10:58 DCW [id number]) Functional Tests 6 Minute Walk Test Distance 873' Device Used SPC Comments 2.42 Timed Up and Go (TUG) Score 11.53 /c SPC Comments Three-trial average (12.92, 11 .45, 10.23) TUG Impairment Rating 100% Impaired (Score 20) PT-OP-G Mobility & Gait Start: 07/27/22 14:40 Freq: Status: Active Protocol: Document 09/02/22 10:30 DCW (Rec: 09/02/22 10:58 DCW [id number]) OP Gait Assessment Gait Gait Assistance Required: Standby Assistance Distance (Feet) 873 Assistive Devices Assistive Device Straight Cane Gait Deviations General Gait Pattern Antalgic,Decreased Stride Length,Decreased Feet Clearance,Wide Based Gait PT-OP-H Neuro Start: 07/27/22 14:40 Freq: Status: Active Protocol: Document 07/28/22 08:06 SAK (Rec: 07/28/22 09:01 SAK [id number]) Sensation Evaluation Gross Sensation Gross Sensation WNL PT-OP-K Range of Motion Start: 07/27/22 14:40 Freq: Status: Active Protocol: Document 09/02/22 10:30 DCW (Rec: 09/02/22 10:58 DCW [id number]) Knee Goniometric Range of Motion Knee Right Knee ROM WFL No Patient Position Supine Flexion Active (degrees) 102 Flexion Passive (degrees) 108 Extension Active (degrees) 2 Extension Passive (degrees) 0 PT-OP-M Strength Start: 07/27/22 14:40 Freq: Status: Active Protocol: Document 09/02/22 10:30 DCW (Rec: 09/02/22 10:58 DCW [id number]) Knee Strength Knee Manual Muscle Testing Right Flexion (S2) 4+ Good+ Extension (L3) 4- Good- Left Flexion (S2) 5 Normal Extension (L3) 5 Normal PT-OP-Q Treatments Start: 07/27/22 14:40 Freq: Status: Active Protocol: Document 09/06/22 09:52 SP (Rec: 09/06/22 10:38 SP [id number]) Cardio Equipment Recumbent Elliptical (Biodex) Duration (Minutes) 3 Resistance 2 Seat Position 10> 9 Other not as good ROM Gym Equipment Shuttle Recovery Unilateral Squats Details cued lateral midline, quad facillitation 2 second hold Resistance 25 R, 37 L Shuttle Recovery Platform Stable Reps/Time 10X2 Bilateral Squats Details cued knee alignment (102 deg) Resistance 50# Shuttle Recovery Platform Stable Reps/Time 10X2 Therapeutic Exercises Sitting Exercises HS curl Side right Resistance TB #2 Equipment Used mesh chair, anchored at body solid Reps/Minutes 2x10 Comments distal hamstring facillitation Standing Exercises calf raises Standing Exercise Name heel/toe raises- added toHEP Resistance active ROM Equipment Used near rail Reps/Minutes 2x10 Comments even WB bilateral, tall posturing over TOMER Gait Training Gait Activity SPC Description patterning w/RLE Device Used SPC LUE Level of Assistance CGA Surface firm Distance/Duration 20 ft x3 laps Treatment Focus R knee flexion, R foot clearance, R knee stability, weightshifting over RLE Comments use mirror w/ Cues taller posturing wt shift into LLE with R hip ext glut facilitation and not needing use SPC last lap, with less SB . Manual Therapy Treatment Soft Tissue Mobilization scar Body Location R Comments med/lat, reviewed self appication LE straight and bent Joint Mobilizations Knee Joint R knee Direction femur P<>A Grade II Body Position Sitting Reps/Duration 1 Comments post iglesia stepping Neuro Re-Education Treatment Balance Activities hurdles Details w/ SPC Equipment 6 hurdles Reps/Duration 15 ft x3 laps Comments cued R knee/ hip flexion w/ DF improved with slower pacing, noted increased circumduction on right last lap and trailing more than leading LE. Self-Care/Home Management Treatment Education Other Education ed marching home for knee functional flexion PT-OP-R Modalities Start: 07/27/22 14:40 Freq: Status: Active Protocol: Document 09/06/22 09:52 SP (Rec: 09/06/22 10:38 SP [id number]) Hot Pack/Cold Pack Treatment Cold Pack Location R Knee Patient Position Hooklying Treatment Duration (minutes) 10 Patient Tolerance Good Comments anterior/posterior R knee, calf w/ pillow case/towel PT-OP-T Assessment and Plan Start: 07/27/22 14:40 Freq: Status: Active Protocol: Document 09/06/22 09:52 SP (Rec: 09/06/22 10:38 SP [id number]) Physical Therapy Assessment Goals Four Impairment activity intolerance Correction Goal (LTG) Patient will improve right knee function sufficient to return to his usual hobbies and recreational activities LTG Duration 10/28/22 - improving Three Impairment lack of knowledge of post-op rehab Short Term Goal (STG) Patient to complete pre-op appointment for training in HEP, use of assistive devices, education regarding post-op rehab including icing, elevating, compression stocking use STG Duration goal met Director Of Quality Improvement Goal (LTG) Patient to be independent and compliant with HEP and all aspects of self-care for continued knee strengthening in the home and/or community fitness program LTG Duration 10/28/22 Two Impairment gait dysfunction Director Of Quality Improvement Goal (LTG) Patient will be able to ambulate on level surfaces without assitive device with no limp, and ascend/descend flight of standard height stairs with alternating step pattern LTG Duration 10/28/22 - improving One Impairment ROM and strength impairment right knee Director Of Quality Improvement Goal (LTG) Improve right knee ROM to 0- 120 and strength to at least 4 +/5 09/02/22: 2?-102? AROM LTG Duration 10/28/22 progressing Assessment Summary Assessment Pt responded well to AAROM shuttle recovery R Knee ROM. Pt improve stepping over iglesia with cues R knee and hip flexion and DF with slower pacing better leading than trailing. Less SB during gait noted and improved R glut fac gait phases. Physical Therapy Plan Frequency and Duration Frequency of Treatment 2x/Week Duration of treatment (weeks) 12 Plan of Care Start Date 08/02/22 Plan of Care End Date 10/25/22 Therapeutic Interventions Therapeutic Interventions Balance Training,Gait Training ,Home Exercise Program,Joint Mobilizations,Manual Therapy, Neuromuscular Re-education, Patient/Caregiver Education, Self-Care/Home Management,Soft Tissue Mobilization,Taping, Therapeutic Activities, Therapeutic Exercises Modalities Cold Pack/Ice Massage,Electric Stimulation Next Visit Focus/Plan Next Note Type Treatment Note Next Visit Plan Continue manual, R knee ROM, iglesia stepping, gait mechanics. POC: TKA rehab with NMES SAQ, quad set as indicated, continue progression of ROM and strengthening, gait training.
--- NOTE | 2022-09-09 16:24 | PT.OTN ---
Current Diagnoses Unilateral primary osteoarthritis, unspecified knee (09/09/22) Physical Therapy Treatment Note PT-OP-A Visit Information Start: 07/27/22 14:40 Freq: Status: Active Protocol: Document 09/09/22 10:34 SAK (Rec: 09/09/22 11:18 [facility] [id number]) Out-Patient Physical Therapy Visit Information Visit Information Visit Type Treatment Note Visit Note 6 weeks post-op Visit Start Time 10:35 Visit Stop Time 11:27 Total Visit Minutes 52 Visit Number 13 Number of COMBINER Visits 0 Evaluation Information Evaluation Date 07/28/22 PT-OP-B Current Condition Start: 07/27/22 14:40 Freq: Status: Active Protocol: Document 08/02/22 15:19 DCW (Rec: 08/02/22 16:01 DCW [id number]) Current Condition History of Current Condition Onset Date 10+ years Current Complaints right TKA 07/30/22 History of Current Condition Pt underwent R TKA on 07/30/22, returns today following pre-op PT appointment. Pt reports pain and walking have both been improving, has been trying to do his HEP, unable to perform SLR or SAQ, unable to lift leg against gravity yet. Prior Treatments and Tests Anticipates left TKA as well after recovery from right. Treatment Goals Patient/Caregiver Goals Improve right knee function to allow him to return to prior activities such as gardening and fly fishing. PT-OP-C Subjective Start: 07/27/22 14:40 Freq: Status: Active Protocol: Document 09/09/22 10:34 SAK (Rec: 09/09/22 11:18 [facility] [id number]) OP-PT Subjective Patient Comments Patient Comments Saw Dr. Meadows yesterday, goes back in 6 weeks. Going to start putting vitamin E oil on scar. Taking FWW back to [facility] tomorrow. PT-OP-D Balance Start: 07/27/22 14:40 Freq: Status: Active Protocol: Document 07/28/22 08:06 SAK (Rec: 07/28/22 09:01 SAK [id number]) OP-PT Balance Assessment Sitting Balance Static Sitting Balance Ability Normal Dynamic Sitting Balance Ability Normal Standing Balance Static Standing Balance Ability Good Dynamic Standing Balance Ability Fair Justice Fall Scale Copyright Permission PT-OP-E Functional Tests Start: 07/27/22 14:40 Freq: Status: Active Protocol: Document 09/02/22 10:30 DCW (Rec: 09/02/22 10:58 DCW [id number]) Functional Tests 6 Minute Walk Test Distance 873' Device Used [facility] [place] Comments 2.42 Timed Up and Go (TUG) Score 11.53 /c [facility] [place] Comments Three-trial average (12.92, 11 .45, 10.23) TUG Impairment Rating 100% Impaired (Score 20) PT-OP-G Mobility & Gait Start: 07/27/22 14:40 Freq: Status: Active Protocol: Document 09/02/22 10:30 DCW (Rec: 09/02/22 10:58 DCW [id number]) OP Gait Assessment Gait Gait Assistance Required: Standby Assistance Distance (Feet) 873 Assistive Devices Assistive Device Straight Cane Gait Deviations General Gait Pattern Antalgic,Decreased Stride Length,Decreased Feet Clearance,Wide Based Gait PT-OP-H Neuro Start: 07/27/22 14:40 Freq: Status: Active Protocol: Document 07/28/22 08:06 SAK (Rec: 07/28/22 09:01 SAK [id number]) Sensation Evaluation Gross Sensation Gross Sensation WNL PT-OP-K Range of Motion Start: 07/27/22 14:40 Freq: Status: Active Protocol: Document 09/02/22 10:30 DCW (Rec: 09/02/22 10:58 DCW [id number]) Knee Goniometric Range of Motion Knee Right Knee ROM WFL No Patient Position Supine Flexion Active (degrees) 102 Flexion Passive (degrees) 108 Extension Active (degrees) 2 Extension Passive (degrees) 0 PT-OP-M Strength Start: 07/27/22 14:40 Freq: Status: Active Protocol: Document 09/02/22 10:30 DCW (Rec: 09/02/22 10:58 DCW [id number]) Knee Strength Knee Manual Muscle Testing Right Flexion (S2) 4+ Good+ Extension (L3) 4- Good- Left Flexion (S2) 5 Normal Extension (L3) 5 Normal PT-OP-Q Treatments Start: 07/27/22 14:40 Freq: Status: Active Protocol: Document 09/09/22 10:34 SAK (Rec: 09/09/22 11:18 SAK [id number]) Cardio Equipment Recumbent Stepper (Sci-Fit) Duration (Minutes) 10 Resistance 1 Seat Position 13-11 Gym Equipment Shuttle Recovery Unilateral Squats Details cued lateral midline, quad facillitation 2 second hold Resistance 25 R, 37 L Shuttle Recovery Platform Stable Reps/Time 10X2 Bilateral Squats Details cued knee alignment (102 deg) Resistance 50# Shuttle Recovery Platform Stable Reps/Time 10X2 Therapeutic Exercises Supine Exercises gravity assisted knee flexion Reps/Minutes 3x 10 Comments with slider sheet on shuttle leg press SAQ Supine Exercise Name SAQ Side right Equipment Used foam roll under thigh Reps/Minutes x10 Comments PT assist for full ROM, then eccentric lowering Sitting Exercises LAQ Equipment Used seated on shuttle recovery Reps/Minutes 10x Comments PT assist for end-range, cues for slow, eccentric lowering HS curl Side right Resistance TB #2 Reps/Minutes 2x10 Standing Exercises iglesia stepping Standing Exercise Name alternating feet Equipment Used 6 hurdles Reps/Minutes 4x Comments min circumduction, CGA, no LOB calf raises Standing Exercise Name heel/toe raises Resistance active ROM Equipment Used near rail Reps/Minutes 2x10 Comments even WB bilateral, tall posturing over TOMER Gait Training Gait Activity stairs Level of Assistance lavon rails, SBA Distance/Duration 6 4 stairs x 3 Treatment Focus alternating feet SPC Description patterning w/RLE Device Used SPC LUE Level of Assistance CGA Surface firm Distance/Duration 50ft x 2 Treatment Focus R knee flexion, R foot clearance, R knee stability, weightshifting over RLE Comments use mirror w/ Cues taller posturing wt shift into LLE with R hip ext glut facilitation and not needing use SPC last lap, with less SB . Manual Therapy Treatment Soft Tissue Mobilization scar Body Location surgical scar Mobilization Type Myofascial Release Joint Mobilizations patella mob Joint R Direction med/lat/ sup/inferior Grade II Body Position Supine Reps/Duration 2 min Comments gentle pressure. Neuro Re-Education Treatment Balance Activities hurdles Details w/ SPC Equipment 6 hurdles Reps/Duration 15 ft x3 laps Comments cued R knee/ hip flexion w/ DF improved with slower pacing, noted increased circumduction on right last lap and trailing more than leading LE. Self-Care/Home Management Treatment Education Other Education sit to stand without favoring right LE PT-OP-R Modalities Start: 07/27/22 14:40 Freq: Status: Active Protocol: Document 09/09/22 10:34 [facility] (Rec: 09/09/22 11:18 [facility] [id number]) Hot Pack/Cold Pack Treatment Cold Pack Location R Knee Patient Position Hooklying Treatment Duration (minutes) 10 Patient Tolerance Good Comments anterior/posterior R knee, calf w/ pillow case/towel PT-OP-T Assessment and Plan Start: 07/27/22 14:40 Freq: Status: Active Protocol: Document 09/09/22 10:34 [facility] (Rec: 09/09/22 11:18 [facility] [id number]) Physical Therapy Assessment Impairments Impairments Activity Tolerance,Balance, Functional Activities, Functional Mobility,Gait,Pain, ROM,Strength,Tone Goals Four Impairment activity intolerance Implementation Project Coordinator Goal (LTG) Patient will improve right knee function sufficient to return to his usual hobbies and recreational activities LTG Duration 10/28/22 - improving Three Impairment lack of knowledge of post-op rehab Short Term Goal (STG) Patient to complete pre-op appointment for training in HEP, use of assistive devices, education regarding post-op rehab including icing, elevating, compression stocking use STG Duration goal met Halfway Goal (LTG) Patient to be independent and compliant with HEP and all aspects of self-care for continued knee strengthening in the home and/or community fitness program LTG Duration 10/28/22 Two Impairment gait dysfunction Implementation Project Coordinator Goal (LTG) Patient will be able to ambulate on level surfaces without assitive device with no limp, and ascend/descend flight of standard height stairs with alternating step pattern LTG Duration 10/28/22 - improving One Impairment ROM and strength impairment right knee Implementation Project Coordinator Goal (LTG) Improve right knee ROM to 0- 120 and strength to at least 4 +/5 09/02/22: 2?-102? AROM LTG Duration 10/28/22 progressing Progress Towards Goals Progress Towards Goals Progressing Toward Goals Assessment Summary Assessment AROM 8-97, PROM 5-114. Continues to improve with gait quality. Able to ascend and descend 4 stairs with alternating pattern, some difficulty with eccentric lowering from right LE. Physical Therapy Plan Frequency and Duration Frequency of Treatment 2x/Week Duration of treatment (weeks) 12 Plan of Care Start Date 08/02/22 Plan of Care End Date 10/25/22 Therapeutic Interventions Therapeutic Interventions Balance Training,Gait Training ,Home Exercise Program,Joint Mobilizations,Manual Therapy, Neuromuscular Re-education, Patient/Caregiver Education, Self-Care/Home Management,Soft Tissue Mobilization,Taping, Therapeutic Activities, Therapeutic Exercises Modalities Cold Pack/Ice Massage,Electric Stimulation Next Visit Focus/Plan Next Note Type Treatment Note Next Visit Plan Continue right knee TKA rehab to achieve full AROM and strength, gait without limp or compensation on all surfaces.
--- NOTE | 2022-09-14 11:22 | PT.OTN ---
Current Diagnoses Unilateral primary osteoarthritis, unspecified knee (09/14/22) Physical Therapy Treatment Note PT-OP-A Visit Information Start: 07/27/22 14:40 Freq: Status: Active Protocol: Document 09/14/22 10:35 SP (Rec: 09/14/22 11:31 SP [id number]) Out-Patient Physical Therapy Visit Information Visit Information Visit Type Treatment Note Visit Note 6.5 weeks post-op Visit Start Time 10:35 Visit Stop Time 11:22 Total Visit Minutes 47 Visit Number 14 Number of TEST DEPARTMENT HELPER Visits 1 Evaluation Information Evaluation Date 07/28/22 PT-OP-B Current Condition Start: 07/27/22 14:40 Freq: Status: Active Protocol: Document 08/02/22 15:19 DCW (Rec: 08/02/22 16:01 DCW [id number]) Current Condition History of Current Condition Onset Date 10+ years Current Complaints right TKA 07/30/22 History of Current Condition Pt underwent R TKA on 07/30/22, returns today following pre-op PT appointment. Pt reports pain and walking have both been improving, has been trying to do his HEP, unable to perform SLR or SAQ, unable to lift leg against gravity yet. Prior Treatments and Tests Anticipates left TKA as well after recovery from right. Treatment Goals Patient/Caregiver Goals Improve right knee function to allow him to return to prior activities such as gardening and fly fishing. PT-OP-C Subjective Start: 07/27/22 14:40 Freq: Status: Active Protocol: Document 09/14/22 10:35 SP (Rec: 09/14/22 11:31 SP [id number]) OP-PT Subjective Patient Comments Patient Comments Pt reports next follow up end September. Pt states compliant with HEP, improving gait, wants to work toward no SPC and stair mgt. Has spin bike at home and wondering if can do at home as well. PT-OP-D Balance Start: 07/27/22 14:40 Freq: Status: Active Protocol: Document 07/28/22 08:06 SAK (Rec: 07/28/22 09:01 SAK [id number]) OP-PT Balance Assessment Sitting Balance Static Sitting Balance Ability Normal Dynamic Sitting Balance Ability Normal Standing Balance Static Standing Balance Ability Good Dynamic Standing Balance Ability Fair Justice Fall Scale Copyright Permission PT-OP-E Functional Tests Start: 07/27/22 14:40 Freq: Status: Active Protocol: Document 09/02/22 10:30 DCW (Rec: 09/02/22 10:58 DCW [id number]) Functional Tests 6 Minute Walk Test Distance 873' Device Used [facility] Comments 2.42 Timed Up and Go (TUG) Score 11.53 /c [facility] Comments Three-trial average (12.92, 11 .45, 10.23) TUG Impairment Rating 100% Impaired (Score 20) PT-OP-G Mobility & Gait Start: 07/27/22 14:40 Freq: Status: Active Protocol: Document 09/02/22 10:30 DCW (Rec: 09/02/22 10:58 DCW [id number]) OP Gait Assessment Gait Gait Assistance Required: Standby Assistance Distance (Feet) 873 Assistive Devices Assistive Device Straight Cane Gait Deviations General Gait Pattern Antalgic,Decreased Stride Length,Decreased Feet Clearance,Wide Based Gait PT-OP-H Neuro Start: 07/27/22 14:40 Freq: Status: Active Protocol: Document 07/28/22 08:06 SAK (Rec: 07/28/22 09:01 SAK [id number]) Sensation Evaluation Gross Sensation Gross Sensation WNL PT-OP-K Range of Motion Start: 07/27/22 14:40 Freq: Status: Active Protocol: Document 09/14/22 10:35 SP (Rec: 09/14/22 11:31 SP [id number]) Knee Goniometric Range of Motion Knee Right Knee ROM WFL No Patient Position Supine Flexion Active (degrees) 115 Extension Active (degrees) 0 PT-OP-M Strength Start: 07/27/22 14:40 Freq: Status: Active Protocol: Document 09/02/22 10:30 DCW (Rec: 09/02/22 10:58 DCW [id number]) Knee Strength Knee Manual Muscle Testing Right Flexion (S2) 4+ Good+ Extension (L3) 4- Good- Left Flexion (S2) 5 Normal Extension (L3) 5 Normal PT-OP-Q Treatments Start: 07/27/22 14:40 Freq: Status: Active Protocol: Document 09/14/22 10:35 SP (Rec: 09/14/22 11:31 SP [id number]) Cardio Equipment Bicycle (Upright) Duration (Minutes) 6 Resistance 3 Seat Position 8 x2 min>7 x2 min>6 x2 min Other able complete full revolutions - 3/10 discomfort but ok for ROM benefits Gym Equipment Shuttle Recovery Unilateral Squats Details cued lateral midline, quad facillitation 2 second hold Resistance 25 R, 37 L Shuttle Recovery Platform Stable Reps/Time x10 ROM measurement (R 117 deg ) Bilateral Squats Details cued knee alignment, unlocked (108 deg) Resistance 50# (1new band) Shuttle Recovery Platform Stable Reps/Time 10X2 Sport Cord green Exercise Details next session: fwd, bwd, lateral R and L Therapeutic Exercises Supine Exercises SLR Supine Exercise Name SLR Side right Resistance AROM Reps/Minutes 10x Comments feels quad tension but knee ok Sitting Exercises R knee flexion Sitting Exercise Name AROM Side right Equipment Used 21.5 black table height Reps/Minutes 5 reps Comments discomfort R knee end range- not measured Gait Training Gait Activity no AD Description in mirror Device Used 0 Level of Assistance S Distance/Duration 20 ft x6 laps Treatment Focus taller posturing w/ core/ hip abd/ glut fac, normalizing gait phases Comments cued elevated posture w/ core/ hip abd/ glut max during midstance to terminal ext phase, improved almost no SB while focused Neuro Re-Education Treatment Balance Activities hurdles Details no AD: fwd, lateral Equipment 6 hurdles Reps/Duration 18 ft x3 laps Comments cued taller posturing, core fac, fwd step to>receiprocal step, improved decrease lateral SB, almost done. PT-OP-R Modalities Start: 07/27/22 14:40 Freq: Status: Active Protocol: Document 09/14/22 10:35 SP (Rec: 09/14/22 11:31 SP [id number]) Hot Pack/Cold Pack Treatment Cold Pack Location R Knee Patient Position Hooklying Treatment Duration (minutes) 10 Patient Tolerance Good Comments anterior/posterior R knee, calf w/ pillow case PT-OP-T Assessment and Plan Start: 07/27/22 14:40 Freq: Status: Active Protocol: Document 09/14/22 10:35 SP (Rec: 09/14/22 11:31 SP [id number]) Physical Therapy Assessment Goals Four Impairment activity intolerance Senior Care Goal (LTG) Patient will improve right knee function sufficient to return to his usual hobbies and recreational activities 09/14/22: has incorportated previous activities LTG Duration 10/28/22 - improving Three Impairment lack of knowledge of post-op rehab Short Term Goal (STG) Patient to complete pre-op appointment for training in HEP, use of assistive devices, education regarding post-op rehab including icing, elevating, compression stocking use STG Duration goal met Senior Care Goal (LTG) Patient to be independent and compliant with HEP and all aspects of self-care for continued knee strengthening in the home and/or community fitness program LTG Duration 10/28/22 Two Impairment gait dysfunction Ic [employer]er [employer] Goal (LTG) Patient will be able to ambulate on level surfaces without assitive device with no limp, and ascend/descend flight of standard height stairs with alternating step pattern 09/14/22: decreased limp gait in mirror. LTG Duration 10/28/22 - improving 09/14/22 One Impairment ROM and strength impairment right knee Senior Care Goal (LTG) Improve right knee ROM to 0- 120 and strength to at least 4 +/5 09/02/22: 2?-102? AROM 09/14/22: 0-122deg AROM LTG Duration 10/28/22 progressing 09/14/22 Assessment Summary Assessment Pt making gains, end tx 0-115 AROM R knee. Pt was able to decrease limp lateral SB walking in mirror. Improve stability iglesia stepping today, didnt need use SPC cues given for posturing and scapular and core fac, no circumduction noted today. Physical Therapy Plan Frequency and Duration Frequency of Treatment 2x/Week Duration of treatment (weeks) 12 Plan of Care Start Date 08/02/22 Plan of Care End Date 10/25/22 Therapeutic Interventions Therapeutic Interventions Balance Training,Gait Training ,Home Exercise Program,Joint Mobilizations,Manual Therapy, Neuromuscular Re-education, Patient/Caregiver Education, Self-Care/Home Management,Soft Tissue Mobilization,Taping, Therapeutic Activities, Therapeutic Exercises Modalities Cold Pack/Ice Massage,Electric Stimulation Next Visit Focus/Plan Next Note Type Treatment Note Next Visit Plan Next: start 6MWT for baseline endurance SPC. continue upright bike for ROM assist, shuttle recovery, iglesia stepping, stairs 1 HR support (SPC as needed), trial sport cord if time, recheck ROM end tx. CP if wantes. POC: Continue right knee TKA rehab to achieve full AROM and strength, gait without limp or compensation on all surfaces.
--- NOTE | 2022-09-16 12:02 | PT.OTN ---
Current Diagnoses Unilateral primary osteoarthritis, unspecified knee (09/16/22) Physical Therapy Treatment Note PT-OP-A Visit Information Start: 07/27/22 14:40 Freq: Status: Active Protocol: Document 09/16/22 10:22 SW (Rec: 09/16/22 12:02 SW [id number]) Out-Patient Physical Therapy Visit Information Visit Information Visit Type Treatment Note Visit Note 114 degrees Visit Start Time 10:34 Visit Stop Time 11:22 Total Visit Minutes 48 Visit Number 15 Number of TELECOM SPECIALIST Visits 2 PT-OP-B Current Condition Start: 07/27/22 14:40 Freq: Status: Active Protocol: Document 08/02/22 15:19 DCW (Rec: 08/02/22 16:01 DCW [id number]) Current Condition History of Current Condition Onset Date 10+ years Current Complaints right TKA 07/30/22 History of Current Condition Pt underwent R TKA on 07/30/22, returns today following pre-op PT appointment. Pt reports pain and walking have both been improving, has been trying to do his HEP, unable to perform SLR or SAQ, unable to lift leg against gravity yet. Prior Treatments and Tests Anticipates left TKA as well after recovery from right. Treatment Goals Patient/Caregiver Goals Improve right knee function to allow him to return to prior activities such as gardening and fly fishing. PT-OP-C Subjective Start: 07/27/22 14:40 Freq: Status: Active Protocol: Document 09/16/22 10:22 SW (Rec: 09/16/22 12:02 SW [id number]) OP-PT Subjective Patient Comments Patient Comments pt reports pain is constant at a 3/10. Pain increase at night, with difficulty sleeping, getting 5 hours according to the apple watch, but total time in bed 8-9 hours a night. Pn lifting RLE up onto couch stool. PT-OP-D Balance Start: 07/27/22 14:40 Freq: Status: Active Protocol: Document 07/28/22 08:06 SAK (Rec: 07/28/22 09:01 SAK [id number]) OP-PT Balance Assessment Sitting Balance Static Sitting Balance Ability Normal Dynamic Sitting Balance Ability Normal Standing Balance Static Standing Balance Ability Good Dynamic Standing Balance Ability Fair Justice Fall Scale Copyright Permission PT-OP-E Functional Tests Start: 07/27/22 14:40 Freq: Status: Active Protocol: Document 09/02/22 10:30 DCW (Rec: 09/02/22 10:58 DCW [id number]) Functional Tests 6 Minute Walk Test Distance 873' Device Used SPC Comments 2.42 Timed Up and Go (TUG) Score 11.53 /c SPC Comments Three-trial average (12.92, 11 .45, 10.23) TUG Impairment Rating 100% Impaired (Score 20) PT-OP-G Mobility & Gait Start: 07/27/22 14:40 Freq: Status: Active Protocol: Document 09/02/22 10:30 DCW (Rec: 09/02/22 10:58 DCW [id number]) OP Gait Assessment Gait Gait Assistance Required: Standby Assistance Distance (Feet) 873 Assistive Devices Assistive Device Straight Cane Gait Deviations General Gait Pattern Antalgic,Decreased Stride Length,Decreased Feet Clearance,Wide Based Gait PT-OP-H Neuro Start: 07/27/22 14:40 Freq: Status: Active Protocol: Document 07/28/22 08:06 SAK (Rec: 07/28/22 09:01 SAK [id number]) Sensation Evaluation Gross Sensation Gross Sensation WNL PT-OP-K Range of Motion Start: 07/27/22 14:40 Freq: Status: Active Protocol: Document 09/16/22 10:22 SW (Rec: 09/16/22 12:02 SW [id number]) Knee Goniometric Range of Motion Knee Right Knee ROM WFL No Patient Position Supine Flexion Active (degrees) 114 Extension Active (degrees) 0 PT-OP-M Strength Start: 07/27/22 14:40 Freq: Status: Active Protocol: Document 09/02/22 10:30 DCW (Rec: 09/02/22 10:58 DCW [id number]) Knee Strength Knee Manual Muscle Testing Right Flexion (S2) 4+ Good+ Extension (L3) 4- Good- Left Flexion (S2) 5 Normal Extension (L3) 5 Normal PT-OP-Q Treatments Start: 07/27/22 14:40 Freq: Status: Active Protocol: Document 09/16/22 10:22 SW (Rec: 09/16/22 12:02 SW [id number]) Cardio Equipment Bicycle (Upright) Duration (Minutes) 8 Resistance 3 Seat Position 8 x2 min>7 x2 min>6 x4 min Other able complete full revolutions - 3/10 discomfort but ok for ROM benefits Therapeutic Exercises Supine Exercises SLR Supine Exercise Name SLR Side right Resistance AROM Reps/Minutes 10x Comments feels quad tension but knee ok Sitting Exercises LAQ Sitting Exercise Name LAQ Resistance AROM Equipment Used seated @ mat table Reps/Minutes 2 x 10 R knee flexion Sitting Exercise Name AROM Side right Equipment Used 21.5 black table height Reps/Minutes 5 reps/5 gravity assist stretch Comments gravity assist stretch HS curl Side right Resistance TB #2>#3 Reps/Minutes 2x10 STS Equipment Used 21 table Reps/Minutes x6 reps Comments BUE support, VC for alignment Standing Exercises Mini squats Equipment Used @ countertop Reps/Minutes x10 Comments vc for posture and knee/hip/ ankle alignment calf raises Standing Exercise Name heel/toe raises Resistance AROM Equipment Used @ countertop Reps/Minutes 2x10 Comments even WB bilateral, tall posturing over TOMER TKE Standing Exercise Name TKE Side right Resistance Lv 2 PT-OP-R Modalities Start: 07/27/22 14:40 Freq: Status: Active Protocol: Document 09/16/22 10:22 (Rec: 09/16/22 12:02 [id number]) Hot Pack/Cold Pack Treatment Cold Pack Location R Knee Patient Position Hooklying Treatment Duration (minutes) 10 Patient Tolerance Good Comments anterior/posterior R knee, calf w/ pillow case, bolster support PT-OP-T Assessment and Plan Start: 07/27/22 14:40 Freq: Status: Active Protocol: Document 09/16/22 10:22 (Rec: 09/16/22 12:02 [id number]) Physical Therapy Assessment Goals Four Impairment activity intolerance Nursing Home Goal (LTG) Patient will improve right knee function sufficient to return to his usual hobbies and recreational activities 09/14/22: has incorportated previous activities LTG Duration 10/28/22 - improving Three Impairment lack of knowledge of post-op rehab Short Term Goal (STG) Patient to complete pre-op appointment for training in HEP, use of assistive devices, education regarding post-op rehab including icing, elevating, compression stocking use STG Duration goal met Lineman Apprentice Goal (LTG) Patient to be independent and compliant with HEP and all aspects of self-care for continued knee strengthening in the home and/or community fitness program LTG Duration 10/28/22 Two Impairment gait dysfunction Lineman Apprentice Goal (LTG) Patient will be able to ambulate on level surfaces without assitive device with no limp, and ascend/descend flight of standard height stairs with alternating step pattern 09/14/22: decreased limp gait in mirror. LTG Duration 10/28/22 - improving 09/14/22 One Impairment ROM and strength impairment right knee Lineman Apprentice Goal (LTG) Improve right knee ROM to 0- 120 and strength to at least 4 +/5 09/02/22: 2?-102? AROM 09/14/22: 0-122deg AROM LTG Duration 10/28/22 progressing 09/14/22 Assessment Summary Assessment Pt made gains today in AROM R knee 0-116 post tx. Consistant 3/10 pain throughout tx today . Sit to stand cueing for knee /ankle alignment. Pt states he is trying to get better at fitting in his exercises, discussed spreading them out throughout the day instead of trying to fit them in all at one time. Physical Therapy Plan Frequency and Duration Frequency of Treatment 2x/Week Duration of treatment (weeks) 12 Plan of Care Start Date 08/02/22 Plan of Care End Date 10/25/22 Next Visit Focus/Plan Next Note Type Treatment Note Next Visit Plan Next: start 6MWT for baseline endurance SPC. continue upright bike for ROM assist, shuttle recovery, iglesia stepping, stairs 1 HR support (SPC as needed), trial sport cord if time, recheck ROM end tx. CP if wantes. POC: Continue right knee TKA rehab to achieve full AROM and strength, gait without limp or compensation on all surfaces.
--- NOTE | 2022-09-22 10:44 | PT.OTN ---
Current Diagnoses Unilateral primary osteoarthritis, unspecified knee (09/22/22) Physical Therapy Treatment Note PT-OP-A Visit Information Start: 07/27/22 14:40 Freq: Status: Active Protocol: Document 09/22/22 09:48 SP (Rec: 09/22/22 10:36 SP [id number]) Out-Patient Physical Therapy Visit Information Visit Information Visit Type Treatment Note Visit Note 0-116* R knee AROM 118-120* R knee AAROM flexion Visit Start Time 09:48 Visit Stop Time 10:44 Total Visit Minutes 56 Visit Number 16 Number of HOUSE DESIGNER Visits 3 Evaluation Information Evaluation Date 07/28/22 PT-OP-B Current Condition Start: 07/27/22 14:40 Freq: Status: Active Protocol: Document 08/02/22 15:19 DCW (Rec: 08/02/22 16:01 DCW [id number]) Current Condition History of Current Condition Onset Date 10+ years Current Complaints right TKA 07/30/22 History of Current Condition Pt underwent R TKA on 07/30/22, returns today following pre-op PT appointment. Pt reports pain and walking have both been improving, has been trying to do his HEP, unable to perform SLR or SAQ, unable to lift leg against gravity yet. Prior Treatments and Tests Anticipates left TKA as well after recovery from right. Treatment Goals Patient/Caregiver Goals Improve right knee function to allow him to return to prior activities such as gardening and fly fishing. PT-OP-C Subjective Start: 07/27/22 14:40 Freq: Status: Active Protocol: Document 09/22/22 09:48 SP (Rec: 09/22/22 10:36 SP [id number]) OP-PT Subjective Patient Comments Patient Comments Pt is 8 weeks s/p R knee reported compliant with HEP, still having pain but unsure limits. Hasn't tried walking futher outdoors with weather. PT-OP-D Balance Start: 07/27/22 14:40 Freq: Status: Active Protocol: Document 07/28/22 08:06 SAK (Rec: 07/28/22 09:01 SAK [id number]) OP-PT Balance Assessment Sitting Balance Static Sitting Balance Ability Normal Dynamic Sitting Balance Ability Normal Standing Balance Static Standing Balance Ability Good Dynamic Standing Balance Ability Fair Justice Fall Scale Copyright Permission PT-OP-E Functional Tests Start: 07/27/22 14:40 Freq: Status: Active Protocol: Document 09/02/22 10:30 DCW (Rec: 09/02/22 10:58 DCW [id number]) Functional Tests 6 Minute Walk Test Distance 873' Device Used SPC Comments 2.42 Timed Up and Go (TUG) Score 11.53 /c SPC Comments Three-trial average (12.92, 11 .45, 10.23) TUG Impairment Rating 100% Impaired (Score 20) PT-OP-G Mobility & Gait Start: 07/27/22 14:40 Freq: Status: Active Protocol: Document 09/02/22 10:30 DCW (Rec: 09/02/22 10:58 DCW [id number]) OP Gait Assessment Gait Gait Assistance Required: Standby Assistance Distance (Feet) 873 Assistive Devices Assistive Device Straight Cane Gait Deviations General Gait Pattern Antalgic,Decreased Stride Length,Decreased Feet Clearance,Wide Based Gait PT-OP-H Neuro Start: 07/27/22 14:40 Freq: Status: Active Protocol: Document 07/28/22 08:06 SAK (Rec: 07/28/22 09:01 SAK [id number]) Sensation Evaluation Gross Sensation Gross Sensation WNL PT-OP-K Range of Motion Start: 07/27/22 14:40 Freq: Status: Active Protocol: Document 09/22/22 09:48 SP (Rec: 09/22/22 10:36 SP [id number]) Knee Goniometric Range of Motion Knee Right Knee ROM WFL No Patient Position Supine Flexion Active (degrees) 116 Flexion Passive (degrees) 120 Extension Active (degrees) 0 Comments improvement 2 deg flexion AROM R knee 118-120 flexion AAROM PT-OP-M Strength Start: 07/27/22 14:40 Freq: Status: Active Protocol: Document 09/02/22 10:30 DCW (Rec: 09/02/22 10:58 DCW [id number]) Knee Strength Knee Manual Muscle Testing Right Flexion (S2) 4+ Good+ Extension (L3) 4- Good- Left Flexion (S2) 5 Normal Extension (L3) 5 Normal PT-OP-Q Treatments Start: 07/27/22 14:40 Freq: Status: Active Protocol: Document 09/22/22 09:48 SP (Rec: 09/22/22 10:36 SP [id number]) Cardio Equipment Bicycle (Upright) Duration (Minutes) 9 Gym Equipment Shuttle Recovery Unilateral Squats Details cued lateral midline, quad facillitation 2 second hold Resistance 25 R (new band), 37 L (new band) Shuttle Recovery Platform Stable Reps/Time x15 reps Bilateral Squats Details cued knee alignment, unlocked (108 deg) Resistance 50# (1new band)>62 (old bands) Shuttle Recovery Platform Stable Reps/Time x20 Sport Cord green Exercise Details fwd, bwd, lateral R and L Comments cued core fac and allow knee flexion foot clearance, slow eccentric return lateral, fwd/ bk ok. Gait Training Gait Activity no AD Description in mirror (fwd/bkwd) Device Used 0 Level of Assistance S Distance/Duration 20 ft x6 laps Treatment Focus taller posturing w/ core/ hip abd/ glut fac, normalizing gait phases Comments cued elevated center posturing , during midstance to terminal ext phase, improved almost no SB while focused stairs Device Used L HR, SPC R Level of Assistance lavon rails, SBA Distance/Duration 6 stairs x 4 Treatment Focus alternating feet Comments receiprocal gait. cued SPC with each step, slower R LE con/ eccentric, decreased stance time RLE. Manual Therapy Treatment Joint Mobilizations patella mob Joint R Direction med/lat/ sup/inferior Grade II Body Position Supine Reps/Duration 2 min Comments gentle pressure. Knee Joint R knee Direction femur P>A Knee extension, tibfemoral P>A (knee flexion) Grade II Body Position Supine Comments good feedback painfree, gentle AROM- gained 2 deg R knee flexion AAROM 118>120 deg post . Neuro Re-Education Treatment Balance Activities hurdles Details no AD: fwd, lateral Equipment 6 hurdles Reps/Duration 18 ft x3 laps Comments cued taller posturing, core fac, fwd step to>receiprocal step, improved decrease lateral SB, softer LE advancement and improved RLE stance time and decrease RLE circumduction with reps. PT-OP-R Modalities Start: 07/27/22 14:40 Freq: Status: Active Protocol: Document 09/22/22 09:48 SP (Rec: 09/22/22 10:36 SP [id number]) Hot Pack/Cold Pack Treatment Cold Pack Location R Knee Patient Position Hooklying Treatment Duration (minutes) 10 Patient Tolerance Good Comments anterior/posterior R knee, calf w/ pillow case, bolster support PT-OP-T Assessment and Plan Start: 07/27/22 14:40 Freq: Status: Active Protocol: Document 09/22/22 09:48 SP (Rec: 09/22/22 10:36 SP [id number]) Physical Therapy Assessment Goals Four Impairment activity intolerance Correction Goal (LTG) Patient will improve right knee function sufficient to return to his usual hobbies and recreational activities 09/14/22: has incorportated previous activities LTG Duration 10/28/22 - improving Three Impairment lack of knowledge of post-op rehab Short Term Goal (STG) Patient to complete pre-op appointment for training in HEP, use of assistive devices, education regarding post-op rehab including icing, elevating, compression stocking use STG Duration goal met Correction Goal (LTG) Patient to be independent and compliant with HEP and all aspects of self-care for continued knee strengthening in the home and/or community fitness program LTG Duration 10/28/22 Two Impairment gait dysfunction Scrap Yard Worker Goal (LTG) Patient will be able to ambulate on level surfaces without assitive device with no limp, and ascend/descend flight of standard height stairs with alternating step pattern 09/14/22: decreased limp gait in mirror. LTG Duration 10/28/22 - improving 09/14/22 One Impairment ROM and strength impairment right knee Correction Goal (LTG) Improve right knee ROM to 0- 120 and strength to at least 4 +/5 09/02/22: 2?-102? AROM 09/14/22: 0-122deg AROM 09/22/22: 0-116* R knee AROM 118-120* R knee AAROM flexion LTG Duration 10/28/22 progressing 09/21/22 Progress Towards Goals Progress Comments improvement 2 deg flexion AROM R knee 118-120 flexion AAROM Assessment Summary Assessment Pt improved R knee flexion and SLS time with reps during hurdles cues for slower pacing , centeral tall posture. Improved R knee eccentric flexion forward gait no AD with initiated sport cord today. Pt decreased strength with asc/descend stairs requires Heavy BUE WB on HR and SPC during RLE stance time . Pt improved decrease trunk SB with cues and mirror support for self corrections. Physical Therapy Plan Frequency and Duration Frequency of Treatment 2x/Week Duration of treatment (weeks) 12 Plan of Care Start Date 08/02/22 Plan of Care End Date 10/25/22 Therapeutic Interventions Therapeutic Interventions Balance Training,Gait Training ,Home Exercise Program,Joint Mobilizations,Manual Therapy, Neuromuscular Re-education, Patient/Caregiver Education, Self-Care/Home Management,Soft Tissue Mobilization,Taping, Therapeutic Activities, Therapeutic Exercises Modalities Cold Pack/Ice Massage,Electric Stimulation Next Visit Focus/Plan Next Note Type Treatment Note Next Visit Plan Next: start 6MWT for baseline endurance SPC. POC: Continue upright bike for ROM assist, shuttle recovery, iglesia stepping, stairs 1 HR support (SPC as needed), trial sport cord if time, recheck ROM end tx. CP if wantes. POC: Continue right knee TKA rehab to achieve full AROM and strength, gait without limp or compensation on all surfaces.
--- NOTE | 2022-09-27 12:55 | PT.OTN ---
Current Diagnoses Unilateral primary osteoarthritis, unspecified knee (09/27/22) Physical Therapy Treatment Note PT-OP-A Visit Information Start: 07/27/22 14:40 Freq: Status: Active Protocol: Document 09/27/22 12:03 SP (Rec: 09/27/22 12:50 SP [id number]) Out-Patient Physical Therapy Visit Information Visit Information Visit Type Treatment Note Visit Note SANDHYA Monteiro provided ther ex instruction to pt while under direct supervision and instruction of SINK CUTTER Jannette Visit Start Time 12:03 Visit Stop Time 12:55 Total Visit Minutes 52 Visit Number 17 Number of SINK CUTTER Visits 4 Evaluation Information Evaluation Date 07/28/22 PT-OP-B Current Condition Start: 07/27/22 14:40 Freq: Status: Active Protocol: Document 08/02/22 15:19 DCW (Rec: 08/02/22 16:01 DCW [id number]) Current Condition History of Current Condition Onset Date 10+ years Current Complaints right TKA 07/30/22 History of Current Condition Pt underwent R TKA on 07/30/22, returns today following pre-op PT appointment. Pt reports pain and walking have both been improving, has been trying to do his HEP, unable to perform SLR or SAQ, unable to lift leg against gravity yet. Prior Treatments and Tests Anticipates left TKA as well after recovery from right. Treatment Goals Patient/Caregiver Goals Improve right knee function to allow him to return to prior activities such as gardening and fly fishing. PT-OP-C Subjective Start: 07/27/22 14:40 Freq: Status: Active Protocol: Document 09/27/22 12:03 SP (Rec: 09/27/22 12:50 SP [id number]) OP-PT Subjective Patient Comments Patient Comments Pt is 8.5 weeks s/p R knee. He reports was able to do some walking outside approx 4 blocks level surfaces in [place] with not real pain can tell but leg felt tired and iced down after. Has follow up with ortho end september (3mo s/p). PT-OP-D Balance Start: 07/27/22 14:40 Freq: Status: Active Protocol: Document 07/28/22 08:06 SAK (Rec: 07/28/22 09:01 SAK [id number]) OP-PT Balance Assessment Sitting Balance Static Sitting Balance Ability Normal Dynamic Sitting Balance Ability Normal Standing Balance Static Standing Balance Ability Good Dynamic Standing Balance Ability Fair Justice Fall Scale Copyright Permission PT-OP-E Functional Tests Start: 07/27/22 14:40 Freq: Status: Active Protocol: Document 09/02/22 10:30 DCW (Rec: 09/02/22 10:58 DCW [id number]) Functional Tests 6 Minute Walk Test Distance 873' Device Used [facility] Comments 2.42 Timed Up and Go (TUG) Score 11.53 /c S[facility] Comments Three-trial average (12.92, 11 .45, 10.23) TUG Impairment Rating 100% Impaired (Score 20) PT-OP-G Mobility & Gait Start: 07/27/22 14:40 Freq: Status: Active Protocol: Document 09/02/22 10:30 DCW (Rec: 09/02/22 10:58 DCW [id number]) OP Gait Assessment Gait Gait Assistance Required: Standby Assistance Distance (Feet) 873 Assistive Devices Assistive Device Straight Cane Gait Deviations General Gait Pattern Antalgic,Decreased Stride Length,Decreased Feet Clearance,Wide Based Gait PT-OP-H Neuro Start: 07/27/22 14:40 Freq: Status: Active Protocol: Document 07/28/22 08:06 SAK (Rec: 07/28/22 09:01 SAK [id number]) Sensation Evaluation Gross Sensation Gross Sensation WNL PT-OP-K Range of Motion Start: 07/27/22 14:40 Freq: Status: Active Protocol: Document 09/27/22 12:03 SP (Rec: 09/27/22 12:50 SP [id number]) Knee Goniometric Range of Motion Knee Right Knee ROM WFL No Patient Position Supine Flexion Active (degrees) 100 Flexion Passive (degrees) 115 Extension Active (degrees) 0 Comments self use strap, no added therapist support. PT-OP-M Strength Start: 07/27/22 14:40 Freq: Status: Active Protocol: Document 09/02/22 10:30 DCW (Rec: 09/02/22 10:58 DCW [id number]) Knee Strength Knee Manual Muscle Testing Right Flexion (S2) 4+ Good+ Extension (L3) 4- Good- Left Flexion (S2) 5 Normal Extension (L3) 5 Normal PT-OP-Q Treatments Start: 07/27/22 14:40 Freq: Status: Active Protocol: Document 09/27/22 12:03 SP (Rec: 09/27/22 12:50 SP [id number]) Cardio Equipment Bicycle (Upright) Duration (Minutes) 8 Resistance 4 Seat Position 8>7>6 Other RPMs Therapeutic Exercises Standing Exercises resisted side stepping Side bilateral Resistance Y TB below knees Reps/Minutes 15 ft x2 laps Comments cued //feet Step-ups Standing Exercise Name Step-ups- ascend, descend Side right Equipment Used 4-8 outdoor curb, light use SPC support Reps/Minutes 1 min Comments pt reported little stress on R knee jt but better control eccentric flexion Gait Training Gait Activity uneven outdoor ground Description gravel incline/decline/ landscaping/uneven grass Device Used SPC Level of Assistance CGA-close SBA Distance/Duration approx 100 ft total Treatment Focus stability uneven outdoor, incline/decline, Comments cued for quad and glut facilitation to improve stance time. did better than thought I would. stairs Description ascending outdoor 7 stairs Device Used SPC on L Level of Assistance CGA Distance/Duration 6 stairs x7: 2 used SPC, 5 no UE support Treatment Focus receiprocal stepping, SPC support patterning, R quad fac stance time Comments Improved receiprocal stepping, only needed SPc initial support 2 stairs improved patterning with RLE, able complete 5 stairs little less stance time on R LE. Neuro Re-Education Treatment Balance Activities hurdles Details fwd, lateral Equipment 6 hurdles Reps/Duration 4 laps Comments toe taught x3 self recovery, improve high knee alignment ( no circumduction noted this tx 5/). PT-OP-R Modalities Start: 07/27/22 14:40 Freq: Status: Active Protocol: Document 09/27/22 12:03 SP (Rec: 09/27/22 12:50 SP [id number]) Hot Pack/Cold Pack Treatment Cold Pack Location R Knee Patient Position Hooklying Treatment Duration (minutes) 10 Patient Tolerance Good Comments anterior/posterior R knee, calf w/ pillow case PT-OP-T Assessment and Plan Start: 07/27/22 14:40 Freq: Status: Active Protocol: Document 09/27/22 12:03 SP (Rec: 09/27/22 12:50 SP [id number]) Physical Therapy Assessment Goals Four Impairment activity intolerance Mixer Machine Feeder Goal (LTG) Patient will improve right knee function sufficient to return to his usual hobbies and recreational activities ( flybitmovining). 09/14/22: has incorportated previous activities LTG Duration 10/28/22 - improving Three Impairment lack of knowledge of post-op rehab Short Term Goal (STG) Patient to complete pre-op appointment for training in HEP, use of assistive devices, education regarding post-op rehab including icing, elevating, compression stocking use STG Duration goal met Mcfp Goal (LTG) Patient to be independent and compliant with HEP and all aspects of self-care for continued knee strengthening in the home and/or community fitness program LTG Duration 10/28/22 Two Impairment gait dysfunction Mixer Machine Feeder Goal (LTG) Patient will be able to ambulate on level surfaces without assitive device with no limp, and ascend/descend flight of standard height stairs with alternating step pattern 09/14/22: decreased limp gait in mirror. 09/27/22: pt able to walk 4 blocks and states is tiring tried to me aware of no SB limp but realizes is habit. LTG Duration 10/28/22 - improving 09/27/22 One Impairment ROM and strength impairment right knee Mcfp Goal (LTG) Improve right knee ROM to 0- 120 and strength to at least 4 +/5 09/02/22: 2?-102? AROM 09/14/22: 0-122deg AROM 09/22/22: 0-116* R knee AROM 118-120* R knee AAROM flexion 09/27/22: 0-110deg AROM, 115 deg AAROM R knee flexion with use strap. LTG Duration 10/28/22 progressing 09/27/22 Assessment Summary Assessment Pt improved receiprocal stepping ascending outdoor stairs approx 6 initial 2 stairs w/ SPC on L then able to finish 5 stairs without UE support. Pt Min UE SPC support over uneven gravel incline/ decline/landscaping/grass and pleased able to perform today, wasn't sure ready. SINK CUTTER discussed use of strap for progressing AAROM R knee flexion carryover at home. Physical Therapy Plan Frequency and Duration Frequency of Treatment 2x/Week Duration of treatment (weeks) 12 Plan of Care Start Date 08/02/22 Plan of Care End Date 10/25/22 Therapeutic Interventions Therapeutic Interventions Balance Training,Gait Training ,Home Exercise Program,Joint Mobilizations,Manual Therapy, Neuromuscular Re-education, Patient/Caregiver Education, Self-Care/Home Management,Soft Tissue Mobilization,Taping, Therapeutic Activities, Therapeutic Exercises Modalities Cold Pack/Ice Massage,Electric Stimulation Next Visit Focus/Plan Next Note Type Treatment Note Next Visit Plan Check ROM and use of strap at home suggested. Next: start 6MWT for baseline endurance SPC. POC: Continue upright bike for ROM assist, shuttle recovery, iglesia stepping, stairs 1 HR support (SPC as needed), trial sport cord if time, recheck ROM end tx. CP if wantes. POC: Continue right knee TKA rehab to achieve full AROM and strength, gait without limp or compensation on all surfaces.
--- NOTE | 2022-09-30 14:44 | PT.OTN ---
Current Diagnoses Unilateral primary osteoarthritis, unspecified knee (09/30/22) Physical Therapy Treatment Note PT-OP-A Visit Information Start: 07/27/22 14:40 Freq: Status: Active Protocol: Document 09/30/22 14:00 DCW (Rec: 09/30/22 14:44 DCW [id number]) Out-Patient Physical Therapy Visit Information Visit Information Visit Type Treatment Note Visit Start Time 14:00 Visit Stop Time 14:45 Total Visit Minutes 45 Visit Number 18 Number of ASSET CARD CLERK Visits 0 Evaluation Information Evaluation Date 07/28/22 PT-OP-B Current Condition Start: 07/27/22 14:40 Freq: Status: Active Protocol: Document 08/02/22 15:19 DCW (Rec: 08/02/22 16:01 DCW [id number]) Current Condition History of Current Condition Onset Date 10+ years Current Complaints right TKA 07/30/22 History of Current Condition Pt underwent R TKA on 07/30/22, returns today following pre-op PT appointment. Pt reports pain and walking have both been improving, has been trying to do his HEP, unable to perform SLR or SAQ, unable to lift leg against gravity yet. Prior Treatments and Tests Anticipates left TKA as well after recovery from right. Treatment Goals Patient/Caregiver Goals Improve right knee function to allow him to return to prior activities such as gardening and fly fishing. PT-OP-C Subjective Start: 07/27/22 14:40 Freq: Status: Active Protocol: Document 09/30/22 14:00 DCW (Rec: 09/30/22 14:44 DCW [id number]) OP-PT Subjective Patient Comments Patient Comments I've realized there is not a 1:1 correlation between increasing Range of Motion and decreasing pain. PT-OP-D Balance Start: 07/27/22 14:40 Freq: Status: Active Protocol: Document 07/28/22 08:06 SAK (Rec: 07/28/22 09:01 SAK [id number]) OP-PT Balance Assessment Sitting Balance Static Sitting Balance Ability Normal Dynamic Sitting Balance Ability Normal Standing Balance Static Standing Balance Ability Good Dynamic Standing Balance Ability Fair Justice Fall Scale Copyright Permission PT-OP-E Functional Tests Start: 07/27/22 14:40 Freq: Status: Active Protocol: Document 09/02/22 10:30 DCW (Rec: 09/02/22 10:58 DCW [id number]) Functional Tests 6 Minute Walk Test Distance 873' Device Used [facility] [place] Comments 2.42 Timed Up and Go (TUG) Score 11.53 /c [facility] [place] Comments Three-trial average (12.92, 11 .45, 10.23) TUG Impairment Rating 100% Impaired (Score 20) PT-OP-G Mobility & Gait Start: 07/27/22 14:40 Freq: Status: Active Protocol: Document 09/02/22 10:30 DCW (Rec: 09/02/22 10:58 DCW [id number]) OP Gait Assessment Gait Gait Assistance Required: Standby Assistance Distance (Feet) 873 Assistive Devices Assistive Device Straight Cane Gait Deviations General Gait Pattern Antalgic,Decreased Stride Length,Decreased Feet Clearance,Wide Based Gait PT-OP-H Neuro Start: 07/27/22 14:40 Freq: Status: Active Protocol: Document 07/28/22 08:06 SAK (Rec: 07/28/22 09:01 SAK [id number]) Sensation Evaluation Gross Sensation Gross Sensation WNL PT-OP-K Range of Motion Start: 07/27/22 14:40 Freq: Status: Active Protocol: Document 09/27/22 12:03 SP (Rec: 09/27/22 12:50 SP [id number]) Knee Goniometric Range of Motion Knee Right Knee ROM WFL No Patient Position Supine Flexion Active (degrees) 100 Flexion Passive (degrees) 115 Extension Active (degrees) 0 Comments self use strap, no added therapist support. PT-OP-M Strength Start: 07/27/22 14:40 Freq: Status: Active Protocol: Document 09/02/22 10:30 DCW (Rec: 09/02/22 10:58 DCW [id number]) Knee Strength Knee Manual Muscle Testing Right Flexion (S2) 4+ Good+ Extension (L3) 4- Good- Left Flexion (S2) 5 Normal Extension (L3) 5 Normal PT-OP-Q Treatments Start: 07/27/22 14:40 Freq: Status: Active Protocol: Document 09/30/22 14:00 DCW (Rec: 09/30/22 14:44 DCW [id number]) Cardio Equipment Bicycle (Upright) Duration (Minutes) 8 Resistance 5 Seat Position 7 Other RPMs Therapeutic Exercises Standing Exercises resisted side stepping Side bilateral Resistance R TB around ankles Reps/Minutes 15 ft x2 laps Comments cued //feet Mini squats Standing Exercise Name Minisquats Equipment Used @ rail Reps/Minutes x10 Other Exercises BOSU Lunge Other Exercise Name BOSU Lunge Equipment Used Blue BOSU Gait Training Gait Activity uneven outdoor ground Description gravel incline/decline/ landscaping/uneven grass Device Used Trekking pole Level of Assistance CGA-close SBA Distance/Duration approx 100 ft total Treatment Focus stability uneven outdoor, incline/decline, stairs Description ascending/descending outdoor 7 stairs Device Used Trekking pole on L Level of Assistance CGA Distance/Duration 6 stairs x7 Treatment Focus receiprocal stepping, SPC support patterning, R quad fac stance time SPC Device Used Single Trekking pole Comments Focus on higher order runner, using less like a cane with UE force Neuro Re-Education Treatment Balance Activities hurdles Details fwd, lateral Equipment 6 hurdles, 5# AW Reps/Duration 4 laps Comments improve high knee alignment ( no circumduction noted this tx 09/30). PT-OP-R Modalities Start: 07/27/22 14:40 Freq: Status: Active Protocol: Document 09/27/22 12:03 SP (Rec: 09/27/22 12:50 SP [id number]) Hot Pack/Cold Pack Treatment Cold Pack Location R Knee Patient Position Hooklying Treatment Duration (minutes) 10 Patient Tolerance Good Comments anterior/posterior R knee, calf w/ pillow case PT-OP-T Assessment and Plan Start: 07/27/22 14:40 Freq: Status: Active Protocol: Document 09/30/22 14:00 DCW (Rec: 09/30/22 14:44 DCW [id number]) Physical Therapy Assessment Goals Four Impairment activity intolerance Hay Buckler Goal (LTG) Patient will improve right knee function sufficient to return to his usual hobbies and recreational activities ( flyfishing). 09/14/22: has incorportated previous activities LTG Duration 10/28/22 - improving Three Impairment lack of knowledge of post-op rehab Short Term Goal (STG) Patient to complete pre-op appointment for training in HEP, use of assistive devices, education regarding post-op rehab including icing, elevating, compression stocking use STG Duration goal met Care Home Goal (LTG) Patient to be independent and compliant with HEP and all aspects of self-care for continued knee strengthening in the home and/or community fitness program LTG Duration 10/28/22 Two Impairment gait dysfunction Care Home Goal (LTG) Patient will be able to ambulate on level surfaces without assitive device with no limp, and ascend/descend flight of standard height stairs with alternating step pattern 09/14/22: decreased limp gait in mirror. 09/27/22: pt able to walk 4 blocks and states is tiring tried to me aware of no SB limp but realizes is habit. LTG Duration 10/28/22 - improving 09/27/22 One Impairment ROM and strength impairment right knee Hay Buckler Goal (LTG) Improve right knee ROM to 0- 120 and strength to at least 4 +/5 09/02/22: 2?-102? AROM 09/14/22: 0-122deg AROM 09/22/22: 0-116* R knee AROM 118-120* R knee AAROM flexion 09/27/22: 0-110deg AROM, 115 deg AAROM R knee flexion with use strap. LTG Duration 10/28/22 progressing 09/27/22 Assessment Summary Assessment Pt did very well with change in Trekking pole height, had been using it like a cane, did well with outdoor ambulation and stairs when using pole. Showing good overall progress with right knee strength and stability. Physical Therapy Plan Frequency and Duration Frequency of Treatment 2x/Week Duration of treatment (weeks) 12 Plan of Care Start Date 08/02/22 Plan of Care End Date 10/25/22 Therapeutic Interventions Therapeutic Interventions Balance Training,Gait Training ,Home Exercise Program,Joint Mobilizations,Manual Therapy, Neuromuscular Re-education, Patient/Caregiver Education, Self-Care/Home Management,Soft Tissue Mobilization,Taping, Therapeutic Activities, Therapeutic Exercises Modalities Cold Pack/Ice Massage,Electric Stimulation Next Visit Focus/Plan Next Note Type Treatment Note Next Visit Plan Check ROM and use of strap at home suggested. Next: start 6MWT for baseline endurance SPC. POC: Continue upright bike for ROM assist, shuttle recovery, iglesia stepping, stairs 1 HR support (SPC as needed), trial sport cord if time, recheck ROM end tx. CP if wants. POC: Continue right knee TKA rehab to achieve full AROM and strength, gait without limp or compensation on all surfaces.
--- NOTE | 2022-10-04 09:55 | PT.OTN ---
Current Diagnoses Unilateral primary osteoarthritis, unspecified knee (10/04/22) Physical Therapy Treatment Note PT-OP-A Visit Information Start: 07/27/22 14:40 Freq: Status: Active Protocol: Document 10/04/22 09:04 SP (Rec: 10/04/22 09:52 SP [id number]) Out-Patient Physical Therapy Visit Information Visit Information Visit Type Treatment Note Visit Note SANDHYA Monteiro assisted with balance while under direct supervision and instruction of TOWBOAT OPERATOR Jim Visit Start Time 09:04 Visit Stop Time 09:55 Total Visit Minutes 51 Visit Number 19 Number of TOWBOAT OPERATOR Visits 1 Evaluation Information Evaluation Date 07/28/22 PT-OP-B Current Condition Start: 07/27/22 14:40 Freq: Status: Active Protocol: Document 08/02/22 15:19 DCW (Rec: 08/02/22 16:01 DCW [id number]) Current Condition History of Current Condition Onset Date 10+ years Current Complaints right TKA 07/30/22 History of Current Condition Pt underwent R TKA on 07/30/22, returns today following pre-op PT appointment. Pt reports pain and walking have both been improving, has been trying to do his HEP, unable to perform SLR or SAQ, unable to lift leg against gravity yet. Prior Treatments and Tests Anticipates left TKA as well after recovery from right. Treatment Goals Patient/Caregiver Goals Improve right knee function to allow him to return to prior activities such as gardening and fly fishing. PT-OP-C Subjective Start: 07/27/22 14:40 Freq: Status: Active Protocol: Document 10/04/22 09:04 SP (Rec: 10/04/22 09:52 SP [id number]) OP-PT Subjective Patient Comments Patient Comments Pt used a wash cloth to desensitize the scar area, per PT recommendation, and arrival today scar appears to have a colored blister on the superior 1/3 (size of pencil eraser). Otherwise, knee feels okay. PT-OP-D Balance Start: 07/27/22 14:40 Freq: Status: Active Protocol: Document 07/28/22 08:06 SAK (Rec: 07/28/22 09:01 SAK [id number]) OP-PT Balance Assessment Sitting Balance Static Sitting Balance Ability Normal Dynamic Sitting Balance Ability Normal Standing Balance Static Standing Balance Ability Good Dynamic Standing Balance Ability Fair Justice Fall Scale Copyright Permission PT-OP-E Functional Tests Start: 07/27/22 14:40 Freq: Status: Active Protocol: Document 09/02/22 10:30 DCW (Rec: 09/02/22 10:58 DCW [id number]) Functional Tests 6 Minute Walk Test Distance 873' Device Used SPC Comments 2.42 Timed Up and Go (TUG) Score 11.53 /c SPC Comments Three-trial average (12.92, 11 .45, 10.23) TUG Impairment Rating 100% Impaired (Score 20) PT-OP-G Mobility & Gait Start: 07/27/22 14:40 Freq: Status: Active Protocol: Document 09/02/22 10:30 DCW (Rec: 09/02/22 10:58 DCW [id number]) OP Gait Assessment Gait Gait Assistance Required: Standby Assistance Distance (Feet) 873 Assistive Devices Assistive Device Straight Cane Gait Deviations General Gait Pattern Antalgic,Decreased Stride Length,Decreased Feet Clearance,Wide Based Gait PT-OP-H Neuro Start: 07/27/22 14:40 Freq: Status: Active Protocol: Document 07/28/22 08:06 SAK (Rec: 07/28/22 09:01 SAK [id number]) Sensation Evaluation Gross Sensation Gross Sensation WNL PT-OP-K Range of Motion Start: 07/27/22 14:40 Freq: Status: Active Protocol: Document 10/04/22 09:04 SP (Rec: 10/04/22 09:52 SP [id number]) Knee Goniometric Range of Motion Knee Right Knee ROM WFL No Patient Position Supine Flexion Active (degrees) 126 Extension Active (degrees) 0 Comments AROM- gained 26 deg flexion PT-OP-M Strength Start: 07/27/22 14:40 Freq: Status: Active Protocol: Document 09/02/22 10:30 DCW (Rec: 09/02/22 10:58 DCW [id number]) Knee Strength Knee Manual Muscle Testing Right Flexion (S2) 4+ Good+ Extension (L3) 4- Good- Left Flexion (S2) 5 Normal Extension (L3) 5 Normal PT-OP-Q Treatments Start: 07/27/22 14:40 Freq: Status: Active Protocol: Document 10/04/22 09:04 SP (Rec: 10/04/22 09:52 SP [id number]) Gym Equipment Shuttle Recovery Unilateral Squats Details cued lateral midline, quad facillitation 2 second hold Resistance 37 L (new band) Shuttle Recovery Platform Stable Reps/Time x15 reps Bilateral Squats Details cued knee alignment, unlocked (116 deg) Resistance 62 (old bands) Shuttle Recovery Platform Stable Reps/Time x20 Shuttle Balance red clips Comments fwd: WBOS, stagger stance- wt shift and w/head turns - cued core and scap complex fac with noted improvement in stability Therapeutic Exercises Supine Exercises SLR Supine Exercise Name SLR Side right Resistance AROM Reps/Minutes 10x Comments good form Standing Exercises TKE Standing Exercise Name TKE-not performed but discussed continue for HEP Side right Resistance Lv 2 Reps/Minutes 5 SH x10 Comments confirmed HEP Step-ups Standing Exercise Name lateral step ups Side right Equipment Used 4, 6 step, rail and SPC support Reps/Minutes x10 Comments pt reported little stress on R knee jt but better control eccentric flexion Gait Training Gait Activity stairs Description ascending/descending outdoor 7 stairs Device Used Trekking pole on L Level of Assistance CGA Distance/Duration 6 stairs x7 Treatment Focus receiprocal stepping, SPC support patterning, R quad fac stance time Comments decreased stance time on LLE with UE support. Manual Therapy Treatment Soft Tissue Mobilization scar Body Location surgical scar Mobilization Type Myofascial Release Comments distal 2/3 Joint Mobilizations Knee Joint R knee Direction tibfemoral A>P (knee flexion) Grade II Body Position Hooklying Comments good feedback painfree, gentle AROM Neuro Re-Education Treatment Balance Activities hurdles Details fwd, lateral Equipment QC on side x5, SPC support Reps/Duration 2 laps Comments good alignment and stability. PT-OP-R Modalities Start: 07/27/22 14:40 Freq: Status: Active Protocol: Document 10/04/22 09:04 SP (Rec: 10/04/22 09:52 SP [id number]) Hot Pack/Cold Pack Treatment Cold Pack Location R Knee Patient Position Hooklying Treatment Duration (minutes) 10 Patient Tolerance Good Comments anterior/posterior R knee, calf w/ pillow case PT-OP-T Assessment and Plan Start: 07/27/22 14:40 Freq: Status: Active Protocol: Document 10/04/22 09:04 SP (Rec: 10/04/22 09:52 SP [id number]) Physical Therapy Assessment Goals Four Impairment activity intolerance Usp Goal (LTG) Patient will improve right knee function sufficient to return to his usual hobbies and recreational activities ( flyfishing). 09/14/22: has incorportated previous activities LTG Duration 10/28/22 - improving Three Impairment lack of knowledge of post-op rehab Short Term Goal (STG) Patient to complete pre-op appointment for training in HEP, use of assistive devices, education regarding post-op rehab including icing, elevating, compression stocking use STG Duration goal met Usp Goal (LTG) Patient to be independent and compliant with HEP and all aspects of self-care for continued knee strengthening in the home and/or community fitness program LTG Duration 10/28/22 Two Impairment gait dysfunction Usp Goal (LTG) Patient will be able to ambulate on level surfaces without assitive device with no limp, and ascend/descend flight of standard height stairs with alternating step pattern 09/14/22: decreased limp gait in mirror. 09/27/22: pt able to walk 4 blocks and states is tiring tried to me aware of no SB limp but realizes is habit. LTG Duration 10/28/22 - improving 09/27/22 One Impairment ROM and strength impairment right knee Ethnic Origins Teacher Goal (LTG) Improve right knee ROM to 0- 120 and strength to at least 4 +/5 09/02/22: 2?-102? AROM 09/14/22: 0-122deg AROM 09/22/22: 0-116* R knee AROM 118-120* R knee AAROM flexion 09/27/22: 0-110deg AROM, 115 deg AAROM R knee flexion with use strap. LTG Duration 10/28/22 progressing 09/27/22 Progress Towards Goals Progress Comments Gained 7 deg in AROM R knee on shuttle recovery against resistance (116 deg) Gained 26 deg in AROM R knee (126 deg) Assessment Summary Assessment Pt making great gains in ROM. Impoved stability on shuttle balance w/ cues for core and scapular engagement w/ ability to incorporate head turns. Improved on ascending and decending lateral stepping w/ decreased UE support w/ reps. Pt will contact physician regarding color of blister on scar post desensitization. Physical Therapy Plan Frequency and Duration Frequency of Treatment 2x/Week Duration of treatment (weeks) 12 Plan of Care Start Date 08/02/22 Plan of Care End Date 10/25/22 Therapeutic Interventions Therapeutic Interventions Balance Training,Gait Training ,Home Exercise Program,Joint Mobilizations,Manual Therapy, Neuromuscular Re-education, Patient/Caregiver Education, Self-Care/Home Management,Soft Tissue Mobilization,Taping, Therapeutic Activities, Therapeutic Exercises Modalities Cold Pack/Ice Massage,Electric Stimulation Next Visit Focus/Plan Next Note Type Treatment Note Next Visit Plan Ask feedback seeing physician for blister R Knee scar. Next: start 6MWT for baseline endurance SPC. POC: Continue upright bike for ROM assist, shuttle recovery, iglesia stepping, stairs 1 HR support (SPC as needed), trial sport cord if time, recheck ROM end tx. CP if wantes. POC: Continue right knee TKA rehab to achieve full AROM and strength, gait without limp or compensation on all surfaces.
--- NOTE | 2022-10-07 12:43 | PT.OTN ---
Current Diagnoses Unilateral primary osteoarthritis, unspecified knee (10/07/22) Physical Therapy Treatment Note PT-OP-A Visit Information Start: 07/27/22 14:40 Freq: Status: Active Protocol: Document 10/07/22 12:00 DCW (Rec: 10/07/22 12:43 DCW [id number]) Out-Patient Physical Therapy Visit Information Visit Information Visit Type Treatment Note Visit Start Time 12:00 Visit Stop Time 12:45 Total Visit Minutes 45 Visit Number 20 Number of SQL DBA Visits 0 Evaluation Information Evaluation Date 07/28/22 PT-OP-B Current Condition Start: 07/27/22 14:40 Freq: Status: Active Protocol: Document 08/02/22 15:19 DCW (Rec: 08/02/22 16:01 DCW [id number]) Current Condition History of Current Condition Onset Date 10+ years Current Complaints right TKA 07/30/22 History of Current Condition Pt underwent R TKA on 07/30/22, returns today following pre-op PT appointment. Pt reports pain and walking have both been improving, has been trying to do his HEP, unable to perform SLR or SAQ, unable to lift leg against gravity yet. Prior Treatments and Tests Anticipates left TKA as well after recovery from right. Treatment Goals Patient/Caregiver Goals Improve right knee function to allow him to return to prior activities such as gardening and fly fishing. PT-OP-C Subjective Start: 07/27/22 14:40 Freq: Status: Active Protocol: Document 10/07/22 12:00 DCW (Rec: 10/07/22 12:43 DCW [id number]) OP-PT Subjective Patient Comments Patient Comments Nothing out of the ordinary with the knee. PT-OP-D Balance Start: 07/27/22 14:40 Freq: Status: Active Protocol: Document 07/28/22 08:06 SAK (Rec: 07/28/22 09:01 SAK [id number]) OP-PT Balance Assessment Sitting Balance Static Sitting Balance Ability Normal Dynamic Sitting Balance Ability Normal Standing Balance Static Standing Balance Ability Good Dynamic Standing Balance Ability Fair Justice Fall Scale Copyright Permission PT-OP-E Functional Tests Start: 07/27/22 14:40 Freq: Status: Active Protocol: Document 09/02/22 10:30 DCW (Rec: 09/02/22 10:58 DCW [id number]) Functional Tests 6 Minute Walk Test Distance 873' Device Used [facility] Comments 2.42 Timed Up and Go (TUG) Score 11.53 /c [facility] [place] Comments Three-trial average (12.92, 11 .45, 10.23) TUG Impairment Rating 100% Impaired (Score 20) PT-OP-G Mobility & Gait Start: 07/27/22 14:40 Freq: Status: Active Protocol: Document 09/02/22 10:30 DCW (Rec: 09/02/22 10:58 DCW [id number]) OP Gait Assessment Gait Gait Assistance Required: Standby Assistance Distance (Feet) 873 Assistive Devices Assistive Device Straight Cane Gait Deviations General Gait Pattern Antalgic,Decreased Stride Length,Decreased Feet Clearance,Wide Based Gait PT-OP-H Neuro Start: 07/27/22 14:40 Freq: Status: Active Protocol: Document 07/28/22 08:06 SAK (Rec: 07/28/22 09:01 SAK [id number]) Sensation Evaluation Gross Sensation Gross Sensation WNL PT-OP-K Range of Motion Start: 07/27/22 14:40 Freq: Status: Active Protocol: Document 10/04/22 09:04 SP (Rec: 10/04/22 09:52 SP [id number]) Knee Goniometric Range of Motion Knee Right Knee ROM WFL No Patient Position Supine Flexion Active (degrees) 126 Extension Active (degrees) 0 Comments AROM- gained 26 deg flexion PT-OP-M Strength Start: 07/27/22 14:40 Freq: Status: Active Protocol: Document 09/02/22 10:30 DCW (Rec: 09/02/22 10:58 DCW [id number]) Knee Strength Knee Manual Muscle Testing Right Flexion (S2) 4+ Good+ Extension (L3) 4- Good- Left Flexion (S2) 5 Normal Extension (L3) 5 Normal PT-OP-Q Treatments Start: 07/27/22 14:40 Freq: Status: Active Protocol: Document 10/07/22 12:00 DCW (Rec: 10/07/22 12:43 DCW [id number]) Cardio Equipment Bicycle (Upright) Duration (Minutes) 6 Resistance 5 Seat Position 7 Other RPMs Gym Equipment Shuttle Recovery Unilateral Squats Details cued lateral midline, quad facillitation 2 second hold Resistance 37# (new band) Shuttle Recovery Platform Stable Reps/Time x10 reps Bilateral Squats Details cued knee alignment, unlocked (116 deg) Resistance 75# (2 old bands) Shuttle Recovery Platform Stable Reps/Time x20 Gait Training Gait Activity uneven outdoor ground Description gravel incline/decline/ landscaping/uneven grass Device Used Trekking pole Level of Assistance CGA-close SBA Distance/Duration approx 400 ft total Treatment Focus stability uneven outdoor, incline/decline, no AD Description Around loop Device Used None Level of Assistance Ind Distance/Duration 150' Treatment Focus taller posturing w/ core/ hip abd/ glut fac, normalizing gait phases stairs Description ascending/descending outdoor 7 stairs Device Used Trekking pole on L Level of Assistance CGA Distance/Duration 6 stairs x7 Treatment Focus receiprocal stepping, SPC support patterning, R quad fac stance time SPC Device Used Single Trekking pole Comments Focus on higher blood bank credit clerk, using less like a cane with UE force Manual Therapy Treatment Joint Mobilizations Knee Joint R knee Direction tibfemoral P<->A Grade III Body Position Hooklying Comments good feedback painfree, gentle AROM PT-OP-R Modalities Start: 07/27/22 14:40 Freq: Status: Active Protocol: Document 10/04/22 09:04 SP (Rec: 10/04/22 09:52 SP [id number]) Hot Pack/Cold Pack Treatment Cold Pack Location R Knee Patient Position Hooklying Treatment Duration (minutes) 10 Patient Tolerance Good Comments anterior/posterior R knee, calf w/ pillow case PT-OP-T Assessment and Plan Start: 07/27/22 14:40 Freq: Status: Active Protocol: Document 10/07/22 12:00 DCW (Rec: 10/07/22 12:43 DCW [id number]) Physical Therapy Assessment Goals Four Impairment activity intolerance Detention Goal (LTG) Patient will improve right knee function sufficient to return to his usual hobbies and recreational activities ( flyfishing). 09/14/22: has incorportated previous activities LTG Duration 10/28/22 - improving Three Impairment lack of knowledge of post-op rehab Short Term Goal (STG) Patient to complete pre-op appointment for training in HEP, use of assistive devices, education regarding post-op rehab including icing, elevating, compression stocking use STG Duration goal met Detention Goal (LTG) Patient to be independent and compliant with HEP and all aspects of self-care for continued knee strengthening in the home and/or community fitness program LTG Duration 10/28/22 Two Impairment gait dysfunction Detention Goal (LTG) Patient will be able to ambulate on level surfaces without assitive device with no limp, and ascend/descend flight of standard height stairs with alternating step pattern 09/14/22: decreased limp gait in mirror. 09/27/22: pt able to walk 4 blocks and states is tiring tried to me aware of no SB limp but realizes is habit. LTG Duration 10/28/22 - improving 09/27/22 One Impairment ROM and strength impairment right knee Horticulture/Floriculture Teacher Goal (LTG) Improve right knee ROM to 0- 120 and strength to at least 4 +/5 09/02/22: 2?-102? AROM 09/14/22: 0-122deg AROM 09/22/22: 0-116* R knee AROM 118-120* R knee AAROM flexion 09/27/22: 0-110deg AROM, 115 deg AAROM R knee flexion with use strap. LTG Duration 10/28/22 progressing 09/27/22 Assessment Summary Assessment Pt showing good progress in all areas, improving ROM, strength, gait both with and without AD, and balance. Pt would likely do well with decrease in frequency from 2x/ week to 1x/week for the next two weeks, leading to likely discharge. Physical Therapy Plan Frequency and Duration Frequency of Treatment 2x/Week Duration of treatment (weeks) 12 Plan of Care Start Date 08/02/22 Plan of Care End Date 10/25/22 Therapeutic Interventions Therapeutic Interventions Balance Training,Gait Training ,Home Exercise Program,Joint Mobilizations,Manual Therapy, Neuromuscular Re-education, Patient/Caregiver Education, Self-Care/Home Management,Soft Tissue Mobilization,Taping, Therapeutic Activities, Therapeutic Exercises Modalities Cold Pack/Ice Massage,Electric Stimulation Next Visit Focus/Plan Next Note Type Treatment Note Next Visit Plan Ask feedback seeing physician for blister R Knee scar. Next: start 6MWT for baseline endurance SPC. POC: Continue upright bike for ROM assist, shuttle recovery, iglesia stepping, stairs 1 HR support (SPC as needed), trial sport cord if time, recheck ROM end tx. CP if wantes. POC: Continue right knee TKA rehab to achieve full AROM and strength, gait without limp or compensation on all surfaces.
--- NOTE | 2022-10-13 10:45 | PT.OTN ---
Current Diagnoses Unilateral primary osteoarthritis, unspecified knee (10/13/22) Physical Therapy Treatment Note PT-OP-A Visit Information Start: 07/27/22 14:40 Freq: Status: Active Protocol: Document 10/13/22 10:04 SP (Rec: 10/13/22 11:23 SP [id number]) Out-Patient Physical Therapy Visit Information Visit Information Visit Type Treatment Note Visit Start Time 10:04 Visit Stop Time 10:45 Total Visit Minutes 41 Visit Number 21 Number of CERTIFIED PROFESSIONAL CODER Visits 1 Evaluation Information Evaluation Date 07/28/22 PT-OP-B Current Condition Start: 07/27/22 14:40 Freq: Status: Active Protocol: Document 08/02/22 15:19 DCW (Rec: 08/02/22 16:01 DCW [id number]) Current Condition History of Current Condition Onset Date 10+ years Current Complaints right TKA 07/30/22 History of Current Condition Pt underwent R TKA on 07/30/22, returns today following pre-op PT appointment. Pt reports pain and walking have both been improving, has been trying to do his HEP, unable to perform SLR or SAQ, unable to lift leg against gravity yet. Prior Treatments and Tests Anticipates left TKA as well after recovery from right. Treatment Goals Patient/Caregiver Goals Improve right knee function to allow him to return to prior activities such as gardening and fly fishing. PT-OP-C Subjective Start: 07/27/22 14:40 Freq: Status: Active Protocol: Document 10/13/22 10:04 SP (Rec: 10/13/22 11:23 SP [id number]) OP-PT Subjective Patient Comments Patient Comments Still have pain when swings leg up on ottoman in extension and WB into RLE descending stairs. He has spin bike upstairs and hasn't tried due to high middle bar. He saw physician and just before appt colorted blister popped and told small stitch was causing irritation went away, scar healed. PT-OP-D Balance Start: 07/27/22 14:40 Freq: Status: Active Protocol: Document 07/28/22 08:06 SAK (Rec: 07/28/22 09:01 SAK [id number]) OP-PT Balance Assessment Sitting Balance Static Sitting Balance Ability Normal Dynamic Sitting Balance Ability Normal Standing Balance Static Standing Balance Ability Good Dynamic Standing Balance Ability Fair Justice Fall Scale Copyright Permission PT-OP-E Functional Tests Start: 07/27/22 14:40 Freq: Status: Active Protocol: Document 09/02/22 10:30 DCW (Rec: 09/02/22 10:58 DCW [id number]) Functional Tests 6 Minute Walk Test Distance 873' Device Used SPC Comments 2.42 Timed Up and Go (TUG) Score 11.53 /c SPC Comments Three-trial average (12.92, 11 .45, 10.23) TUG Impairment Rating 100% Impaired (Score 20) PT-OP-G Mobility & Gait Start: 07/27/22 14:40 Freq: Status: Active Protocol: Document 09/02/22 10:30 DCW (Rec: 09/02/22 10:58 DCW [id number]) OP Gait Assessment Gait Gait Assistance Required: Standby Assistance Distance (Feet) 873 Assistive Devices Assistive Device Straight Cane Gait Deviations General Gait Pattern Antalgic,Decreased Stride Length,Decreased Feet Clearance,Wide Based Gait PT-OP-H Neuro Start: 07/27/22 14:40 Freq: Status: Active Protocol: Document 07/28/22 08:06 SAK (Rec: 07/28/22 09:01 SAK [id number]) Sensation Evaluation Gross Sensation Gross Sensation WNL PT-OP-K Range of Motion Start: 07/27/22 14:40 Freq: Status: Active Protocol: Document 10/04/22 09:04 SP (Rec: 10/04/22 09:52 SP [id number]) Knee Goniometric Range of Motion Knee Right Knee ROM WFL No Patient Position Supine Flexion Active (degrees) 126 Extension Active (degrees) 0 Comments AROM- gained 26 deg flexion PT-OP-M Strength Start: 07/27/22 14:40 Freq: Status: Active Protocol: Document 09/02/22 10:30 DCW (Rec: 09/02/22 10:58 DCW [id number]) Knee Strength Knee Manual Muscle Testing Right Flexion (S2) 4+ Good+ Extension (L3) 4- Good- Left Flexion (S2) 5 Normal Extension (L3) 5 Normal PT-OP-Q Treatments Start: 07/27/22 14:40 Freq: Status: Active Protocol: Document 10/13/22 10:04 SP (Rec: 10/13/22 11:23 SP [id number]) Cardio Equipment Bicycle (Upright) Duration (Minutes) 6 Resistance 5 Seat Position 7 Other ed use spin bike home- discussed strategies on/off Gym Equipment Shuttle Recovery Unilateral Squats Details cued lateral midline, quad facillitation 2 second hold Resistance 37# (new>old band R 10/13) Shuttle Recovery Platform Stable Reps/Time x10 reps Bilateral Squats Details cued knee alignment, unlocked (123 deg) Resistance 75# (2 old bands) Shuttle Recovery Platform Stable Reps/Time x20 Therapeutic Exercises Sitting Exercises LAQ Sitting Exercise Name LAQ- REviewed and discussed continue as HEP Resistance AROM Equipment Used chair, 1/2 foam roll under distal femur Reps/Minutes 10x 5 SH Comments less sub patella pressure post Ktaping R knee flexion Sitting Exercise Name Lift R LE flexion place on chair into ext, reverse back on floor Side right Equipment Used 18 height chair Reps/Minutes 5 reps Comments UE little support lat 2 reps due to tiring, no pain. Standing Exercises iglesia stepping Standing Exercise Name repeated step over onto uneven surface/pavement Resistance curb 4 depth/height Reps/Minutes x10 Comments improved foot clearance, cued elongation post/core fac Gait Training Gait Activity uneven outdoor ground Description gravel incline/decline/ landscaping/uneven grass, uneven pavement Device Used carrying SPC Level of Assistance CGA-close SBA Distance/Duration 10 min total Treatment Focus stability uneven outdoor, incline/decline, Comments -uneven grass: Fwd/Bwd/Lateral -landscaping 1 trek pole as needed on L, R foot caught guzman root LOB but regained w/ SPC and brief CGA. - no AD Description dynamic gait: head turns, fwd, bwd Device Used carrying SPC Level of Assistance Ind Distance/Duration 400 ft Treatment Focus taller posturing w/ core/ hip abd/ glut fac, normalizing gait phases Comments Improved R glut fac post uneven f/b/lateral stepping. stairs Description ascending/descending outdoor 7 stairs Device Used R HR 5 stairs, SPC LUE 2 step Level of Assistance CGA Distance/Duration 6 stairs x7 Treatment Focus receiprocal stepping, SPC support patterning, R quad fac stance time Comments decreased stance time RLE during LLE advancement. Manual Therapy Treatment Taping right knee Body Location quad med/lat patella tib. Treatment Focus patella support Type of Tape kinesiotape Skin Inspection intact normal color/ texture Comments 1 V strips: tib plateau to med /lat mid quad superior patella , anchored mid quad superior patella med/lat patella and straight down side of previous anchored taping. Good feedback support to knee reported. PT-OP-R Modalities Start: 07/27/22 14:40 Freq: Status: Active Protocol: Document 10/04/22 09:04 SP (Rec: 10/04/22 09:52 SP [id number]) Hot Pack/Cold Pack Treatment Cold Pack Location R Knee Patient Position Hooklying Treatment Duration (minutes) 10 Patient Tolerance Good Comments anterior/posterior R knee, calf w/ pillow case PT-OP-T Assessment and Plan Start: 07/27/22 14:40 Freq: Status: Active Protocol: Document 10/13/22 10:04 SP (Rec: 10/13/22 11:23 SP [id number]) Physical Therapy Assessment Goals Four Impairment activity intolerance Mcfp Goal (LTG) Patient will improve right knee function sufficient to return to his usual hobbies and recreational activities ( flyfishing). 09/14/22: has incorportated previous activities LTG Duration 10/28/22 - improving Three Impairment lack of knowledge of post-op rehab Short Term Goal (STG) Patient to complete pre-op appointment for training in HEP, use of assistive devices, education regarding post-op rehab including icing, elevating, compression stocking use STG Duration goal met Global Implementation Manager Goal (LTG) Patient to be independent and compliant with HEP and all aspects of self-care for continued knee strengthening in the home and/or community fitness program LTG Duration 10/28/22 Two Impairment gait dysfunction Mcfp Goal (LTG) Patient will be able to ambulate on level surfaces without assitive device with no limp, and ascend/descend flight of standard height stairs with alternating step pattern 09/14/22: decreased limp gait in mirror. 09/27/22: pt able to walk 4 blocks and states is tiring tried to me aware of no SB limp but realizes is habit. LTG Duration 10/28/22 - improving 09/27/22 One Impairment ROM and strength impairment right knee Global Implementation Manager Goal (LTG) Improve right knee ROM to 0- 120 and strength to at least 4 +/5 09/02/22: 2?-102? AROM 09/14/22: 0-122deg AROM 09/22/22: 0-116* R knee AROM 118-120* R knee AAROM flexion 09/27/22: 0-110deg AROM, 115 deg AAROM R knee flexion with use strap. LTG Duration 10/28/22 progressing 09/27/22 Assessment Summary Assessment Pt improved decrease SB wt shift gait with R glut drive post uneven multidirectional stepping on grass/ slight incline. Continues decrease stance time and eccentric flexion R knee descending stairs RUE support. Tiring placing RLE on/off opp chair knee flexion lift fwd/place reverse to rest vs circumduction sub patella pain lessened. Improved 123 deg assisted flexion on shuttle recovery today. Physical Therapy Plan Frequency and Duration Frequency of Treatment 2x/Week Duration of treatment (weeks) 12 Plan of Care Start Date 08/02/22 Plan of Care End Date 10/25/22 Therapeutic Interventions Therapeutic Interventions Balance Training,Gait Training ,Home Exercise Program,Joint Mobilizations,Manual Therapy, Neuromuscular Re-education, Patient/Caregiver Education, Self-Care/Home Management,Soft Tissue Mobilization,Taping, Therapeutic Activities, Therapeutic Exercises Modalities Cold Pack/Ice Massage,Electric Stimulation Next Visit Focus/Plan Next Note Type Treatment Note Next Visit Plan Continue descend stair mgt, on /off chair placement. Uneven surface stability. POC: Continue upright bike for ROM assist, shuttle recovery, iglesia stepping, stairs 1 HR support (SPC as needed), trial sport cord if time, recheck ROM end tx. CP if wantes. POC: Continue right knee TKA rehab to achieve full AROM and strength, gait without limp or compensation on all surfaces.
--- NOTE | 2022-10-21 12:32 | PT.OTN ---
Current Diagnoses Unilateral primary osteoarthritis, unspecified knee (10/21/22) Physical Therapy Treatment Note PT-OP-A Visit Information Start: 07/27/22 14:40 Freq: Status: Active Protocol: Document 10/21/22 12:00 DCW (Rec: 10/21/22 12:32 DCW [id number]) Out-Patient Physical Therapy Visit Information Visit Information Visit Type Discharge Summary Visit Start Time 12:00 Visit Stop Time 12:30 Total Visit Minutes 30 Visit Number 22 Number of PLASTERER JOURNEYMAN Visits 0 Evaluation Information Evaluation Date 07/28/22 PT-OP-B Current Condition Start: 07/27/22 14:40 Freq: Status: Active Protocol: Document 08/02/22 15:19 DCW (Rec: 08/02/22 16:01 DCW [id number]) Current Condition History of Current Condition Onset Date 10+ years Current Complaints right TKA 07/30/22 History of Current Condition Pt underwent R TKA on 07/30/22, returns today following pre-op PT appointment. Pt reports pain and walking have both been improving, has been trying to do his HEP, unable to perform SLR or SAQ, unable to lift leg against gravity yet. Prior Treatments and Tests Anticipates left TKA as well after recovery from right. Treatment Goals Patient/Caregiver Goals Improve right knee function to allow him to return to prior activities such as gardening and fly fishing. PT-OP-C Subjective Start: 07/27/22 14:40 Freq: Status: Active Protocol: Document 10/21/22 12:00 DCW (Rec: 10/21/22 12:32 DCW [id number]) OP-PT Subjective Patient Comments Patient Comments Pt reports he is doing well, ready for discharge. Saw his surgeon yesterday, she is happy with how everything looks. PT-OP-D Balance Start: 07/27/22 14:40 Freq: Status: Active Protocol: Document 07/28/22 08:06 SAK (Rec: 07/28/22 09:01 SAK [id number]) OP-PT Balance Assessment Sitting Balance Static Sitting Balance Ability Normal Dynamic Sitting Balance Ability Normal Standing Balance Static Standing Balance Ability Good Dynamic Standing Balance Ability Fair Justice Fall Scale Copyright Permission PT-OP-E Functional Tests Start: 07/27/22 14:40 Freq: Status: Active Protocol: Document 10/21/22 12:00 DCW (Rec: 10/21/22 12:20 DCW [id number]) Functional Tests 6 Minute Walk Test Distance 1460' Device Used None Comments 4.06 ft/sec Timed Up and Go (TUG) Score 9.19 /s AD Comments Three-trial average (8.95, 9. 79, 8.85) TUG Impairment Rating 0% Impaired (Score 10) PT-OP-G Mobility & Gait Start: 07/27/22 14:40 Freq: Status: Active Protocol: Document 10/21/22 12:00 DCW (Rec: 10/21/22 12:20 DCW [id number]) OP Gait Assessment Gait Gait Assistance Required: Standby Assistance Distance (Feet) 1,460 Assistive Devices Assistive Device None Orthotic/Prosthetic Devices or Brace: No PT-OP-H Neuro Start: 07/27/22 14:40 Freq: Status: Active Protocol: Document 07/28/22 08:06 SAK (Rec: 07/28/22 09:01 SAK [id number]) Sensation Evaluation Gross Sensation Gross Sensation WNL PT-OP-K Range of Motion Start: 07/27/22 14:40 Freq: Status: Active Protocol: Document 10/21/22 12:00 DCW (Rec: 10/21/22 12:20 DCW [id number]) Knee Goniometric Range of Motion Knee Right Knee ROM WFL Yes Patient Position Supine Flexion Active (degrees) 123 Extension Active (degrees) 0 PT-OP-M Strength Start: 07/27/22 14:40 Freq: Status: Active Protocol: Document 10/21/22 12:00 DCW (Rec: 10/21/22 12:20 DCW [id number]) Knee Strength Knee Manual Muscle Testing Right Flexion (S2) 5 Normal Extension (L3) 5 Normal Left Flexion (S2) 5 Normal Extension (L3) 5 Normal PT-OP-Q Treatments Start: 07/27/22 14:40 Freq: Status: Active Protocol: Document 10/21/22 12:00 DCW (Rec: 10/21/22 12:32 DCW [id number]) Gait Training Gait Activity stairs Description ascending/descending Device Used No railing Level of Assistance CGA Distance/Duration 6 stairs x7 Treatment Focus receiprocal stepping Neuro Re-Education Treatment Other Activities Testing Comments 6MWT, TUG, MMT, ROM PT-OP-R Modalities Start: 07/27/22 14:40 Freq: Status: Active Protocol: Document 10/04/22 09:04 SP (Rec: 10/04/22 09:52 SP [id number]) Hot Pack/Cold Pack Treatment Cold Pack Location R Knee Patient Position Hooklying Treatment Duration (minutes) 10 Patient Tolerance Good Comments anterior/posterior R knee, calf w/ pillow case PT-OP-T Assessment and Plan Start: 07/27/22 14:40 Freq: Status: Active Protocol: Document 10/21/22 12:00 DCW (Rec: 10/21/22 12:32 DCW [id number]) Physical Therapy Assessment Impairments Impairments Activity Tolerance,Balance, Functional Activities, Functional Mobility,Gait,Pain, ROM,Strength,Tone Goals Four Impairment activity intolerance Artificial Limb Fitter Goal (LTG) Patient will improve right knee function sufficient to return to his usual hobbies and recreational activities ( flyfishing). 09/14/22: has incorportated previous activities LTG Duration Met Three Impairment lack of knowledge of post-op rehab Short Term Goal (STG) Patient to complete pre-op appointment for training in HEP, use of assistive devices, education regarding post-op rehab including icing, elevating, compression stocking use STG Duration goal met Nursing Home Goal (LTG) Patient to be independent and compliant with HEP and all aspects of self-care for continued knee strengthening in the home and/or community fitness program LTG Duration Met Two Impairment gait dysfunction Artificial Limb Fitter Goal (LTG) Patient will be able to ambulate on level surfaces without assitive device with no limp, and ascend/descend flight of standard height stairs with alternating step pattern 09/14/22: decreased limp gait in mirror. 09/27/22: pt able to walk 4 blocks and states is tiring tried to me aware of no SB limp but realizes is habit. LTG Duration Met One Impairment ROM and strength impairment right knee Artificial Limb Fitter Goal (LTG) Improve right knee ROM to 0- 120 and strength to at least 4 +/5 09/02/22: 2?-102? AROM 09/14/22: 0-122deg AROM 09/22/22: 0-116* R knee AROM 118-120* R knee AAROM flexion 09/27/22: 0-110deg AROM, 115 deg AAROM R knee flexion with use strap. LTG Duration Met Progress Towards Goals Progress Towards Goals Goals Met Assessment Summary Assessment Pt has met all goals, feels great with current level of function, agrees that discharge from skilled therapy is appropriate at this time. Admits he will probably be undergoing a left TKA within the next 3-6 months, understands continuing with current HEP will be beneficial for recovery. Physical Therapy Plan Frequency and Duration Frequency of Treatment 2x/Week Duration of treatment (weeks) 12 Plan of Care Start Date 08/02/22 Plan of Care End Date 10/25/22 Therapeutic Interventions Therapeutic Interventions Balance Training,Gait Training ,Home Exercise Program,Joint Mobilizations,Manual Therapy, Neuromuscular Re-education, Patient/Caregiver Education, Self-Care/Home Management,Soft Tissue Mobilization,Taping, Therapeutic Activities, Therapeutic Exercises Modalities Cold Pack/Ice Massage,Electric Stimulation Discharge Physical Therapy Discharge Reasons Goals Met Next Visit Focus/Plan Next Note Type Discharge Summary
== END 2022-10-22 10:07 | disposition home or self-care (01) ==
LOC: PHYS 12:00
PROVIDERS: Absent Provider Internal Medicine; Family Provider Internal Medicine; PCP Internal Medicine; Referring Provider Orthopaedic Surgery Foot and Ankle Surgery; Visit Provider Orthopaedic Surgery Foot and Ankle Surgery
DX: M17.10 Unilateral primary osteoarthritis, unspecified knee (principal)
CPT/HCPCS: 97010; 97014; 97032; 97110; 97112; 97116; 97140; 97161; 97164; 97530; 97535; G0283

== ENCOUNTER → 2023-02-17 15:15 | Outpatient (CLI) | payer MEDICARE, BC, SELFPAY ==
[2023-02-17 15:40] LABS: Add Manual Diff / Slide Review NO; Basophils Absolute Auto 100 /uL (0-100); Basophils Percent Auto 1.2 % (0-2); Eosinophils Absolute Auto 200 /uL (0-450); Eosinophils Percent Auto 3.4 % (2-4); Hematocrit 40.5 % (41-53); Hemoglobin 13.6 g/dL (13.5-17.5); Lymphocytes Absolute Auto 1400 /uL (1100-4500); Lymphocytes Percent Auto 21.2 % (25-40); Mean Corpuscular HGB Conc 33.5 % (30-36); Mean Corpuscular Hemoglobin 31.5 PG (26-34); Mean Corpuscular Volume 93.9 fL (80-100); Monocytes Absolute Auto 600 /uL (0-900); Monocytes Percent Auto 8.8 % (3-14); Neutrophils Absolute Auto 4300 /uL (1500-7000); Neutrophils Percent Auto 65.4 % (50-75); Platelet Count 210 X10^3/uL (150-400); Red Blood Cell Count 4.32 X10^6/uL (4.5-5.9); Red Cell Distribution Width 14.1 % (11.6-14.8); White Blood Cell Count 6.6 X10^3/uL (4.5-11.0)
[2023-02-17 16:07] LABS: Alanine Aminotransferase 32 IU/L (<50); Albumin 4.3 g/dL (3.5-5.0); Albumin Globulin Ratio 1.5 (1.0-2.8); Alkaline Phosphatase 79 U/L (38-126); Aspartate Aminotransferase 30 IU/L (17-59); BUN Creatinine Ratio 22.8 (6-22); Bilirubin Total 0.5 mg/dL (0.2-1.3); Blood Urea Nitrogen 21 mg/dL (9-20); Calcium 10.4 mg/dL (8.4-10.2); Carbon Dioxide 28 mmol/L (22-32); Chloride 101 mmol/L (98-107); Estimated Glomerular Filt Rate > 60 mL/min (>60); Globulin 2.9 g/dL (1.7-4.1); Glucose 112 mg/dL (80-110); HEMOLYSIS < 15 (0-50); Sodium 138 mmol/L (137-145); Total Protein 7.2 g/dL (6.3-8.2)
[2023-02-17 16:35] LABS: TSH w/ Reflex to FT4 2.56 uIU/mL (0.47-4.68)
== END ==
PROVIDERS: PCP Internal Medicine; Referring Provider Internal Medicine; Visit Provider Internal Medicine
DX: E78.2 Mixed hyperlipidemia (principal); R42 Dizziness and giddiness; E83.52 Hypercalcemia
CPT/HCPCS: 36415; 80053; 84443; 85025

== ENCOUNTER 2023-07-08 10:30 | Outpatient (RCR) | payer MEDICARE, BC, SELFPAY ==
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
--- NOTE | 2023-04-14 18:02 | PT.OPPOC ---
Physical, Occupational & Speech Therapy At [facility] Current Diagnoses Other disorders of vestibular function, right ear (04/14/23) Labyrinthitis, right ear (04/14/23) Dizziness and giddiness (04/14/23) Visit Care Team Role Provider Type Juan Carlos Cesar MD Family Provider Physician Primary Care Provider Specialty: Internal Medicine Address: [address] [place] [address], [address], [address] Email: [email or web address] Rick Nobel MD Attending Provider Physician Referring Provider Specialty: Ear, Nose, Throat Address: [address] [place] [address], [id number] Email: [email or web address] Plan Of Care PT-OP-T Assessment and Plan Start: 04/14/23 17:36 Freq: Status: Active Protocol: Document 04/14/23 10:30 DCW (Rec: 04/14/23 18:01 DCW [id number]) Physical Therapy Assessment Rehab Potential Rehabilitation Potential Good Evaluation Complexity Number of Personal Factors/Comorbidities 1-2 Number of Body Systems Impaired 1-2 Clinical Presentation at Evaluation Unstable Impairments Impairments Balance,Functional Activities, Functional Mobility,Vestibular Goals Two Impairment Pt has difficulty maintaining path while walking down the sidewalk [facility] Goal (LTG) Pt to report ability to walk down sidewalk without path deviation 100% of the time over one full week LTG Duration 06/14/22 One Impairment Pt presents with a five line degradation during DVA testing Frame Tender Goal (LTG) Pt to improve DVA to at most a 3 line degradation to demonstrate improvement in ability to perform gaze stabilization LTG Duration 06/14/22 Assessment Summary Assessment Pt presents with signs and symptoms of referring diagnosis of right-sided unilateral vestibular hypofunction. Due to additional complication of recent decline in right-sided hearing ability, dysfunction likely caused by R Labrynthitis. Pt currently having difficulty with quicker head movements, especially when looking up, occasionally while driving. Pt should benefit from skilled vestibular therapy focusing on adaptation and habituation exercises, oculomotor strengthening, and VOR/VSR training. Physical Therapy Plan Frequency and Duration Frequency of Treatment 2x/Week Plan of Care Start Date 04/14/23 Plan of Care End Date 06/14/23 Therapeutic Interventions Therapeutic Interventions Balance Training,Coordination Training,Gait Training,Home Exercise Program,Neuromuscular Re-education,Patient/ Caregiver Education,Self-Care/ Home Management,Therapeutic Activities,Therapeutic Exercises,Vestibular Rehabilitation Next Visit Focus/Plan Next Note Type Treatment Note Next Visit Plan VOR, Habituation/adaptation exercises Plan of Care Dates Plan of Care Start Date 04/14/23 Plan of Care End Date 06/14/23 Electronically Signed by: Vince Carter, PT 04/14/23 [id number] If you are in agreement with this Plan of Care, please return a signed and dated copy. I have reviewed this Plan of Care and certify that the skilled therapy services above are required to meet the patient?s needs. Physician Signature Date Printed Name and Credentials Clinical Instructor Signature Printed Name and Credentials
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
--- NOTE | 2023-07-06 11:25 | PT.OPPOC ---
Physical, Occupational & Speech Therapy At [facility] Current Diagnoses Other disorders of vestibular function, right ear (07/06/23) Labyrinthitis, right ear (07/06/23) Dizziness and giddiness (07/06/23) Visit Care Team Role Provider Type Juan Carlos Cesar MD Family Provider Physician Primary Care Provider Specialty: Internal Medicine Address: [address] [place] [address], [address], [address] Email: [email or web address] Rick Noble MD Attending Provider Physician Referring Provider Specialty: Ear, Nose, Throat Address: [address] [place] [address], [id number] Email: [email or web address] Plan Of Care PT-OP-T Assessment and Plan Start: 04/14/23 17:36 Freq: Status: Active Protocol: Document 07/06/23 10:35 DCW (Rec: 07/06/23 11:25 DCW [id number]) Physical Therapy Assessment Impairments Impairments Balance,Functional Activities, Functional Mobility,Vestibular Goals Two Impairment Pt has difficulty maintaining path while walking down the sidewalk Correction Goal (LTG) Pt to report ability to walk down sidewalk without path deviation 100% of the time over one full week LTG Duration 09/04/23 One Impairment Pt presents with a five line degradation during DVA testing [employer] Professor Goal (LTG) Pt to improve DVA to at most a 3 line degradation to demonstrate improvement in ability to perform gaze stabilization LTG Duration 09/04/23 Assessment Summary Assessment Positional testing continues to be negative, however pt did report some new subjective symptoms today that are strongly suggestive of BPPV. Pt noted rotational vertigo lasting <60 seconds last night when rolling onto his left side. Between pt's subjective reports and the fact that pt's with other inner ear disorders are more likely to suffer from BPPV, a modified Adelso maneuver was performed. Unfortunately, due to pt's negative positional testing, CRM had to go by subjective reports (left side) and most likely affected canal ( posterior). Pt did note feeling better/more stable standing after second Adelso. Will return for follow-up on Tuesday to determine if CRM has improved stability and/or decreased symptoms. Physical Therapy Plan Frequency and Duration Frequency of Treatment 2x/Week Plan of Care Start Date 07/06/23 Plan of Care End Date 09/04/23 Therapeutic Interventions Therapeutic Interventions Balance Training,Coordination Training,Gait Training,Home Exercise Program,Neuromuscular Re-education,Patient/ Caregiver Education,Self-Care/ Home Management,Therapeutic Activities,Therapeutic Exercises,Vestibular Rehabilitation Next Visit Focus/Plan Next Note Type Treatment Note Next Visit Plan VOR, Habituation/adaptation exercises Plan of Care Dates Plan of Care Start Date 07/06/23 Plan of Care End Date 09/04/23 Electronically Signed by: Vince Carter, PT 07/06/23 1315 If you are in agreement with this Plan of Care, please return a signed and dated copy. I have reviewed this Plan of Care and certify that the skilled therapy services above are required to meet the patient?s needs. Physician Signature Date Printed Name and Credentials Clinical Instructor Signature Printed Name and Credentials
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
== END 2023-07-12 14:50 | disposition home or self-care (01) ==
LOC: PHYS 10:30
PROVIDERS: Family Provider Internal Medicine; PCP Internal Medicine; Referring Provider Otolaryngology; Visit Provider Otolaryngology
DX: H81.8X1 Other disorders of vestibular function, right ear (principal); H83.01 Labyrinthitis, right ear
CPT/HCPCS: 95992; 97112; 97140; 97161

== ENCOUNTER → 2023-09-08 09:08 | Outpatient (CLI) | payer MEDICARE, BC, SELFPAY ==
--- NOTE | 2023-09-08 09:11 | DI.MRI.S_ITS ---
PROCEDURE: MR BRAIN (IAC) WWO CON INDICATIONS: Sudden idiopathic hearing loss, bilateral TECHNIQUE: Noncontrast sagittal T1 spin echo, axial FLAIR, axial gradient echo, axial diffusion and ADC through the brain. Axial thin-slice 3D CISS, coronal TruFISP, axial T1 spin echo with fat saturation through the internal auditory canals. After the administration of contrast, thin slice axial and coronal T1 spin echo with fat saturation through the internal auditory canals, and axial and coronal and sagittal T1 spin echo with fat saturation through the brain. COMPARISON: None. FINDINGS: Image quality: Excellent. Cerebellopontine angles: No cerebellopontine angle masses. Inner ear structures appear normally formed. No suspicious enhancement in the internal auditory canal or along the course of the 7th cranial nerve. CSF spaces: Ventricles are normal in size and shape. No extra-axial fluid collections. Basal cisterns are patent. Brain: No intracranial bleeds or mass effects. Stacy-white matter interface is intact. No abnormal intracranial enhancement. Mild age-related global volume loss and chronic microvascular ischemic changes. Diffusion weighted images demonstrate no acute ischemic insults. Brainstem appears normal. Normal intravascular flow voids are present. Skull and face: Calvarial marrow signal is normal. Orbits appear normal. Sinuses: Sinuses and mastoids are clear. IMPRESSION: No cause for patient's symptoms is identified. The internal auditory canals and cerebellopontine angles are normal in appearance. No abnormal enhancement or masses. Mild age-related global volume loss and chronic microvascular ischemic changes. No acute intracranial abnormalities. Dictated by: Prince Anderson M.D. on 09/08/2023 at 11:09 Approved by: Prince Anderson M.D. on 09/08/2023 at 11:36
== END ==
LOC: MRI 09:09
PROVIDERS: Family Provider Internal Medicine; PCP Internal Medicine; Referring Provider Otolaryngology; Visit Provider Otolaryngology
DX: H81.8X1 Other disorders of vestibular function, right ear (principal); H91.23 Sudden idiopathic hearing loss, bilateral
CPT/HCPCS: 70553; A9579

== ENCOUNTER → 2024-06-21 07:53 | Outpatient (CLI) | payer MEDICARE, BC, SELFPAY ==
[2024-06-21 09:06] LABS: Add Manual Diff / Slide Review NO; Basophils Absolute Auto 100 /uL (0-100); Basophils Percent Auto 1.1 % (0-2); Eosinophils Absolute Auto 300 /uL (0-450); Eosinophils Percent Auto 5.6 % (2-4); Hematocrit 40.3 % (41-53); Hemoglobin 13.4 g/dL (13.5-17.5); Lymphocytes Absolute Auto 1500 /uL (1100-4500); Lymphocytes Percent Auto 27.9 % (25-40); Mean Corpuscular HGB Conc 33.2 % (30-36); Mean Corpuscular Hemoglobin 31.8 PG (26-34); Mean Corpuscular Volume 95.6 fL (80-100); Monocytes Absolute Auto 500 /uL (0-900); Monocytes Percent Auto 8.2 % (3-14); Neutrophils Absolute Auto 3200 /uL (1500-7000); Neutrophils Percent Auto 57.2 % (50-75); Platelet Count 170 X10^3/uL (150-400); Red Blood Cell Count 4.21 X10^6/uL (4.5-5.9); Red Cell Distribution Width 13.5 % (11.6-14.8); White Blood Cell Count 5.5 X10^3/uL (4.5-11.0)
[2024-06-21 09:48] LABS: Alanine Aminotransferase 22 IU/L (<50); Albumin 4.3 g/dL (3.5-5.0); Alkaline Phosphatase 70 U/L (38-126); Aspartate Aminotransferase 29 IU/L (17-59); BUN Creatinine Ratio 26.7 (6-22); Bilirubin Total 0.8 mg/dL (0.2-1.3); Blood Urea Nitrogen 24 mg/dL (9-20); Carbon Dioxide 28 mmol/L (22-32); Chloride 103 mmol/L (98-107); Cholesterol 162 mg/dL (140-199); Estimated Glomerular Filt Rate > 60 mL/min (>60); Globulin 2.1 g/dL (1.7-4.1); Glucose 100 mg/dL (80-110); HDL Cholesterol 74 mg/dL (40-60); HEMOLYSIS < 15 (0-50); LDL Cholesterol Calculated 74 mg/dL (<100); Potassium 4.1 mmol/L (3.4-5.1); Sodium 138 mmol/L (137-145); Total Protein 6.4 g/dL (6.3-8.2); Triglycerides 71 mg/dL (35-150)
[2024-06-25 12:11] LABS: Testosterone Free 0.62 ng/dL (5.00-21.00); Testosterone Total 22.2 ng/dL (264.0-916.0)
== END ==
PROVIDERS: Family Provider Internal Medicine; PCP Internal Medicine; Referring Provider Internal Medicine; Visit Provider Internal Medicine
DX: E78.2 Mixed hyperlipidemia (principal); E29.1 Testicular hypofunction; D64.9 Anemia, unspecified
CPT/HCPCS: 80053; 80061; 84402; 84403; 85025

== ENCOUNTER → 2024-06-28 14:40 | Outpatient (CLI) | payer MEDICARE, BC, SELFPAY ==
--- NOTE | 2024-06-28 14:42 | DI.RAD.S_ITS ---
PROCEDURE: XR DEXA AXIAL SKELETON INDICATIONS: hypogonadism COMPARISON: None. FINDINGS: Lumbar Spine: Bone mineral density 0.81 g/cm2, T score -0.5, osteopenia. Left Femoral Neck: Bone mineral density 0.720 g/cm2, T score -1 2. Left Hip: Bone mineral density 0.880 g/cm2, T score -0.5, normal. Fracture Risk Calculation (when applicable): 10-year fracture risk of a major osteoporotic fracture 6.8 percent and of a hip fracture 2.2 percent. (T score greater or equal to -1.0 to: NORMAL) (T score from -1.1 to -2.4: OSTEOPENIA) (T score less than or equal to -2.5: OSTEOPOROSIS) IMPRESSION: Osteopenia Follow-up guidelines as follows: Osteoporosis: Consider a repeat DEXA and Vertebral Fracture Assessment (VFA) exam in 2 years or sooner if medically necessary, to reassess this patient's status. Osteopenia: Consider a repeat DEXA in 2-3 years to reassess this patient's status, or if there is a new clinical indication. Normal: Consider a repeat DEXA in 5 years or sooner, or if there is a new clinical indication. All treatment decisions require clinical judgment and consideration of individual patient factors, including patient preferences, comorbidities, previous drug use, risk factors not captured in the FRAX model (e.g., frailty, falls, vitamin D deficiency, increased bone turnover, interval significant decline in bone density ) and possible under- or over-estimation of fracture risk by FRAX. In addition, the NOF Guide recommends that FDA-approved medical therapies be considered in postmenopausal women and men age >= 50 years with a: * Hip or vertebral (clinical or morphometric) fracture * T-score of <=-2.5 at the spine or hip * Ten-year fracture probability by FRAX of >= 3% for hip fracture or >=20% for major osteoporotic fracture. Approved by: Vic Rudolph M.D. on 07/01/2024 at 7:56
== END ==
PROVIDERS: Family Provider Internal Medicine; PCP Internal Medicine; Referring Provider Internal Medicine; Visit Provider Internal Medicine
DX: M85.89 Other specified disorders of bone density and structure, multiple sites (principal)
CPT/HCPCS: 77080